=== PATIENT | female | born 1965 | race African-American/Black ===

== ENCOUNTER 2016-06-30 17:53 | Emergency (ER) | payer MEDICARE, OTHER ==
[~2016-06-30] VITALS: Ht 152.4 cm; Wt 183.7 kg
[~2016-06-30 17:53] MED LIST: ALPR1TAB6 PO; ATOR20TA58 PO; CHOL500050 PO; CIPR500T94 PO; CLON1PAT2 TD; DICL50TA4 PO; DULO30CA2 PO; ESTR0.62 PO; FERR325T31 PO; FLUT1DIS3 IH; HYDR-2679 PO; HYDR100T24 PO; HYDR1POW19 PO; LEVO25TA4 PO; LIDO700A4 TP; LISI40TA PO; METO25TA4 PO; OXYC20TA34 PO; OXYC5CAP3 PO; PANT40TA3 PO; POTA10TA31 PO; PREG300C PO; QUET300T5 PO; SUCR1TAB29 PO; TIOT18CA IH; ZOLP10TA PO
[2016-06-30] MEDS ORDERED: ONDANSETRON ODT 4 MG TAB.RAPDIS PO ONE (19:00)
[2016-06-30] MEDS ORDERED: HYDROMORPHONE 2 MG/ML VIAL. IM ONE (19:00)
--- NOTE | 2016-06-30 19:00 | PHYS DOC ---
Past Medical History Past Medical History: Arthritis, Asthma, CHF, COPD, Diabetes-Type II, High Cholesterol Additional Past Medical Histor: MORBID OBESTITY Past Surgical History: Other Additional Past Surgical Histo: CARPEL TUNNEL Alcohol Use: None Drug Use: None Adult General Chief Complaint Chief Complaint: MECHANICAL FALL HPI HPI Patient is a 50 year old morbidly obese female who presents to the ER today secondary to a fall Holsinger chair. Patient reports her knees hit the table. Patient denies any head trauma or loss of consciousness. Patient denies any nausea vomiting diarrhea chest pain terns of breath cough cold or rhinorrhea. Patient reports that she was able ambulatory after the fall however she does use a walker. Patient denies any head trauma or C-spine pain. Patient denies any abdominal pain. Patient purchase pain in both knees, hips, shoulders, and lower back. Patient denies any loss of bowel or bladder function. Patient denies any paresthesias or lower 70s. Patient has any weakness to her upper or lower semis. Patient's physical exam is consistent with tenderness to palpation to both knees , bilateral hips, shoulders, and paraspinal discomfort in her lower back. She was ambulatory with minimal assistance. Patient is able to weight-bear and toe walk. A/P this is a 50-year-old morbidly obese female who fell down who does not appear to have any acute pathological fractures on exam by her history, physical exam, or mechanism of injury. I discussed with the patient option of treating her discomfort and discharging her home without x-rays. I do not think x-rays are warranted in this case as I do not believe there are any acute fractures and I think that the risk and benefit would not warranted at this time. Patient is in complete agreement with this. Patient reports that she is on oxycodone and OxyContin for chronic pain at home and does not need a prescription. I discussed the patient giving her a shot of Dilaudid as well as Zofran and we will be able discharged home. Patient is very agreeable to this plan. Review of Systems Review of Systems Constitutional: Denies fever or chills [] Eyes: Denies change in visual acuity, redness, or eye pain [] All other review of systems are negative except as documented in the history of present illness portion Allergies Allergies Allergies Coded Allergies Type Severity Reaction Last Updated Verified aspirin Allergy Intermediate Swelling 11/24/15 Yes Physical Exam Physical Exam Constitutional: Morbidly obese no acute distress, non-toxic appearance. [] HENT: Normocephalic, atraumatic, bilateral external ears normal, oropharynx moist, no oral exudates, nose normal. [] Eyes: PERRLA, EOMI, conjunctiva normal, no discharge. [] Neck: Normal range of motion, no tenderness, supple, no stridor. [] Cardiovascular:Heart rate regular rhythm, Lungs & Thorax: Bilateral breath sounds clear to auscultation [] Abdomen: Bowel sounds normal, soft, no tenderness, no masses, no pulsatile masses. [] Skin: Warm, dry, no erythema, no rash. [] Back: No tenderness, no CVA tenderness. [] Extremities: See above Neurologic: Alert and oriented X 3, normal motor function, normal sensory function, no focal deficits noted. [] Psychologic: Affect normal, judgement normal, mood normal. [] Current Patient Data Vital Signs Vital Signs Date Time Temp Pulse Resp B/P Pulse Ox O2 Delivery O2 Flow Rate FiO2 06/30/16 18:14 98.5 89 24 92 Nasal Cannula 3 98.5 EKG EKG [] Radiology/Procedures Radiology/Procedures [] Course & Med Decision Making Course & Med Decision Making Pertinent Labs and Imaging studies reviewed. (See chart for details) [] Dragon Disclaimer Dragon Disclaimer This electronic medical record was generated, in whole or in part, using a voice recognition dictation system. A/P please see above for full assessment and plan. Patient likely has contusions and muscle aches secondary to her fall without a significant mechanism that would be concerning for acute fracture. Patient is in the toilet with minimal assistance and is able to weight-bear. Departure Departure Impression: Primary Impression: Contusion of left hip Additional Impressions: Exacerbation of chronic back pain Morbid obesity Fall Shoulder pain, acute Hip pain, acute Knee pain, acute Low back pain Disposition: 01 HOME, SELF-CARE Condition: IMPROVED Referrals: SHANAE AG MD (PCP) Patient Instructions: Contusion, Fall Prevention and Home Safety Problem Qualifiers GREG RIZZO MD Jun 30, 2016 19:00
[2016-06-30 19:35] VITALS: BP 168/82
== END 2016-06-30 19:46 | disposition home or self-care (01) ==
LOC: ER 17:53
DX: S70.02XA Contusion of left hip, initial encounter (principal); M25.562 Pain in left knee; M25.561 Pain in right knee; M54.5 Low back pain; M19.90 Unspecified osteoarthritis, unspecified site; E66.01 Morbid (severe) obesity due to excess calories; E11.9 Type 2 diabetes mellitus without complications; G89.29 Other chronic pain; E78.00 Pure hypercholesterolemia, unspecified; J44.9 Chronic obstructive pulmonary disease, unspecified; J45.909 Unspecified asthma, uncomplicated; I50.9 Heart failure, unspecified; E66.9 Obesity, unspecified; Z68.45 Body mass index [BMI] 70 or greater, adult; Z88.6 Allergy status to analgesic agent; M25.519 Pain in unspecified shoulder; W07.XXXA Fall from chair, initial encounter; Y93.89 Activity, other specified; Y92.89 Other specified places as the place of occurrence of the external cause; Y99.8 Other external cause status
CPT/HCPCS: 96372; 99283; J1170; Q0162

== ENCOUNTER 2016-09-19 23:25 | Emergency (ER) | payer MEDICARE, OTHER ==
[~2016-09-19] VITALS: Ht 152.4 cm; Wt 163.3 kg
[2016-09-20] MEDS ORDERED: KETOROLAC 15 MG/ML VIAL. IM ONE (00:30)
[2016-09-20] MEDS ORDERED: HYDROMORPHONE 2 MG/ML VIAL. IM ONE (00:30)
[2016-09-20] MEDS ORDERED: ONDANSETRON ODT 4 MG TAB.RAPDIS. PO ONE (00:30)
--- NOTE | 2016-09-20 00:34 | PHYS DOC ---
Past Medical History Past Medical History: Arthritis, Asthma, CHF, COPD, Diabetes-Type II, High Cholesterol Additional Past Medical Histor: MORBID OBESTITY Past Surgical History: Hysterectomy, Other Additional Past Surgical Histo: CARPEL TUNNEL, colonoscopy Alcohol Use: None Drug Use: None Adult General Chief Complaint Chief Complaint: CHEST PAIN HPI HPI Patient is a 50 year old female who presents here today complaining of knee pain, shoulder pain, back pain, cough, chest pain when coughing. Patient reports that she has chronic pain and her OxyContin and her oxycodone has not helped her. Patient reports that she see the pain management doctor, Dr. sommers who she saw one week ago. She spoke to her doctor earlier today and they told her to take 1 OxyContin 103 25 and 1 oxycodone 20 mg. Patient reports she took those medicines without any significant relief. Patient reports that she is trying to lose weight so that she get a gastric bypass however she been having a very tight hard time doing that. Patient reports pain to her knees and hips when she ambulates. Patient has any trauma. Patient denies any cardiac type chest pain. Patient has any nausea or radiating pain diaphoresis with the discomfort. Patient reports that the pain that she had her chest only occurred when she coughed. Patient with history of hypertension diabetes COPD status post cholecystectomy and hysterectomy. Patient is not on any blood thinners. Patient does not smoke drink or do drugs. Patient is morbidly obese. Patient's physical exam was significant for tenderness to palpation to her midsternal region. Patient's tenderness palpation and with range of motion to her hips knees and shoulder. Patient's ER course was significant for normal EKG. Patient has some mild tachycardia which I presume is secondary to her pain and discomfort. Patient does not present with any other concerns symptoms for pulmonary ambles him. Patient's heart rate has dropped down to the mid to low 90s after the pain medicines were given her in the ER. Patient was given a shot of Toradol, and Dilaudid to help assist her with the pain. Patient be discharged home with instructions to follow-up with her primary care physician in the morning for further evaluation of her chronic pain symptoms. Review of Systems Review of Systems Constitutional: Denies fever or chills [] Eyes: Denies change in visual acuity, redness, or eye pain [] All other review systems are negative except as documented in the history of present illness portion. Current Medications Current Medications Current Medications Medications (Trade) Dose Ordered Sig/Rima Start Time Stop Time Status Last Admin Dose Admin Hydromorphone HCl (Dilaudid) 2 mg 1X ONCE 09/20/16 00:30 09/20/16 00:31 Ketorolac Tromethamine (Toradol) 15 mg 1X ONCE 09/20/16 00:30 09/20/16 00:31 Ondansetron HCl (Zofran Odt) 4 mg 1X ONCE 09/20/16 00:30 09/20/16 00:31 Allergies Allergies Allergies Coded Allergies Type Severity Reaction Last Updated Verified aspirin Allergy Intermediate Swelling 05/02/15 Yes Physical Exam Physical Exam Constitutional: Morbidly obese, no acute distress, non-toxic appearance. [] HENT: Normocephalic, atraumatic, bilateral external ears normal, oropharynx moist, Eyes: PERRLA, EOMI, conjunctiva normal, no discharge. [] Neck: Normal range of motion, no tenderness, supple, no stridor. [] Cardiovascular:Heart rate regular rhythm, Lungs & Thorax: Bilateral breath sounds clear to auscultation [] Abdomen: Bowel sounds normal, soft, no tenderness, no masses, no pulsatile masses. [] Skin: Warm, dry, no erythema, no rash. [] Back: No tenderness, no CVA tenderness. [] Extremities: See above Neurologic: Alert and oriented X 3, normal motor function, normal sensory function, no focal deficits noted. [] Psychologic: Affect normal, judgement normal, mood normal. [] Current Patient Data Vital Signs Vital Signs Date Time Temp Pulse Resp B/P Pulse Ox O2 Delivery O2 Flow Rate FiO2 09/19/16 23:31 98.1 103 22 140/103 96 Room Air 98.1 EKG EKG [] Radiology/Procedures Radiology/Procedures [] Course & Med Decision Making Course & Med Decision Making Pertinent Labs and Imaging studies reviewed. (See chart for details) [] Dragon Disclaimer Dragon Disclaimer This electronic medical record was generated, in whole or in part, using a voice recognition dictation system. Departure Departure Impression: Primary Impression: Hip pain, acute Additional Impressions: Morbid obesity Low back pain Knee pain, acute Exacerbation of chronic back pain Disposition: HOME, SELF-CARE Condition: IMPROVED Referrals: NO PCP (PCP) Patient Instructions: Arthritis, Nonspecific, Chronic Pain Management, Obesity Additional Instructions: Please make an appointment to see her doctor in the morning for further evaluation and management of her chronic pain symptoms. Problem Qualifiers GREG RIZZO MD Sep 20, 2016 00:34
[2016-09-20 01:09] VITALS: BP 126/86
--- NOTE | 2016-09-20 06:54 | EKG ---
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
--- NOTE | 2016-09-20 07:28 | RAD ---
Portable chest, 09/20/2016: History: Cough Comparison is made to a study from 01/04/2016. The heart size and pulmonary vascularity are normal. No pulmonary infiltrate is seen. There is no evidence of pleural fluid. Moderate degenerative changes are present at the shoulders, more so on the right. IMPRESSION: No acute cardiopulmonary abnormality is detected.
== END 2016-09-20 01:00 | disposition home or self-care (01) ==
LOC: ER 23:25
DX: M25.552 Pain in left hip (principal); M25.551 Pain in right hip; E66.01 Morbid (severe) obesity due to excess calories; G89.29 Other chronic pain; M54.5 Low back pain; M25.561 Pain in right knee; M25.562 Pain in left knee; R05 Cough; R07.9 Chest pain, unspecified; R00.0 Tachycardia, unspecified; M19.90 Unspecified osteoarthritis, unspecified site; J45.909 Unspecified asthma, uncomplicated; I11.0 Hypertensive heart disease with heart failure; I50.9 Heart failure, unspecified; J44.9 Chronic obstructive pulmonary disease, unspecified; E11.9 Type 2 diabetes mellitus without complications; E78.00 Pure hypercholesterolemia, unspecified; Z90.710 Acquired absence of both cervix and uterus; Z88.6 Allergy status to analgesic agent; Z68.45 Body mass index [BMI] 70 or greater, adult; Z90.49 Acquired absence of other specified parts of digestive tract
CPT/HCPCS: 71010; 93005; 96372; 99284; J1170; J1885; Q0162

== ENCOUNTER 2017-01-31 12:42 | Emergency (ER) | payer MEDICARE, OTHER ==
[~2017-01-31] VITALS: Ht 152.4 cm; Wt 167.8 kg
[~2017-01-31 12:42] MED LIST changes: +FERR-36 PO; -FERR325T31 PO; +OXYC5CAP PO; -OXYC5CAP3 PO; -SUCR1TAB29 PO; +SUCR1TAB35 PO
--- NOTE | 2017-01-31 14:59 | PHYS DOC ---
Past Medical History Past Medical History: Arthritis, Asthma, CHF, COPD, Diabetes-Type II, High Cholesterol Additional Past Medical Histor: MORBID OBESTITY Past Surgical History: Hysterectomy, Other Additional Past Surgical Histo: CARPEL TUNNEL, colonoscopy Alcohol Use: None Drug Use: None Adult General Chief Complaint Chief Complaint: ITCHING HPI HPI Patient is a 51 year old female who presents with 2 days of moderate itching with no known cause but no reported specific rash also perioral paresthesias denies any chest pain shortness of breath nausea vomiting fever. Denies any liver or kidney disease. Review of Systems Review of Systems Constitutional: Denies fever or chills [] Eyes: Denies change in visual acuity, redness, or eye pain [] HENT: Denies nasal congestion or sore throat [] Respiratory: Denies cough or shortness of breath [] Cardiovascular: No additional information not addressed in HPI [] GI: Denies abdominal pain, nausea, vomiting, bloody stools or diarrhea [] : Denies dysuria or hematuria [] Musculoskeletal: Denies back pain or joint pain [] Integument: Denies rash or skin lesions [] Neurologic: Denies headache, focal weakness or sensory changes [] Endocrine: Denies polyuria or polydipsia [] Current Medications Current Medications Current Medications Medications (Trade) Dose Ordered Sig/Rima Start Time Stop Time Status Last Admin Dose Admin Diphenhydramine HCl (Benadryl) 25 mg 1X ONCE 01/31/17 15:15 01/31/17 15:16 DC 01/31/17 15:16 25 MG Oxycodone/ Acetaminophen (Percocet 5/325) 1 tab 1X ONCE 01/31/17 15:45 01/31/17 15:46 DC 01/31/17 15:37 1 TAB Prednisone (Prednisone) 50 mg 1X ONCE 01/31/17 15:15 01/31/17 15:16 DC 01/31/17 15:16 50 MG Allergies Allergies Allergies Coded Allergies Type Severity Reaction Last Updated Verified aspirin Allergy Intermediate Swelling 05/02/15 Yes Physical Exam Physical Exam Constitutional: Well developed, well nourished, no acute distress, non-toxic appearance. Severe morbid obesity. HENT: Normocephalic, atraumatic, bilateral external ears normal, oropharynx moist, no oral exudates, nose normal. [] Eyes: PERRLA, EOMI, conjunctiva normal, no discharge. [] Neck: Normal range of motion, no tenderness, supple, no stridor. [] Cardiovascular:Heart rate regular rhythm, no murmur [] Lungs & Thorax: Bilateral breath sounds clear to auscultation [] Abdomen: Bowel sounds normal, soft, no tenderness, no masses, no pulsatile masses. [] Skin: Warm, dry, no erythema, no rash. [] Back: No tenderness, no CVA tenderness. [] Extremities: No tenderness, no cyanosis, no clubbing, ROM intact, no edema. [] Neurologic: Alert and oriented X 3, normal motor function, normal sensory function, no focal deficits noted. [] Psychologic: Affect normal, judgement normal, mood normal. [] Current Patient Data Vital Signs Vital Signs Date Time Temp Pulse Resp B/P (MAP) Pulse Ox O2 Delivery O2 Flow Rate FiO2 01/31/17 16:27 78 16 176/101 (126) 95 Nasal Cannula 3.0 01/31/17 14:07 98.7 98.7 Lab Values Laboratory Tests Test 01/31/17 14:32 01/31/17 15:12 Sodium Level 143 mmol/L (136-145) Potassium Level 3.4 mmol/L (3.5-5.1) L Chloride Level 104 mmol/L (98-107) Carbon Dioxide Level 32 mmol/L (21-32) Anion Gap 7 (6-14) 11 mmol/L (6-14) Blood Urea Nitrogen 12 mg/dL (7-20) Creatinine 0.7 mg/dL (0.6-1.0) Estimated GFR (Cockcroft-Gault) 106.3 Glucose Level 81 mg/dL (70-99) 79 mg/dL (70-99) Calcium Level 9.1 mg/dL (8.5-10.1) POC Hemoglobin 11.9 g/dL (12-15) L POC Hematocrit 35 % (36-40) L POC Sodium 141 mmol/L (135-145) POC Potassium 3.5 mmol/L (3.5-5.0) POC Chloride 99 mmol/L (98-110) POC Total CO2 36 mmol/L (23-32) H POC Blood Urea Nitrogen 12 mg/dL (8-26) POC Creatinine 0.7 mg/dL (0.5-1.4) POC Ionized Calcium (Dany) 1.15 mmol/L (1.13-1.32) Laboratory Tests 01/31/17 14:32 01/31/17 15:12 EKG EKG EKG normal sinus rhythm rate of 79 no STEMI QTC 469 my interpretation [] Radiology/Procedures Radiology/Procedures [] Course & Med Decision Making Course & Med Decision Making Pertinent Labs and Imaging studies reviewed. (See chart for details) I-STAT obtained to rule out electrolyte abnormalities assess kidney function and glucose. Patient was given IV Benadryl and oral prednisone. Reexam at 1600 p.m. patient feels improved and is agreeable to going home. Dragon Disclaimer Dragon Disclaimer This electronic medical record was generated, in whole or in part, using a voice recognition dictation system. Departure Departure Impression: Primary Impression: Pruritus Disposition: 01 HOME, SELF-CARE Condition: IMPROVED Referrals: UNKNOWN PCP NAME (PCP) Patient Instructions: Pruritus Scripts Prednisone (PREDNISONE) 50 Mg Tablet 1 TAB PO DAILY for 4 Days, #4 TAB start this tomorrow Prov: MERARY GRANT MD 01/31/17 MERARY GRANT MD Jan 31, 2017 14:59
--- NOTE | 2017-01-31 15:05 | EKG ---
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
[2017-01-31 15:15] LABS: POTASSIUM ISTAT 3.5 mmol/L (3.5-5.0)
[2017-01-31] MEDS ORDERED: predniSONE 10 MG TABLET PO ONE (15:15)
[2017-01-31] MEDS ORDERED: diphenhydrAMINE 50 MG/ML VIAL IVP ONE (15:15)
[2017-01-31] MEDS ORDERED: oxyCODONE/APAP 5/325 1 TAB TABLET PO ONE (15:45)
[2017-01-31] MEDS ORDERED: PRED50TA PO (16:01)
[2017-01-31 16:17] LABS: CALCIUM 9.1 mg/dL (8.5-10.1); CREATININE 0.7 mg/dL (0.6-1.0); GFR 106.3; POTASSIUM 3.4 mmol/L (3.5-5.1)
[2017-01-31 16:27] VITALS: BP 176/101
== END 2017-01-31 16:42 | disposition home or self-care (01) ==
LOC: ER 12:42
DX: L29.9 Pruritus, unspecified (principal); J44.9 Chronic obstructive pulmonary disease, unspecified; E11.9 Type 2 diabetes mellitus without complications; I50.9 Heart failure, unspecified; E78.00 Pure hypercholesterolemia, unspecified; M19.90 Unspecified osteoarthritis, unspecified site; E66.01 Morbid (severe) obesity due to excess calories; Z68.45 Body mass index [BMI] 70 or greater, adult; Z88.6 Allergy status to analgesic agent
CPT/HCPCS: 36415; 80047; 80048; 93005; 96374; 99284; J1200; J7512

== ENCOUNTER 2017-05-11 21:19 | Emergency (ER) | payer OTHER ==
[~2017-05-11 21:19] MED LIST changes: +PRED50TA PO
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
[2017-05-11] MEDS ORDERED: traMADol 50 MG TABLET PO ONE (22:45)
--- NOTE | 2017-05-11 23:24 | RAD ---
INDICATION: BILAT LEG PAIN SWELLING COMPARISON: None. TECHNIQUE: Grayscale, color and doppler ultrasound images were obtained of the bilateral lower extremity venous vasculature. RIGHT: No thrombus identified in the common femoral vein, femoral vein, popliteal vein or visualized calf veins. LEFT: No thrombus identified in the common femoral vein, femoral vein, popliteal vein or visualized calf veins. IMPRESSION: 1. No thrombus identified in deep venous system of bilateral lower extremities. Electronically signed by: Avila Rosen MD (05/11/2017 11:21 PM) [facility]
[2017-05-11 23:34] VITALS: BP 191/89
--- NOTE | 2017-05-12 06:28 | EKG ---
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
== END 2017-05-11 23:36 | disposition home or self-care (01) ==
LOC: ER 21:19
DX: G89.4 Chronic pain syndrome (principal); M79.662 Pain in left lower leg; M79.661 Pain in right lower leg; M25.512 Pain in left shoulder; M25.511 Pain in right shoulder; E10.40 Type 1 diabetes mellitus with diabetic neuropathy, unspecified; I10 Essential (primary) hypertension; J44.9 Chronic obstructive pulmonary disease, unspecified; Z88.6 Allergy status to analgesic agent
CPT/HCPCS: 93005; 93970; 99284-25

== ENCOUNTER 2017-06-11 10:20 | Day surgery (SDC) | payer OTHER, MEDICARE ==
[~2017-06-11 10:20] MED LIST changes: -ALPR1TAB6 PO; -ATOR20TA58 PO; +BUPIVACAINE MPF 0.25% 30 ML VIAL.; -CHOL500050 PO; -CIPR500T94 PO; -CLON1PAT2 TD; -DICL50TA4 PO; -DULO30CA2 PO; -ESTR0.62 PO; -FERR-36 PO; -FLUT1DIS3 IH; -HYDR-2679 PO; -HYDR100T24 PO; -HYDR1POW19 PO; +HYDROmorphone 2 MG/ML VIAL IV; -LEVO25TA4 PO; -LIDO700A4 TP; +LIDOCAINE 1% PF 2 ML VIAL. ID; -LISI40TA PO; -METO25TA4 PO; +MORPHINE SULFATE 2 MG/ML DISP.SYRIN. IV; +ONDANSETRON PF 4 MG/2 ML VIAL. IV; -OXYC20TA34 PO; -OXYC5CAP PO; -PANT40TA3 PO; -POTA10TA31 PO; -PRED50TA PO; -PREG300C PO; +PROCHLORPERAZINE 10 MG/2 ML VIAL. IV; -QUET300T5 PO; -SUCR1TAB35 PO; -TIOT18CA IH; -ZOLP10TA PO; +fentaNYL PF VIAL 100 MCG/2 ML VIAL IV
[2017-06-11] MEDS: IV RINGERS,LACTATED 1000ML 1,000 ML IV (11:49)
[2017-06-11] MEDS ORDERED: LIDOCAINE 2% PF Vial for OR 5 ML VIAL. (11:53)
[2017-06-11] MEDS ORDERED: PROPOFOL 20 ML IV (11:53)
[2017-06-11] MEDS: BUPIVAC MPF-EPI 0.75%-1:200000 30 ML VIAL. (13:39)
[2017-06-11] MEDS ORDERED: fentaNYL PF VIAL 100 MCG/2 ML VIAL ×2 (13:50→14:07)
[2017-06-11 14:00] LABS: POC GLUCOSE 81 mg/dL (70-99)
[2017-06-11] MEDS: fentaNYL PF VIAL 100 MCG/2 ML VIAL IV ×2 (14:14→14:23)
[2017-06-11] MEDS: HYDROcodone/APAP 7.5/325MG 1 TAB TABLET PO (14:42)
== END 2017-06-11 15:44 | disposition home or self-care (01) ==
LOC: SURG 10:20
DX: G56.02 Carpal tunnel syndrome, left upper limb (principal); E66.9 Obesity, unspecified; Z68.45 Body mass index [BMI] 70 or greater, adult; E11.42 Type 2 diabetes mellitus with diabetic polyneuropathy; E78.00 Pure hypercholesterolemia, unspecified; J44.9 Chronic obstructive pulmonary disease, unspecified; E03.9 Hypothyroidism, unspecified; F41.9 Anxiety disorder, unspecified; Z86.718 Personal history of other venous thrombosis and embolism; Z79.82 Long term (current) use of aspirin; Z98.890 Other specified postprocedural states; Z86.69 Personal history of other diseases of the nervous system and sense organs; Z90.710 Acquired absence of both cervix and uterus; Z90.49 Acquired absence of other specified parts of digestive tract; Z87.39 Personal history of other diseases of the musculoskeletal system and connective tissue; Z72.89 Other problems related to lifestyle
CPT/HCPCS: 64721; 82962; J2704; J3010; J3490

== ENCOUNTER 2017-06-17 22:23 | Emergency (ER) | payer OTHER ==
[2017-06-17] MEDS: IPRATRPIUM/ALBUTEROL 0.5/2.5MG 3 ML NEBU. NEB (22:54)
[2017-06-17 23:44] LABS: ADD MAN DIFF? NO
[2017-06-17 23:46] LABS: BASO # 0.1 x10^3/uL (0.0-0.2); BASO % 1 % (0-3); EOS # 0.1 x10^3/uL (0.0-0.7); EOS % 1 % (0-3); HEMATOCRIT 37.6 % (36.0-47.0); HEMOGLOBIN 11.8 g/dL (12.0-15.5); LYMPH # 2.7 x10^3/uL (1.0-4.8); LYMPH % 23 % (24-48); MEAN CORPUSCULAR HEMOGLOBIN 25 pg (25-35); MEAN CORPUSCULAR HGB CONC 31 g/dL (31-37); MEAN CORPUSCULAR VOLUME 81 fL (79-100); MONO # 0.6 x10^3/uL (0.0-1.1); MONO % 5 % (0-9); NEUT # 8.2 x10^3uL (1.8-7.7); NEUT % 70 % (31-73); PLATELET COUNT 390 x10^3/uL (140-400); RED BLOOD COUNT 4.66 x10^6/uL (3.50-5.40); WHITE BLOOD COUNT 11.7 x10^3/uL (4.0-11.0)
[2017-06-17 23:56] LABS: PARTIAL THROMBOPLASTIN TIME 27 SEC (24-38)
[2017-06-18] LABS: ANION GAP 10 (6-14); BLOOD UREA NITROGEN 16 mg/dL (7-20); BUN/CREATININE RATIO 20 (6-20); CALCIUM 9.4 mg/dL (8.5-10.1); CARBON DIOXIDE 31 mmol/L (21-32); CHLORIDE 103 mmol/L (98-107); CREATININE 0.8 mg/dL (0.6-1.0); GFR 91.1; GLUCOSE 101 mg/dL (70-99); POTASSIUM 3.8 mmol/L (3.5-5.1); SODIUM 144 mmol/L (136-145)
[2017-06-18 00:06] LABS: ALBUMIN 3.8 g/dL (3.4-5.0); ALBUMIN/GLOBULIN RATIO 0.9 (1.0-1.7); ALK PHOS 100 U/L (46-116); ALT (SGPT) 33 U/L (14-59); AST (SGOT) 19 U/L (15-37); MAGNESIUM 2.2 mg/dL (1.8-2.4); TOTAL BILIRUBIN 0.4 mg/dL (0.2-1.0); TOTAL PROTEIN 8.1 g/dL (6.4-8.2)
[2017-06-18 00:08] LABS: TROPONINI < 0.017 ng/mL (0.000-0.055)
[2017-06-18 00:12] LABS: NT-PRO BNP 80 pg/mL (0-124)
[2017-06-18] MEDS ORDERED: methylPREDNISolone SOD SUCC PF 125 MG/2 ML VIAL. IV (00:30)
== END 2017-06-18 00:51 | disposition home or self-care (01) ==
LOC: ER 06-18 00:51
DX: J44.1 Chronic obstructive pulmonary disease with (acute) exacerbation (principal); E10.9 Type 1 diabetes mellitus without complications; I10 Essential (primary) hypertension; E66.01 Morbid (severe) obesity due to excess calories; Z68.45 Body mass index [BMI] 70 or greater, adult
CPT/HCPCS: 36415; 71045; 80053; 83735; 83880; 84484; 85025; 85610; 85730; 93005; 94640; 99285-25; J7620

== ENCOUNTER 2017-09-19 12:13 | Emergency (ER) | payer OTHER ==
[2017-09-19] MEDS: IPRATRPIUM/ALBUTEROL 0.5/2.5MG 3 ML NEBU. NEB (12:28)
[2017-09-19 12:58] LABS: ADD MAN DIFF? NO
[2017-09-19 13:10] LABS: ANION GAP 4 (6-14); BLOOD UREA NITROGEN 20 mg/dL (7-20); CALCIUM 9.2 mg/dL (8.5-10.1); CARBON DIOXIDE 34 mmol/L (21-32); CHLORIDE 100 mmol/L (98-107); CREATININE 0.9 mg/dL (0.6-1.0); GFR 79.6; GLUCOSE 100 mg/dL (70-99); POTASSIUM 4.1 mmol/L (3.5-5.1); SODIUM 138 mmol/L (136-145)
[2017-09-19 13:12] LABS: BASO # 0.1 x10^3/uL (0.0-0.2); BASO % 1 % (0-3); EOS # 0.2 x10^3/uL (0.0-0.7); EOS % 3 % (0-3); HEMATOCRIT 33.5 % (36.0-47.0); HEMOGLOBIN 10.6 g/dL (12.0-15.5); LYMPH # 1.8 x10^3/uL (1.0-4.8); LYMPH % 23 % (24-48); MEAN CORPUSCULAR HEMOGLOBIN 26 pg (25-35); MEAN CORPUSCULAR HGB CONC 32 g/dL (31-37); MEAN CORPUSCULAR VOLUME 82 fL (79-100); MONO # 0.5 x10^3/uL (0.0-1.1); MONO % 6 % (0-9); NEUT # 5.1 x10^3uL (1.8-7.7); NEUT % 66 % (31-73); PLATELET COUNT 249 x10^3/uL (140-400); RED CELL DISTRIBUTION WIDTH 17.5 % (11.5-14.5); WHITE BLOOD COUNT 7.7 x10^3/uL (4.0-11.0)
[2017-09-19 13:13] LABS: INR 0.9 (0.8-1.1); PROTHROMBIN TIME PATIENT 12.1 SEC (11.7-14.0)
[2017-09-19 13:17] LABS: ALBUMIN 3.4 g/dL (3.4-5.0); ALK PHOS 84 U/L (46-116); ALT (SGPT) 36 U/L (14-59); AST (SGOT) 17 U/L (15-37); DIRECT BILIRUBIN 0.1 mg/dL (0.0-0.2); LIPASE 81 U/L (73-393); TOTAL BILIRUBIN 0.3 mg/dL (0.2-1.0); TOTAL PROTEIN 6.8 g/dL (6.4-8.2)
[2017-09-19 13:18] LABS: TROPONINI < 0.017 ng/mL (0.000-0.055)
[2017-09-19 13:23] LABS: THYROID STIM HORMONE (TSH) 4.759 uIU/mL (0.358-3.74)
[2017-09-19 13:26] LABS: NT-PRO BNP 31 pg/mL (0-124)
[2017-09-19 13:26] LABS: CKMB INDEX 1.3 % (0-4); CKMB MASS 1.5 ng/mL (0.0-3.6); CREATINE KINASE 120 U/L (26-192)
== END 2017-09-19 14:15 | disposition left against medical advice (07) ==
LOC: ER 12:13
DX: R06.2 Wheezing (principal); R05 Cough; E10.9 Type 1 diabetes mellitus without complications; J44.9 Chronic obstructive pulmonary disease, unspecified; I10 Essential (primary) hypertension
CPT/HCPCS: 36415; 71045; 80048; 80076; 82553; 83690; 83735; 83880; 84443; 84484; 85025; 85610; 93005; 94640; 99285-25; J7620

== ENCOUNTER 2018-02-02 15:14 | Emergency (ER) | payer OTHER ==
[~2018-02-02] VITALS: Ht 154.9 cm; Wt 181.4 kg
[~2018-02-02 15:14] MED LIST changes: +ALPR1TAB2 PO; +ALPR1TAB6 PO; +AMLO10TA2 PO; +ATOR20TA58 PO; +AZIT250T PO; -BUPIVACAINE MPF 0.25% 30 ML VIAL.; +CHOL500050 PO; +CIPR500T94 PO; +CLON1PAT2 TD; +DICL50TA4 PO; +DULO30CA2 PO; +ESTR0.62 PO; +FERR-36 PO; +FLUT1DIS3 IH; +GUAI5SYR PO; +HYDR-2679 PO; +HYDR-2762 PO; +HYDR100T24 PO; +HYDR1POW19 PO; -HYDROmorphone 2 MG/ML VIAL IV; +IPRA3AMP29 NEB; +LEVO25TA4 PO; +LIDO700A4 TP; -LIDOCAINE 1% PF 2 ML VIAL. ID; +LISI-130 PO; +LORA10TA3 PO; +METO25TA4 PO; -MORPHINE SULFATE 2 MG/ML DISP.SYRIN. IV; +NYST60PO TP; +OMEP40CA5 PO; -ONDANSETRON PF 4 MG/2 ML VIAL. IV; +OXYC-328 PO; +OXYC-411 PO; +OXYC20TA34 PO; +OXYC5CAP PO; +PANT40TA3 PO; +POTA10TA31 PO; +PRED20TA PO; +PRED50TA PO; +PREG300C PO; +PREG50CA PO; +PROAIR HFA8.5 GM INH; -PROCHLORPERAZINE 10 MG/2 ML VIAL. IV; +Pantoprazole PO; +QUET100T4 PO; +QUET300T5 PO; +SPIR25TA5 PO; +SUCR1TAB35 PO; +TIOT18CA IH; +ZOLP10TA PO; +ZOLP10TA4 PO; -fentaNYL PF VIAL 100 MCG/2 ML VIAL IV; +lovenox
--- NOTE | 2018-02-02 15:46 | PHYS DOC ---
Past Medical History Past Medical History: Asthma, COPD, Diabetes-Type I, Hypertension Additional Past Medical Histor: MORBID OBESTITY, home 02 Past Surgical History: Other Additional Past Surgical Histo: CARPEL TUNNEL, colonoscopy Alcohol Use: None Drug Use: None Adult General Chief Complaint Chief Complaint: ASTHMA HPI HPI Patient is a 52 year old female with a history of asthma presents to the ED complaining of cough and shortness of breath 2 days ago. Patient states same symptoms in the past with asthma exacerbations. States the cough is dry. Patient states she has not used her inhaler at home today. Denies abdominal pain , nausea/vomiting, fever, rash, weakness, diarrhea, recent travel or headache. Review of Systems Review of Systems Constitutional: Denies fever or chills [] Eyes: Denies change in visual acuity, redness, or eye pain [] HENT: Denies nasal congestion or sore throat [] Respiratory: Complains of cough and shortness of breath. Cardiovascular: No additional information not addressed in HPI [] GI: Denies abdominal pain, nausea, vomiting, bloody stools or diarrhea [] : Denies dysuria or hematuria [] Musculoskeletal: Denies back pain or joint pain [] Integument: Denies rash or skin lesions [] Neurologic: Denies headache, focal weakness or sensory changes [] All other systems were reviewed and found to be within normal limits, except as documented in this note. Current Medications Current Medications Current Medications Medications (Trade) Dose Ordered Sig/[facility] Start Time Stop Time Status Last Admin Dose Admin Albuterol/ Ipratropium (Duoneb) 3 ml 1X ONCE 02/02/18 17:15 02/02/18 17:16 DC 02/02/18 17:15 3 ML Ketorolac Tromethamine (Toradol 15mg Vial) 15 mg 1X ONCE 02/02/18 17:15 02/02/18 17:28 DC Oxycodone/ Acetaminophen (Percocet 5/325) 1 tab 1X ONCE 02/02/18 17:30 02/02/18 17:31 DC 02/02/18 18:28 1 TAB Potassium Chloride (Klor-Con) 40 meq 1X ONCE 02/02/18 17:00 02/02/18 17:01 DC 02/02/18 18:27 40 MEQ Prednisone (Prednisone) 40 mg 1X ONCE 02/02/18 18:00 02/02/18 18:01 DC 02/02/18 18:27 40 MG Allergies Allergies Allergies Coded Allergies Type Severity Reaction Last Updated Verified aspirin Allergy Intermediate Swelling 06/11/17 Yes Physical Exam Physical Exam Constitutional: Well developed, well nourished, no acute distress, non-toxic appearance. [] HENT: Normocephalic, atraumatic, bilateral external ears normal, oropharynx moist, no oral exudates, nose normal. [] Eyes: PERRLA, EOMI, conjunctiva normal, no discharge. [] Neck: Normal range of motion, no tenderness, supple, no stridor. [] Cardiovascular:Heart rate regular rhythm, no murmur [] Lungs & Thorax: Bilateral breath sounds. Mild wheezing bilaterally. Abdomen: Bowel sounds normal, soft, no tenderness, no masses, no pulsatile masses. [] Skin: Warm, dry, no erythema, no rash. [] Back: No tenderness, no CVA tenderness. [] Extremities: No tenderness, no cyanosis, no clubbing, ROM intact, no edema. [] Neurologic: Alert and oriented X 3, normal motor function, normal sensory function, no focal deficits noted. [] Psychologic: Affect normal, judgement normal, mood normal. [] Current Patient Data Vital Signs Vital Signs Date Time Temp Pulse Resp B/P (MAP) Pulse Ox O2 Delivery O2 Flow Rate FiO2 02/02/18 18:30 94 8 152/78 (102) 98 Room Air 02/02/18 15:25 98.4 98.4 Lab Values Laboratory Tests Test 02/02/18 15:50 02/02/18 16:00 Urine Collection Type Unknown Urine Color Yellow Urine Clarity Clear Urine pH 8.0 Urine Specific [place] 1.010 Urine Protein Negative mg/dL (NEG-TRACE) Urine Glucose (UA) Negative mg/dL (NEG) Urine Ketones (Stick) Negative mg/dL (NEG) Urine Blood Negative (NEG) Urine Nitrite Negative (NEG) Urine Bilirubin Negative (NEG) Urine Urobilinogen Dipstick 0.2 mg/dL (0.2 mg/dL) Urine Leukocyte Esterase Negative (NEG) Urine RBC Occ /HPF (0-2) Urine WBC Occ /HPF (0-4) Urine Squamous Epithelial Cells Mod /LPF Urine Bacteria Few /HPF (0-FEW) White Blood Count 8.3 x10^3/uL (4.0-11.0) Red Blood Count 4.38 x10^6/uL (3.50-5.40) Hemoglobin 11.3 g/dL (12.0-15.5) L Hematocrit 34.8 % (36.0-47.0) L Mean Corpuscular Volume 80 fL (79-100) Mean Corpuscular Hemoglobin 26 pg (25-35) Mean Corpuscular Hemoglobin Concent 32 g/dL (31-37) Red Cell Distribution Width 16.6 % (11.5-14.5) H Platelet Count 324 x10^3/uL (140-400) Neutrophils (%) (Auto) 59 % (31-73) Lymphocytes (%) (Auto) 32 % (24-48) Monocytes (%) (Auto) 6 % (0-9) Eosinophils (%) (Auto) 3 % (0-3) Basophils (%) (Auto) 1 % (0-3) Neutrophils # (Auto) 4.9 x10^3uL (1.8-7.7) Lymphocytes # (Auto) 2.6 x10^3/uL (1.0-4.8) Monocytes # (Auto) 0.5 x10^3/uL (0.0-1.1) Eosinophils # (Auto) 0.2 x10^3/uL (0.0-0.7) Basophils # (Auto) 0.1 x10^3/uL (0.0-0.2) Sodium Level 140 mmol/L (136-145) Potassium Level 3.3 mmol/L (3.5-5.1) L Chloride Level 104 mmol/L (98-107) Carbon Dioxide Level 29 mmol/L (21-32) Anion Gap 7 (6-14) Blood Urea Nitrogen 10 mg/dL (7-20) Creatinine 0.8 mg/dL (0.6-1.0) Estimated GFR (Cockcroft-Gault) 90.8 BUN/Creatinine Ratio 13 (6-20) Glucose Level 88 mg/dL (70-99) Calcium Level 9.8 mg/dL (8.5-10.1) Total Bilirubin 0.4 mg/dL (0.2-1.0) Aspartate Amino Transferase (AST) 17 U/L (15-37) Alanine Aminotransferase (ALT) 20 U/L (14-59) Alkaline Phosphatase 89 U/L (46-116) Troponin I Quantitative < 0.017 ng/mL (0.000-0.055) Total Protein 7.8 g/dL (6.4-8.2) Albumin 3.7 g/dL (3.4-5.0) Albumin/Globulin Ratio 0.9 (1.0-1.7) L Laboratory Tests 02/02/18 16:00 Laboratory Tests 02/02/18 16:00 EKG EKG EKG shows NSR at 95 BPM. No STEMI.[] Radiology/Procedures Radiology/Procedures PROCEDURE: CHEST AP ONLY EXAM: Chest, single view. HISTORY: Shortness of breath. Chest pain. COMPARISON: 10/29/2017 FINDINGS: A frontal view of the chest is obtained. There is no infiltrate, pleural effusion or pneumothorax. There is suspected left lower lobe atelectasis. There is a stable prominent cardiac silhouette. IMPRESSION: No acute pulmonary finding.[] Course & Med Decision Making Course & Med Decision Making Pertinent Labs and Imaging studies reviewed. (See chart for details) []Patient states she is feeling much better after breathing treatment. Discussed lab and imaging findings with patient. Patient is not tachypneic and oxygen saturation is 98% on room air. Patient has a breathing machine at home. Will discharge with short course of steroids for 3 days and the need for follow- up with her PCP to further manage her asthma outpatient. Patient is advised to perform regular Accu checks for her prediabetes. Discussed symptomatic treatment at home. Discussed the importance of follow-up and reasons to return to the ED. Patient understands and agrees with plan. Family at bedside. Dragon Disclaimer Dragon Disclaimer This electronic medical record was generated, in whole or in part, using a voice recognition dictation system. Departure Departure Impression: Primary Impression: Asthma exacerbation Disposition: 01 HOME, SELF-CARE Condition: IMPROVED Referrals: UNKNOWN PCP NAME (PCP) CALLUM MILLER MD Patient Instructions: Asthma, Acute Bronchospasm Scripts Albuterol Sulfate (PROAIR HFA INHALER) 8.5 Gm Hfa.aer.ad 1 PUFF INH PRN Q6HRS PRN for SHORTNESS OF BREATH, #1 INHALER 0 Refills Prov: SALLY NELSON 02/02/18 Prednisone (PREDNISONE) 20 Mg Tablet 2 TAB PO DAILY for 3 Days, #6 TAB Prov: SALLY NELSON 02/02/18 SALLY NELSON Feb 02, 2018 15:46
[2018-02-02 16:11] LABS: BASO # 0.1 x10^3/uL (0.0-0.2); BASO % 1 % (0-3); EOS # 0.2 x10^3/uL (0.0-0.7); EOS % 3 % (0-3); HEMATOCRIT 34.8 % (36.0-47.0); HEMOGLOBIN 11.3 g/dL (12.0-15.5); LYMPH # 2.6 x10^3/uL (1.0-4.8); LYMPH % 32 % (24-48); MEAN CORPUSCULAR HEMOGLOBIN 26 pg (25-35); MEAN CORPUSCULAR HGB CONC 32 g/dL (31-37); MEAN CORPUSCULAR VOLUME 80 fL (79-100); MONO # 0.5 x10^3/uL (0.0-1.1); MONO % 6 % (0-9); NEUT # 4.9 x10^3uL (1.8-7.7); NEUT % 59 % (31-73); PLATELET COUNT 324 x10^3/uL (140-400); RED BLOOD COUNT 4.38 x10^6/uL (3.50-5.40); RED CELL DISTRIBUTION WIDTH 16.6 % (11.5-14.5); WHITE BLOOD COUNT 8.3 x10^3/uL (4.0-11.0)
[2018-02-02 16:14] LABS: BILIRUBIN,URINE NEGATIVE (NEG); CLARITY,URINE CLEAR; COLOR,URINE YELLOW; NITRITE,URINE NEGATIVE (NEG); PROTEIN,URINE NEGATIVE (NEG-TRACE); UROBILINOGEN,URINE 0.2 mg/dL (0.2 mg/dL)
--- NOTE | 2018-02-02 16:20 | RAD ---
EXAM: Chest, single view. HISTORY: Shortness of breath. Chest pain. COMPARISON: 10/29/2017 FINDINGS: A frontal view of the chest is obtained. There is no infiltrate, pleural effusion or pneumothorax. There is suspected left lower lobe atelectasis. There is a stable prominent cardiac silhouette. IMPRESSION: No acute pulmonary finding. Electronically signed by: Patricia Krueger MD (02/02/2018 4:17 PM) [place] [id number]
[2018-02-02 16:25] LABS: CALCIUM 9.8 mg/dL (8.5-10.1); CREATININE 0.8 mg/dL (0.6-1.0); GFR 90.8; POTASSIUM 3.3 mmol/L (3.5-5.1)
[2018-02-02 16:30] LABS: ALBUMIN 3.7 g/dL (3.4-5.0); ALBUMIN/GLOBULIN RATIO 0.9 (1.0-1.7); TOTAL BILIRUBIN 0.4 mg/dL (0.2-1.0); TOTAL PROTEIN 7.8 g/dL (6.4-8.2)
--- NOTE | 2018-02-02 16:42 | EKG ---
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
[2018-02-02 16:49] LABS: BACTERIA,URINE FEW /HPF (0-FEW); RBC,URINE OCC /HPF (0-2); SQUAMOUS EPITHELIAL CELL,UR MOD /LPF; WBC,URINE OCC /HPF (0-4)
[2018-02-02] MEDS ORDERED: POTASSIUM CHLORIDE 20 MEQ TABLET.ER. PO ONE (17:00)
[2018-02-02] MEDS ORDERED: IPRATRPIUM/ALBUTEROL 0.5/2.5MG 3 ML NEBU. NEB ONE (17:15)
[2018-02-02] MEDS ORDERED: KETOROLAC 15 MG/ML VIAL. IV ONE (17:15)
[2018-02-02] MEDS ORDERED: oxyCODONE/APAP 5/325 1 TAB TABLET PO ONE (17:30)
[2018-02-02] MEDS ORDERED: PROAIR HFA8.5 GM INH (17:59)
[2018-02-02] MEDS ORDERED: PRED20TA PO (17:59)
[2018-02-02] MEDS ORDERED: predniSONE 20 MG TABLET PO ONE (18:00)
[2018-02-02 18:30] VITALS: BP 152/78
== END 2018-02-02 18:45 | disposition home or self-care (01) ==
LOC: ER 15:14
DX: J45.901 Unspecified asthma with (acute) exacerbation (principal); I10 Essential (primary) hypertension; E10.9 Type 1 diabetes mellitus without complications; E66.01 Morbid (severe) obesity due to excess calories; Z68.45 Body mass index [BMI] 70 or greater, adult
CPT/HCPCS: 36415; 71045; 80053; 81001; 84484; 85025; 93005; 94640; 99285; J7512; J7620

== ENCOUNTER 2018-02-16 18:48 | Emergency (ER) | payer OTHER ==
[~2018-02-16] VITALS: Ht 157.5 cm; Wt 176.9 kg
[~2018-02-16 18:48] MED LIST changes: -AMLO10TA2 PO; +AMLO10TA6 PO
[2018-02-16 19:48] VITALS: BP 163/101
[2018-02-16] MEDS: CYCLOBENZAPRINE 10 MG TABLET. PO ONE (20:42)
[2018-02-16] MEDS: DEXAMETHASONE SOD PHOS 20 MG/5 ML VIAL. IM ONE (20:42)
[2018-02-16] MEDS: IPRATRPIUM/ALBUTEROL 0.5/2.5MG 3 ML NEBU. NEB ONE (20:45)
[2018-02-16] MEDS ORDERED: CYCL10TA2 PO (21:25)
--- NOTE | 2018-02-16 21:25 | PHYS DOC ---
Past Medical History Past Medical History: Asthma, COPD, Diabetes-Type I, Hypertension, Other Additional Past Medical Histor: MORBID OBESTITY, home 02 Past Surgical History: Hysterectomy, Other Additional Past Surgical Histo: CARPEL TUNNEL, colonoscopy Alcohol Use: Rarely Drug Use: None Adult General Chief Complaint Chief Complaint: ITCHING HPI HPI Patient is a 52 year old female who presents with itching all over x 2 days. Patient states she has been taking Benadryl for her itching. Patient states that this has happened in the past and she came to the doctor and they gave her a steroid shot. Patient states she has also had a dry cough x 2 weeks. Patient denies fever but states that she has been having to use her rescue inhaler more often but that she is also supposed to be using oxygen at home and has not been. Review of Systems Review of Systems Constitutional: Denies fever or chills [] Eyes: Denies change in visual acuity, redness, or eye pain [] HENT: Denies nasal congestion or sore throat [] Respiratory: Denies cough or shortness of breath [] Cardiovascular: No additional information not addressed in HPI [] GI: Denies abdominal pain, nausea, vomiting, bloody stools or diarrhea [] : Denies dysuria or hematuria [] Musculoskeletal: Denies back pain or joint pain [] Integument: Denies rash or skin lesions [] Neurologic: Denies headache, focal weakness or sensory changes [] Endocrine: Denies polyuria or polydipsia [] All other systems were reviewed and found to be within normal limits, except as documented in this note. Current Medications Current Medications Current Medications Medications (Trade) Dose Ordered Sig/[facility] Start Time Stop Time Status Last Admin Dose Admin Albuterol/ Ipratropium (Duoneb) 3 ml 1X ONCE 02/16/18 20:45 02/16/18 20:46 DC 02/16/18 20:45 3 ML Cyclobenzaprine HCl (Flexeril) 10 mg 1X ONCE 02/16/18 20:45 02/16/18 20:46 DC 02/16/18 20:42 10 MG Dexamethasone Sodium Phosphate (Decadron) 8 mg 1X ONCE 02/16/18 20:45 02/16/18 20:46 DC 02/16/18 20:42 8 MG Allergies Allergies Allergies Coded Allergies Type Severity Reaction Last Updated Verified aspirin Allergy Intermediate Swelling 06/11/17 Yes Physical Exam Physical Exam Constitutional: Well developed, well nourished, no acute distress, non-toxic appearance. [] HENT: Normocephalic, atraumatic, bilateral external ears normal, oropharynx moist, no oral exudates, nose normal. [] Eyes: PERRLA, EOMI, conjunctiva normal, no discharge. [] Neck: Normal range of motion, no tenderness, supple, no stridor. [] Cardiovascular:Heart rate regular rhythm, no murmur [] Lungs & Thorax: Bilateral breath sounds clear to auscultation [] Abdomen: Bowel sounds normal, soft, no tenderness, no masses, no pulsatile masses. [] Skin: Warm, dry, no erythema, no rash. [] Back: No tenderness, no CVA tenderness. [] Extremities: No tenderness, no cyanosis, no clubbing, ROM intact, no edema. [] Neurologic: Alert and oriented X 3, normal motor function, normal sensory function, no focal deficits noted. [] Psychologic: Affect normal, judgement normal, mood normal. [] Current Patient Data Vital Signs Vital Signs Date Time Temp Pulse Resp B/P (MAP) Pulse Ox O2 Delivery O2 Flow Rate FiO2 02/16/18 20:47 93 Room Air 02/16/18 19:48 98.4 113 20 163/101 (121) 98.4 EKG EKG [] Radiology/Procedures Radiology/Procedures NO ACUTE FINDINGS AND READ BY DR SHRESTHA Course & Med Decision Making Course & Med Decision Making Patient is a 52 year old female who presents with itching all over x 2 days. Patient states she has been taking Benadryl for her itching. Patient states that this has happened in the past and she came to the doctor and they gave her a steroid shot. Patient states she has also had a dry cough x 2 weeks. Patient denies fever but states that she has been having to use her rescue inhaler more often but that she is also supposed to be using oxygen at home and has not been. Upon examination patient has bilateral upper lung lobe wheezes. Patient is afebrile. Patient is given dexamethasone, Flexeril and a duo neb treatment in the ED today. Patient is to follow up with her primary care physician tomorrow. Patient denies soa or chest pain. Patietn denies numbness or tingling. Patient denies dizziness, nausea, or vomiting. Patient has no rash, lesions, or hives on her skin or in her mouth. Speaks in full sentences. Patient is discharged home in stable condition. [] Dragon Disclaimer Dragon Disclaimer This electronic medical record was generated, in whole or in part, using a voice recognition dictation system. Departure Departure Impression: Primary Impression: Itching Additional Impressions: Shoulder pain, acute Cough Disposition: HOME, SELF-CARE Condition: STABLE Referrals: UNKNOWN PCP NAME (PCP) Patient Instructions: Itching-Brief Additional Instructions: Call your primary care physician tomorrow. Scripts Diphenhydramine Hcl (BENADRYL) 25 Mg Capsule 1 CAP PO QHS, #30 CAP Prov: TY THEODORE APRN 02/16/18 Cyclobenzaprine Hcl (CYCLOBENZAPRINE HCL) 10 Mg Tablet 10 MG PO TID for 5 Days, #15 TAB Prov: TY THEODORE APRN 02/16/18 Problem Qualifiers Additional Impressions: Shoulder pain, acute Laterality: bilateral Qualified Codes: M25.511 - Pain in right shoulder; M25.512 - Pain in left shoulder TY THEODORE APRN Feb 16, 2018 21:25
[2018-02-16] MEDS ORDERED: DIPH25CA58 PO (21:59)
--- NOTE | 2018-02-16 23:27 | RAD ---
PROCEDURE: CHEST PA LATERAL CLINICAL INDICATION: COUGH, SOA X2 WEEKS. HX OF ASTHMA COMPARISON: 02/02/2018 FINDINGS: No pneumothorax identified. Cardiac and mediastinal contours unremarkable. No pulmonary consolidation or acute airspace disease. No acute osseous abnormalities identified. IMPRESSION: No pulmonary consolidation or acute airspace disease. Electronically signed by: Migue Randolph DO (02/16/2018 11:23 PM) [facility]
== END 2018-02-16 22:00 | disposition home or self-care (01) ==
LOC: ER 18:48
DX: L29.8 Other pruritus (principal); R05 Cough; M25.512 Pain in left shoulder; J44.9 Chronic obstructive pulmonary disease, unspecified; I10 Essential (primary) hypertension; E11.9 Type 2 diabetes mellitus without complications; Z88.6 Allergy status to analgesic agent; E66.01 Morbid (severe) obesity due to excess calories; Z68.45 Body mass index [BMI] 70 or greater, adult
CPT/HCPCS: 71046; 94640; 96372; 99284; J1100; J7620

== ENCOUNTER 2018-02-25 13:49 | Emergency (ER) | payer OTHER ==
[~2018-02-25] VITALS: Ht 154.9 cm; Wt 181.4 kg
[~2018-02-25 13:49] MED LIST changes: +CYCL10TA2 PO; +DIPH25CA58 PO
[2018-02-25 15:02] LABS: BILIRUBIN,URINE NEGATIVE (NEG); CLARITY,URINE CLOUDY; COLOR,URINE YELLOW; NITRITE,URINE POSITIVE (NEG); PROTEIN,URINE 30 mg/dL (NEG-TRACE)
[2018-02-25 15:10] LABS: BACTERIA,URINE MANY /HPF (0-FEW); SQUAMOUS EPITHELIAL CELL,UR FEW /LPF; WBC,URINE TNTC /HPF (0-4)
--- NOTE | 2018-02-25 15:37 | RAD ---
Left thumb, 3 views, 02/25/2018: HISTORY: Thumb pain Mild degenerative changes are present at the IP, MCP and CMC joints of the thumb. Several small well-defined calcific densities adjacent to the IP joint are compatible with old trauma. No acute fracture or dislocation is identified. IMPRESSION: 1. Mild degenerative changes. 2. No acute bony abnormality is detected. Left hand, 3 views, 02/25/2018: HISTORY: Thumb pain There are mild scattered degenerative changes at the interphalangeal joints. The distal phalanx of the little finger is held in flexion raising the possibility of previous ligamentous injury. No acute fracture or dislocation is identified. IMPRESSION: 1. Mild scattered degenerative changes. 2. No acute bony abnormality is detected. Electronically signed by: Jackson Guerra MD (02/25/2018 3:33 PM) [facility]
[2018-02-25] MEDS ORDERED: PHENAZOPYRIDINE 200 MG TABLET. PO ONE (16:30)
[2018-02-25] MEDS ORDERED: HYDROcodone/APAP 5/325MG 1 TAB TABLET PO ONE (16:30)
--- NOTE | 2018-02-25 16:37 | PHYS DOC ---
Past Medical History Past Medical History: Asthma, COPD, Diabetes-Type I, Hypertension, Other Additional Past Medical Histor: MORBID OBESTITY, home 02 Past Surgical History: Hysterectomy, Other Additional Past Surgical Histo: CARPEL TUNNEL, colonoscopy Alcohol Use: Rarely Drug Use: None Adult General Chief Complaint Chief Complaint: VAGINAL PROBLEM HPI HPI Patient is a 52 year old AA female who presents to the ER with complaints of painful urination, blood in urine, and vaginal pain that started today. Patient denies any vaginal discharge, vaginal odor, abdominal pain, back pain, nausea, vomiting, diarrhea, fever, loss of bowel or bladder control, or foul-smelling urine. Patient states that when she urinates it dick like fire and when she wiped there was blood on toilet tissue. In addition, patient complains of left thumb pain for the last 2 days. She denies any known injury. States it hurts when she bends her thumb. Currently she rates her discomfort as 8 out of 10 on the pain scale. Patient did not take any medication for pain prior to arrival to the ER Review of Systems Review of Systems Constitutional: Denies fever or chills [] GI: Denies abdominal pain, nausea, vomiting, or diarrhea [] : Reports dysuria, increased frequency, and hematuria [] Musculoskeletal: Denies back pain, reports left thumb pain Integument: Denies rash or skin lesions [] Neurologic: Denies headache, focal weakness or sensory changes [] All other systems were reviewed and found to be within normal limits, except as documented in this note. Current Medications Current Medications Current Medications Medications (Trade) Dose Ordered Sig/[facility] Start Time Stop Time Status Last Admin Dose Admin Acetaminophen/ Hydrocodone Bitart (Lortab 5/325) 1 tab 1X ONCE 02/25/18 16:30 02/25/18 16:31 DC 02/25/18 16:42 1 TAB Phenazopyridine HCl (Pyridium) 200 mg 1X ONCE 02/25/18 16:30 02/25/18 16:31 DC 02/25/18 16:42 200 MG Allergies Allergies Allergies Coded Allergies Type Severity Reaction Last Updated Verified aspirin Allergy Intermediate Swelling 06/11/17 Yes Physical Exam Physical Exam Constitutional: Well developed, well nourished, no acute distress, non-toxic appearance, obese. [] HENT: Normocephalic, atraumatic, bilateral external ears normal, nose normal. [] Eyes: normal Abdomen: Bowel sounds normal, soft, no masses, no pulsatile masses; suprapubic tenderness [] Exam: Functional Architect present Savannah RN Abdomen: Nontender External Genitalia: Normal Skin, no abrasions or abnormal discharge Skin: Warm, dry, no erythema, no rash. [] Back: No tenderness, no CVA tenderness. [] Extremities: No tenderness, no cyanosis, no clubbing, ROM intact, no edema. [] Neurologic: Alert and oriented X 3, normal motor function, normal sensory function, no focal deficits noted. [] Psychologic: Affect normal, judgement normal, mood normal. [] Current Patient Data Vital Signs Vital Signs Date Time Temp Pulse Resp B/P (MAP) Pulse Ox O2 Delivery O2 Flow Rate FiO2 02/25/18 16:42 20 93 Room Air 02/25/18 15:00 102 02/25/18 13:58 98.1 127/85 (99) 98.1 Lab Values Laboratory Tests Test 02/25/18 14:10 Urine Collection Type Unknown Urine Color Yellow Urine Clarity Cloudy Urine pH 8.0 Urine Specific [place] 1.025 Urine Protein 30 mg/dL (NEG-TRACE) Urine Glucose (UA) Negative mg/dL (NEG) Urine Ketones (Stick) Negative mg/dL (NEG) Urine Blood Large (NEG) Urine Nitrite Positive (NEG) Urine Bilirubin Negative (NEG) Urine Urobilinogen Dipstick 1.0 mg/dL (0.2 mg/dL) Urine Leukocyte Esterase Large (NEG) Urine RBC 11-20 /HPF (0-2) Urine WBC Tntc /HPF (0-4) Urine Squamous Epithelial Cells Few /LPF Urine Bacteria Many /HPF (0-FEW) Urine Mucus Marked /LPF EKG EKG [] Radiology/Procedures Radiology/Procedures [] Course & Med Decision Making Course & Med Decision Making Pertinent Labs and Imaging studies reviewed. (See chart for details) dx: UTI, left thumb pain prescription for Bactrim DS and pyridium written. Pt encouraged to increase fluids, tylenol or ibuprofen as needed for pain. Follow-up with PCP in 1-2 days. Return to the ER if symptoms worsen. [] Dragon Disclaimer Dragon Disclaimer This electronic medical record was generated, in whole or in part, using a voice recognition dictation system. Departure Departure Impression: Primary Impression: Urinary tract infection Additional Impression: Pain of left thumb Disposition: 01 HOME, SELF-CARE Condition: STABLE Referrals: UNKNOWN PCP NAME (PCP) Patient Instructions: Urinary Tract Infection, Child Additional Instructions: Fill prescriptions and use as directed, may take Tylenol or ibuprofen as needed for pain. Increase clear fluid intake, avoid spicy foods and caffeinated or carbonated drinks as they may irritate your bladder. Follow up with your doctor in the next 1-2 days. Return to the emergency room if her symptoms worsen. Scripts Phenazopyridine Hcl (PYRIDIUM) 200 Mg Tablet 200 MG PO TID for 3 Days, #9 TAB 0 Refills Prov: QUIQUE AMRBIZ HOME COMFORT ADVISOR 02/25/18 Sulfamethoxazole/Trimethoprim (BACTRIM DS TABLET) 1 Each Tablet 1 TAB PO BID, #10 TAB Prov: QUIQUE AMBRIZ HOME COMFORT ADVISOR 02/25/18 Problem Qualifiers Primary Impression: Urinary tract infection Urinary tract infection type: site unspecified Hematuria presence: with hematuria Qualified Codes: N39.0 - Urinary tract infection, site not specified ; R31.9 - Hematuria, unspecified QUIQUE AMBRIZ HOME COMFORT ADVISOR Feb 25, 2018 16:37
[2018-02-25] MEDS ORDERED: SULF1TAB24 PO (16:49)
[2018-02-25] MEDS ORDERED: PHEN-318 PO (16:49)
[2018-02-25 17:00] VITALS: BP 131/75
== END 2018-02-25 17:05 | disposition home or self-care (01) ==
LOC: ER 13:49
DX: N39.0 Urinary tract infection, site not specified (principal); R31.9 Hematuria, unspecified; M79.645 Pain in left finger(s); J44.9 Chronic obstructive pulmonary disease, unspecified; E11.9 Type 2 diabetes mellitus without complications; I10 Essential (primary) hypertension; E66.01 Morbid (severe) obesity due to excess calories; Z68.45 Body mass index [BMI] 70 or greater, adult; Z90.710 Acquired absence of both cervix and uterus
CPT/HCPCS: 73130; 73140; 81001; 87086; 99285-25

== ENCOUNTER 2018-03-31 11:50 | Emergency (ER) | payer OTHER ==
[~2018-03-31] VITALS: Ht 154.9 cm; Wt 154.2 kg
[~2018-03-31 11:50] MED LIST changes: +PHEN-318 PO; +SULF1TAB24 PO
[2018-03-31 14:09] LABS: BILIRUBIN,URINE NEGATIVE (NEG); CLARITY,URINE CLEAR; COLOR,URINE YELLOW; NITRITE,URINE NEGATIVE (NEG); PROTEIN,URINE NEGATIVE (NEG-TRACE); UROBILINOGEN,URINE 0.2 mg/dL (0.2 mg/dL)
[2018-03-31 14:16] LABS: BACTERIA,URINE FEW /HPF (0-FEW); HYALINE CASTS, URINE FEW /HPF; RBC,URINE 0 /HPF (0-2); SQUAMOUS EPITHELIAL CELL,UR MOD /LPF; WBC,URINE 0 /HPF (0-4)
[2018-03-31] MEDS ORDERED: IBUPROFEN 600 MG TABLET. PO ONE (14:45)
[2018-03-31] MEDS ORDERED: DICYCLOMINE 20 MG/2 ML AMPUL. IM ONE (15:00)
--- NOTE | 2018-03-31 16:16 | PHYS DOC ---
Past Medical History Past Medical History: Asthma, COPD, Diabetes-Type I, Hypertension, Other Additional Past Medical Histor: MORBID OBESTITY, home 02 Past Surgical History: Hysterectomy, Other Additional Past Surgical Histo: CARPEL TUNNEL, colonoscopy Alcohol Use: Rarely Drug Use: None Adult General Chief Complaint Chief Complaint: ABDOMINAL PAIN HPI HPI 52-year-old female presents to ER via POV for complaints of diffuse lower abdominal pain which started yesterday. Patient reports she was able to eat this morning denying any nausea or vomiting. Patient reports she's had no vomiting or diarrhea since onset of symptoms. Patient denies fever or chills, urinary symptoms, or swelling in extremities. Patient denies other family members with similar illness. Patient denies any recent travel. Patient reports she had regular bowel movement this morning denying any dark tarry or bloody stools. Patient denies any vaginal symptoms or pelvic pain and pressure. Review of Systems Review of Systems Constitutional: Denies fever or chills [] Eyes: Denies change in visual acuity, redness, or eye pain [] HENT: Denies nasal congestion or sore throat [] Respiratory: Denies cough or shortness of breath [] Cardiovascular: Denies chest pain or palpitations GI: Denies nausea, vomiting, bloody stools or diarrhea. Patient reports lower abdominal pain : Denies dysuria or hematuria [] Musculoskeletal: Denies back pain or joint pain [] Integument: Denies rash, swelling or skin lesions [] Neurologic: Denies headache, focal weakness or sensory changes [] Endocrine: Denies polyuria or polydipsia [] All other systems were reviewed and found to be within normal limits, except as documented in this note. Current Medications Current Medications Current Medications Medications (Trade) Dose Ordered Sig/Rima Start Time Stop Time Status Last Admin Dose Admin Acetaminophen/ Hydrocodone Bitart (Lortab 5/325) 1 tab 1X ONCE 03/31/18 17:15 03/31/18 17:18 DC 03/31/18 17:33 1 TAB Dicyclomine HCl (Bentyl) 20 mg 1X ONCE 03/31/18 15:00 03/31/18 15:01 DC 03/31/18 15:00 20 MG Ibuprofen (Motrin) 600 mg 1X ONCE 03/31/18 14:45 03/31/18 14:48 DC Allergies Allergies Allergies Coded Allergies Type Severity Reaction Last Updated Verified aspirin Allergy Intermediate Swelling 06/11/17 Yes Physical Exam Physical Exam Constitutional: Well developed, well nourished, no acute distress, non-toxic appearance. [] HENT: Normocephalic, atraumatic, bilateral ears normal, mucous membranes pink/ moist, no oral exudates, nose normal. [] Eyes: pupils equal, conjunctiva normal, no discharge, no gross adenopathy/ crepitus Cardiovascular:Heart rate regular rhythm, no murmur [] Lungs & Thorax: Bilateral breath sounds clear to auscultation. Respirations equal and nonlabored Abdomen: Bowel sounds normal, soft/obese with no rigidity or distention, diffuse tenderness in mid to lower abdomen with no focal area, no rebound tenderness, no masses, no pulsatile masses. [] Skin: Warm, dry, no erythema, no rash. [] Back: No tenderness, no CVA tenderness. [] Extremities: No tenderness, no cyanosis, no clubbing, ROM intact, no edema. [] Neurologic: Alert and oriented X 3, normal motor function, normal sensory function, no focal deficits noted. [] Psychologic: Affect normal, judgement normal, mood normal. [] Current Patient Data Vital Signs Vital Signs Date Time Temp Pulse Resp B/P (MAP) Pulse Ox O2 Delivery O2 Flow Rate FiO2 03/31/18 17:37 95 22 144/69 (94) 96 Room Air 03/31/18 16:26 3.0 03/31/18 13:42 98.4 98.4 Lab Values Laboratory Tests Test 03/31/18 13:25 03/31/18 16:43 Urine Collection Type Unknown Urine Color Yellow Urine Clarity Clear Urine pH 6.0 Urine Specific [place] 1.015 Urine Protein Negative mg/dL (NEG-TRACE) Urine Glucose (UA) Negative mg/dL (NEG) Urine Ketones (Stick) Negative mg/dL (NEG) Urine Blood Negative (NEG) Urine Nitrite Negative (NEG) Urine Bilirubin Negative (NEG) Urine Urobilinogen Dipstick 0.2 mg/dL (0.2 mg/dL) Urine Leukocyte Esterase Negative (NEG) Urine RBC 0 /HPF (0-2) Urine WBC 0 /HPF (0-4) Urine Squamous Epithelial Cells Mod /LPF Urine Bacteria Few /HPF (0-FEW) Urine Hyaline Casts Few /HPF Urine Mucus Mod /LPF White Blood Count 10.4 x10^3/uL (4.0-11.0) Red Blood Count 5.20 x10^6/uL (3.50-5.40) Hemoglobin 13.4 g/dL (12.0-15.5) Hematocrit 41.7 % (36.0-47.0) Mean Corpuscular Volume 80 fL (79-100) Mean Corpuscular Hemoglobin 26 pg (25-35) Mean Corpuscular Hemoglobin Concent 32 g/dL (31-37) Red Cell Distribution Width 17.2 % (11.5-14.5) H Platelet Count 285 x10^3/uL (140-400) Neutrophils (%) (Auto) 67 % (31-73) Lymphocytes (%) (Auto) 25 % (24-48) Monocytes (%) (Auto) 6 % (0-9) Eosinophils (%) (Auto) 1 % (0-3) Basophils (%) (Auto) 1 % (0-3) Neutrophils # (Auto) 7.0 x10^3uL (1.8-7.7) Lymphocytes # (Auto) 2.6 x10^3/uL (1.0-4.8) Monocytes # (Auto) 0.6 x10^3/uL (0.0-1.1) Eosinophils # (Auto) 0.1 x10^3/uL (0.0-0.7) Basophils # (Auto) 0.1 x10^3/uL (0.0-0.2) Sodium Level 143 mmol/L (136-145) Potassium Level 4.4 mmol/L (3.5-5.1) Chloride Level 104 mmol/L (98-107) Carbon Dioxide Level 31 mmol/L (21-32) Anion Gap 8 (6-14) Blood Urea Nitrogen 21 mg/dL (7-20) H Creatinine 1.0 mg/dL (0.6-1.0) Estimated GFR (Cockcroft-Gault) 70.2 BUN/Creatinine Ratio 21 (6-20) H Glucose Level 93 mg/dL (70-99) Calcium Level 9.9 mg/dL (8.5-10.1) Total Bilirubin 0.3 mg/dL (0.2-1.0) Aspartate Amino Transferase (AST) 23 U/L (15-37) Alanine Aminotransferase (ALT) 31 U/L (14-59) Alkaline Phosphatase 91 U/L (46-116) Total Protein 7.7 g/dL (6.4-8.2) Albumin 3.8 g/dL (3.4-5.0) Albumin/Globulin Ratio 1.0 (1.0-1.7) Lipase 125 U/L (73-393) Laboratory Tests 03/31/18 16:43 Laboratory Tests 03/31/18 16:43 EKG EKG [] Radiology/Procedures Radiology/Procedures [] Course & Med Decision Making Course & Med Decision Making Pertinent Labs and Imaging studies reviewed. (See chart for details) RN reported staff having issues with obtaining labs. Was a delay in lab results however lab was able to obtain for CBC and CMP. Pt was agreeable with IM Bentyl vs IV tx. 1716: Discussed test results with patient- WBCs 10.4 no left shift- LFTs/lipase NL and other lab results unremarkable as well. UA neg. leuks/blood/nitrates. Patient reports she has had some improvement in abdominal pain since receiving Bentyl. She is in no visible distress remaining nontoxic in appearance. Patient has had no vomiting or diarrhea episodes while in the ER. Discussed plans for home discharge with prescription for Bentyl and patient to follow-up with her primary care physician in next 2-3 days for reevaluation. Will provide GI referral information with discharge paperwork if patient continues to have symptoms she will follow-up outpatient. Education provided on signs and symptoms to return to ER for. Discharge instructions were discussed. Patient will receive [place] tablet prior to discharge per her request. Dragon Disclaimer Dragon Disclaimer This electronic medical record was generated, in whole or in part, using a voice recognition dictation system. Departure Departure Impression: Primary Impression: Abdominal pain Disposition: HOME, SELF-CARE Condition: STABLE Referrals: UNKNOWN PCP NAME (PCP) Patient Instructions: Abdominal Pain Additional Instructions: As discussed you should follow-up with your primary care physician in next 2-3 days for reevaluation- discuss your diet that you have been following. If symptoms persist follow-up with gastrointestinal doctor for further evaluation. Ibuprofen and/or tylenol as directed on container for pain as needed. Scripts Dicyclomine Hcl (DICYCLOMINE HCL) 10 Mg Capsule 1 CAP PO PRN Q6HRS, #10 CAP 0 Refills Prov: DARCY ALVARADO APRN 03/31/18 DARCY ALVARADO APRN Mar 31, 2018 16:15
[2018-03-31 16:50] LABS: BASO # 0.1 x10^3/uL (0.0-0.2); BASO % 1 % (0-3); EOS # 0.1 x10^3/uL (0.0-0.7); EOS % 1 % (0-3); HEMATOCRIT 41.7 % (36.0-47.0); HEMOGLOBIN 13.4 g/dL (12.0-15.5); LYMPH # 2.6 x10^3/uL (1.0-4.8); LYMPH % 25 % (24-48); MEAN CORPUSCULAR HEMOGLOBIN 26 pg (25-35); MEAN CORPUSCULAR HGB CONC 32 g/dL (31-37); MEAN CORPUSCULAR VOLUME 80 fL (79-100); MONO # 0.6 x10^3/uL (0.0-1.1); MONO % 6 % (0-9); NEUT % 67 % (31-73); PLATELET COUNT 285 x10^3/uL (140-400); RED CELL DISTRIBUTION WIDTH 17.2 % (11.5-14.5); WHITE BLOOD COUNT 10.4 x10^3/uL (4.0-11.0)
[2018-03-31 17:01] LABS: CALCIUM 9.9 mg/dL (8.5-10.1); GFR 70.2; POTASSIUM 4.4 mmol/L (3.5-5.1)
[2018-03-31 17:07] LABS: ALBUMIN 3.8 g/dL (3.4-5.0); TOTAL BILIRUBIN 0.3 mg/dL (0.2-1.0); TOTAL PROTEIN 7.7 g/dL (6.4-8.2)
[2018-03-31] MEDS ORDERED: HYDROcodone/APAP 5/325MG 1 TAB TABLET PO ONE (17:15)
[2018-03-31] MEDS ORDERED: DICY10CA3 PO (17:21)
[2018-03-31 17:37] VITALS: BP 144/69
== END 2018-03-31 17:40 | disposition home or self-care (01) ==
LOC: ER 11:50
DX: R10.30 Lower abdominal pain, unspecified (principal); J45.909 Unspecified asthma, uncomplicated; E10.9 Type 1 diabetes mellitus without complications; I10 Essential (primary) hypertension; Z90.710 Acquired absence of both cervix and uterus; Z88.6 Allergy status to analgesic agent
CPT/HCPCS: 36415; 80053; 81001; 83690; 85025; 96372; 99284; J0500

== ENCOUNTER → 2018-09-02 | Outpatient (CLI) | payer OTHER ==
[~2018-09-02] MED LIST changes: +ALBU2.5V8 INH; -AMLO10TA6 PO; +AMLO10TA8 PO; +DICY10CA3 PO; -HYDR-2762 PO; +HYDR-2765 PO; +HYDR-3164 PO; -OXYC-328 PO; +OXYC1TAB22 PO; -PROAIR HFA8.5 GM INH
--- NOTE | 2018-09-03 09:42 | SLEEP ---
DATE OF STUDY: 09/02/2018 ATTENDING PHYSICIAN: Dr. Shanae Randolph. The patient is 52 years old who weighs 421 pounds with a BMI of 80. The patient had history of sleep apnea diagnosed in 2011 and has put on 50 pounds since then. Another study was requested to rule out KANDI. During the night study, the patient spent 426 minutes in bed and slept for 422 minutes with an excellent sleep efficiency of 99%. Sleep latency was 1 minute with an absent REM sleep. Overall, sleep architecture showed normal stage 1 sleep, increased stage 2 sleep, increased slow wave sleep and absent REM sleep. During the night study, the patient had 7 obstructive apneas, 33 mixed apneas, 3 central apneas and 44 hypopneas. The patient's apnea hypopnea index was 12 per hour, supine index 14 per hour. REM sleep was not observed. Nocturnal oximetry study revealed an average oxygen saturation of 86%, with the lowest of 77%. 88% of time oxygen saturation remained between 80% and 89%. PLMS were not observed. EKG monitoring revealed sinus tachycardia at a heart rate of 104 beats per minute. IMPRESSION: 1. Mild sleep apnea-hypopnea syndrome at an AHI of 12 per hour. Absence of REM sleep can underestimate the severity of sleep apnea. 2. Nocturnal hypoxia secondary to combination of sleep apnea and obesity hypoventilation syndrome. 3. No clinically significant PLMS. RECOMMENDATIONS: 1. The patient is clinically symptomatic and would benefit from treatment of sleep apnea with either oral appliance as recommended by the dentist versus a trial of CPAP titration. 2. Once the patient is optimally treated, then follow up in 4-6 weeks to assess compliance and to document clinical improvement. 3. Weight loss is strongly advised. 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 5. Caution regarding driving until symptoms of sleep apnea resolve with the above recommendations. LUZ WOODS MD DR: UYEN/joel JOB#: [id number] / [id number] SHANAE Yeboah
== END | disposition home or self-care (01) ==
LOC: SLPLAB 19:26
PROVIDERS: ATTEND Internal Medicine Critical Care Medicine
DX: G47.33 Obstructive sleep apnea (adult) (pediatric) (principal); G47.34 Idiopathic sleep related nonobstructive alveolar hypoventilation
CPT/HCPCS: 95810

== ENCOUNTER 2018-09-30 11:54 | Emergency (ER) | payer OTHER ==
[~2018-09-30] VITALS: Ht 154.9 cm; Wt 185.7 kg
[~2018-09-30 11:54] MED LIST changes: -HYDR-3164 PO
[2018-09-30 12:16] VITALS: BP 168/106
[2018-09-30] MEDS ORDERED: MORPHINE SULFATE 10 MG/ML VIAL. SQ ONE (12:30)
[2018-09-30] MEDS ORDERED: MORPHINE SULFATE 10 MG/ML VIAL. ONE (12:31)
--- NOTE | 2018-09-30 13:04 | RAD ---
4 view study of the left knee Clinical indications: Chronic left knee pain FINDINGS: No acute fracture or dislocation or lytic process is seen. Tricompartmental primary degenerative osteoarthritis is evident most severely involving the lateral tibiofemoral joint compartment. Moderate-sized left knee joint effusion is seen. The patella is normally aligned. IMPRESSION: Primary tricompartmental osteoarthritis of the left knee most severely involving the lateral tibiofemoral joint compartment. Moderate-sized left knee joint effusion. Electronically signed by: Adarsh Sarabia MD (09/30/2018 1:01 PM) [facility]
--- NOTE | 2018-09-30 13:30 | RAD ---
Left leg venous Doppler study: Clinical indications: Left leg swelling and pain. Findings: This study is somewhat limited due to the patient's large body habitus. Duplex sonography (including hewitt scale evaluation and color flow and waveform spectral analysis) of the proximal aspect of the greater saphenous vein and the proximal aspect of the profunda femoral vein and the entire length of the common femoral and superficial femoral and popliteal veins and the tibioperoneal trunk and the proximal aspect of the posterior tibial veins of the left leg was performed. Normal compressibility, augmentation of color Doppler flow after calf compression, and respiratory variation of Doppler flow is seen. Thus, there are no sonographic findings of deep venous thrombosis within these veins. Impression: There are no sonographic findings of deep venous thrombosis within the veins discussed above of the left lower extremity. Electronically signed by: Adarsh Sarabia MD (09/30/2018 1:28 PM) [facility]
[2018-09-30] MEDS ORDERED: IPRATRPIUM/ALBUTEROL 0.5/2.5MG 3 ML NEBU. NEB ONE (14:00)
[2018-09-30] MEDS ORDERED: CYCL10TA2 PO (14:12)
--- NOTE | 2018-09-30 14:12 | PHYS DOC ---
Past Medical History Past Medical History: Asthma, COPD, Diabetes-Type I, Hypertension, Other Additional Past Medical Histor: MORBID OBESTITY, home 02 Past Surgical History: Hysterectomy, Other Additional Past Surgical Histo: CARPEL TUNNEL, colonoscopy Alcohol Use: Rarely Drug Use: None Adult General Chief Complaint Chief Complaint: LOWER EXT PAIN HPI HPI Patient is a 53 year old female with morbid obesity who presents with complaining of left knee pain. Patient complaining of constant left knee pain for the last 3 days as a sharp pain without focal neuro deficit or injury and rated her pain 10 over 10. Patient said the pain getting worse with bearing weight and was not able to move because of severe pain. Patient states she had oxycodone for her chronic pain that did not help for her knee pain. Patient denies fever and chills and history of the same pain. Review of Systems Review of Systems Constitutional: Denies fever or chills [] Eyes: Denies change in visual acuity, redness, or eye pain [] HENT: Denies nasal congestion or sore throat [] Respiratory: Denies cough or shortness of breath [] Cardiovascular: No additional information not addressed in HPI [] GI: Denies abdominal pain, nausea, vomiting, bloody stools or diarrhea [] : Denies dysuria or hematuria [] Musculoskeletal: Denies back pain, reports joint pain [] Integument: Denies rash or skin lesions [] Neurologic: Denies headache, focal weakness or sensory changes [] Endocrine: Denies polyuria or polydipsia [] All other systems were reviewed and found to be within normal limits, except as documented in this note. Current Medications Current Medications Current Medications Medications (Trade) Dose Ordered Sig/Rima Start Time Stop Time Status Last Admin Dose Admin Albuterol/ Ipratropium (Duoneb) 3 ml 1X ONCE 09/30/18 14:00 09/30/18 14:01 DC 09/30/18 14:01 3 ML Morphine Sulfate (Morphine Sulfate) 10 mg STK-MED ONCE 09/30/18 12:31 09/30/18 12:32 DC Allergies Allergies Allergies Coded Allergies Type Severity Reaction Last Updated Verified aspirin Allergy Intermediate Swelling 06/11/17 Yes Physical Exam Physical Exam Constitutional: Mild distress, non-toxic appearance, morbidly obese. [] HENT: Normocephalic, atraumatic. Eyes: PERRLA, EOMI, conjunctiva normal, no discharge. [] Neck: Normal range of motion, no tenderness, supple, no stridor. [] Cardiovascular:Heart rate regular rhythm, no murmur [] Lungs & Thorax: Bilateral breath sounds clear to auscultation [] Back: No tenderness, no CVA tenderness. [] Extremities: Left knee without deformity, mild edema and painful range of motion without focal neuro deficit. Neurologic: Alert and oriented X 3, normal motor function, normal sensory function, no focal deficits noted. [] Psychologic: Anxious. Current Patient Data Vital Signs Vital Signs Date Time Temp Pulse Resp B/P (MAP) Pulse Ox O2 Delivery O2 Flow Rate FiO2 09/30/18 12:16 98.7 100 24 168/106 (126) 98 Room Air 98.7 EKG EKG [] Radiology/Procedures Radiology/Procedures [facility] [address] [place] [address] IMAGING REPORT Signed PATIENT: KYLIE HUDDLESTON ACCOUNT: [id number] : 1965 LOCATION: ER AGE: 53 SEX: F EXAM STATUS: REG ER ORD. PHYSICIAN: KANE HANSEN MD REASON: pain PROCEDURE: KNEE LEFT 4V 4 view study of the left knee Clinical indications: Chronic left knee pain FINDINGS: No acute fracture or dislocation or lytic process is seen. Tricompartmental primary degenerative osteoarthritis is evident most severely involving the lateral tibiofemoral joint compartment. Moderate-sized left knee joint effusion is seen. The patella is normally aligned. IMPRESSION: Primary tricompartmental osteoarthritis of the left knee most severely involving the lateral tibiofemoral joint compartment. Moderate-sized left knee joint effusion. Electronically signed by: Caitlin Sarabia MD (09/30/2018 1:01 PM) [facility] DICTATED and SIGNED BY: CAITLIN SARABIA MD DATE: 09/30/18 1301 [facility] [address] [place] [address] IMAGING REPORT Signed PATIENT: KYLIE HUDDLESTON ACCOUNT: [id number] : 1965 LOCATION: ER AGE: 53 SEX: F EXAM STATUS: REG ER ORD. PHYSICIAN: KANE HANSEN MD REASON: lower extremity pain, morbidly obese PROCEDURE: VENOUS LOWER EXTREMITY LEFT Left leg venous Doppler study: Clinical indications: Left leg swelling and pain. Findings: This study is somewhat limited due to the patient's large body habitus. Duplex sonography (including hewitt scale evaluation and color flow and waveform spectral analysis) of the proximal aspect of the greater saphenous vein and the proximal aspect of the profunda femoral vein and the entire length of the common femoral and superficial femoral and popliteal veins and the tibioperoneal trunk and the proximal aspect of the posterior tibial veins of the left leg was performed. Normal compressibility, augmentation of color Doppler flow after calf compression, and respiratory variation of Doppler flow is seen. Thus, there are no sonographic findings of deep venous thrombosis within these veins. Impression: There are no sonographic findings of deep venous thrombosis within the veins discussed above of the left lower extremity. Electronically signed by: Caitlin Sarabia MD (09/30/2018 1:28 PM) [facility] DICTATED and SIGNED BY: CAITLIN SARABIA MD DATE: 09/30/18 1328 Course & Med Decision Making Course & Med Decision Making Pertinent Imaging studies reviewed. (See chart for details) Evaluation of patient in ER showed 53-year-old female patient with morbid obesity and PMI of more than 77 with complaining of left knee pain for the last 3 days without injury. Patient had moderate joint effusion and painful range of motion. Patient currently taking oxycodone for chronic pain. Patient requested nebulizer treatments at arrival to ER for her chronic asthma treatment. Patient was advised to follow-up with her primary care physician regarding chronic degenerative joint disease and try to elucidate. She treated with subcutaneous morphine and felt better. Patient was advised to continue her home pain medication. I've spoken with the patient and/or caregivers. I've explained the patient's condition, diagnosis and treatment plan based on information available to me at this time. I've answered the patient's and/or caregivers questions and addressed any concerns. The patient and/or caregivers have a good understanding the patient's diagnosis, condition and treatment plan as can be expected at this point. Vital signs have been stabilized. The patient's condition is stable for discharge from the emergency department. The patient will pursue further outpatient evaluation with her primary care provider or other designated consulting physician as outlined in the discharge instructions. Patient and/or caregivers are agreeable to this plan of care and follow-up instructions have been explained in detail. The patient and/or caregivers have received these instructions in written format and expressed understanding of these discharge instructions. The patient and her caregivers are aware that if any significant change in condition or worsening of symptoms should prompt him to immediately return to this of the closest emergency department. If an emergent department is not readily available I would encourage him to call 911. Dragon Disclaimer Dragon Disclaimer This electronic medical record was generated, in whole or in part, using a voice recognition dictation system. Departure Departure Impression: Primary Impression: Arthritis of left knee Additional Impressions: Morbid obesity with BMI of 70 and over, adult Knee effusion, left Asthma Disposition: HOME, SELF-CARE (at 1410) Condition: IMPROVED Referrals: SHANAE AG MD (PCP) Patient Instructions: Arthritis, Degenerative-Brief, Knee Effusion Additional Instructions: Continue home pain medication and use your walker and continue home physical therapy Follow-up with your primary care physician in 3-5 days Return to ER if not getting better Scripts Cyclobenzaprine Hcl (CYCLOBENZAPRINE HCL) 10 Mg Tablet 1 TAB PO TID for muscle pain, #30 TAB Prov: KANE HANSEN MD 09/30/18 Problem Qualifiers Additional Impressions: Asthma Asthma severity: unspecified severity Asthma persistence: unspecified Asthma complication type: unspecified Qualified Codes: J45.909 - Unspecified asthma, uncomplicated KANE HANSEN MD Sep 30, 2018 14:12
== END 2018-09-30 14:41 | disposition home or self-care (01) ==
LOC: ER 11:54
DX: M17.12 Unilateral primary osteoarthritis, left knee (principal); M25.462 Effusion, left knee; M79.89 Other specified soft tissue disorders; J45.909 Unspecified asthma, uncomplicated; E66.01 Morbid (severe) obesity due to excess calories; Z68.45 Body mass index [BMI] 70 or greater, adult; E10.9 Type 1 diabetes mellitus without complications; I10 Essential (primary) hypertension; Z90.710 Acquired absence of both cervix and uterus; G89.29 Other chronic pain; Z88.6 Allergy status to analgesic agent
CPT/HCPCS: 73564; 93971; 94640; 96372; 99284; J2270; J7620

== ENCOUNTER → 2018-10-14 | Outpatient (CLI) | payer OTHER ==
[2018-09-30 12:16] VITALS: BP 168/106
[~2018-10-14] MED LIST changes: +HYDR-3164 PO
--- NOTE | 2018-10-15 14:54 | SLEEP ---
DATE OF STUDY: 10/14/2018 ATTENDING PHYSICIAN: Aidan Randolph M.D. The patient is 53 years old who weighs 410 pounds with a BMI of 80. The patient had a previous sleep study, which showed KANDI with an AHI of 12 per hour. REM sleep was not observed during that study. The patient returned for CPAP titration study as he was clinically symptomatic. During the night study, the patient spent 409 minutes in bed and slept for 362 minutes with a sleep efficiency of 88%. Sleep latency was 23 minutes with a REM latency of 108 minutes. Overall, sleep architecture showed normal stage 1 sleep, increased stage 2 sleep, normal slow wave and reduced REM sleep. EKG monitoring revealed an average heart rate of 110 beats per minute. It appears to be irregular at times, and the patient may have intermittent atrial fibrillation. No clinically significant PLMS observed. The patient was started on CPAP at a pressure of 5 cm water and titrated all the way up to 15 cm water. The patient did have REM sleep, which showed worsening respiratory events, as a result, CPAP pressure was increased. At the final pressure, the patient slept for 102 minutes. The patient had supine sleep throughout; however, no REM sleep observed. The patient's AHI was reduced to 1 per hour and oxygen saturation remained above 88% with one spot desaturation of 84%. The patient used a nasal mask, medium size. IMPRESSION: 1. Sleep apnea diagnosed by previous sleep study. 2. Abnormal EKG with sinus tachycardia and intermittent irregular rhythm, suggesting atrial fibrillation. 3. No clinically significant periodic limb movements in sleep. RECOMMENDATIONS: 1. CPAP at 15 cm water completely eliminated the patient's sleep apnea, should be used on a nightly basis. 2. Follow up in 4-6 weeks to assess compliance with CPAP and to document clinical improvement. 3. Weight loss is strongly advised. 4. 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 5. Caution regarding driving until symptoms of sleep apnea have resolved with the use of CPAP. 6. Follow up with Cardiology if clinically indicated regarding abnormal EKG. LUZ WOODS MD DR: UYEN/joel JOB#: [id number] / [id number]
== END | disposition home or self-care (01) ==
LOC: RT 18:54
PROVIDERS: ATTEND Internal Medicine Critical Care Medicine
DX: G47.33 Obstructive sleep apnea (adult) (pediatric) (principal); R00.0 Tachycardia, unspecified
CPT/HCPCS: 95811

== ENCOUNTER 2018-10-22 16:39 | Emergency (ER) | payer OTHER ==
[~2018-10-22] VITALS: Ht 154.9 cm; Wt 191.4 kg
[~2018-10-22 16:39] MED LIST changes: -HYDR-3164 PO
[2018-10-22 17:47] VITALS: BP 145/90
--- NOTE | 2018-10-22 19:39 | PHYS DOC ---
Past Medical History Past Medical History: Asthma, COPD, Diabetes-Type I, Hypertension, Other Additional Past Medical Histor: MORBID OBESTITY, home 02 Past Surgical History: Hysterectomy, Other Additional Past Surgical Histo: CARPEL TUNNEL, colonoscopy Alcohol Use: Rarely Drug Use: None Adult General Chief Complaint Chief Complaint: KNEE INJURY HPI HPI Patient is a 53 year old morbidly obese female with history of diabetes, hypertension, COPD, asthma, oxygen who presents to the ED today complaining of bilateral knee pain and bilateral shoulder pain rated at 8 out of 10 described as sharp and intermittent that has been going on for 1-1/2 months after she fell down. Denies any loss of consciousness when she fell. She states she's been trying [id number] remedies with minimal relief. She states today she could not take the pain anymore. She is requesting a pain shot as well as x-rays. Review of Systems Review of Systems Constitutional: Denies fever or chills [] Musculoskeletal: Reports bilateral knee pain and bilateral shoulder pain Integument: Denies rash or skin lesions [] Neurologic: Denies headache, focal weakness or sensory changes [] All other systems were reviewed and found to be within normal limits, except as documented in this note. Current Medications Current Medications Current Medications Medications (Trade) Dose Ordered Sig/Riam Start Time Stop Time Status Last Admin Dose Admin Dexamethasone Sodium Phosphate (Decadron) 10 mg 1X ONCE 10/22/18 19:45 10/22/18 19:46 Allergies Allergies Allergies Coded Allergies Type Severity Reaction Last Updated Verified aspirin Allergy Intermediate Swelling 06/11/17 Yes Physical Exam Physical Exam Constitutional: Well developed, well nourished, no acute distress, non-toxic appearance. [] Skin: Warm, dry, no erythema, no rash. [] Back: No tenderness, no CVA tenderness. [] Extremities: Morbidly obese patient. No tenderness, no cyanosis, no clubbing, ROM intact-considering weight, Neurologic: Alert and oriented X 3, normal motor function, normal sensory function, no focal deficits noted. [] Psychologic: Affect normal, judgement normal, mood normal. [] Current Patient Data Vital Signs Vital Signs Date Time Temp Pulse Resp B/P (MAP) Pulse Ox O2 Delivery O2 Flow Rate FiO2 10/22/18 17:47 98.7 105 22 145/90 (108) 96 Room Air 98.7 EKG EKG [] Radiology/Procedures Radiology/Procedures [] Course & Med Decision Making Course & Med Decision Making Pertinent Labs and Imaging studies reviewed. (See chart for details) This is a 53-year-old female patient presenting to the ED today complaining of bilateral shoulder pain and knee pain after falling one half months ago. X-rays of the shoulders bilaterally and knees interpreted by Dr. Davis are negative. Discharged to home. Follow-up with PCP orthopedic doctor in 1-2 weeks. Dragon Disclaimer Dragon Disclaimer This electronic medical record was generated, in whole or in part, using a voice recognition dictation system. Departure Departure Impression: Primary Impression: Knee pain, acute Additional Impressions: Shoulder pain, acute Fall Disposition: HOME, SELF-CARE Condition: STABLE Referrals: SHANAE AG MD (PCP) follow up in one week ROSELYN VENTURA MD follow up in 2 week Patient Instructions: Knee Pain Additional Instructions: You were seen knee and shoulder pain. Please follow-up with an orthopedic doctor or your own doctor in one to 2 weeks. Scripts Hydrocodone/Apap 5-325 (NORCO 5-325 TABLET) 1 Each Tablet 1 TAB PO Q6HRS, #6 TAB Prov: WIL ANTOINE SLIP MIXER 10/22/18 Problem Qualifiers Primary Impression: Knee pain, acute Laterality: bilateral Qualified Codes: M25.561 - Pain in right knee; M25.562 - Pain in left knee Additional Impressions: Shoulder pain, acute Laterality: bilateral Qualified Codes: M25.511 - Pain in right shoulder; M25.512 - Pain in left shoulder Fall Encounter type: initial encounter Qualified Codes: W19.XXXA - Unspecified fall, initial encounter WIL ANTOINE SLIP MIXER October 22, 2018 19:39
[2018-10-22] MEDS ORDERED: HYDR-3164 PO (19:42)
[2018-10-22] MEDS ORDERED: DEXAMETHASONE SOD PHOS 20 MG/5 ML VIAL. IM ONE (19:45)
[2018-10-22] MEDS ORDERED: MORPHINE SULFATE 2 MG/ML VIAL. IM ONE (19:45)
--- NOTE | 2018-10-22 22:57 | RAD ---
3 view bilateral knee radiographs 10/22/2018 CLINICAL HISTORY: Fall with bilateral knee pain. AP, lateral and oblique digital radiographs of both knees were obtained. No fracture or dislocation of either knee is seen. Moderate to severe degenerative changes are seen involving all 3 compartments of both knees. There is no radiographic evidence of a joint effusion. IMPRESSION: No fracture or dislocation of either knee is seen. Electronically signed by: Glenn López MD (10/22/2018 10:54 PM) [facility]
--- NOTE | 2018-10-22 23:04 | RAD ---
Bilateral 3 view shoulder radiographs 10/22/2018 CLINICAL HISTORY: Bilateral shoulder pain post fall. AP internal and external rotation and transscapular digital radiographs of both shoulders were obtained. No fracture or dislocation of either shoulder is seen. Moderate to severe degenerative changes are seen involving both glenohumeral joints, right greater than left. Moderate degenerative changes are seen involving both AC joints. IMPRESSION: No fracture or dislocation of either shoulder is seen. Electronically signed by: Glenn López MD (10/22/2018 11:00 PM) [facility]
== END 2018-10-22 19:52 | disposition home or self-care (01) ==
LOC: ER 16:39
DX: M25.561 Pain in right knee (principal); M25.562 Pain in left knee; M25.511 Pain in right shoulder; M25.512 Pain in left shoulder; G89.11 Acute pain due to trauma; J44.9 Chronic obstructive pulmonary disease, unspecified; E10.9 Type 1 diabetes mellitus without complications; I10 Essential (primary) hypertension; Z90.710 Acquired absence of both cervix and uterus; Z88.6 Allergy status to analgesic agent; E66.01 Morbid (severe) obesity due to excess calories; Z68.45 Body mass index [BMI] 70 or greater, adult; W18.39XA Other fall on same level, initial encounter; Y93.89 Activity, other specified; Y92.89 Other specified places as the place of occurrence of the external cause; Y99.8 Other external cause status
CPT/HCPCS: 73030; 73562; 96372; 99284; J2270

== ENCOUNTER 2019-01-19 12:31 | Emergency (ER) | payer OTHER, MEDICAID ==
[~2019-01-19] VITALS: Ht 154.9 cm; Wt 181.4 kg
[~2019-01-19 12:31] MED LIST changes: +HYDR-3164 PO; -PANT40TA3 PO; +PANT40TA77 PO
[2019-01-19] MEDS ORDERED: IBUPROFEN 400 MG TABLET. PO ONE (13:15)
--- NOTE | 2019-01-19 13:19 | PHYS DOC ---
Past Medical History Past Medical History: Asthma, COPD, Diabetes-Type I, Hypertension, Other Additional Past Medical Histor: MORBID OBESTITY, home 02 Past Surgical History: Hysterectomy, Other Additional Past Surgical Histo: CARPEL TUNNEL, colonoscopy Alcohol Use: Rarely Drug Use: None Adult General Chief Complaint Chief Complaint: GENERALIZED BODY ACHES [facility] HPI Patient is a 53-year-old female, who ambulates poorly at baseline, has a history of chronic pain, on long-term opiate therapy, as well as other chronic medical problems, presents to the emergency department for evaluation. She states that 2 days ago, while riding in her motorized wheelchair, and somehow rolled off the wheelchair, and the wheelchair fell onto her. She is complaining of pain in her chest and abdomen and back area, denies any loss of consciousness. She denies any other injuries. She has not had any fevers or chills. She does admit some hematuria. She denies any dysuria. She has not had any nausea, or vomiting. There are no alleviating or exacerbating factors to her symptoms. Patient's blo od pressure is noted to be elevated today. She states she did not take her blood pressure medication today. Review of Systems Review of Systems Constitutional: Denies fever or chills [] Eyes: Denies change in visual acuity, redness, or eye pain [] HENT: Denies nasal congestion or sore throat [] Respiratory: Denies cough or shortness of breath [] Cardiovascular: No additional information not addressed in HPI [] GI: Denies nausea, vomiting, bloody stools or diarrhea [] : Denies dysuria or frequency[] Musculoskeletal: Denies back pain or joint pain [] Integument: Denies rash or skin lesions [] Neurologic: Denies headache, focal weakness or sensory changes [] Endocrine: Denies polyuria or polydipsia [] All other systems were reviewed and found to be within normal limits, except as documented in this note. Current Medications Current Medications Current Medications Medications (Trade) Dose Ordered Sig/Rima Start Time Stop Time Status Last Admin Dose Admin Amlodipine Besylate (Norvasc) 10 mg 1X ONCE 01/19/19 14:45 01/19/19 14:46 DC 01/19/19 15:08 10 MG Clonidine HCl (Catapres) 0.1 mg 1X ONCE 8/13/19 14:45 01/19/19 14:46 DC 01/19/19 15:08 0.1 MG Ibuprofen (Motrin) 400 mg 1X ONCE 01/19/19 13:15 01/19/19 13:16 DC 01/19/19 13:23 400 MG Allergies Allergies Allergies Coded Allergies Type Severity Reaction Last Updated Verified aspirin Allergy Intermediate Swelling 06/11/17 Yes Physical Exam Physical Exam PHYSICAL EXAM: CONSTITUTIONAL: Well developed, well nourished HEAD: normocephalic, atraumatic EENT: PERRL, EOMI. Conjunctivae normal color, sclerae non-icteric; moist mucous membranes. NECK: Supple, non-tender; no meningismus. LUNGS: Lungs CTA, breathing even and unlabored. Normal air movement. HEART: Regular rate and rhythm, no murmur CHEST: No deformity; there is diffuse tenderness to palpation of the entire chest wall, without focal tenderness to palpation or crepitus.. There is no bruising noted. ABDOMEN: The abdomen is soft, there is diffuse tenderness to palpation to the entire abdomen, without any focal tenderness, rebound, or guarding, there is no bruising noted on the abdominal wall, no masses or bruits. EXTREM: Normal ROM; no deformity, no calf tenderness. Normal pulses palpable in all extremities. There is no pedal edema. The extremities are atraumatic. SKIN: No rash; no diaphoresis NEURO: Alert; normal speech and cognition; CN's grossly intact; strength grossly intact without focal deficit. BACK: No CVA TTP. Current Patient Data Vital Signs Vital Signs Date Time Temp Pulse Resp B/P (MAP) Pulse Ox O2 Delivery O2 Flow Rate FiO2 01/19/19 15:08 91 220/128 01/19/19 14:25 18 99 Room Air 01/19/19 12:40 98.1 98.1 Lab Values Laboratory Tests Test 01/19/19 13:50 01/19/19 14:30 White Blood Count 6.1 x10^3/uL (4.0-11.0) Red Blood Count 4.77 x10^6/uL (3.50-5.40) Hemoglobin 11.7 g/dL (12.0-15.5) L Hematocrit 36.7 % (36.0-47.0) Mean Corpuscular Volume 77 fL (79-100) L Mean Corpuscular Hemoglobin 25 pg (25-35) Mean Corpuscular Hemoglobin Concent 32 g/dL (31-37) Red Cell Distribution Width 16.0 % (11.5-14.5) H Platelet Count 325 x10^3/uL (140-400) Neutrophils (%) (Auto) 61 % (31-73) Lymphocytes (%) (Auto) 31 % (24-48) Monocytes (%) (Auto) 6 % (0-9) Eosinophils (%) (Auto) 2 % (0-3) Basophils (%) (Auto) 1 % (0-3) Neutrophils # (Auto) 3.7 x10^3/uL (1.8-7.7) Lymphocytes # (Auto) 1.9 x10^3/uL (1.0-4.8) Monocytes # (Auto) 0.3 x10^3/uL (0.0-1.1) Eosinophils # (Auto) 0.1 x10^3/uL (0.0-0.7) Basophils # (Auto) 0.1 x10^3/uL (0.0-0.2) Prothrombin Time 13.4 SEC (11.7-14.0) Prothrombin Time INR 1.1 (0.8-1.1) Activated Partial Thromboplast Time 27 SEC (24-38) Sodium Level 145 mmol/L (136-145) Potassium Level 3.3 mmol/L (3.5-5.1) L Chloride Level 106 mmol/L (98-107) Carbon Dioxide Level 30 mmol/L (21-32) Anion Gap 9 (6-14) Blood Urea Nitrogen 7 mg/dL (7-20) Creatinine 0.8 mg/dL (0.6-1.0) Estimated GFR (Cockcroft-Gault) 90.4 BUN/Creatinine Ratio 9 (6-20) Glucose Level 94 mg/dL (70-99) Calcium Level 9.3 mg/dL (8.5-10.1) Total Bilirubin 0.5 mg/dL (0.2-1.0) Aspartate Amino Transferase (AST) 17 U/L (15-37) Alanine Aminotransferase (ALT) 18 U/L (14-59) Alkaline Phosphatase 85 U/L (46-116) Creatine Kinase 116 U/L (26-192) Troponin I Quantitative < 0.017 ng/mL (0.000-0.055) Total Protein 7.4 g/dL (6.4-8.2) Albumin 3.7 g/dL (3.4-5.0) Albumin/Globulin Ratio 1.0 (1.0-1.7) Lipase 66 U/L (73-393) L Urine Collection Type U cath Urine Color Yellow Urine Clarity Clear Urine pH 8.5 Urine Specific [place] 1.015 Urine Protein 30 mg/dL (NEG-TRACE) Urine Glucose (UA) Negative mg/dL (NEG) Urine Ketones (Stick) Negative mg/dL (NEG) Urine Blood Negative (NEG) Urine Nitrite Negative (NEG) Urine Bilirubin Negative (NEG) Urine Urobilinogen Dipstick 0.2 mg/dL (0.2 mg/dL) Urine Leukocyte Esterase Negative (NEG) Urine RBC 0 /HPF (0-2) Urine WBC Occ /HPF (0-4) Urine Bacteria Few /HPF (0-FEW) Urine Mucus Marked /LPF Laboratory Tests 01/19/19 13:50 Laboratory Tests 01/19/19 13:50 EKG EKG []Normal sinus rhythm with a normal rate, normal axis, normal intervals, there are no acute ischemic ST/T changes. Radiology/Procedures Radiology/Procedures [PROCEDURE: RIBS LEFT AND PA CHEST Exam:Left ribs with PA chest Date: 01/19/2019 1:07 PM Comparison: Feb 16, 2018 Indication: Chest pain post fall, left rib pain Findings/ Impression: The heart is not enlarged. Mediastinal and hilar contours are stable. Aorta is tortuous. No focal parenchymal airspace opacity. No pleural effusion or pneumothorax. AP, Oblique and Spot images of are negative for acute displaced rib fracture. Negative focal pleural elevation. Symmetrical intercostal spacing. It is of note that an acute non-displaced rib fracture can be in-apparent on initial post-trauma imaging.] Course & Med Decision Making Course & Med Decision Making Pertinent Labs and Imaging studies reviewed. (See chart for details) []3:20 PM: The patient's condition remains stable. Blood pressure elevation is likely due to medication noncompliance, she is having asymptomatic hypertension, I discussed importance of medication compliance with the patient, the need for close PCP follow-up, and return precautions. Dragon Disclaimer Dragon Disclaimer This electronic medical record was generated, in whole or in part, using a voice recognition dictation system. Departure Departure Impression: Primary Impression: Multiple contusions Additional Impressions: Accidental fall Hypertension Exacerbation of chronic back pain Chronic pain Disposition: HOME, SELF-CARE Condition: STABLE Referrals: SHANAE AG MD (PCP) Patient Instructions: Chest Contusion, Fall Prevention and Home Safety, Hypertension Additional Instructions: Ibuprofen 400-600 mg every 6 hours may help improve your symptoms. Applying a heating pad to the affected area may help improve your symptoms. Take your blood pressure medication as prescribed and follow-up with your primary care provider for further evaluation and treatment. Problem Qualifiers JOANIE DELAROSA MD Jan 19, 2019 13:19
--- NOTE | 2019-01-19 13:54 | EKG ---
[facility] [address] [place] [address] Test Date: 2019-01-19 Test Time: 13:19:03 Pat Name: KYLIE HUDDLESTON Department: Room: Gender: F Lead Application Architect: : [id number] Requested By: JOANIE DELAROSA Order Number: [id number] Reading MD: Measurements Intervals [employer] Rate: 95 P: 68 CT: 142 QRS: 56 QRSD: 88 T: 67 QT: 380 QTc: 481 Interpretive Statements SINUS RHYTHM R-S TRANSITION ZONE IN V LEADS DISPLACED TO THE RIGHT NON SPECIFIC T ABNORMALITY PROLONGED QT BORDERLINE ECG No previous ECG available for comparison
[2019-01-19 13:55] LABS: BASO # 0.1 x10^3/uL (0.0-0.2); BASO % 1 % (0-3); EOS # 0.1 x10^3/uL (0.0-0.7); EOS % 2 % (0-3); HEMATOCRIT 36.7 % (36.0-47.0); HEMOGLOBIN 11.7 g/dL (12.0-15.5); LYMPH # 1.9 x10^3/uL (1.0-4.8); LYMPH % 31 % (24-48); MEAN CORPUSCULAR HEMOGLOBIN 25 pg (25-35); MEAN CORPUSCULAR HGB CONC 32 g/dL (31-37); MEAN CORPUSCULAR VOLUME 77 fL (79-100); MONO # 0.3 x10^3/uL (0.0-1.1); MONO % 6 % (0-9); NEUT # 3.7 x10^3/uL (1.8-7.7); NEUT % 61 % (31-73); PLATELET COUNT 325 x10^3/uL (140-400); RED BLOOD COUNT 4.77 x10^6/uL (3.50-5.40); WHITE BLOOD COUNT 6.1 x10^3/uL (4.0-11.0)
[2019-01-19 14:05] LABS: PROTHROMBIN TIME PATIENT 13.4 SEC (11.7-14.0)
[2019-01-19 14:06] LABS: CALCIUM 9.3 mg/dL (8.5-10.1); CREATININE 0.8 mg/dL (0.6-1.0); GFR 90.4; POTASSIUM 3.3 mmol/L (3.5-5.1)
[2019-01-19 14:15] LABS: ALBUMIN 3.7 g/dL (3.4-5.0); TOTAL BILIRUBIN 0.5 mg/dL (0.2-1.0); TOTAL PROTEIN 7.4 g/dL (6.4-8.2)
--- NOTE | 2019-01-19 14:42 | RAD ---
Exam:Left ribs with PA chest Date: 01/19/2019 1:07 PM Comparison: Feb 16, 2018 Indication: Chest pain post fall, left rib pain Findings/ Impression: The heart is not enlarged. Mediastinal and hilar contours are stable. Aorta is tortuous. No focal parenchymal airspace opacity. No pleural effusion or pneumothorax. AP, Oblique and Spot images of are negative for acute displaced rib fracture. Negative focal pleural elevation. Symmetrical intercostal spacing. It is of note that an acute non-displaced rib fracture can be in-apparent on initial post-trauma imaging. Electronically signed by: Juan Ramon MD (01/19/2019 2:39 PM) [facility]
[2019-01-19] MEDS ORDERED: cloNIDine HCL 0.1 MG TABLET PO ONE (14:45)
[2019-01-19] MEDS ORDERED: amLODIPine BESYLATE 5 MG TABLET PO ONE (14:45)
[2019-01-19 14:46] LABS: BILIRUBIN,URINE NEGATIVE (NEG); CLARITY,URINE CLEAR; COLOR,URINE YELLOW; NITRITE,URINE NEGATIVE (NEG); PH,URINE 8.5; PROTEIN,URINE 30 mg/dL (NEG-TRACE); UROBILINOGEN,URINE 0.2 mg/dL (0.2 mg/dL)
[2019-01-19 14:48] LABS: BACTERIA,URINE FEW /HPF (0-FEW); RBC,URINE 0 /HPF (0-2); WBC,URINE OCC /HPF (0-4)
[2019-01-19 15:38] VITALS: BP 231/138
== END 2019-01-19 16:37 | disposition home or self-care (01) ==
LOC: ER 12:31
DX: S20.212A Contusion of left front wall of thorax, initial encounter (principal); S30.1XXA Contusion of abdominal wall, initial encounter; G89.29 Other chronic pain; M54.5 Low back pain; I10 Essential (primary) hypertension; J44.9 Chronic obstructive pulmonary disease, unspecified; E10.9 Type 1 diabetes mellitus without complications; Z90.710 Acquired absence of both cervix and uterus; Z88.6 Allergy status to analgesic agent; W05.0XXA Fall from non-moving wheelchair, initial encounter; Y93.89 Activity, other specified; Y92.89 Other specified places as the place of occurrence of the external cause; Y99.8 Other external cause status
CPT/HCPCS: 36415; 71101; 80053; 81001; 82550; 83690; 84484; 85025; 85610; 85730; 93005; 99285

== ENCOUNTER 2019-02-27 16:18 | Emergency (ER) | payer OTHER, MEDICAID ==
[~2019-02-27] VITALS: Ht 154.9 cm; Wt 181.4 kg
[~2019-02-27 16:18] MED LIST changes: -CLON1PAT2 TD; +CLON1PAT6 TD
[2019-02-27] MEDS ORDERED: diphenhydrAMINE 50 MG/ML VIAL IVP ONE (16:45)
[2019-02-27] MEDS ORDERED: PROCHLORPERAZINE 10 MG/2 ML VIAL. IV ONE (16:45)
[2019-02-27] MEDS ORDERED: IV NORMAL SALINE 1000ML BAG 1,000 ML IV ONE (16:45)
[2019-02-27] MEDS ORDERED: DEXAMETHASONE SOD PHOS 20 MG/5 ML VIAL. IV ONE (16:45)
--- NOTE | 2019-02-27 17:25 | PHYS DOC ---
Past Medical History Past Medical History: Asthma, COPD, Diabetes-Type I, Hypertension, Other Additional Past Medical Histor: MORBID OBESTITY, home 02 (WIL ANTOINE APRN) Past Surgical History: Hysterectomy, Other Additional Past Surgical Histo: CARPEL TUNNEL, colonoscopy (WIL ANTOINE APRN) Alcohol Use: Rarely Drug Use: None (WIL ANTOINE APRN) Adult General Chief Complaint Chief Complaint: COUGH HPI HPI Patient is a 53 year old female with history of diabetes type 2, hypertension, COPD, GERD who presents to the ED today with multiple complaints. Patient is complaining of a productive cough with yellow sputum and nasal congestion for 8 days. She states whenever she coughs for the last couple days she's had chest pain, she describes the pain as sharp just when coughing only. She is unable to rate the chest pain right now because she states she is not coughing and is not experiencing the pain. She is also complaining of a migraine intermittently for 4 days. She rates her migraine headache at 8 out of 10, described it as a th robbing headache on the frontal aspect of her head. Denies any exacerbating or relieving factors to her migraine headache, she states she's had similar migraine headaches before she states she took Excedrin with no relief. Denies any nausea, vomiting. She is also complaining of acid reflex. She states the medicines she is on right now is not touching her acid reflex symptoms. (WIL ANTOINE APRN) Review of Systems Review of Systems Constitutional: Denies fever or chills [] Eyes: Denies change in visual acuity, redness, or eye pain [] HENT: Reports nasal congestion, denies sore throat [] Respiratory: Reports cough, shortness of breath [] Cardiovascular: Reports chest pain only on coughing GI: Reports acid reflex. Denies abdominal pain, nausea, vomiting, bloody stools or diarrhea [] : Denies dysuria or hematuria [] Musculoskeletal: Denies back pain or joint pain [] Integument: Denies rash or skin lesions [] Neurologic: Reports migraine headache denies focal weakness or sensory changes [] All other systems were reviewed and found to be within normal limits, except as documented in this note. (WIL ANTOINE APRN) Current Medications Current Medications Current Medications Medications (Trade) Dose Ordered Sig/Rima Start Time Stop Time Status Last Admin Dose Admin Clonidine HCl (Catapres) 0.2 mg 1X ONCE 02/27/19 19:00 02/27/19 19:01 DC 02/27/19 19:07 0.2 MG Dexamethasone Sodium Phosphate (Decadron) 10 mg 1X ONCE 02/27/19 16:45 02/27/19 16:46 DC 02/27/19 17:18 10 MG Diphenhydramine HCl (Benadryl) 25 mg 1X ONCE 02/27/19 16:45 02/27/19 16:46 DC 02/27/19 17:18 25 MG Multi-Ingredient Mouthwash/Gargle (Gi Cocktail) 20 ml 1X ONCE 02/27/19 17:30 02/27/19 17:31 DC 02/27/19 17:31 20 ML Potassium Chloride (Klor-Con) 40 meq 1X ONCE 02/27/19 18:15 02/27/19 18:16 DC 02/27/19 18:17 40 MEQ Prochlorperazine Edisylate (Compazine) 10 mg 1X ONCE 02/27/19 16:45 02/27/19 16:46 DC 02/27/19 17:18 10 MG Sodium Chloride 1,000 ml @ 1,000 mls/hr 1X ONCE 02/27/19 16:45 02/27/19 17:44 DC 02/27/19 17:18 1,000 MLS/HR (NIRMAL BOO MD) Allergies Allergies Allergies Coded Allergies Type Severity Reaction Last Updated Verified aspirin Allergy Intermediate Swelling 06/11/17 Yes (NIRMAL BOO MD) Physical Exam Physical Exam Constitutional: Morbidly obese patient, no acute distress, non-toxic appearance. [] HENT: Normocephalic, atraumatic, bilateral external ears normal, oropharynx moist, no oral exudates, patient sounds congested nasally. Eyes: PERRLA, EOMI, conjunctiva normal, no discharge. [] Neck: Normal range of motion, no tenderness, supple, no stridor. [] Cardiovascular:Heart rate regular rhythm, no murmur [] Lungs & Thorax: Bilateral breath sounds clear to auscultation [] Abdomen: Bowel sounds normal, soft, no tenderness, no masses, no pulsatile masses. [] Skin: Warm, dry, no erythema, no rash. [] Back: No tenderness, no CVA tenderness. [] Extremities: No tenderness, no cyanosis, no clubbing, ROM intact, no edema. [] Neurologic: Alert and oriented X 3, normal motor function, normal sensory function, no focal deficits noted. Cranial nerves II through XII intact Psychologic: Affect normal, judgement normal, mood normal. [] (WIL ANTOINE APRN) Current Patient Data Vital Signs Vital Signs Date Time Temp Pulse Resp B/P (MAP) Pulse Ox O2 Delivery O2 Flow Rate FiO2 02/27/19 19:07 90 169/109 02/27/19 18:52 18 97 Nasal Cannula 2.0 02/27/19 17:00 98.3 98.3 (NIRMAL BOO MD) Lab Values Laboratory Tests Test 02/27/19 17:40 White Blood Count 6.0 x10^3/uL (4.0-11.0) Red Blood Count 4.71 x10^6/uL (3.50-5.40) Hemoglobin 11.8 g/dL (12.0-15.5) L Hematocrit 36.3 % (36.0-47.0) Mean Corpuscular Volume 77 fL (79-100) L Mean Corpuscular Hemoglobin 25 pg (25-35) Mean Corpuscular Hemoglobin Concent 32 g/dL (31-37) Red Cell Distribution Width 16.7 % (11.5-14.5) H Platelet Count 349 x10^3/uL (140-400) Neutrophils (%) (Auto) 58 % (31-73) Lymphocytes (%) (Auto) 34 % (24-48) Monocytes (%) (Auto) 5 % (0-9) Eosinophils (%) (Auto) 2 % (0-3) Basophils (%) (Auto) 1 % (0-3) Neutrophils # (Auto) 3.5 x10^3/uL (1.8-7.7) Lymphocytes # (Auto) 2.0 x10^3/uL (1.0-4.8) Monocytes # (Auto) 0.3 x10^3/uL (0.0-1.1) Eosinophils # (Auto) 0.1 x10^3/uL (0.0-0.7) Basophils # (Auto) 0.1 x10^3/uL (0.0-0.2) Sodium Level 146 mmol/L (136-145) H Potassium Level 3.0 mmol/L (3.5-5.1) L Chloride Level 108 mmol/L (98-107) H Carbon Dioxide Level 28 mmol/L (21-32) Anion Gap 10 (6-14) Blood Urea Nitrogen 9 mg/dL (7-20) Creatinine 0.8 mg/dL (0.6-1.0) Estimated GFR (Cockcroft-Gault) 90.4 BUN/Creatinine Ratio 11 (6-20) Glucose Level 112 mg/dL (70-99) H Calcium Level 9.3 mg/dL (8.5-10.1) Magnesium Level 2.0 mg/dL (1.8-2.4) Total Bilirubin 0.3 mg/dL (0.2-1.0) Aspartate Amino Transferase (AST) 13 U/L (15-37) L Alanine Aminotransferase (ALT) 16 U/L (14-59) Alkaline Phosphatase 87 U/L (46-116) Creatine Kinase 83 U/L (26-192) Creatine Kinase MB (Mass) 0.5 ng/mL (0.0-3.6) Creatine Kinase MB Relative Index 0.6 % (0-4) Troponin I Quantitative < 0.017 ng/mL (0.000-0.055) PC-Blk-G-Type Natriuretic Peptide 184 pg/mL (0-124) H Total Protein 7.6 g/dL (6.4-8.2) Albumin 3.5 g/dL (3.4-5.0) Albumin/Globulin Ratio 0.9 (1.0-1.7) L Thyroid Stimulating Hormone (TSH) 1.062 uIU/mL (0.358-3.74) Laboratory Tests 02/27/19 17:40 Laboratory Tests 02/27/19 17:40 (NIRMAL BOO MD) Lab Values Laboratory Tests Test 02/27/19 17:40 White Blood Count 6.0 x10^3/uL (4.0-11.0) Red Blood Count 4.71 x10^6/uL (3.50-5.40) Hemoglobin 11.8 g/dL (12.0-15.5) L Hematocrit 36.3 % (36.0-47.0) Mean Corpuscular Volume 77 fL (79-100) L Mean Corpuscular Hemoglobin 25 pg (25-35) Mean Corpuscular Hemoglobin Concent 32 g/dL (31-37) Red Cell Distribution Width 16.7 % (11.5-14.5) H Platelet Count 349 x10^3/uL (140-400) Neutrophils (%) (Auto) 58 % (31-73) Lymphocytes (%) (Auto) 34 % (24-48) Monocytes (%) (Auto) 5 % (0-9) Eosinophils (%) (Auto) 2 % (0-3) Basophils (%) (Auto) 1 % (0-3) Neutrophils # (Auto) 3.5 x10^3/uL (1.8-7.7) Lymphocytes # (Auto) 2.0 x10^3/uL (1.0-4.8) Monocytes # (Auto) 0.3 x10^3/uL (0.0-1.1) Eosinophils # (Auto) 0.1 x10^3/uL (0.0-0.7) Basophils # (Auto) 0.1 x10^3/uL (0.0-0.2) Sodium Level 146 mmol/L (136-145) H Potassium Level 3.0 mmol/L (3.5-5.1) L Chloride Level 108 mmol/L (98-107) H Carbon Dioxide Level 28 mmol/L (21-32) Anion Gap 10 (6-14) Blood Urea Nitrogen 9 mg/dL (7-20) Creatinine 0.8 mg/dL (0.6-1.0) Estimated GFR (Cockcroft-Gault) 90.4 BUN/Creatinine Ratio 11 (6-20) Glucose Level 112 mg/dL (70-99) H Calcium Level 9.3 mg/dL (8.5-10.1) Magnesium Level 2.0 mg/dL (1.8-2.4) Total Bilirubin 0.3 mg/dL (0.2-1.0) Aspartate Amino Transferase (AST) 13 U/L (15-37) L Alanine Aminotransferase (ALT) 16 U/L (14-59) Alkaline Phosphatase 87 U/L (46-116) Creatine Kinase 83 U/L (26-192) Creatine Kinase MB (Mass) 0.5 ng/mL (0.0-3.6) Creatine Kinase MB Relative Index 0.6 % (0-4) Troponin I Quantitative < 0.017 ng/mL (0.000-0.055) KO-Cqp-Z-Type Natriuretic Peptide 184 pg/mL (0-124) H Total Protein 7.6 g/dL (6.4-8.2) Albumin 3.5 g/dL (3.4-5.0) Albumin/Globulin Ratio 0.9 (1.0-1.7) L Thyroid Stimulating Hormone (TSH) 1.062 uIU/mL (0.358-3.74) Laboratory Tests 02/27/19 17:40 Laboratory Tests 02/27/19 17:40 (WIL ANTOINE APRN) EKG EKG [address] Pacheco sinus rhythm HR 96 no STEMI[] (WIL ANTOINE APRN) Radiology/Procedures Radiology/Procedures []PROCEDURE: PORTABLE CHEST 1V Indication:Cough. TECHNIQUE:Portable AP chest X-ray COMPARISON: None FINDINGS: Heart is normal in size. Mild bilateral interstitial opacities without focal consolidation. No pneumothorax or pleural effusion. Visualized bony thorax within normal limits. IMPRESSION: Findings suggests mild atypical/viral infection. Electronically signed by: Migue Randolph DO (02/27/2019 7:18 PM) [facility] DICTATED and SIGNED BY: MIGUE RANDOLPH DO DATE: 02/27/191917 (WIL ANTOINE APRN) Course & Med Decision Making Course & Med Decision Making Pertinent Labs and Imaging studies reviewed. (See chart for details) This is a 53-year-old female patient presenting to the ED today with multiple complaints including cough, congestion, chest pain only when coughing, migraine headache and acid reflex. CBC with normal WBC, CMP noted for potassium of 3.0, patient was given oral potassium replacement. Chest x-ray noted for possible mild atypical/viral infection. EKG is negative, troponin is normal. Patient will be discharged with albuterol inhaler, doxycycline, Tessalon Perles, omeprazole for acid reflex, and encouraged to follow up with the PCP. (WIL ANTOINE APRN) Dragon Disclaimer Dragon Disclaimer This electronic medical record was generated, in whole or in part, using a voice recognition dictation system. (WIL ANTOINE APRN) Departure Departure Impression: Primary Impression: Community acquired pneumonia Additional Impressions: GERD (gastroesophageal reflux disease) Migraine Disposition: 01 HOME, SELF-CARE Condition: STABLE Referrals: SHANAE RANDOLPH MD (PCP) follow up next week Patient Instructions: Diet for Gastroesophageal Reflux Disease, Adult, Gastroesophageal Reflux Disease, Adult, Pneumonia, Adult, [id number] Additional Instructions: You were evaluated in the emergency room, we put you on several medications, ensure you complete your antibiotics, use the rest of the prescribed medications as ordered. Follow-up with your doctor next week. Scripts Doxycycline Hyclate (DOXYCYCLINE HYCLATE) 100 Mg Tablet 1 TAB PO BID, #14 TAB Prov: WIL ANTOINE APRN 02/27/19 Benzonatate (TESSALON PERLE) 100 Mg Capsule 1 CAP PO TID, #21 CAP Prov: WIL ANTIONE APRN 02/27/19 Albuterol Sulfate (Proair Hfa) 8.5 Gm Hfa.aer.ad 1 PUFF INH PRN Q6HRS PRN for SHORTNESS OF BREATH, #1 INHALER Prov: WIL ANTOINE APRN 02/27/19 Attending Signature I have participated in the care of this patient and I have reviewed and agree with all pertinent clinical information above including history, exam, and recommendations. (NIRMAL BOO MD) Problem Qualifiers Primary Impression: Community acquired pneumonia Laterality: right Lung location: lower lobe of lung Qualified Codes: J18.1 - Lobar pneumonia, unspecified organism Additional Impressions: GERD (gastroesophageal reflux disease) Esophagitis presence: esophagitis presence not specified Qualified Codes: K21.9 - Gastro-esophageal reflux disease without esophagitis Migraine Migraine type: unspecified Status migrainosus presence: without status migrainosus Intractability: not intractable Qualified Codes: G43.909 - Migraine, unspecified, not intractable, without status migrainosus WIL ANTOINE APRN Feb 27, 2019 17:25 NIRMAL BOO MD Feb 27, 2019 19:44
[2019-02-27] MEDS ORDERED: LIDO:MAALOX 1:1 20 ML SINGLE DOSE. SWSW ONE (17:30)
[2019-02-27 17:49] LABS: BASO # 0.1 x10^3/uL (0.0-0.2); BASO % 1 % (0-3); EOS # 0.1 x10^3/uL (0.0-0.7); EOS % 2 % (0-3); HEMATOCRIT 36.3 % (36.0-47.0); HEMOGLOBIN 11.8 g/dL (12.0-15.5); LYMPH % 34 % (24-48); MEAN CORPUSCULAR HEMOGLOBIN 25 pg (25-35); MEAN CORPUSCULAR HGB CONC 32 g/dL (31-37); MEAN CORPUSCULAR VOLUME 77 fL (79-100); MONO # 0.3 x10^3/uL (0.0-1.1); MONO % 5 % (0-9); NEUT # 3.5 x10^3/uL (1.8-7.7); NEUT % 58 % (31-73); PLATELET COUNT 349 x10^3/uL (140-400); RED BLOOD COUNT 4.71 x10^6/uL (3.50-5.40); RED CELL DISTRIBUTION WIDTH 16.7 % (11.5-14.5)
[2019-02-27 17:58] LABS: CALCIUM 9.3 mg/dL (8.5-10.1); CREATININE 0.8 mg/dL (0.6-1.0); GFR 90.4
[2019-02-27 18:04] LABS: ALBUMIN 3.5 g/dL (3.4-5.0); ALBUMIN/GLOBULIN RATIO 0.9 (1.0-1.7); TOTAL BILIRUBIN 0.3 mg/dL (0.2-1.0); TOTAL PROTEIN 7.6 g/dL (6.4-8.2)
[2019-02-27] MEDS ORDERED: POTASSIUM CHLORIDE 20 MEQ TABLET.ER. PO ONE (18:15)
[2019-02-27] MEDS ORDERED: cloNIDine HCL 0.1 MG TABLET PO ONE (19:00)
--- NOTE | 2019-02-27 19:22 | RAD ---
Indication:Cough. TECHNIQUE:Portable AP chest X-ray COMPARISON: None FINDINGS: Heart is normal in size. Mild bilateral interstitial opacities without focal consolidation. No pneumothorax or pleural effusion. Visualized bony thorax within normal limits. IMPRESSION: Findings suggests mild atypical/viral infection. Electronically signed by: Migue Randolph DO (02/27/2019 7:18 PM) [facility]
[2019-02-27 19:30] VITALS: BP 185/113
[2019-02-27] MEDS ORDERED: DOXY100T PO (19:34)
[2019-02-27] MEDS ORDERED: BENZ100C PO (19:34)
[2019-02-27] MEDS ORDERED: ALBU2.5V8 INH (19:34)
--- NOTE | 2019-03-01 06:10 | EKG ---
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
== END 2019-02-27 19:45 | disposition home or self-care (01) ==
LOC: ER 16:18
DX: J18.1 Lobar pneumonia, unspecified organism (principal); K21.9 Gastro-esophageal reflux disease without esophagitis; G43.909 Migraine, unspecified, not intractable, without status migrainosus; J44.9 Chronic obstructive pulmonary disease, unspecified; E10.9 Type 1 diabetes mellitus without complications; I10 Essential (primary) hypertension; E66.01 Morbid (severe) obesity due to excess calories; Z68.45 Body mass index [BMI] 70 or greater, adult; Z90.710 Acquired absence of both cervix and uterus; Z88.6 Allergy status to analgesic agent
CPT/HCPCS: 36415; 71045; 80053; 82553; 83735; 83880; 84443; 84484; 85025; 93005; 96374; 96375; 99285; J0780; J1100; J1200; J7030

== ENCOUNTER 2019-03-28 13:32 | Emergency (ER) | payer OTHER, MEDICAID ==
[~2019-03-28] VITALS: Ht 152.4 cm; Wt 181.4 kg
[~2019-03-28 13:32] MED LIST changes: +BENZ100C PO; +DOXY100T PO; +OMEP40CA45 PO; -OMEP40CA5 PO
[2019-03-28 14:30] VITALS: BP 147/78
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
[2019-03-28] MEDS ORDERED: ORPH100T PO (15:49)
[2019-03-28] MEDS ORDERED: NAPR-514 PO (15:49)
== END 2019-03-28 16:00 | disposition home or self-care (01) ==
LOC: ER 13:32
DX: G89.29 Other chronic pain (principal); M25.552 Pain in left hip; M54.41 Lumbago with sciatica, right side; M54.42 Lumbago with sciatica, left side; J44.9 Chronic obstructive pulmonary disease, unspecified; E10.9 Type 1 diabetes mellitus without complications; I10 Essential (primary) hypertension; Z90.710 Acquired absence of both cervix and uterus; Z88.6 Allergy status to analgesic agent
CPT/HCPCS: 72100; 73521; 99284

== ENCOUNTER 2019-11-28 07:35 | Emergency (ER) | payer OTHER, MEDICAID ==
[~2019-11-28] VITALS: Ht 157.5 cm; Wt 181.0 kg
[~2019-11-28 07:35] MED LIST changes: +NAPR-514 PO; +ORPH100T PO; -PREG50CA PO; +PREG50CA91 PO
[2019-11-28 07:55] VITALS: BP 183/102
[2019-11-28] MEDS ORDERED: PHEN20SP PO (08:15)
[2019-11-28] MEDS ORDERED: NAPH15DR3 EACHEYE (08:15)
--- NOTE | 2019-11-28 08:16 | PHYS DOC ---
Past Medical History Past Medical History: Asthma, COPD, Diabetes-Type I, Diabetes-Type II, Hy pertension, Other Additional Past Medical Histor: MORBID OBESTITY, home 02, BACK PAIN, KNEE PAIN, SHOULDER PAIN Past Surgical History: Hysterectomy, Other Additional Past Surgical Histo: CARPEL TUNNEL, colonoscopy Smoking Status: Never Smoker Alcohol Use: None Drug Use: None General Adult EDM: Chief Complaint: EYE PROBLEMS HPI: HPI: Patient is a 54-year-old female who presents secondary to itchy watery eyes. This been going on for about a week. She denies any pain. She denies any visual changes. She denies any trauma to the eyes. She has not noticed that they are particularly red. She also has a scratchy throat. She says it hurts most when she tries to eat. She denies any fever chills or sweats. [] Review of Systems: Review of Systems: Constitutional: Denies fever or chills. [] Eyes: Per HPI. [] HENT: Reports sore throat [] Respiratory: Denies cough or shortness of breath. [] Cardiovascular: Denies chest pain or edema. [] GI: Denies abdominal pain, nausea, vomiting, bloody stools or diarrhea. [] : Denies dysuria. [] Musculoskeletal: Denies back pain or joint pain. [] Integument: Denies rash. [] Neurologic: Denies headache, focal weakness or sensory changes. [] Endocrine: Denies polyuria or polydipsia. [] Lymphatic: Denies swollen glands. [] Psychiatric: Denies depression or anxiety. [] Heart Score: Risk Factors: Risk Factors: DM, Current or recent (<one month) smoker, HTN, HLP, family history of CAD, obesity. Risk Scores: Score 0 - 3: 2.5% MACE over next 6 weeks - Discharge Home Score 4 - 6: 20.3% MACE over next 6 weeks - Admit for Clinical Observation Score 7 - 10: 72.7% MACE over next 6 weeks - Early Invasive Strategies Allergies: Allergies: Allergies Coded Allergies Type Severity Reaction Last Updated Verified aspirin Allergy Intermediate Swelling 06/11/17 Yes Physical Exam: PE: Constitutional: Well developed, well nourished, no acute distress, non-toxic appearance. [] HENT: Normocephalic, atraumatic, bilateral external ears normal, oropharynx moist, posterior pharynx is unremarkable [] Eyes: PERRLA, EOMI, conjunctiva normal, normal funduscopic exam. [] Neck: Normal range of motion, no tenderness, supple, no stridor. [] Cardiovascular:Heart rate regular rhythm, no murmur [] Lungs & Thorax: Bilateral breath sounds clear to auscultation [] Abdomen: Bowel sounds normal, soft, no tenderness, no masses, no pulsatile masses. [] Skin: Warm, dry, no erythema, no rash. [] Back: No tenderness, no CVA tenderness. [] Extremities: No tenderness, no cyanosis, no clubbing, ROM intact, no edema. [] Neurologic: Alert and oriented X 3, normal motor function, normal sensory function, no focal deficits noted. [] Psychologic: Anxious [] Current Patient Data: Vital Signs: Vital Signs Date Time Temp Pulse Resp B/P (MAP) Pulse Ox O2 Delivery O2 Flow Rate FiO2 11/28/19 07:55 98.3 100 20 183/102 (129) 95 Nasal Cannula 3.0 98.3 EKG: EKG: [] Radiology/Procedures: Radiology/Procedures: [] Course & Med Decision Making: Course & Med Decision Making Pertinent Labs and Imaging studies reviewed. (See chart for details) [] Dragon Disclaimer: Dragon Disclaimer: This electronic medical record was generated, in whole or in part, using a voice recognition dictation system. Departure Departure Impression: Primary Impression: Allergic conjunctivitis of both eyes Disposition: 01 HOME, SELF-CARE Condition: STABLE Referrals: SHANAE AG MD (PCP) Patient Instructions: Allergic Conjunctivitis Scripts Phenol (Chloraseptic) 20 Ml [place] 2 PUFF PO TID for 7 Days, #1 VIAL 0 Refills Prov: GEOVANNI HAMILTON DO 11/28/19 Naphazoline Hcl/Pheniramine (OPCON-A EYE DROPS) 15 Ml Drops 1 DROP EACHEYE QID for 10 Days, #15 ML 0 Refills Prov: GEOVANNI HAMILTON DO 11/28/19 Justicifation of Admission Dx: Justifications for Admission: Justification of Admission Dx: No GEOVANNI HAMILTON DO Nov 28, 2019 08:15
== END 2019-11-28 08:18 | disposition home or self-care (01) ==
LOC: ER 07:35
DX: H10.13 Acute atopic conjunctivitis, bilateral (principal); J44.9 Chronic obstructive pulmonary disease, unspecified; E11.9 Type 2 diabetes mellitus without complications; I10 Essential (primary) hypertension; Z88.6 Allergy status to analgesic agent; E66.01 Morbid (severe) obesity due to excess calories; Z68.45 Body mass index [BMI] 70 or greater, adult
CPT/HCPCS: 99284

== ENCOUNTER 2020-02-03 12:41 | Inpatient (IN) | payer OTHER, MEDICAID ==
[~2020-02-03] VITALS: Ht 160 cm; Wt 200.3 kg
[~2020-02-03 12:41] MED LIST changes: +NAPH15DR3 EACHEYE; -OXYC-411 PO; +OXYC1TAB20 PO; +PHEN20SP PO
[2020-02-03] MEDS ORDERED: NITROGLYCERIN SUBLINGUAL 0.4 MG BOTTLE OF 25. SL PRN ×2 (13:00→18:15)
--- NOTE | 2020-02-03 13:16 | EKG ---
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
--- NOTE | 2020-02-03 13:27 | RAD ---
INDICATION: Reason: chest pain / Spl. Instructions: / History: COMPARISON: February 27, 2019 FINDINGS: Single view of chest obtained. Enlarged cardiac silhouette. Fullness of bilateral pulmonary hilum. Focal opacities at the lung bases as well as a possible right perihilar opacity. IMPRESSION: * Basilar airspace opacities which can be from atelectasis or infiltrate. Electronically signed by: Avila Rosen MD (02/03/2020 1:24 PM) [id number]
[2020-02-03 13:35] LABS: BASO # 0.1 x10^3/uL (0.0-0.2); BASO % 1 % (0-3); EOS # 0.2 x10^3/uL (0.0-0.7); EOS % 2 % (0-3); HEMATOCRIT 34.1 % (36.0-47.0); HEMOGLOBIN 10.8 g/dL (12.0-15.5); LYMPH # 1.5 x10^3/uL (1.0-4.8); LYMPH % 21 % (24-48); MEAN CORPUSCULAR HEMOGLOBIN 25 pg (25-35); MEAN CORPUSCULAR HGB CONC 32 g/dL (31-37); MEAN CORPUSCULAR VOLUME 80 fL (79-100); MONO # 0.5 x10^3/uL (0.0-1.1); MONO % 7 % (0-9); NEUT % 69 % (31-73); PLATELET COUNT 316 x10^3/uL (140-400); RED BLOOD COUNT 4.28 x10^6/uL (3.50-5.40); RED CELL DISTRIBUTION WIDTH 17.1 % (11.5-14.5); WHITE BLOOD COUNT 7.2 x10^3/uL (4.0-11.0)
[2020-02-03 13:42] LABS: CALCIUM 8.7 mg/dL (8.5-10.1); CREATININE 0.8 mg/dL (0.6-1.0); GFR 90.1; POTASSIUM 3.7 mmol/L (3.5-5.1); PROTHROMBIN TIME PATIENT 11.3 SEC (11.7-14.0)
[2020-02-03 13:50] LABS: ALBUMIN 3.2 g/dL (3.4-5.0); ALBUMIN/GLOBULIN RATIO 0.8 (1.0-1.7); MAGNESIUM 2.1 mg/dL (1.8-2.4); TOTAL BILIRUBIN 0.2 mg/dL (0.2-1.0)
--- NOTE | 2020-02-03 14:22 | PHYS DOC ---
Past Medical History Past Medical History: Asthma, COPD, Diabetes-Type I, Diabetes-Type II, DVT, Hypertension, Other Additional Past Medical Histor: MORBID OBESTITY, home 02, BACK PAIN, KNEE PAIN, SHOULDER PAIN (WIL ANTOINE APRN) Past Surgical History: Hysterectomy, Other Additional Past Surgical Histo: CARPEL TUNNEL, colonoscopy (WIL ANTOINE APRN) Smoking Status: Former Smoker Alcohol Use: Occasionally Drug Use: None (WIL ANTOINE APRN) General Adult EDM: Chief Complaint: CHEST PAIN HPI: HPI: Patient is a 54 year old female with history of COPD, asthma on oxygen 3 L at home, hypertension, diabetes type 2, mobility obesity, who presents the ED today complaining of 10 out of 10 substernal chest pain radiating to her back that began 3 days ago. Patient states the pain is worse on activities. She describe s the pain as sharp and constant. She states she has tried applying Lidoderm patches to her back with no relief. She reports history of chronic generalized back pain that she uses Lidoderm patches for. She reports she had a subjective fever yesterday. Denies any unusual cough or congestion. (WIL ANTOINE APRN) Review of Systems: Review of Systems: Constitutional: Reports fever Eyes: Denies change in visual acuity. [] HENT: Denies nasal congestion or sore throat. [] Respiratory: Denies cough or shortness of breath. [] Cardiovascular: Reports chest pain GI: Denies abdominal pain, nausea, vomiting, bloody stools or diarrhea. [] : Denies dysuria. [] Musculoskeletal: Denies back pain or joint pain. [] Integument: Denies rash. [] Neurologic: Denies headache, focal weakness or sensory changes. [] Endocrine: Denies polyuria or polydipsia. [] Lymphatic: Denies swollen glands. [] Psychiatric: Denies depression or anxiety. [] (WIL ANTOINE APRN) Heart Score: HEART Score for Chest Pain: HEART Score for Chest Pain Response (Comments) Value History Slighlty/Non-Suspicious 0 ECG Normal 0 Age >45 - < 65 1 Risk Factors >3 Risk Factors or Hx CAD 2 Troponin < Normal Limit 0 Total 3 Risk Factors: Risk Factors: DM, Current or recent (<one month) smoker, HTN, HLP, family history of CAD, obesity. Risk Scores: Score 0 - 3: 2.5% MACE over next 6 weeks - Discharge Home Score 4 - 6: 20.3% MACE over next 6 weeks - Admit for Clinical Observation Score 7 - 10: 72.7% MACE over next 6 weeks - Early Invasive Strategies (WIL ANTOINE OPERATIONS RESEARCH SCIENTIST) Current Medications: Current Medications Medications (Trade) Dose Ordered Sig/Rima Start Time Stop Time Status Last Admin Dose Admin Morphine Sulfate (Morphine Sulfate) 4 mg PRN Q15MIN PRN 02/03/20 13:00 02/04/20 12:59 Nitroglycerin (Nitrostat) 0.4 mg PRN Q5MIN PRN 02/03/20 13:00 02/04/20 12:59 (WIL ANTOINE APRN) Allergies: Allergies: Allergies Coded Allergies Type Severity Reaction Last Updated Verified aspirin Allergy Intermediate Swelling 06/11/17 Yes (WIL ANTOINE APRN) Physical Exam: PE: Constitutional: Morbidly obese patient, well developed, well nourished, no acute distress, non-toxic appearance. [] HENT: Normocephalic, atraumatic, bilateral external ears normal, oropharynx moist, no oral exudates, nose normal. [] Eyes: PERRLA, EOMI, conjunctiva normal, no discharge. [] Neck: Normal range of motion, no tenderness, supple, no stridor. [] Cardiovascular:Heart rate regular rhythm, no murmur [] Lungs & Thorax: Bilateral breath sounds clear to auscultation [] Abdomen: Bowel sounds normal, soft, no tenderness, no masses, no pulsatile masses. [] Skin: Warm, dry, no erythema, no rash. [] Back: No tenderness, no CVA tenderness. [] Extremities: No tenderness, no cyanosis, no clubbing, ROM intact, no edema. [] Neurologic: Alert and oriented X 3, normal motor function, normal sensory function, no focal deficits noted. [] Psychologic: Affect normal, judgement normal, mood normal. [] (WIL ANTOINE OPERATIONS RESEARCH SCIENTIST) Current Patient Data: Labs: Laboratory Tests Test 02/03/20 13:20 White Blood Count 7.2 x10^3/uL (4.0-11.0) Red Blood Count 4.28 x10^6/uL (3.50-5.40) Hemoglobin 10.8 g/dL (12.0-15.5) L Hematocrit 34.1 % (36.0-47.0) L Mean Corpuscular Volume 80 fL (79-100) Mean Corpuscular Hemoglobin 25 pg (25-35) Mean Corpuscular Hemoglobin Concent 32 g/dL (31-37) Red Cell Distribution Width 17.1 % (11.5-14.5) H Platelet Count 316 x10^3/uL (140-400) Neutrophils (%) (Auto) 69 % (31-73) Lymphocytes (%) (Auto) 21 % (24-48) L Monocytes (%) (Auto) 7 % (0-9) Eosinophils (%) (Auto) 2 % (0-3) Basophils (%) (Auto) 1 % (0-3) Neutrophils # (Auto) 5.0 x10^3/uL (1.8-7.7) Lymphocytes # (Auto) 1.5 x10^3/uL (1.0-4.8) Monocytes # (Auto) 0.5 x10^3/uL (0.0-1.1) Eosinophils # (Auto) 0.2 x10^3/uL (0.0-0.7) Basophils # (Auto) 0.1 x10^3/uL (0.0-0.2) Prothrombin Time 11.3 SEC (11.7-14.0) L Prothrombin Time INR 0.9 (0.8-1.1) Sodium Level 141 mmol/L (136-145) Potassium Level 3.7 mmol/L (3.5-5.1) Chloride Level 102 mmol/L (98-107) Carbon Dioxide Level 33 mmol/L (21-32) H Anion Gap 6 (6-14) Blood Urea Nitrogen 13 mg/dL (7-20) Creatinine 0.8 mg/dL (0.6-1.0) Estimated GFR (Cockcroft-Gault) 90.1 BUN/Creatinine Ratio 16 (6-20) Glucose Level 121 mg/dL (70-99) H Calcium Level 8.7 mg/dL (8.5-10.1) Magnesium Level 2.1 mg/dL (1.8-2.4) Total Bilirubin 0.2 mg/dL (0.2-1.0) Aspartate Amino Transferase (AST) 22 U/L (15-37) Alanine Aminotransferase (ALT) 19 U/L (14-59) Alkaline Phosphatase 92 U/L (46-116) Troponin I Quantitative < 0.017 ng/mL (0.000-0.055) VY-Ycr-N-Type Natriuretic Peptide 134 pg/mL (0-124) H Total Protein 7.0 g/dL (6.4-8.2) Albumin 3.2 g/dL (3.4-5.0) L Albumin/Globulin Ratio 0.8 (1.0-1.7) L Lipase 67 U/L (73-393) L Thyroid Stimulating Hormone (TSH) 2.398 uIU/mL (0.358-3.74) Laboratory Tests 02/03/20 13:20 Laboratory Tests 02/03/20 13:20 Vital Signs: Vital Signs Date Time Temp Pulse Resp B/P (MAP) Pulse Ox O2 Delivery O2 Flow Rate FiO2 02/03/20 12:41 99.1 116 20 220/111 (147) 96 Nasal Cannula 4.0 99.1 (WIL ANTOINE APRN) EKG: EK interpreted by Dr. Lopez, sinus tachycardia heart rate 120 no STEMI [] (WIL ANTOINE APRN) Radiology/Procedures: Radiology/Procedures: []PROCEDURE: PORTABLE CHEST 1V INDICATION: Reason: chest pain / Spl. Instructions: / History: COMPARISON: February 27, 2019 FINDINGS: Single view of chest obtained. Enlarged cardiac silhouette. Fullness of bilateral pulmonary hilum. Focal opacities at the lung bases as well as a possible right perihilar opacity. IMPRESSION: * Basilar airspace opacities which can be from atelectasis or infiltrate. Electronically signed by: To Chaney MD (02/03/2020 1:24 PM) [id number] DICTATED and SIGNED BY: OT CHANEY MD DATE: 02/03/20 1324 (WIL ANTOINE APRN) Course & Med Decision Making: Course & Med Decision Making Pertinent Labs and Imaging studies reviewed. (See chart for details) This is a 54-year-old female patient presenting to the ED today with chest pain that began 3 days ago. EKG was noted for tachycardia with heart rate in the 120s.Basilar airspace opacities which can be from atelectasis or infiltrate. Troponin is normal, labs are negative for any acute findings. CTA chest is negative. Spoke with [facility] cardiology BOARDING HOUSE MANAGER who will f/u with patient spoke with Dr. Barroso who accepted patient for admission. (WIL ANTOINE APRN) Dragon Disclaimer: Dragon Disclaimer: This electronic medical record was generated, in whole or in part, using a voice recognition dictation system. (WIL ANTOINE APRN) Departure Departure Impression: Primary Impression: Chest pain Qualified Codes: R07.9 - Chest pain, unspecified Disposition: ADMITTED INPATIENT Condition: STABLE Referrals: SHANAE AG MD (PCP) Justicifation of Admission Dx: Justifications for Admission: Justification of Admission Dx: Yes Respiratory Failure: Severe Resp Distress (WIL ANTOINE APRN) Attending Signature Attending Signature I have reviewed the PA/BOARDING HOUSE MANAGER's note and plan of care. I was available for consultation as needed at all times during the patient's visit in the emergency department. I agree with the clinical impression, plan and disposition. (CALLUM LOPEZ DO) WIL ANTOINE APRN Feb 03, 2020 14:22 CALLUM LOPEZ DO Feb 04, 2020 09:45
[2020-02-03 14:25] LABS: BARBITURATES NEG (NEG); BENZODIAZEPINES POS (NEG); CANNABINOIDS NEG (NEG); COCAINE NEG (NEG); METHADONE NEG (NEG); OPIATES POS (NEG); PHENCYCLIDINE NEG (NEG)
[2020-02-03 14:27] LABS: BILIRUBIN,URINE NEGATIVE (NEG); CLARITY,URINE CLOUDY; COLOR,URINE YELLOW; NITRITE,URINE NEGATIVE (NEG); PROTEIN,URINE NEGATIVE (NEG-TRACE); UROBILINOGEN,URINE 0.2 mg/dL (0.2 mg/dL)
[2020-02-03] MEDS ORDERED: LABETALOL 20 MG/4 ML DISP.SYRIN. IVP ONE (14:30)
[2020-02-03 14:31] LABS: AMPHETAMINE/METHAMPHETAMINE NEG (NEG)
[2020-02-03 14:32] LABS: RBC,URINE OCC /HPF (0-2); SQUAMOUS EPITHELIAL CELL,UR FEW /LPF
--- NOTE | 2020-02-03 14:32 | PDOC2 ---
STEVEN AMOS MAXIMO 02/03/20 1432: CARDIAC CONSULT DATE OF CONSULT Date of Consult DATE: 02/03/20 TIME: 14:20 REASON FOR CONSULT Reason for Consult: Chest pain REFERRING PHYSICIAN Referring Physician: Christine Esparza APRN SOURCE Source: Chart review, Patient HISTORY OF PRESENT ILLNESS HISTORY OF PRESENT ILLNESS This is a 54 yo female who presented secondary to chest pain. Patient reports pain has been constant for the last couple of days. Describes pain as tightness. Radiates through to her back. Is worse with deep breathing and with certain movements. Central chest is tender upon palpitations. She does report some nausea and vomiting for the last couple of days. Has chronic respiratory failure with home 02. Reports she has been more SOA the last couple of days and her oxygen tank has not been working. Reports pain to be similar to what she has previously experienced with GERD, just much more intense. Blood pressure significantly elevated upon arrival. Reports compliance with medication. Reports blood pressure normal "shoots up" when she is in pain. PAST MEDICAL HISTORY Past Medical History Cardiovascular: CHF, HTN, Hyperlipidemia Pulmonary: COPD, Other (sleep apnea) CENTRAL NERVOUS SYSTEM: Peripheral neuropathy GI: GERD, GI bleed, diverticulosis Heme/Onc: No pertinent hx Hepatobiliary: No pertinent hx Psych: Anxiety Musculoskeletal: Osteoarthritis Infectious disease: No pertinent hx ENT: No pertinent hx Renal/: No pertinent hx Endocrine: Diabetes, Hypothyroidism PAST SURGICAL HISTORY Past Surgical History Tonsillectomy, Hysterectomy, Other (bilateral oophrectomy), carpal tunnel release FAMILY HISTORY Family History Diabetes, Heart Disease, Hypertension SOCIAL HISTORY Social History Smoke: No ALCOHOL: none Drugs: None ALLERGIES ALLERGIES: Coded Allergies: aspirin (Verified Allergy, Intermediate, Swelling, 06/11/17) ROS Review of System 14 point ROS conducted with pertinent positives noted above in hPI PHYSICAL EXAM PHYSICAL EXAM General: Alert, Oriented X3, Cooperative, No acute distress HEENT: Atraumatic, Mucous membr. moist/pink Lungs: Other (diminished) Heart: Regular rate (SR), Normal S1, Normal S2, No murmurs Abdomen: Soft, No tenderness, Other (obese) Extremities: No cyanosis, Other (1+ bilateral LE edema) Skin: No breakdown, No significant lesion Neuro: Normal speech, Sensation intact Psych/Mental Status: Mental status NL, Mood NL MUSCULOSKELETAL: Osteoarthritic changes both hands VITALS/I&O VITALS/I&O: Vital Signs Date Time Temp Pulse Resp B/P (MAP) Pulse Ox O2 Delivery O2 Flow Rate FiO2 02/03/20 12:41 99.1 116 20 220/111 (147) 96 Nasal Cannula 4.0 99.1 LABS Lab: Laboratory Tests Test 02/03/20 13:20 White Blood Count 7.2 x10^3/uL (4.0-11.0) Red Blood Count 4.28 x10^6/uL (3.50-5.40) Hemoglobin 10.8 g/dL (12.0-15.5) L Hematocrit 34.1 % (36.0-47.0) L Mean Corpuscular Volume 80 fL (79-100) Mean Corpuscular Hemoglobin 25 pg (25-35) Mean Corpuscular Hemoglobin Concent 32 g/dL (31-37) Red Cell Distribution Width 17.1 % (11.5-14.5) H Platelet Count 316 x10^3/uL (140-400) Neutrophils (%) (Auto) 69 % (31-73) Lymphocytes (%) (Auto) 21 % (24-48) L Monocytes (%) (Auto) 7 % (0-9) Eosinophils (%) (Auto) 2 % (0-3) Basophils (%) (Auto) 1 % (0-3) Neutrophils # (Auto) 5.0 x10^3/uL (1.8-7.7) Lymphocytes # (Auto) 1.5 x10^3/uL (1.0-4.8) Monocytes # (Auto) 0.5 x10^3/uL (0.0-1.1) Eosinophils # (Auto) 0.2 x10^3/uL (0.0-0.7) Basophils # (Auto) 0.1 x10^3/uL (0.0-0.2) Prothrombin Time 11.3 SEC (11.7-14.0) L Prothrombin Time INR 0.9 (0.8-1.1) Sodium Level 141 mmol/L (136-145) Potassium Level 3.7 mmol/L (3.5-5.1) Chloride Level 102 mmol/L (98-107) Carbon Dioxide Level 33 mmol/L (21-32) H Anion Gap 6 (6-14) Blood Urea Nitrogen 13 mg/dL (7-20) Creatinine 0.8 mg/dL (0.6-1.0) Estimated GFR (Cockcroft-Gault) 90.1 BUN/Creatinine Ratio 16 (6-20) Glucose Level 121 mg/dL (70-99) H Calcium Level 8.7 mg/dL (8.5-10.1) Magnesium Level 2.1 mg/dL (1.8-2.4) Total Bilirubin 0.2 mg/dL (0.2-1.0) Aspartate Amino Transferase (AST) 22 U/L (15-37) Alanine Aminotransferase (ALT) 19 U/L (14-59) Alkaline Phosphatase 92 U/L (46-116) Troponin I Quantitative < 0.017 ng/mL (0.000-0.055) ZQ-Cnk-O-Type Natriuretic Peptide 134 pg/mL (0-124) H Total Protein 7.0 g/dL (6.4-8.2) Albumin 3.2 g/dL (3.4-5.0) L Albumin/Globulin Ratio 0.8 (1.0-1.7) L Lipase 67 U/L (73-393) L Thyroid Stimulating Hormone (TSH) 2.398 uIU/mL (0.358-3.74) Laboratory Tests 02/03/20 13:20 Laboratory Tests 02/03/20 13:20 ECHOCARDIOGRAM ECHOCARDIOGRAM <Conclusion> Technically difficult study. The left ventricular systolic function is normal. The Ejection Fraction is 55-60%. There is normal LV segmental wall motion. Doppler and Color Flow revealed trace tricuspid regurgitation. There is moderate pulmonary hypertension. PASP is 51 mmHg. There is no evidence of significant pericardial effusion. DATE: 08/31/17 1631 ASSESSMENT/PLAN ASSESSMENT/PLAN 1. Chest pain, atypical. initial trop negative. EKG without significant acute changes per review. Suspect GI in nature. improved with GI cocktail 2. Hypertensive urgency; remains elevated 3. AECOPD, moderate pulm HTN; oxygen concentrator has not been functioning properly x2 days 4. Chronic diastolic CHF; appears compensated 5. Diabetes, II 6. Hyperlipidemia 7. Morbid obesity, suspected KANDI. Recommendations Resume home antiHTN therapy Hydralazine IV PRN ASA Lipids Trend troponin Echo to assess LV systolic function Consider further ischemic evaluation. Most probably on an outpatient basis Further pending above. SELINA BERMAN MD 02/03/20 1621: CARDIAC CONSULT ASSESSMENT/PLAN ASSESSMENT/PLAN Patient seen and examined Discussed with our nurse practitioner. I agree with her assessment and plan. Chest pain. Improved. No acute EKG changes. Initial troponin normal. Complete rule out. Check echo. Hypertensive urgency. Improving. IV hydralazine as needed. Resume baseline medications. Acute exacerbation of COPD. History of moderate pulmonary hypertension. Continue pulmonary medications and work-up. Compensated diastolic heart failure. Hyperlipidemia. Continue medications and checking lab. Diabetes as per the primary service. Obesity. Thank you for allowing us to participate in the care of your patient. STEVEN AMOS APRN Feb 03, 2020 14:32 SELINA BERMAN MD Feb 03, 2020 16:21
[2020-02-03 14:33] LABS: BACTERIA,URINE MODERATE /HPF (0-FEW)
[2020-02-03] MEDS ORDERED: LIDO:MAALOX 1:1 20 ML SINGLE DOSE. SWSW ONE (15:00)
[2020-02-03] MEDS ORDERED: IOHEXOL 350 MG/ML 100 ML VIAL. IV ONE (15:00)
[2020-02-03] MEDS: MORPHINE SULFATE 4 MG/ML VIAL. IV/SQ PRN ×2 (15:40→19:30)
--- NOTE | 2020-02-03 16:23 | RAD ---
Exam: CT of chest with contrast INDICATION: Chest pain, history of DVT TECHNIQUE: Sequential axial images through the chest obtained following the administration of 100 mL Omni 350 IV contrast. Sagittal and coronal reformatted images were reconstructed from the axial data and reviewed. Comparisons: Chest x-ray same day FINDINGS: Visualized portions of the thyroid are unremarkable. No enlarged mediastinal lymph nodes. Heart size is normal. No pericardial effusion. Thoracic aorta has a normal course and caliber. Pulmonary artery is not enlarged. No pulmonary embolus identified within the main, lobar or segmental pulmonary arteries. Airways are patent. No consolidation or pneumothorax. No suspicious lung nodules. No pleural effusion or thickening. Visualized upper abdomen is unremarkable. No suspicious osseous lesions or acute fractures. IMPRESSION: No pulmonary embolus identified within the main, lobar or segmental pulmonary arteries. Exposure: One or more of the following in the visualized dose reduction techniques were utilized for this examination: 1. Automated exposure control 2. Adjustment of the MA and/or KV according to patient size 3. Use of iterative of reconstructive technique Electronically signed by: Amparo Banegas MD (02/03/2020 4:20 PM) [id number]
[2020-02-03] MEDS ORDERED: ASPIRIN 325 MG TABLET PO ONE (17:30)
[2020-02-03] MEDS ORDERED: ONDANSETRON PF 4 MG/2 ML VIAL. IV PRN (18:15)
[2020-02-03 19:55] VITALS: BP 179/101
[2020-02-03] MEDS ORDERED: LABETALOL 20 MG/4 ML DISP.SYRIN. IVP PRN (20:00)
[2020-02-03] MEDS ORDERED: hydrALAZINE 20 MG/ML VIAL. IVP PRN (20:00)
--- NOTE | 2020-02-03 20:00 | NUR ---
PT ARRIVED TO UNIT VIA CART, PT 4 PERSON ASSIST TO BARIATRIC BED, ASSESSMENT AND HISTORY COMPLETE, VSS OBTAINED, BP ELEVATED WILL RE-EVALUATE AND MEDICATE IF NEEDED WITH PRN BP MEDS. CALL LIGHT IN PLACE WILL CONT TO MONITOR PT SAFETY AND STATUS. PMRN
--- NOTE | 2020-02-03 20:01 | NUR ---
Pt found her black ear buds (2) by jerin in her belongings bag, she place one in her ear and left the other one in the container. will cont to monitor. pmrn
--- NOTE | 2020-02-03 20:03 | PDOC1 ---
History and Physical Date of Service: DOS: DATE: 02/03/20 TIME: 19:49 History of Present Illness: HPI: 54 year old female with history of COPD, asthma on oxygen 3 L at home, h ypertension, diabetes type 2, mobility obesity, who presents the ED today complaining of 10 out of 10 substernal chest pain radiating to her back that began 3 days ago. Patient states the pain is worse on activities. She describes the pain as sharp and constant. She states she has tried applying Lidoderm patches to her back with no relief. She reports history of chronic generalized back pain that she uses Lidoderm patches for. She reports she had a subjective fever yesterday. Denies any unusual cough or congestion. Past Medical/Surgical History: PMH/PSH: Past Medical History: Asthma, COPD on home O2, Diabetes-Type I, Diabetes-Type II, DVT, Hypertension, MORBID OBESTITY, home 02, Past Surgical History: Hysterectomy, CARPEL TUNNEL, colonoscopy Allergies: Allergies: Coded Allergies: aspirin (Verified Allergy, Intermediate, Swelling, 06/11/17) Family History: Family History: Reviewed and none reported Social History: Social History: Smoking Status: Former Smoker Alcohol Use: Occasionally Drug Use: None Current Medications: Current Medications Current Medications Nitroglycerin (Nitrostat) 0.4 mg PRN Q5MIN PRN SL CP RATING > 1/10 Last administered on 02/03/20at 14:38; Start 02/03/20 at 13:00; Stop 02/04/20 at 12:59 Morphine Sulfate (Morphine Sulfate) 4 mg PRN Q15MIN PRN IV/SQ PAIN GREATER THAN 3/10 Last administered on 02/03/20at 19:30; Start 02/03/20 at 13:00; Stop 02/04/20 at 12:59 Labetalol HCl (Normodyne Iv Push) 10 mg 1X ONCE IVP Last administered on 02/03/20at 14:38; Start 02/03/20 at 14:30; Stop 02/03/20 at 14:34; Status DC Multi-Ingredient Mouthwash/Gargle (Gi Cocktail) 20 ml 1X ONCE SWSW Last ad ministered on 02/03/20at 14:56; Start 02/03/20 at 15:00; Stop 02/03/20 at 15:01; Status DC Iohexol (Omnipaque 350 Mg/ml) 100 ml 1X ONCE IV Last administered on 02/03/20at 15:00; Start 02/03/20 at 15:00; Stop 02/03/20 at 15:01; Status DC Diphenhydramine HCl (Benadryl) 25 mg QHS PO ; Start 02/03/20 at 21:00 Duloxetine HCl (Cymbalta) 30 mg DAILY PO ; Start 02/04/20 at 09:00 Pregabalin (Lyrica) 50 mg BID PO ; Start 02/03/20 at 21:00 Pantoprazole Sodium (Protonix) 40 mg BIDAC PO ; Start 02/04/20 at 07:30 Amlodipine Besylate (Norvasc) 10 mg DAILY PO ; Start 02/04/20 at 09:00 Aspirin (Tracy Aspirin) 325 mg 1X ONCE PO ; Start 02/03/20 at 17:30; Stop 02/03/20 at 17:31; Status UNV Aspirin (Ecotrin) 81 mg DAILYWBKFT PO ; Start 02/04/20 at 08:00; Status UNV Enoxaparin Sodium (Lovenox 60mg Syringe) 60 mg Q12HR SQ Last administered on 02/03/20at 19:27; Start 02/03/20 at 18:00 Ondansetron HCl (Zofran) 4 mg PRN Q8HRS PRN IV NAUSEA/VOMITING; Start 02/03/20 at 18:15; Stop 02/04/20 at 18:14 Nitroglycerin (Nitrostat) 0.4 mg PRN Q5MIN PRN SL CHEST PAIN; Start 02/03/20 at 18:15; Stop 02/04/20 at 18:14 Active Scripts Active Chloraseptic (Phenol) 20 Ml [place] 2 Puff PO TID 7 Days Opcon-A Eye Drops (Naphazoline Hcl/Pheniramine) 15 Ml Drops 1 Drop EACHEYE QID 10 Days Naproxen 500 Mg Tablet 1 Tab PO BID PRN 10 Days Orphenadrine Citrate 100 Mg Tablet.er 1 Tab PO BID PRN 10 Days Doxycycline Hyclate 100 Mg Tablet 1 Tab PO BID Tessalon Perle (Benzonatate) 100 Mg Capsule 1 Cap PO TID Proair Hfa (Albuterol Sulfate) 8.5 Gm Hfa.aer.ad 1 Puff INH PRN Q6HRS PRN Imbler 5-325 Tablet (Acetaminophen/Hydrocodone Bitart) 1 Each Tablet 1 Tab PO Q6HRS Cyclobenzaprine Hcl 10 Mg Tablet 1 Tab PO TID Dicyclomine Hcl 10 Mg Capsule 1 Cap PO PRN Q6HRS Pyridium (Phenazopyridine Hcl) 200 Mg Tablet 200 Mg PO TID 3 Days Bactrim Ds Tablet (Sulfamethoxazole/Trimethoprim) 1 Each Tablet 1 Tab PO BID Benadryl (Diphenhydramine Hcl) 25 Mg Capsule 1 Cap PO QHS Cyclobenzaprine Hcl 10 Mg Tablet 10 Mg PO TID 5 Days Proair Hfa Inhaler (Albuterol Sulfate) 8.5 Gm Hfa.aer.ad 1 Puff INH PRN Q6HRS PRN Prednisone 20 Mg Tablet 2 Tab PO DAILY 3 Days Guaifenesin Dm Syrup (Guaifenesin/Dextromethorphan) 5 Ml Syrup 10 Ml PO PRN Q6HRS PRN Nystop (Nystatin) 60 Gm Powder 1 Christine TP BID 10 Days [Pantoprazole] 40 MG Tablet.dr 40 Mg PO BIDAC 30 Days Duoneb 0.5-3(2.5) Mg/3 Ml (Albuterol/Ipratropium) 3 Ml Ampul.neb 3 Ml NEB RTQID Proair Hfa Inhaler (Albuterol Sulfate) 8.5 Gm Hfa.aer.ad 1 Puff INH Q4HRS PRN Reported Oxycodone-Acetaminophen 10-325 (Oxycodone Hcl/Acetaminophen) 1 Each Tablet 1 Tab PO QID Loratadine 10 Mg Tablet 1 Tab PO DAILY Spironolactone 25 Mg Tablet 1 Tab PO DAILY Amlodipine Besylate 10 Mg Tablet 10 Mg PO DAILY Seroquel (Quetiapine Fumarate) 100 Mg Tablet 1 Tab PO QHS Zolpidem Tartrate 10 Mg Tablet 10 Mg PO PRN QHS PRN Lyrica (Pregabalin) 50 Mg Capsule 1 Cap PO BID Spiriva (Tiotropium Sulligent) 18 Mcg Cap.w.dev 1 Cap IH DAILY Xanax (Alprazolam) 1 Mg Tablet 1 Tab PO TID Lidoderm (Lidocaine) 700 Mg Adh..patch 700 Mg TP PRN 1X Advair 250-50 Diskus (Fluticasone/Salmeterol) 1 Each Disk.w.dev 1 Each IH BID Vitamin D3 (Cholecalciferol (Vitamin D3)) 50,000 Unit Capsule 50,000 Unit PO WEEKLY Iron (Ferrous Sulfate) 325 Mg Tablet 325 Mg PO DAILY Cymbalta (Duloxetine Hcl) 30 Mg Capsule.dr 30 Mg PO DAILY ROS: Review of Systems Review of System REVIEW OF SYSTEMS: GENERAL: Denies weakness SKIN: No bruising, hair changes or rashes. EYES: No blurred, double or loss of vision. NOSE AND THROAT: No history of nosebleeds, hoarseness or sore throat. HEART: No history of palpitations, chest pain or shortness of breath on exertion. LUNGS: Denies cough, hemoptysis, wheezing or shortness of breath. GASTROINTESTINAL: Denies changes in appetite, nausea, vomiting, diarrhea or constipation. GENITOURINARY: No history of frequency, urgency, hesitancy or nocturia. NEUROLOGIC: Denies history of numbness, tingling, or tremor. PSYCHIATRIC: No history of panic, anxiety or depression. ENDOCRINE: No history of heat or cold intolerance, polyuria or polydipsia. EXTREMITIES: Denies joint pain, pain on walking or stiffness. Physical Exam: Vital Signs: Vital Signs Date Time Temp Pulse Resp B/P (MAP) Pulse Ox O2 Delivery O2 Flow Rate FiO2 02/03/20 19:30 97 Room Air 02/03/20 16:47 102 20 182/114 (136) 4.0 02/03/20 12:41 99.1 99.1 Physcial Exam: GEN: No apparent distress. Alert and oriented HEENT: Normal cephalic, atraumatic, external auditory canals are patent EYES: Extraocular muscles are intact, pupil are equally round and reactive to light and accommodation MUSCULOSKELETAL: Well developed , well nourished, good range of motion ENDOCRINE: No thyromegaly was palpated LYMPHATICS: No cervical chain or axillary nodes were noted HEMATOPOIETIC: No bruising NECK: Supple, no JVD, no thyromegaly was noted LUNGS: Clear to auscultation in all lung chen without rhonchi or wheezing HEART: RRR, S1 S2 present. Peripheral pulses intact, no obvious murmurs noted. Reproducible substernal chest pain ABDOMEN: Soft, nontender. Positive bowel sounds, no organomegaly, normal bowel sounds EXTREMITIES: Without clubbing, cyanosis, or edema. Pedal pulses intact. Negative Homans sign NEUROLOGIC: Normal speech and tone. A&O x 3, moves all extremities, no obvious focal deficits PSYCHIATRIC: Normal affect, normal mood. Stable SKIN: No ulcerations or rashes, good skin turgor, no jaundice VASCULAR: Good capillary refill, neurovascular bundle appears to be intact Labs: Labs: Laboratory Tests Test 02/03/20 13:20 02/03/20 14:05 02/03/20 15:25 02/03/20 17:15 White Blood Count 7.2 x10^3/uL (4.0-11.0) Red Blood Count 4.28 x10^6/uL (3.50-5.40) Hemoglobin 10.8 g/dL (12.0-15.5) Hematocrit 34.1 % (36.0-47.0) Mean Corpuscular Volume 80 fL (79-100) Mean Corpuscular Hemoglobin 25 pg (25-35) Mean Corpuscular Hemoglobin Concent 32 g/dL (31-37) Red Cell Distribution Width 17.1 % (11.5-14.5) Platelet Count 316 x10^3/uL (140-400) Neutrophils (%) (Auto) 69 % (31-73) Lymphocytes (%) (Auto) 21 % (24-48) Monocytes (%) (Auto) 7 % (0-9) Eosinophils (%) (Auto) 2 % (0-3) Basophils (%) (Auto) 1 % (0-3) Neutrophils # (Auto) 5.0 x10^3/uL (1.8-7.7) Lymphocytes # (Auto) 1.5 x10^3/uL (1.0-4.8) Monocytes # (Auto) 0.5 x10^3/uL (0.0-1.1) Eosinophils # (Auto) 0.2 x10^3/uL (0.0-0.7) Basophils # (Auto) 0.1 x10^3/uL (0.0-0.2) Prothrombin Time 11.3 SEC (11.7-14.0) Prothromb Time International Ratio 0.9 (0.8-1.1) Sodium Level 141 mmol/L (136-145) Potassium Level 3.7 mmol/L (3.5-5.1) Chloride Level 102 mmol/L (98-107) Carbon Dioxide Level 33 mmol/L (21-32) Anion Gap 6 (6-14) Blood Urea Nitrogen 13 mg/dL (7-20) Creatinine 0.8 mg/dL (0.6-1.0) Estimated GFR (Cockcroft-Gault) 90.1 BUN/Creatinine Ratio 16 (6-20) Glucose Level 121 mg/dL (70-99) Calcium Level 8.7 mg/dL (8.5-10.1) Magnesium Level 2.1 mg/dL (1.8-2.4) Total Bilirubin 0.2 mg/dL (0.2-1.0) Aspartate Amino Transf (AST/SGOT) 22 U/L (15-37) Alanine Aminotransferase (ALT/SGPT) 19 U/L (14-59) Alkaline Phosphatase 92 U/L (46-116) Troponin I Quantitative < 0.017 ng/mL (0.000-0.055) < 0.017 ng/mL (0.000-0.055) CF-Sof-Z-Type Natriuretic Peptide 134 pg/mL (0-124) Total Protein 7.0 g/dL (6.4-8.2) Albumin 3.2 g/dL (3.4-5.0) Albumin/Globulin Ratio 0.8 (1.0-1.7) Lipase 67 U/L (73-393) Thyroid Stimulating Hormone (TSH) 2.398 uIU/mL (0.358-3.74) Urine Collection Type Unknown Urine Color Yellow Urine Clarity Cloudy Urine pH 5.0 (<5.0-8.0) Urine Specific [place] 1.015 (1.000-1.030) Urine Protein Negative mg/dL (NEG-TRACE) Urine Glucose (UA) Negative mg/dL (NEG) Urine Ketones (Stick) Negative mg/dL (NEG) Urine Blood Negative (NEG) Urine Nitrite Negative (NEG) Urine Bilirubin Negative (NEG) Urine Urobilinogen Dipstick 0.2 mg/dL (0.2 mg/dL) Urine Leukocyte Esterase Negative (NEG) Urine RBC Occ /HPF (0-2) Urine WBC 1-4 /HPF (0-4) Urine Squamous Epithelial Cells Few /LPF Urine Bacteria Moderate /HPF (0-FEW) Urine Mucus Mod /LPF Urine Opiates Screen Pos (NEG) Urine Methadone Screen Neg (NEG) Urine Barbiturates Neg (NEG) Urine Phencyclidine Screen Neg (NEG) Urine Amphetamine/Methamphetamine Neg (NEG) Urine Benzodiazepines Screen Pos (NEG) Urine Cocaine Screen Neg (NEG) Urine Cannabinoids Screen Neg (NEG) Urine Ethyl Alcohol Neg (NEG) Lactic Acid Level 0.9 mmol/L (0.4-2.0) Laboratory Tests Test 02/03/20 13:20 02/03/20 14:05 02/03/20 15:25 02/03/20 17:15 White Blood Count 7.2 x10^3/uL (4.0-11.0) Red Blood Count 4.28 x10^6/uL (3.50-5.40) Hemoglobin 10.8 g/dL (12.0-15.5) Hematocrit 34.1 % (36.0-47.0) Mean Corpuscular Volume 80 fL (79-100) Mean Corpuscular Hemoglobin 25 pg (25-35) Mean Corpuscular Hemoglobin Concent 32 g/dL (31-37) Red Cell Distribution Width 17.1 % (11.5-14.5) Platelet Count 316 x10^3/uL (140-400) Neutrophils (%) (Auto) 69 % (31-73) Lymphocytes (%) (Auto) 21 % (24-48) Monocytes (%) (Auto) 7 % (0-9) Eosinophils (%) (Auto) 2 % (0-3) Basophils (%) (Auto) 1 % (0-3) Neutrophils # (Auto) 5.0 x10^3/uL (1.8-7.7) Lymphocytes # (Auto) 1.5 x10^3/uL (1.0-4.8) Monocytes # (Auto) 0.5 x10^3/uL (0.0-1.1) Eosinophils # (Auto) 0.2 x10^3/uL (0.0-0.7) Basophils # (Auto) 0.1 x10^3/uL (0.0-0.2) Prothrombin Time 11.3 SEC (11.7-14.0) Prothromb Time International Ratio 0.9 (0.8-1.1) Sodium Level 141 mmol/L (136-145) Potassium Level 3.7 mmol/L (3.5-5.1) Chloride Level 102 mmol/L (98-107) Carbon Dioxide Level 33 mmol/L (21-32) Anion Gap 6 (6-14) Blood Urea Nitrogen 13 mg/dL (7-20) Creatinine 0.8 mg/dL (0.6-1.0) Estimated GFR (Cockcroft-Gault) 90.1 BUN/Creatinine Ratio 16 (6-20) Glucose Level 121 mg/dL (70-99) Calcium Level 8.7 mg/dL (8.5-10.1) Magnesium Level 2.1 mg/dL (1.8-2.4) Total Bilirubin 0.2 mg/dL (0.2-1.0) Aspartate Amino Transf (AST/SGOT) 22 U/L (15-37) Alanine Aminotransferase (ALT/SGPT) 19 U/L (14-59) Alkaline Phosphatase 92 U/L (46-116) Troponin I Quantitative < 0.017 ng/mL (0.000-0.055) < 0.017 ng/mL (0.000-0.055) VO-Cka-A-Type Natriuretic Peptide 134 pg/mL (0-124) Total Protein 7.0 g/dL (6.4-8.2) Albumin 3.2 g/dL (3.4-5.0) Albumin/Globulin Ratio 0.8 (1.0-1.7) Lipase 67 U/L (73-393) Thyroid Stimulating Hormone (TSH) 2.398 uIU/mL (0.358-3.74) Urine Collection Type Unknown Urine Color Yellow Urine Clarity Cloudy Urine pH 5.0 (<5.0-8.0) Urine Specific [place] 1.015 (1.000-1.030) Urine Protein Negative mg/dL (NEG-TRACE) Urine Glucose (UA) Negative mg/dL (NEG) Urine Ketones (Stick) Negative mg/dL (NEG) Urine Blood Negative (NEG) Urine Nitrite Negative (NEG) Urine Bilirubin Negative (NEG) Urine Urobilinogen Dipstick 0.2 mg/dL (0.2 mg/dL) Urine Leukocyte Esterase Negative (NEG) Urine RBC Occ /HPF (0-2) Urine WBC 1-4 /HPF (0-4) Urine Squamous Epithelial Cells Few /LPF Urine Bacteria Moderate /HPF (0-FEW) Urine Mucus Mod /LPF Urine Opiates Screen Pos (NEG) Urine Methadone Screen Neg (NEG) Urine Barbiturates Neg (NEG) Urine Phencyclidine Screen Neg (NEG) Urine Amphetamine/Methamphetamine Neg (NEG) Urine Benzodiazepines Screen Pos (NEG) Urine Cocaine Screen Neg (NEG) Urine Cannabinoids Screen Neg (NEG) Urine Ethyl Alcohol Neg (NEG) Lactic Acid Level 0.9 mmol/L (0.4-2.0) Images: Images CXR IMPRESSION: * Basilar airspace opacities which can be from atelectasis or infiltrate. Chest CTA IMPRESSION: No pulmonary embolus identified within the main, lobar or segmental pulmonary arteries. Exposure: One or more of the following in the visualized dose reduction techniques were utilized for this examination: 1. Automated exposure control 2. Adjustment of the MA and/or KV according to patient size 3. Use of iterative of reconstructive technique Assessment/Plan Assessment/Plan Chest pain concerning for unstable angina most likely costochondritis Hypertensive urgency Morbid obesity Diabetes mellitus type 2 Hypertension Admit to medicine Appreciate cardiology recommendations EKG normal Troponin Continue aspirin, consider Plavix if intermediate risk [facility] consulted for predischarge stress testing or left heart cath Continue nitroglycerin as needed for pain Continue beta-wilder if blood pressures allow Continue high intensity statins IV morphine as needed IV hydralazine as needed Consider Lovenox Maintain O2 sats between 88 to 95% Trend troponins Repeat EKG in the a.m. Continue telemetry monitoring Monitor for electrolyte abnormalities Avoid NSAIDs Lovenox for DVT prophylaxis Cardiac diet Full code Discussed with RN and SW Disposition for inpatient Surrogate decision maker is self Justifications for Admission Chest Pain Indications Serious Diagnosis?: Yes Justification for admission: Chest pain may be indicative of potentially serious diagnosis/diagnoses Please state condition(s) which will require inpatient level of care for further evaluation and management. Is patient at high risk?: Yes Justification for admission: Patient is high risk based on hemodynamic instability, CHF, abnormal EKG/ECG/cardiac biomarkers/physical exam findings in context of chest pain persisting despite parenteral analgesics & optimal anti-anginal therapy. Other Justification IRMA MCHUGH MD Feb 03, 2020 20:03
[2020-02-03] MEDS: PREGABALIN 50 MG CAPSULE PO SCH (22:50)
[2020-02-03] MEDS: diphenhydrAMINE HCL 25 MG CAPSULE PO SCH (22:51)
[2020-02-03 23:00] VITALS: BP 141/74
[2020-02-04 02:31] VITALS: BP 129/70
--- NOTE | 2020-02-04 02:38 | NUR ---
PT REQUESTED PAIN MED, DR LOLITA KNUTSON, NEW RECEIVED AND GIVEN. WILL CONT TO MONITOR PT STATUS AND SAFETY. PMRN
[2020-02-04] MEDS: oxyCODONE/APAP 10/325 1 TAB TABLET PO PRN ×4 (02:53→20:38)
[2020-02-04 07:00] VITALS: BP 157/71
[2020-02-04] MEDS ORDERED: ASPIRIN ENTERIC COATED 81 MG TABLET.DR. PO SCH (08:00)
[2020-02-04] MEDS: PANTOPRAZOLE 40 MG TABLET.DR. PO SCH ×2 (08:11→16:47)
[2020-02-04] MEDS: DULoxetine HCL 30 MG CAPSULE.DR PO SCH (08:11)
[2020-02-04] MEDS: amLODIPine BESYLATE 10 MG TABLET PO SCH (08:12)
[2020-02-04] MEDS: PREGABALIN 50 MG CAPSULE PO SCH ×2 (08:12→20:11)
[2020-02-04] MEDS ORDERED: ATOR20TA58 PO (08:43)
[2020-02-04] MEDS ORDERED: ASPI325T8 PO (09:13)
[2020-02-04] MEDS ORDERED: CETI10TA16 PO (09:13)
[2020-02-04] MEDS ORDERED: AMMO120C TP (09:13)
[2020-02-04] MEDS ORDERED: ESOM40CA47 PO (09:13)
[2020-02-04] MEDS ORDERED: ATOR40TA59 PO (09:13)
[2020-02-04] MEDS ORDERED: CYCL5TAB PO (09:13)
[2020-02-04 11:00] VITALS: BP 141/60
[2020-02-04 11:30] LABS: BASO # 0.1 x10^3/uL (0.0-0.2); BASO % 1 % (0-3); EOS # 0.2 x10^3/uL (0.0-0.7); EOS % 3 % (0-3); HEMATOCRIT 33.8 % (36.0-47.0); HEMOGLOBIN 10.7 g/dL (12.0-15.5); LYMPH # 1.6 x10^3/uL (1.0-4.8); LYMPH % 30 % (24-48); MEAN CORPUSCULAR HEMOGLOBIN 25 pg (25-35); MEAN CORPUSCULAR HGB CONC 32 g/dL (31-37); MEAN CORPUSCULAR VOLUME 80 fL (79-100); MONO # 0.3 x10^3/uL (0.0-1.1); MONO % 6 % (0-9); NEUT # 3.3 x10^3/uL (1.8-7.7); NEUT % 60 % (31-73); PLATELET COUNT 295 x10^3/uL (140-400); RED CELL DISTRIBUTION WIDTH 17.6 % (11.5-14.5); WHITE BLOOD COUNT 5.5 x10^3/uL (4.0-11.0)
[2020-02-04] MEDS ORDERED: PERFLUTREN PROTEIN-A MICROSPHR 0.22 MG/ML 3 ML VIAL. IV ONE ×2 (11:31→12:00)
[2020-02-04 11:41] LABS: CALCIUM 8.1 mg/dL (8.5-10.1); CREATININE 0.8 mg/dL (0.6-1.0); GFR 90.1; POTASSIUM 3.6 mmol/L (3.5-5.1)
--- NOTE | 2020-02-04 12:01 | PDOC ---
TULIO PORTILLO [employer]IPMENT TEST ENGINEER 02/04/20 1201: CARDIO Progress Notes Date and Time Date of Service 02/04/2020 Time of Evaluation 0950 Subjective Subjective: No shortness of breath, No Palpitations, Other (sharp right chest pain and reproducible) Vitals Vitals Vital Signs Date Time Temp Pulse Resp B/P (MAP) Pulse Ox O2 Delivery O2 Flow Rate FiO2 02/04/20 11:00 98.2 107 20 141/60 (87) 96 Nasal Cannula 2.0 98.2 Weight Weight [ ] Input and Output Intake and Output Intake and Output 02/04/20 07:00 Intake Total 950 ml Output Total 400 ml Balance 550 ml Intake Oral 950 ml Output Urine Total 400 ml Laboratory Labs Laboratory Tests Test 02/03/20 13:20 02/03/20 14:05 02/03/20 15:25 02/03/20 17:15 White Blood Count 7.2 x10^3/uL (4.0-11.0) Red Blood Count 4.28 x10^6/uL (3.50-5.40) Hemoglobin 10.8 g/dL (12.0-15.5) Hematocrit 34.1 % (36.0-47.0) Mean Corpuscular Volume 80 fL (79-100) Mean Corpuscular Hemoglobin 25 pg (25-35) Mean Corpuscular Hemoglobin Concent 32 g/dL (31-37) Red Cell Distribution Width 17.1 % (11.5-14.5) Platelet Count 316 x10^3/uL (140-400) Neutrophils (%) (Auto) 69 % (31-73) Lymphocytes (%) (Auto) 21 % (24-48) Monocytes (%) (Auto) 7 % (0-9) Eosinophils (%) (Auto) 2 % (0-3) Basophils (%) (Auto) 1 % (0-3) Neutrophils # (Auto) 5.0 x10^3/uL (1.8-7.7) Lymphocytes # (Auto) 1.5 x10^3/uL (1.0-4.8) Monocytes # (Auto) 0.5 x10^3/uL (0.0-1.1) Eosinophils # (Auto) 0.2 x10^3/uL (0.0-0.7) Basophils # (Auto) 0.1 x10^3/uL (0.0-0.2) Prothrombin Time 11.3 SEC (11.7-14.0) Prothromb Time International Ratio 0.9 (0.8-1.1) Sodium Level 141 mmol/L (136-145) Potassium Level 3.7 mmol/L (3.5-5.1) Chloride Level 102 mmol/L (98-107) Carbon Dioxide Level 33 mmol/L (21-32) Anion Gap 6 (6-14) Blood Urea Nitrogen 13 mg/dL (7-20) Creatinine 0.8 mg/dL (0.6-1.0) Estimated GFR (Cockcroft-Gault) 90.1 BUN/Creatinine Ratio 16 (6-20) Glucose Level 121 mg/dL (70-99) Calcium Level 8.7 mg/dL (8.5-10.1) Magnesium Level 2.1 mg/dL (1.8-2.4) Total Bilirubin 0.2 mg/dL (0.2-1.0) Aspartate Amino Transf (AST/SGOT) 22 U/L (15-37) Alanine Aminotransferase (ALT/SGPT) 19 U/L (14-59) Alkaline Phosphatase 92 U/L (46-116) Troponin I Quantitative < 0.017 ng/mL (0.000-0.055) < 0.017 ng/mL (0.000-0.055) AN-Klc-T-Type Natriuretic Peptide 134 pg/mL (0-124) Total Protein 7.0 g/dL (6.4-8.2) Albumin 3.2 g/dL (3.4-5.0) Albumin/Globulin Ratio 0.8 (1.0-1.7) Lipase 67 U/L (73-393) Thyroid Stimulating Hormone (TSH) 2.398 uIU/mL (0.358-3.74) Urine Collection Type Unknown Urine Color Yellow Urine Clarity Cloudy Urine pH 5.0 (<5.0-8.0) Urine Specific [place] 1.015 (1.000-1.030) Urine Protein Negative mg/dL (NEG-TRACE) Urine Glucose (UA) Negative mg/dL (NEG) Urine Ketones (Stick) Negative mg/dL (NEG) Urine Blood Negative (NEG) Urine Nitrite Negative (NEG) Urine Bilirubin Negative (NEG) Urine Urobilinogen Dipstick 0.2 mg/dL (0.2 mg/dL) Urine Leukocyte Esterase Negative (NEG) Urine RBC Occ /HPF (0-2) Urine WBC 1-4 /HPF (0-4) Urine Squamous Epithelial Cells Few /LPF Urine Bacteria Moderate /HPF (0-FEW) Urine Mucus Mod /LPF Urine Opiates Screen Pos (NEG) Urine Methadone Screen Neg (NEG) Urine Barbiturates Neg (NEG) Urine Phencyclidine Screen Neg (NEG) Urine Amphetamine/Methamphetamine Neg (NEG) Urine Benzodiazepines Screen Pos (NEG) Urine Cocaine Screen Neg (NEG) Urine Cannabinoids Screen Neg (NEG) Urine Ethyl Alcohol Neg (NEG) Lactic Acid Level 0.9 mmol/L (0.4-2.0) Test 02/03/20 20:00 02/03/20 21:22 02/04/20 04:20 02/04/20 07:41 Troponin I Quantitative < 0.017 ng/mL (0.000-0.055) Glucose (Fingerstick) 108 mg/dL (70-99) 105 mg/dL (70-99) Triglycerides Level 147 mg/dL (0-150) Cholesterol Level 189 mg/dL (0-200) LDL Cholesterol, Calculated 98 mg/dL (0-100) VLDL Cholesterol, Calculated 29 mg/dL (0-40) Non-HDL Cholesterol Calculated 127 mg/dL (0-129) HDL Cholesterol 62 mg/dL (40-60) Cholesterol/HDL Ratio 3.0 Test 02/04/20 10:10 02/04/20 11:47 White Blood Count 5.5 x10^3/uL (4.0-11.0) Red Blood Count 4.20 x10^6/uL (3.50-5.40) Hemoglobin 10.7 g/dL (12.0-15.5) Hematocrit 33.8 % (36.0-47.0) Mean Corpuscular Volume 80 fL (79-100) Mean Corpuscular Hemoglobin 25 pg (25-35) Mean Corpuscular Hemoglobin Concent 32 g/dL (31-37) Red Cell Distribution Width 17.6 % (11.5-14.5) Platelet Count 295 x10^3/uL (140-400) Neutrophils (%) (Auto) 60 % (31-73) Lymphocytes (%) (Auto) 30 % (24-48) Monocytes (%) (Auto) 6 % (0-9) Eosinophils (%) (Auto) 3 % (0-3) Basophils (%) (Auto) 1 % (0-3) Neutrophils # (Auto) 3.3 x10^3/uL (1.8-7.7) Lymphocytes # (Auto) 1.6 x10^3/uL (1.0-4.8) Monocytes # (Auto) 0.3 x10^3/uL (0.0-1.1) Eosinophils # (Auto) 0.2 x10^3/uL (0.0-0.7) Basophils # (Auto) 0.1 x10^3/uL (0.0-0.2) Sodium Level 140 mmol/L (136-145) Potassium Level 3.6 mmol/L (3.5-5.1) Chloride Level 102 mmol/L (98-107) Carbon Dioxide Level 33 mmol/L (21-32) Anion Gap 5 (6-14) Blood Urea Nitrogen 12 mg/dL (7-20) Creatinine 0.8 mg/dL (0.6-1.0) Estimated GFR (Cockcroft-Gault) 90.1 Glucose Level 116 mg/dL (70-99) Calcium Level 8.1 mg/dL (8.5-10.1) Glucose (Fingerstick) 119 mg/dL (70-99) Microbiology Micro Microbiology 02/03/20 Urine Culture - Final, Complete Physical Exam HEENT: Neck Supple W Full Motion Chest: Symmetric LUNGS: Other (diminished) Heart: RRR (SR) Abdomen: Other (obese) Extremities: No Calf Tenderness Neurology: alert, oriented, follow commands Assessment Assessment 1. Atypical chest pain: possible MSK/GI. reproducible 2. Hypertensive urgency; better controlled 3. AECOPD, moderate pulm HTN; oxygen concentrator has not been functioning properly x2 days per PCP 4. Chronic diastolic CHF; compensated 5. Diabetes, II 6. Hyperlipidemia 7. Morbid obesity, suspected KANDI. Recommendations Continue BP regimen, secondary prevention measures TTE Consider outpatient ischemic eval Justicifation of Admission Dx: Justifications for Admission: Justification of Admission Dx: Yes Respiratory Failure: Severe Resp Distress SELINA BERMAN MD 02/04/20 1701: CARDIO Progress Notes Assessment Assessment Patient seen and examined Atypical chest pain: No acute EKG changes. Reproducible. Echo pending Hypertensive urgency; better controlled AECOPD, moderate pulm HTN; oxygen concentrator has not been functioning properly x2 days per PCP Chronic diastolic CHF; compensated Diabetes, II Morbid obesity, suspected KANDI. TULIO PORTILLO APRN Feb 04, 2020 12:01 SELINA BERMAN MD Feb 04, 2020 17:01
--- NOTE | 2020-02-04 14:10 | NUR ---
SS following for discharge planning. SS reviewed pt chart and discussed with pt RN. Pt is from home alone and is currently requiring oxygen. Pt has home oxygen through [employer], ; fax [phone]. PT/OT evaluated. Pt has caregiver that comes to the home to help care for her. Pt declined PT. OT recommended home with home healthcare. SS received referral requesting wellness check due to safety concerns. SS met with pt and discussed. Pt reported that all of her DME to include oxygen concentrator, hospital bed, commode, and walker is broken. Pt reported that she is supposed to have CPAP but never had transportation to pick it up. Pt reported that she cannot fit in her bathroom door and therefore cannot use her facilities. Pt requesting ADA apartment. DCF hotline report made due to safety concerns. Intake#[id number]. life care planner, Mariposa White, contacted [facility] and followed up on oxygen needs. New script received for commode and walker. SS phoned and faxed order to [facility], ; fax [phone]. SS will continue to follow for discharge planning.
[2020-02-04 15:00] VITALS: BP 174/85
--- NOTE | 2020-02-04 18:00 | CARD ---
MR#: [id number] Date of Study: 02/04/2020 Ordering Physician: STEVEN AMOS, Referring Physician: STEVEN AMOS, Tech: Lisy Bhagat APPROVED REPORT EXAM: Two-dimensional echocardiogram with contrast. Other Information Quality : FairHR: [id number] Technically limited study due to body habitus and COPD. INDICATION COPD Chest Pain Echo Enhancing Agent Indication: Endocardial border delineation Agent/Amount Used: Optison 10mL RISK FACTORS Hypertension Diabetes 2D DIMENSIONS Left Atrium(2D)3.5 (1.6-4.0cm)IVSd1.7 (0.7-1.1cm) Aortic Root(2D)3.0 (2.0-3.7cm)LVDd4.8 (3.9-5.9cm) LVOT Diameter2.1 (1.8-2.4cm)PWd1.4 (0.7-1.1cm) LVDs3.2 (2.5-4.0cm)FS (%) 33.5 % SV66.1 ml Aortic Valve AoV Peak Edgar.200.2cm/sAoV VTI34.0cm AO Peak GR.16.0mmHgLVOT VTI 15.81cm AO Mean GR.8mmHg Mitral Valve MV E Ngguncsr464.3cm/sMV E Peak Gr.7mmHg MV A Blmawuay497.1cm/sMV E Mean Gr.4mmHg E/A Ratio0.9 TDI Lateral E' P. V8.75cm/sMedial E' P. V9.91cm/s E/Lateral E'13.4E/Medial E'11.8 Tricuspid Valve TR P. Pqullcry815bw/sRAP CNXXWRPL6qoVm TR Peak Gr.13cmQqOQZF60kwJy Pulmonary Vein S1 Fiqujqvi82.2cm/sS2 Dkfzmihr32.83cm/s D2 Zecpersr82.8cm/s LEFT VENTRICLE The left ventricle is normal size. There is mild concentric left ventricular hypertrophy. The left ve ntricular systolic function is normal and the ejection fraction is within normal range. The Ejection Fraction is 50-55%. There is normal LV segmental wall motion. Transmitral Doppler flow pattern is Gra de I-abnormal relaxation pattern. RIGHT VENTRICLE The right ventricle is borderline dilated. The right ventricle is mildly hypertrophied. The right gabrielle tricular systolic function is normal. ATRIA The left atrium is borderline dilated. The right atrium size is normal. The interatrial septum is int act with no evidence for an atrial septal defect or patent foramen ovale as noted on 2-D or Doppler i maging. AORTIC VALVE The aortic valve is normal in structure and function. Doppler and Color Flow revealed no significant aortic regurgitation. There is no significant aortic valvular stenosis. Calculated aortic valve area is 1.86 cm2 with maximum pressure gradient of 16 mmHg and mean pressure gradient of 8 mmHg. MITRAL VALVE The mitral valve is normal in structure and function. There is no evidence of mitral valve prolapse. The mitral valve mean gradient is 4.38 mmHg. Doppler and Color-flow revealed trace mitral regurgitati on. TRICUSPID VALVE The tricuspid valve is normal in structure and function. Doppler and Color Flow revealed mild tricusp id regurgitation with an estimated PAP of 50 mmHg. There is no tricuspid valve stenosis. PULMONIC VALVE The pulmonic valve is not well visualized. Doppler and Color Flow revealed no pulmonic valvular regur gitation. GREAT VESSELS The aortic root is normal in size. The IVC is dilated. PERICARDIAL EFFUSION There is no evidence of significant pericardial effusion. Critical Notification Critical Value: No <Conclusion> The left ventricle is normal size. The left ventricular systolic function is normal and the ejection fraction is within normal range. The Ejection Fraction is 50-55%. There is mild concentric left ventricular hypertrophy. Doppler and Color Flow revealed no significant aortic regurgitation. There is no significant aortic valvular stenosis. Doppler and Color-flow revealed trace mitral regurgitation. Doppler and Color Flow revealed mild tricuspid regurgitation with an estimated PAP of 50 mmHg. Signed by : Surjit Nolasco MD Electronically Approved : 02/04/2020 18:00:16
[2020-02-04 19:25] VITALS: BP 146/82
[2020-02-04] MEDS: diphenhydrAMINE HCL 25 MG CAPSULE PO SCH (20:11)
[2020-02-04] MEDS: ALPRAZolam 1 MG TABLET PO SCH (20:38)
--- NOTE | 2020-02-04 20:58 | PDOC ---
[facility] PROGRESS NOTE Date of Service DOS: DATE: 02/04/20 TIME: 20:57 Vitals/I&O Vitals/I&O: Vital Signs Date Time Temp Pulse Resp B/P (MAP) Pulse Ox O2 Delivery O2 Flow Rate FiO2 02/04/20 20:38 18 94 Nasal Cannula 3.0 02/04/20 19:25 97.7 109 146/82 (103) 97.7 I & O 02/03/20 02/03/20 02/04/20 15:00 23:00 07:00 Intake Total 650 ml 300 ml Output Total 400 ml Balance 650 ml -100 ml Physical Exam Lungs: Crackles, Other Labs Labs: Laboratory Tests Test 02/03/20 21:22 02/04/20 04:20 02/04/20 07:41 02/04/20 10:10 Glucose (Fingerstick) 108 mg/dL (70-99) 105 mg/dL (70-99) Triglycerides Level 147 mg/dL (0-150) Cholesterol Level 189 mg/dL (0-200) LDL Cholesterol, Calculated 98 mg/dL (0-100) VLDL Cholesterol, Calculated 29 mg/dL (0-40) Non-HDL Cholesterol Calculated 127 mg/dL (0-129) HDL Cholesterol 62 mg/dL (40-60) Cholesterol/HDL Ratio 3.0 White Blood Count 5.5 x10^3/uL (4.0-11.0) Red Blood Count 4.20 x10^6/uL (3.50-5.40) Hemoglobin 10.7 g/dL (12.0-15.5) Hematocrit 33.8 % (36.0-47.0) Mean Corpuscular Volume 80 fL (79-100) Mean Corpuscular Hemoglobin 25 pg (25-35) Mean Corpuscular Hemoglobin Concent 32 g/dL (31-37) Red Cell Distribution Width 17.6 % (11.5-14.5) Platelet Count 295 x10^3/uL (140-400) Neutrophils (%) (Auto) 60 % (31-73) Lymphocytes (%) (Auto) 30 % (24-48) Monocytes (%) (Auto) 6 % (0-9) Eosinophils (%) (Auto) 3 % (0-3) Basophils (%) (Auto) 1 % (0-3) Neutrophils # (Auto) 3.3 x10^3/uL (1.8-7.7) Lymphocytes # (Auto) 1.6 x10^3/uL (1.0-4.8) Monocytes # (Auto) 0.3 x10^3/uL (0.0-1.1) Eosinophils # (Auto) 0.2 x10^3/uL (0.0-0.7) Basophils # (Auto) 0.1 x10^3/uL (0.0-0.2) Sodium Level 140 mmol/L (136-145) Potassium Level 3.6 mmol/L (3.5-5.1) Chloride Level 102 mmol/L (98-107) Carbon Dioxide Level 33 mmol/L (21-32) Anion Gap 5 (6-14) Blood Urea Nitrogen 12 mg/dL (7-20) Creatinine 0.8 mg/dL (0.6-1.0) Estimated GFR (Cockcroft-Gault) 90.1 Glucose Level 116 mg/dL (70-99) Calcium Level 8.1 mg/dL (8.5-10.1) Test 02/04/20 11:47 02/04/20 16:31 Glucose (Fingerstick) 119 mg/dL (70-99) 125 mg/dL (70-99) Assessment and Plan Assessmemt and Plan Problems Medical Problems: (1) Chest pain Status: Acute Comment Review of Relevant I have reviewed the following items bhavin (where applicable) has been applied. Medications: Current Medications Medications (Trade) Dose Ordered Sig/Rima Route PRN Reason Start Time Stop Time Status Last Admin Dose Admin Diphenhydramine HCl (Benadryl) 25 mg QHS PO 02/03/20 21:00 02/04/20 20:11 Duloxetine HCl (Cymbalta) 30 mg DAILY PO 02/04/20 09:00 02/04/20 08:11 Pregabalin (Lyrica) 50 mg BID PO 02/03/20 21:00 02/04/20 20:11 Pantoprazole Sodium (Protonix) 40 mg BIDAC PO 02/04/20 07:30 02/04/20 16:47 Amlodipine Besylate (Norvasc) 10 mg DAILY PO 02/04/20 09:00 02/04/20 08:12 Oxycodone/ Acetaminophen (Percocet 10/325) 1 tab PRN Q4HRS PRN PO SEVERE PAIN 7-10 02/04/20 02:45 02/04/20 20:38 Alprazolam (Xanax) 1 mg TID PO 02/04/20 21:00 02/04/20 20:38 Justifications for Admission Chest Pain Indications Serious Diagnosis?: Yes Justification for admission: Chest pain may be indicative of potentially serious diagnosis/diagnoses Please state condition(s) which will require inpatient level of care for further evaluation and management. Is patient at high risk?: Yes Justification for admission: Patient is high risk based on hemodynamic instability, CHF, abnormal EKG/ECG/cardiac biomarkers/physical exam findings in context of chest pain persisting despite parenteral analgesics & optimal anti-anginal therapy. Other Justification ZEHRA LONDON MD Feb 04, 2020 20:57
--- NOTE | 2020-02-04 23:04 | PDOC ---
PROGRESS NOTES Date of Service: DATE: 02/04/20 TIME: 23:00 Chief Complaint Chief Complaint Chest pain History of Present Illness History of Present Illness Patient's chest pain has resolved. She reports chronic back and knee pain. Discussed further evaluation pending Echo results. Vitals Vitals Vital Signs Date Time Temp Pulse Resp B/P (MAP) Pulse Ox O2 Delivery O2 Flow Rate FiO2 02/04/20 20:38 18 94 Nasal Cannula 3.0 02/04/20 19:25 97.7 109 146/82 (103) 97.7 Physical Exam General: Alert, Cooperative, Other (Morbidly obese) Heart: Regular rate Lungs: Crackles, Other Abdomen: Normal bowel sounds, Soft Extremities: No clubbing, No cyanosis Skin: No rashes, No significant lesion Labs LABS Laboratory Tests Test 02/04/20 04:20 02/04/20 07:41 02/04/20 10:10 02/04/20 11:47 Triglycerides Level 147 mg/dL (0-150) Cholesterol Level 189 mg/dL (0-200) LDL Cholesterol, Calculated 98 mg/dL (0-100) VLDL Cholesterol, Calculated 29 mg/dL (0-40) Non-HDL Cholesterol Calculated 127 mg/dL (0-129) HDL Cholesterol 62 mg/dL (40-60) Cholesterol/HDL Ratio 3.0 Glucose (Fingerstick) 105 mg/dL (70-99) 119 mg/dL (70-99) White Blood Count 5.5 x10^3/uL (4.0-11.0) Red Blood Count 4.20 x10^6/uL (3.50-5.40) Hemoglobin 10.7 g/dL (12.0-15.5) Hematocrit 33.8 % (36.0-47.0) Mean Corpuscular Volume 80 fL (79-100) Mean Corpuscular Hemoglobin 25 pg (25-35) Mean Corpuscular Hemoglobin Concent 32 g/dL (31-37) Red Cell Distribution Width 17.6 % (11.5-14.5) Platelet Count 295 x10^3/uL (140-400) Neutrophils (%) (Auto) 60 % (31-73) Lymphocytes (%) (Auto) 30 % (24-48) Monocytes (%) (Auto) 6 % (0-9) Eosinophils (%) (Auto) 3 % (0-3) Basophils (%) (Auto) 1 % (0-3) Neutrophils # (Auto) 3.3 x10^3/uL (1.8-7.7) Lymphocytes # (Auto) 1.6 x10^3/uL (1.0-4.8) Monocytes # (Auto) 0.3 x10^3/uL (0.0-1.1) Eosinophils # (Auto) 0.2 x10^3/uL (0.0-0.7) Basophils # (Auto) 0.1 x10^3/uL (0.0-0.2) Sodium Level 140 mmol/L (136-145) Potassium Level 3.6 mmol/L (3.5-5.1) Chloride Level 102 mmol/L (98-107) Carbon Dioxide Level 33 mmol/L (21-32) Anion Gap 5 (6-14) Blood Urea Nitrogen 12 mg/dL (7-20) Creatinine 0.8 mg/dL (0.6-1.0) Estimated GFR (Cockcroft-Gault) 90.1 Glucose Level 116 mg/dL (70-99) Calcium Level 8.1 mg/dL (8.5-10.1) Test 02/04/20 16:31 02/04/20 21:15 Glucose (Fingerstick) 125 mg/dL (70-99) 99 mg/dL (70-99) Review of Systems Review of Systems Back pain, knee pain. Denies chest pain, denies SOB. Assessment and Plan Assessmemt and Plan Problems Medical Problems: (1) Chest pain Status: Acute Plan: Ischemic work-up per cardiology if abnormal Echo, otherwise likely discharge. Comment Review of Relevant I have reviewed the following items bhavin (where applicable) has been applied. Labs Laboratory Tests Test 02/03/20 13:20 02/03/20 14:05 02/03/20 15:25 02/03/20 17:15 White Blood Count 7.2 x10^3/uL (4.0-11.0) Red Blood Count 4.28 x10^6/uL (3.50-5.40) Hemoglobin 10.8 g/dL (12.0-15.5) Hematocrit 34.1 % (36.0-47.0) Mean Corpuscular Volume 80 fL (79-100) Mean Corpuscular Hemoglobin 25 pg (25-35) Mean Corpuscular Hemoglobin Concent 32 g/dL (31-37) Red Cell Distribution Width 17.1 % (11.5-14.5) Platelet Count 316 x10^3/uL (140-400) Neutrophils (%) (Auto) 69 % (31-73) Lymphocytes (%) (Auto) 21 % (24-48) Monocytes (%) (Auto) 7 % (0-9) Eosinophils (%) (Auto) 2 % (0-3) Basophils (%) (Auto) 1 % (0-3) Neutrophils # (Auto) 5.0 x10^3/uL (1.8-7.7) Lymphocytes # (Auto) 1.5 x10^3/uL (1.0-4.8) Monocytes # (Auto) 0.5 x10^3/uL (0.0-1.1) Eosinophils # (Auto) 0.2 x10^3/uL (0.0-0.7) Basophils # (Auto) 0.1 x10^3/uL (0.0-0.2) Prothrombin Time 11.3 SEC (11.7-14.0) Prothromb Time International Ratio 0.9 (0.8-1.1) Sodium Level 141 mmol/L (136-145) Potassium Level 3.7 mmol/L (3.5-5.1) Chloride Level 102 mmol/L (98-107) Carbon Dioxide Level 33 mmol/L (21-32) Anion Gap 6 (6-14) Blood Urea Nitrogen 13 mg/dL (7-20) Creatinine 0.8 mg/dL (0.6-1.0) Estimated GFR (Cockcroft-Gault) 90.1 BUN/Creatinine Ratio 16 (6-20) Glucose Level 121 mg/dL (70-99) Calcium Level 8.7 mg/dL (8.5-10.1) Magnesium Level 2.1 mg/dL (1.8-2.4) Total Bilirubin 0.2 mg/dL (0.2-1.0) Aspartate Amino Transf (AST/SGOT) 22 U/L (15-37) Alanine Aminotransferase (ALT/SGPT) 19 U/L (14-59) Alkaline Phosphatase 92 U/L (46-116) Troponin I Quantitative < 0.017 ng/mL (0.000-0.055) < 0.017 ng/mL (0.000-0.055) OT-Kma-X-Type Natriuretic Peptide 134 pg/mL (0-124) Total Protein 7.0 g/dL (6.4-8.2) Albumin 3.2 g/dL (3.4-5.0) Albumin/Globulin Ratio 0.8 (1.0-1.7) Lipase 67 U/L (73-393) Thyroid Stimulating Hormone (TSH) 2.398 uIU/mL (0.358-3.74) Urine Collection Type Unknown Urine Color Yellow Urine Clarity Cloudy Urine pH 5.0 (<5.0-8.0) Urine Specific [place] 1.015 (1.000-1.030) Urine Protein Negative mg/dL (NEG-TRACE) Urine Glucose (UA) Negative mg/dL (NEG) Urine Ketones (Stick) Negative mg/dL (NEG) Urine Blood Negative (NEG) Urine Nitrite Negative (NEG) Urine Bilirubin Negative (NEG) Urine Urobilinogen Dipstick 0.2 mg/dL (0.2 mg/dL) Urine Leukocyte Esterase Negative (NEG) Urine RBC Occ /HPF (0-2) Urine WBC 1-4 /HPF (0-4) Urine Squamous Epithelial Cells Few /LPF Urine Bacteria Moderate /HPF (0-FEW) Urine Mucus Mod /LPF Urine Opiates Screen Pos (NEG) Urine Methadone Screen Neg (NEG) Urine Barbiturates Neg (NEG) Urine Phencyclidine Screen Neg (NEG) Urine Amphetamine/Methamphetamine Neg (NEG) Urine Benzodiazepines Screen Pos (NEG) Urine Cocaine Screen Neg (NEG) Urine Cannabinoids Screen Neg (NEG) Urine Ethyl Alcohol Neg (NEG) Lactic Acid Level 0.9 mmol/L (0.4-2.0) Test 02/03/20 20:00 02/03/20 21:22 02/04/20 04:20 02/04/20 07:41 Troponin I Quantitative < 0.017 ng/mL (0.000-0.055) Glucose (Fingerstick) 108 mg/dL (70-99) 105 mg/dL (70-99) Triglycerides Level 147 mg/dL (0-150) Cholesterol Level 189 mg/dL (0-200) LDL Cholesterol, Calculated 98 mg/dL (0-100) VLDL Cholesterol, Calculated 29 mg/dL (0-40) Non-HDL Cholesterol Calculated 127 mg/dL (0-129) HDL Cholesterol 62 mg/dL (40-60) Cholesterol/HDL Ratio 3.0 Test 02/04/20 10:10 02/04/20 11:47 02/04/20 16:31 02/04/20 21:15 White Blood Count 5.5 x10^3/uL (4.0-11.0) Red Blood Count 4.20 x10^6/uL (3.50-5.40) Hemoglobin 10.7 g/dL (12.0-15.5) Hematocrit 33.8 % (36.0-47.0) Mean Corpuscular Volume 80 fL (79-100) Mean Corpuscular Hemoglobin 25 pg (25-35) Mean Corpuscular Hemoglobin Concent 32 g/dL (31-37) Red Cell Distribution Width 17.6 % (11.5-14.5) Platelet Count 295 x10^3/uL (140-400) Neutrophils (%) (Auto) 60 % (31-73) Lymphocytes (%) (Auto) 30 % (24-48) Monocytes (%) (Auto) 6 % (0-9) Eosinophils (%) (Auto) 3 % (0-3) Basophils (%) (Auto) 1 % (0-3) Neutrophils # (Auto) 3.3 x10^3/uL (1.8-7.7) Lymphocytes # (Auto) 1.6 x10^3/uL (1.0-4.8) Monocytes # (Auto) 0.3 x10^3/uL (0.0-1.1) Eosinophils # (Auto) 0.2 x10^3/uL (0.0-0.7) Basophils # (Auto) 0.1 x10^3/uL (0.0-0.2) Sodium Level 140 mmol/L (136-145) Potassium Level 3.6 mmol/L (3.5-5.1) Chloride Level 102 mmol/L (98-107) Carbon Dioxide Level 33 mmol/L (21-32) Anion Gap 5 (6-14) Blood Urea Nitrogen 12 mg/dL (7-20) Creatinine 0.8 mg/dL (0.6-1.0) Estimated GFR (Cockcroft-Gault) 90.1 Glucose Level 116 mg/dL (70-99) Calcium Level 8.1 mg/dL (8.5-10.1) Glucose (Fingerstick) 119 mg/dL (70-99) 125 mg/dL (70-99) 99 mg/dL (70-99) Laboratory Tests Test 02/04/20 04:20 02/04/20 07:41 02/04/20 10:10 02/04/20 11:47 Triglycerides Level 147 mg/dL (0-150) Cholesterol Level 189 mg/dL (0-200) LDL Cholesterol, Calculated 98 mg/dL (0-100) VLDL Cholesterol, Calculated 29 mg/dL (0-40) Non-HDL Cholesterol Calculated 127 mg/dL (0-129) HDL Cholesterol 62 mg/dL (40-60) Cholesterol/HDL Ratio 3.0 Glucose (Fingerstick) 105 mg/dL (70-99) 119 mg/dL (70-99) White Blood Count 5.5 x10^3/uL (4.0-11.0) Red Blood Count 4.20 x10^6/uL (3.50-5.40) Hemoglobin 10.7 g/dL (12.0-15.5) Hematocrit 33.8 % (36.0-47.0) Mean Corpuscular Volume 80 fL (79-100) Mean Corpuscular Hemoglobin 25 pg (25-35) Mean Corpuscular Hemoglobin Concent 32 g/dL (31-37) Red Cell Distribution Width 17.6 % (11.5-14.5) Platelet Count 295 x10^3/uL (140-400) Neutrophils (%) (Auto) 60 % (31-73) Lymphocytes (%) (Auto) 30 % (24-48) Monocytes (%) (Auto) 6 % (0-9) Eosinophils (%) (Auto) 3 % (0-3) Basophils (%) (Auto) 1 % (0-3) Neutrophils # (Auto) 3.3 x10^3/uL (1.8-7.7) Lymphocytes # (Auto) 1.6 x10^3/uL (1.0-4.8) Monocytes # (Auto) 0.3 x10^3/uL (0.0-1.1) Eosinophils # (Auto) 0.2 x10^3/uL (0.0-0.7) Basophils # (Auto) 0.1 x10^3/uL (0.0-0.2) Sodium Level 140 mmol/L (136-145) Potassium Level 3.6 mmol/L (3.5-5.1) Chloride Level 102 mmol/L (98-107) Carbon Dioxide Level 33 mmol/L (21-32) Anion Gap 5 (6-14) Blood Urea Nitrogen 12 mg/dL (7-20) Creatinine 0.8 mg/dL (0.6-1.0) Estimated GFR (Cockcroft-Gault) 90.1 Glucose Level 116 mg/dL (70-99) Calcium Level 8.1 mg/dL (8.5-10.1) Test 02/04/20 16:31 02/04/20 21:15 Glucose (Fingerstick) 125 mg/dL (70-99) 99 mg/dL (70-99) Microbiology 02/03/20 Blood Culture - Preliminary, Resulted NO GROWTH AFTER 1 DAY 02/03/20 Urine Culture - Final, Complete Medications Current Medications Nitroglycerin (Nitrostat) 0.4 mg PRN Q5MIN PRN SL CP RATING > 1/10 Last administered on 02/03/20at 14:38; Start 02/03/20 at 13:00; Stop 02/04/20 at 11:29; Status DC Morphine Sulfate (Morphine Sulfate) 4 mg PRN Q15MIN PRN IV/SQ PAIN GREATER THAN 3/10 Last administered on 02/03/20at 19:30; Start 02/03/20 at 13:00; Stop 02/04/20 at 12:59; Status DC Labetalol HCl (Normodyne Iv Push) 10 mg 1X ONCE IVP Last administered on 02/03/20at 14:38; Start 02/03/20 at 14:30; Stop 02/03/20 at 14:34; Status DC Multi-Ingredient Mouthwash/Gargle (Gi Cocktail) 20 ml 1X ONCE SWSW Last administered on 02/03/20at 14:56; Start 02/03/20 at 15:00; Stop 02/03/20 at 15:01; Status DC Iohexol (Omnipaque 350 Mg/ml) 100 ml 1X ONCE IV Last administered on 02/03/20at 15:00; Start 02/03/20 at 15:00; Stop 02/03/20 at 15:01; Status DC Diphenhydramine HCl (Benadryl) 25 mg QHS PO Last administered on 02/04/20at 20:11; Start 02/03/20 at 21:00 Duloxetine HCl (Cymbalta) 30 mg DAILY PO Last administered on 02/04/20at 08:11; Start 02/04/20 at 09:00 Pregabalin (Lyrica) 50 mg BID PO Last administered on 02/04/20at 20:11; Start 02/03/20 at 21:00 Pantoprazole Sodium (Protonix) 40 mg BIDAC PO Last administered on 02/04/20at 16:47; Start 02/04/20 at 07:30 Amlodipine Besylate (Norvasc) 10 mg DAILY PO Last administered on 02/04/20at 08:12; Start 02/04/20 at 09:00 Aspirin (Tracy Aspirin) 325 mg 1X ONCE PO ; Start 02/03/20 at 17:30; Stop 02/03/20 at 17:31; Status UNV Aspirin (Ecotrin) 81 mg DAILYWBKFT PO ; Start 02/04/20 at 08:00; Status UNV Enoxaparin Sodium (Lovenox 60mg Syringe) 60 mg Q12HR SQ Last administered on 02/04/20at 20:11; Start 02/03/20 at 18:00 Ondansetron HCl (Zofran) 4 mg PRN Q8HRS PRN IV NAUSEA/VOMITING; Start 02/03/20 at 18:15; Stop 02/04/20 at 18:14; Status DC Nitroglycerin (Nitrostat) 0.4 mg PRN Q5MIN PRN SL CHEST PAIN; Start 02/03/20 at 18:15; Stop 02/04/20 at 18:14; Status DC Labetalol HCl (Normodyne Iv Push) 20 mg PRN Q2HR PRN IVP HYPERTENSION-2nd choice; Start 02/03/20 at 20:00 Hydralazine HCl (Apresoline Inj) 10 mg PRN Q4HRS PRN IVP ELEVATED BP, SEE COMMENTS; Start 02/03/20 at 20:00 Oxycodone/ Acetaminophen (Percocet 10/325) 1 tab PRN Q4HRS PRN PO SEVERE PAIN 7-10 Last administered on 02/04/20at 20:38; Start 02/04/20 at 02:45 Perflutren Protein Type A Microsphe (Optison) 0.66 mg STK-MED ONCE IV ; Start 02/04/20 at 11:31; Stop 02/04/20 at 11:31; Status DC Alprazolam (Xanax) 1 mg TID PO Last administered on 02/04/20at 20:38; Start 02/04/20 at 21:00 Active Scripts Active Chloraseptic (Phenol) 20 Ml [place] 2 Puff PO TID 7 Days Opcon-A Eye Drops (Naphazoline Hcl/Pheniramine) 15 Ml Drops 1 Drop EACHEYE QID 10 Days Naproxen 500 Mg Tablet 1 Tab PO BID PRN 10 Days Tessalon [place] (Benzonatate) 100 Mg Capsule 1 Cap PO TID [place] 5-325 Tablet (Acetaminophen/Hydrocodone Bitart) 1 Each Tablet 1 Tab PO Q6HRS Pyridium (Phenazopyridine Hcl) 200 Mg Tablet 200 Mg PO TID 3 Days Benadryl (Diphenhydramine Hcl) 25 Mg Capsule 1 Cap PO QHS Prednisone 20 Mg Tablet 2 Tab PO DAILY 3 Days Guaifenesin Dm Syrup (Guaifenesin/Dextromethorphan) 5 Ml Syrup 10 Ml PO PRN Q6HRS PRN Nystop (Nystatin) 60 Gm Powder 1 [place] TP BID 10 Days [Pantoprazole] 40 MG Tablet.dr 40 Mg PO BIDAC 30 Days Duoneb 0.5-3(2.5) Mg/3 Ml (Albuterol/Ipratropium) 3 Ml Ampul.neb 3 Ml NEB RTQID Proair Hfa Inhaler (Albuterol Sulfate) 8.5 Gm Hfa.aer.ad 1 Puff INH Q4HRS PRN Reported Atorvastatin Calcium 40 Mg Tablet 1 Tab PO QHS Emu-Lac Hydrating Cream (Ammonium Lactate/Emu Oil) 120 Ml Cream.ml. 120 Ml TP PRN PRN 10 Days Cetirizine Hcl 10 Mg Tablet 1 Tab PO DAILY Oxycodone-Acetaminophen 10-325 (Oxycodone Hcl/Acetaminophen) 1 Each Tablet 1 Tab PO QID Loratadine 10 Mg Tablet 1 Tab PO DAILY Amlodipine Besylate 10 Mg Tablet 10 Mg PO DAILY Seroquel (Quetiapine Fumarate) 100 Mg Tablet 1 Tab PO QHS Zolpidem Tartrate 10 Mg Tablet 10 Mg PO PRN QHS PRN Lyrica (Pregabalin) 50 Mg Capsule 1 Cap PO BID Spiriva (Tiotropium [place]) 18 Mcg Cap.w.dev 1 Cap IH DAILY Xanax (Alprazolam) 1 Mg Tablet 1 Tab PO TID Lidoderm (Lidocaine) 700 Mg Adh..patch 700 Mg TP PRN 1X Advair 250-50 Diskus (Fluticasone/Salmeterol) 1 Each Disk.w.dev 1 Each IH BID Vitamin D3 (Cholecalciferol (Vitamin D3)) 50,000 Unit Capsule 50,000 Unit PO WEEKLY Iron (Ferrous Sulfate) 325 Mg Tablet 325 Mg PO DAILY Cymbalta (Duloxetine Hcl) 30 Mg Capsule.dr 60 Mg PO DAILY Aspirin 325 Mg Tablet 1 Tab PO DAILY Cyclobenzaprine Hcl 5 Mg Tablet 2 Tab PO BID Vitals/I & O Vital Sign - Last 24 Hours 02/04/20 02/04/20 02/04/20 02/04/20 02:31 02:53 03:53 07:00 Temp 98.5 97.9 98.5 97.9 Pulse 110 102 Resp 20 20 B/P (MAP) 129/70 (89) 157/71 (99) Pulse Ox 93 93 96 O2 Delivery Nasal Cannula Nasal Cannula Nasal Cannula O2 Flow Rate 2.0 3.0 3.0 2.0 02/04/20 02/04/20 02/04/20 02/04/20 08:00 08:12 08:12 09:12 Pulse 110 B/P (MAP) 129/70 Pulse Ox 93 96 O2 Delivery Nasal Cannula Nasal Cannula O2 Flow Rate 2.0 3.0 2.0 02/04/20 02/04/20 02/04/20 02/04/20 11:00 12:00 15:00 16:47 Temp 98.2 97.9 98.2 97.9 Pulse 107 103 Resp 20 20 B/P (MAP) 141/60 (87) 174/85 (114) Pulse Ox 96 94 94 O2 Delivery Nasal Cannula Nasal Cannula Nasal Cannula Nasal Cannula O2 Flow Rate 2.0 2.0 2.0 2.0 02/04/20 02/04/20 02/04/20 02/04/20 17:47 19:25 20:00 20:38 Temp 97.7 97.7 Pulse 109 Resp 21 18 B/P (MAP) 146/82 (103) Pulse Ox 94 94 94 O2 Delivery Nasal Cannula Nasal Cannula Nasal Cannula Nasal Cannula O2 Flow Rate 2.0 3.0 3.0 3.0 Intake and Output 02/03/20 02/03/20 02/04/20 15:00 23:00 07:00 Intake Total 650 ml 300 ml Output Total 400 ml Balance 650 ml -100 ml Justicifation of Admission Dx: Justifications for Admission: Justification of Admission Dx: Yes Respiratory Failure: Severe Resp Distress ZEHRA LONDON MD Feb 04, 2020 23:04
[2020-02-04 23:30] VITALS: BP 146/85
[2020-02-05] MEDS: oxyCODONE/APAP 10/325 1 TAB TABLET PO PRN ×3 (03:27→23:23)
[2020-02-05 03:40] VITALS: BP 176/97
[2020-02-05 07:00] VITALS: BP 138/94
[2020-02-05] MEDS: amLODIPine BESYLATE 10 MG TABLET PO SCH (08:10)
[2020-02-05] MEDS: DULoxetine HCL 30 MG CAPSULE.DR PO SCH (08:10)
[2020-02-05] MEDS: ALPRAZolam 1 MG TABLET PO SCH ×3 (08:10→21:00)
[2020-02-05] MEDS: PANTOPRAZOLE 40 MG TABLET.DR. PO SCH ×2 (08:11→17:32)
[2020-02-05] MEDS: PREGABALIN 50 MG CAPSULE PO SCH ×2 (08:13→20:59)
--- NOTE | 2020-02-05 09:41 | PDOC ---
PROGRESS NOTES Date of Service: DATE: 02/05/20 TIME: 09:40 Chief Complaint Chief Complaint IMPRESSION Chest pain Hypertensive urgency; better controlled AECOPD, moderate pulm HTN; oxygen concentrator has not been functioning properly x2 days per PCP Chronic diastolic CHF; compensated Diabetes, II Hyperlipidemia SUPER Morbid obesity,//KANDI HYPERCAPNEA PLAN ABG CVC BED . History of Present Illness History of Present Illness Patient's chest pain has resolved. She reports chronic back and knee pain. further evaluation pending Echo Vitals Vitals Vital Signs Date Time Temp Pulse Resp B/P (MAP) Pulse Ox O2 Delivery O2 Flow Rate FiO2 02/05/20 09:11 18 Nasal Cannula 02/05/20 08:11 3.0 02/05/20 08:10 111 138/94 02/05/20 07:00 98.2 96 98.2 Physical Exam General: Alert, Cooperative, Other (Morbidly obese) Heart: Regular rate Lungs: Crackles, Other Abdomen: Normal bowel sounds, Soft Extremities: No clubbing, No cyanosis Skin: No rashes, No significant lesion Labs LABS Exam: CT of chest with contrast INDICATION: Chest pain, history of DVT TECHNIQUE: Sequential axial images through the chest obtained following the administration of 100 mL Omni 350 IV contrast. Sagittal and coronal reformatted images were reconstructed from the axial data and reviewed. Comparisons: Chest x-ray same day FINDINGS: Visualized portions of the thyroid are unremarkable. No enlarged mediastinal lymph nodes. Heart size is normal. No pericardial effusion. Thoracic aorta has a normal course and caliber. Pulmonary artery is not enlarged. No pulmonary embolus identified within the main, lobar or segmental pulmonary arteries. Airways are patent. No consolidation or pneumothorax. No suspicious lung nodules. No pleural effusion or thickening. Visualized upper abdomen is unremarkable. No suspicious osseous lesions or acute fractures. IMPRESSION: No pulmonary embolus identified within the main, lobar or segmental pulmonary arteries. Exposure: One or more of the following in the visualized dose reduction techniques were utilized for this examination: 1. Automated exposure control 2. Adjustment of the MA and/or KV according to patient size 3. Use of iterative of reconstructive technique Electronically signed by: Amparo Richards MD (02/03/2020 4:20 PM) [id number] DICTATED and SIGNED BY: AMPARO RICHARDS MD Laboratory Tests Test 02/04/20 10:10 02/04/20 11:47 02/04/20 16:31 02/04/20 21:15 White Blood Count 5.5 x10^3/uL (4.0-11.0) Red Blood Count 4.20 x10^6/uL (3.50-5.40) Hemoglobin 10.7 g/dL (12.0-15.5) Hematocrit 33.8 % (36.0-47.0) Mean Corpuscular Volume 80 fL (79-100) Mean Corpuscular Hemoglobin 25 pg (25-35) Mean Corpuscular Hemoglobin Concent 32 g/dL (31-37) Red Cell Distribution Width 17.6 % (11.5-14.5) Platelet Count 295 x10^3/uL (140-400) Neutrophils (%) (Auto) 60 % (31-73) Lymphocytes (%) (Auto) 30 % (24-48) Monocytes (%) (Auto) 6 % (0-9) Eosinophils (%) (Auto) 3 % (0-3) Basophils (%) (Auto) 1 % (0-3) Neutrophils # (Auto) 3.3 x10^3/uL (1.8-7.7) Lymphocytes # (Auto) 1.6 x10^3/uL (1.0-4.8) Monocytes # (Auto) 0.3 x10^3/uL (0.0-1.1) Eosinophils # (Auto) 0.2 x10^3/uL (0.0-0.7) Basophils # (Auto) 0.1 x10^3/uL (0.0-0.2) Sodium Level 140 mmol/L (136-145) Potassium Level 3.6 mmol/L (3.5-5.1) Chloride Level 102 mmol/L (98-107) Carbon Dioxide Level 33 mmol/L (21-32) Anion Gap 5 (6-14) Blood Urea Nitrogen 12 mg/dL (7-20) Creatinine 0.8 mg/dL (0.6-1.0) Estimated GFR (Cockcroft-Gault) 90.1 Glucose Level 116 mg/dL (70-99) Calcium Level 8.1 mg/dL (8.5-10.1) Glucose (Fingerstick) 119 mg/dL (70-99) 125 mg/dL (70-99) 99 mg/dL (70-99) Test 02/05/20 08:16 Glucose (Fingerstick) 98 mg/dL (70-99) Assessment and Plan Assessmemt and Plan Problems Medical Problems: (1) Chest pain Status: Acute Comment Review of Relevant I have reviewed the following items bhavin (where applicable) has been applied. Labs Laboratory Tests Test 02/03/20 13:20 02/03/20 14:05 02/03/20 15:25 02/03/20 17:15 White Blood Count 7.2 x10^3/uL (4.0-11.0) Red Blood Count 4.28 x10^6/uL (3.50-5.40) Hemoglobin 10.8 g/dL (12.0-15.5) Hematocrit 34.1 % (36.0-47.0) Mean Corpuscular Volume 80 fL (79-100) Mean Corpuscular Hemoglobin 25 pg (25-35) Mean Corpuscular Hemoglobin Concent 32 g/dL (31-37) Red Cell Distribution Width 17.1 % (11.5-14.5) Platelet Count 316 x10^3/uL (140-400) Neutrophils (%) (Auto) 69 % (31-73) Lymphocytes (%) (Auto) 21 % (24-48) Monocytes (%) (Auto) 7 % (0-9) Eosinophils (%) (Auto) 2 % (0-3) Basophils (%) (Auto) 1 % (0-3) Neutrophils # (Auto) 5.0 x10^3/uL (1.8-7.7) Lymphocytes # (Auto) 1.5 x10^3/uL (1.0-4.8) Monocytes # (Auto) 0.5 x10^3/uL (0.0-1.1) Eosinophils # (Auto) 0.2 x10^3/uL (0.0-0.7) Basophils # (Auto) 0.1 x10^3/uL (0.0-0.2) Prothrombin Time 11.3 SEC (11.7-14.0) Prothromb Time International Ratio 0.9 (0.8-1.1) Sodium Level 141 mmol/L (136-145) Potassium Level 3.7 mmol/L (3.5-5.1) Chloride Level 102 mmol/L (98-107) Carbon Dioxide Level 33 mmol/L (21-32) Anion Gap 6 (6-14) Blood Urea Nitrogen 13 mg/dL (7-20) Creatinine 0.8 mg/dL (0.6-1.0) Estimated GFR (Cockcroft-Gault) 90.1 BUN/Creatinine Ratio 16 (6-20) Glucose Level 121 mg/dL (70-99) Calcium Level 8.7 mg/dL (8.5-10.1) Magnesium Level 2.1 mg/dL (1.8-2.4) Total Bilirubin 0.2 mg/dL (0.2-1.0) Aspartate Amino Transf (AST/SGOT) 22 U/L (15-37) Alanine Aminotransferase (ALT/SGPT) 19 U/L (14-59) Alkaline Phosphatase 92 U/L (46-116) Troponin I Quantitative < 0.017 ng/mL (0.000-0.055) < 0.017 ng/mL (0.000-0.055) TR-Sps-Q-Type Natriuretic Peptide 134 pg/mL (0-124) Total Protein 7.0 g/dL (6.4-8.2) Albumin 3.2 g/dL (3.4-5.0) Albumin/Globulin Ratio 0.8 (1.0-1.7) Lipase 67 U/L (73-393) Thyroid Stimulating Hormone (TSH) 2.398 uIU/mL (0.358-3.74) Urine Collection Type Unknown Urine Color Yellow Urine Clarity Cloudy Urine pH 5.0 (<5.0-8.0) Urine Specific Heth 1.015 (1.000-1.030) Urine Protein Negative mg/dL (NEG-TRACE) Urine Glucose (UA) Negative mg/dL (NEG) Urine Ketones (Stick) Negative mg/dL (NEG) Urine Blood Negative (NEG) Urine Nitrite Negative (NEG) Urine Bilirubin Negative (NEG) Urine Urobilinogen Dipstick 0.2 mg/dL (0.2 mg/dL) Urine Leukocyte Esterase Negative (NEG) Urine RBC Occ /HPF (0-2) Urine WBC 1-4 /HPF (0-4) Urine Squamous Epithelial Cells Few /LPF Urine Bacteria Moderate /HPF (0-FEW) Urine Mucus Mod /LPF Urine Opiates Screen Pos (NEG) Urine Methadone Screen Neg (NEG) Urine Barbiturates Neg (NEG) Urine Phencyclidine Screen Neg (NEG) Urine Amphetamine/Methamphetamine Neg (NEG) Urine Benzodiazepines Screen Pos (NEG) Urine Cocaine Screen Neg (NEG) Urine Cannabinoids Screen Neg (NEG) Urine Ethyl Alcohol Neg (NEG) Lactic Acid Level 0.9 mmol/L (0.4-2.0) Test 02/03/20 20:00 02/03/20 21:22 02/04/20 04:20 02/04/20 07:41 Troponin I Quantitative < 0.017 ng/mL (0.000-0.055) Glucose (Fingerstick) 108 mg/dL (70-99) 105 mg/dL (70-99) Triglycerides Level 147 mg/dL (0-150) Cholesterol Level 189 mg/dL (0-200) LDL Cholesterol, Calculated 98 mg/dL (0-100) VLDL Cholesterol, Calculated 29 mg/dL (0-40) Non-HDL Cholesterol Calculated 127 mg/dL (0-129) HDL Cholesterol 62 mg/dL (40-60) Cholesterol/HDL Ratio 3.0 Test 02/04/20 10:10 02/04/20 11:47 02/04/20 16:31 02/04/20 21:15 White Blood Count 5.5 x10^3/uL (4.0-11.0) Red Blood Count 4.20 x10^6/uL (3.50-5.40) Hemoglobin 10.7 g/dL (12.0-15.5) Hematocrit 33.8 % (36.0-47.0) Mean Corpuscular Volume 80 fL (79-100) Mean Corpuscular Hemoglobin 25 pg (25-35) Mean Corpuscular Hemoglobin Concent 32 g/dL (31-37) Red Cell Distribution Width 17.6 % (11.5-14.5) Platelet Count 295 x10^3/uL (140-400) Neutrophils (%) (Auto) 60 % (31-73) Lymphocytes (%) (Auto) 30 % (24-48) Monocytes (%) (Auto) 6 % (0-9) Eosinophils (%) (Auto) 3 % (0-3) Basophils (%) (Auto) 1 % (0-3) Neutrophils # (Auto) 3.3 x10^3/uL (1.8-7.7) Lymphocytes # (Auto) 1.6 x10^3/uL (1.0-4.8) Monocytes # (Auto) 0.3 x10^3/uL (0.0-1.1) Eosinophils # (Auto) 0.2 x10^3/uL (0.0-0.7) Basophils # (Auto) 0.1 x10^3/uL (0.0-0.2) Sodium Level 140 mmol/L (136-145) Potassium Level 3.6 mmol/L (3.5-5.1) Chloride Level 102 mmol/L (98-107) Carbon Dioxide Level 33 mmol/L (21-32) Anion Gap 5 (6-14) Blood Urea Nitrogen 12 mg/dL (7-20) Creatinine 0.8 mg/dL (0.6-1.0) Estimated GFR (Cockcroft-Gault) 90.1 Glucose Level 116 mg/dL (70-99) Calcium Level 8.1 mg/dL (8.5-10.1) Glucose (Fingerstick) 119 mg/dL (70-99) 125 mg/dL (70-99) 99 mg/dL (70-99) Test 02/05/20 08:16 Glucose (Fingerstick) 98 mg/dL (70-99) Laboratory Tests Test 02/04/20 10:10 02/04/20 11:47 02/04/20 16:31 02/04/20 21:15 White Blood Count 5.5 x10^3/uL (4.0-11.0) Red Blood Count 4.20 x10^6/uL (3.50-5.40) Hemoglobin 10.7 g/dL (12.0-15.5) Hematocrit 33.8 % (36.0-47.0) Mean Corpuscular Volume 80 fL (79-100) Mean Corpuscular Hemoglobin 25 pg (25-35) Mean Corpuscular Hemoglobin Concent 32 g/dL (31-37) Red Cell Distribution Width 17.6 % (11.5-14.5) Platelet Count 295 x10^3/uL (140-400) Neutrophils (%) (Auto) 60 % (31-73) Lymphocytes (%) (Auto) 30 % (24-48) Monocytes (%) (Auto) 6 % (0-9) Eosinophils (%) (Auto) 3 % (0-3) Basophils (%) (Auto) 1 % (0-3) Neutrophils # (Auto) 3.3 x10^3/uL (1.8-7.7) Lymphocytes # (Auto) 1.6 x10^3/uL (1.0-4.8) Monocytes # (Auto) 0.3 x10^3/uL (0.0-1.1) Eosinophils # (Auto) 0.2 x10^3/uL (0.0-0.7) Basophils # (Auto) 0.1 x10^3/uL (0.0-0.2) Sodium Level 140 mmol/L (136-145) Potassium Level 3.6 mmol/L (3.5-5.1) Chloride Level 102 mmol/L (98-107) Carbon Dioxide Level 33 mmol/L (21-32) Anion Gap 5 (6-14) Blood Urea Nitrogen 12 mg/dL (7-20) Creatinine 0.8 mg/dL (0.6-1.0) Estimated GFR (Cockcroft-Gault) 90.1 Glucose Level 116 mg/dL (70-99) Calcium Level 8.1 mg/dL (8.5-10.1) Glucose (Fingerstick) 119 mg/dL (70-99) 125 mg/dL (70-99) 99 mg/dL (70-99) Test 02/05/20 08:16 Glucose (Fingerstick) 98 mg/dL (70-99) Microbiology 02/03/20 Blood Culture - Preliminary, Resulted NO GROWTH AFTER 1 DAY 02/03/20 Urine Culture - Final, Complete Medications Current Medications Nitroglycerin (Nitrostat) 0.4 mg PRN Q5MIN PRN SL CP RATING > 1/10 Last administered on 02/03/20at 14:38; Start 02/03/20 at 13:00; Stop 02/04/20 at 11:29; Status DC Morphine Sulfate (Morphine Sulfate) 4 mg PRN Q15MIN PRN IV/SQ PAIN GREATER THAN 3/10 Last administered on 02/03/20at 19:30; Start 02/03/20 at 13:00; Stop 02/04/20 at 12:59; Status DC Labetalol HCl (Normodyne Iv Push) 10 mg 1X ONCE IVP Last administered on 02/03/20at 14:38; Start 02/03/20 at 14:30; Stop 02/03/20 at 14:34; Status DC Multi-Ingredient Mouthwash/Gargle (Gi Cocktail) 20 ml 1X ONCE SWSW Last administered on 02/03/20at 14:56; Start 02/03/20 at 15:00; Stop 02/03/20 at 15:01; Status DC Iohexol (Omnipaque 350 Mg/ml) 100 ml 1X ONCE IV Last administered on 02/03/20at 15:00; Start 02/03/20 at 15:00; Stop 02/03/20 at 15:01; Status DC Diphenhydramine HCl (Benadryl) 25 mg QHS PO Last administered on 02/04/20at 20:11; Start 02/03/20 at 21:00 Duloxetine HCl (Cymbalta) 30 mg DAILY PO Last administered on 02/05/20at 08:10; Start 02/04/20 at 09:00 Pregabalin (Lyrica) 50 mg BID PO Last administered on 02/05/20at 08:13; Start 02/03/20 at 21:00 Pantoprazole Sodium (Protonix) 40 mg BIDAC PO Last administered on 02/05/20at 08:11; Start 02/04/20 at 07:30 Amlodipine Besylate (Norvasc) 10 mg DAILY PO Last administered on 02/05/20at 08:10; Start 02/04/20 at 09:00 Aspirin (Tracy Aspirin) 325 mg 1X ONCE PO ; Start 02/03/20 at 17:30; Stop 02/03/20 at 17:31; Status UNV Aspirin (Ecotrin) 81 mg DAILYWBKFT PO ; Start 02/04/20 at 08:00; Status UNV Enoxaparin Sodium (Lovenox 60mg Syringe) 60 mg Q12HR SQ Last administered on 02/05/20at 08:10; Start 02/03/20 at 18:00 Ondansetron HCl (Zofran) 4 mg PRN Q8HRS PRN IV NAUSEA/VOMITING; Start 02/03/20 at 18:15; Stop 02/04/20 at 18:14; Status DC Nitroglycerin (Nitrostat) 0.4 mg PRN Q5MIN PRN SL CHEST PAIN; Start 02/03/20 at 18:15; Stop 02/04/20 at 18:14; Status DC Labetalol HCl (Normodyne Iv Push) 20 mg PRN Q2HR PRN IVP HYPERTENSION-2nd choice; Start 02/03/20 at 20:00 Hydralazine HCl (Apresoline Inj) 10 mg PRN Q4HRS PRN IVP ELEVATED BP, SEE COMMENTS; Start 02/03/20 at 20:00 Oxycodone/ Acetaminophen (Percocet 10/325) 1 tab PRN Q4HRS PRN PO SEVERE PAIN 7-10 Last administered on 02/05/20at 08:11; Start 02/04/20 at 02:45 Perflutren Protein Type A Microsphe (Optison) 0.66 mg STK-MED ONCE IV ; Start 02/04/20 at 11:31; Stop 02/04/20 at 11:31; Status DC Alprazolam (Xanax) 1 mg TID PO Last administered on 02/05/20at 08:10; Start 02/04/20 at 21:00 Active Scripts Active Chloraseptic (Phenol) 20 Ml [place] 2 Puff PO TID 7 Days Opcon-A Eye Drops (Naphazoline Hcl/Pheniramine) 15 Ml Drops 1 Drop EACHEYE QID 10 Days Naproxen 500 Mg Tablet 1 Tab PO BID PRN 10 Days Tessalon Perle (Benzonatate) 100 Mg Capsule 1 Cap PO TID Hegins 5-325 Tablet (Acetaminophen/Hydrocodone Bitart) 1 Each Tablet 1 Tab PO Q6HRS Pyridium (Phenazopyridine Hcl) 200 Mg Tablet 200 Mg PO TID 3 Days Benadryl (Diphenhydramine Hcl) 25 Mg Capsule 1 Cap PO QHS Prednisone 20 Mg Tablet 2 Tab PO DAILY 3 Days Guaifenesin Dm Syrup (Guaifenesin/Dextromethorphan) 5 Ml Syrup 10 Ml PO PRN Q6HRS PRN Nystop (Nystatin) 60 Gm Powder 1 Christine TP BID 10 Days [Pantoprazole] 40 MG Tablet.dr 40 Mg PO BIDAC 30 Days Duoneb 0.5-3(2.5) Mg/3 Ml (Albuterol/Ipratropium) 3 Ml Ampul.neb 3 Ml NEB RTQID Proair Hfa Inhaler (Albuterol Sulfate) 8.5 Gm Hfa.aer.ad 1 Puff INH Q4HRS PRN Reported Atorvastatin Calcium 40 Mg Tablet 1 Tab PO QHS Emu-Lac Hydrating Cream (Ammonium Lactate/Emu Oil) 120 Ml Cream.ml. 120 Ml TP PRN PRN 10 Days Cetirizine Hcl 10 Mg Tablet 1 Tab PO DAILY Oxycodone-Acetaminophen 10-325 (Oxycodone Hcl/Acetaminophen) 1 Each Tablet 1 Tab PO QID Loratadine 10 Mg Tablet 1 Tab PO DAILY Amlodipine Besylate 10 Mg Tablet 10 Mg PO DAILY Seroquel (Quetiapine Fumarate) 100 Mg Tablet 1 Tab PO QHS Zolpidem Tartrate 10 Mg Tablet 10 Mg PO PRN QHS PRN Lyrica (Pregabalin) 50 Mg Capsule 1 Cap PO BID Spiriva (Tiotropium [place]) 18 Mcg Cap.w.dev 1 Cap IH DAILY Xanax (Alprazolam) 1 Mg Tablet 1 Tab PO TID Lidoderm (Lidocaine) 700 Mg Adh..patch 700 Mg TP PRN 1X Advair 250-50 Diskus (Fluticasone/Salmeterol) 1 Each Disk.w.dev 1 Each IH BID Vitamin D3 (Cholecalciferol (Vitamin D3)) 50,000 Unit Capsule 50,000 Unit PO WEEKLY Iron (Ferrous Sulfate) 325 Mg Tablet 325 Mg PO DAILY Cymbalta (Duloxetine Hcl) 30 Mg Capsule.dr 60 Mg PO DAILY Aspirin 325 Mg Tablet 1 Tab PO DAILY Cyclobenzaprine Hcl 5 Mg Tablet 2 Tab PO BID Vitals/I & O Vital Sign - Last 24 Hours 02/04/20 02/04/20 02/04/20 02/04/20 11:00 12:00 15:00 16:47 Temp 98.2 97.9 98.2 97.9 Pulse 107 103 Resp 20 20 B/P (MAP) 141/60 (87) 174/85 (114) Pulse Ox 96 94 94 O2 Delivery Nasal Cannula Nasal Cannula Nasal Cannula Nasal Cannula O2 Flow Rate 2.0 2.0 2.0 2.0 02/04/20 02/04/20 02/04/20 02/04/20 17:47 19:25 20:00 20:38 Temp 97.7 97.7 Pulse 109 Resp 18 B/P (MAP) 146/82 (103) Pulse Ox 94 94 94 O2 Delivery Nasal Cannula Nasal Cannula Nasal Cannula Nasal Cannula O2 Flow Rate 2.0 3.0 3.0 3.0 02/04/20 02/04/20 02/05/20 02/05/20 21:38 23:30 03:27 03:40 Temp 100.0 98.1 100.0 98.1 Pulse 109 107 Resp 21 B/P (MAP) 146/85 (105) 176/97 (123) Pulse Ox 94 91 91 94 O2 Delivery Nasal Cannula Nasal Cannula Nasal Cannula Nasal Cannula O2 Flow Rate 3.0 3.0 3.0 3.0 02/05/20 02/05/20 02/05/20 02/05/20 04:27 07:00 08:00 08:10 Temp 98.2 98.2 Pulse 109 111 Resp 18 B/P (MAP) 138/94 (109) 138/94 Pulse Ox 94 96 O2 Delivery Nasal Cannula Nasal Cannula Nasal Cannula O2 Flow Rate 3.0 3.0 3.0 02/05/20 02/05/20 08:11 09:11 Resp 18 18 O2 Delivery Nasal Cannula Nasal Cannula O2 Flow Rate 3.0 Intake and Output 02/04/20 02/04/20 02/05/20 15:00 23:00 07:00 Intake Total 300 ml 500 ml Output Total 1200 ml Balance 300 ml -700 ml Justicifation of Admission Dx: Justifications for Admission: Justification of Admission Dx: Yes Respiratory Failure: Severe Resp Distress ANGELIKA PENG MD Feb 05, 2020 09:41
[2020-02-05 11:00] VITALS: BP 121/79
[2020-02-05] MEDS ORDERED: NAPROXEN 500 MG TABLET PO PRN (13:30)
[2020-02-05] MEDS ORDERED: ALBUTEROL SULFATE 2.5 MG/3 ML NEBU. INH PRN (13:30)
[2020-02-05] MEDS ORDERED: guaiFENesin DM 200MG/20MG 10 ML SYRUP PO PRN (13:30)
[2020-02-05] MEDS ORDERED: LIDOCAINE (700MG/PATCH) PATCH. TP PRN (13:30)
--- NOTE | 2020-02-05 13:39 | PDOC ---
PROGRESS NOTES Date of Service DATE: 02/05/20 TIME: 13:37 Subjective Subjective Patient seen and examined Objective Objective Vital Signs Date Time Temp Pulse Resp B/P (MAP) Pulse Ox O2 Delivery O2 Flow Rate FiO2 02/05/20 11:00 98.1 110 18 121/79 (93) 95 Nasal Cannula 3.0 98.1 Intake and Output 02/05/20 07:00 Intake Total 800 ml Output Total 1200 ml Balance -400 ml Intake Oral 800 ml Output Urine Total 1200 ml # Voids 1 Physical Exam Abdomen: Normal bowel sounds Heart: Regular rate General: mild distress Lungs: Other (Mildly decreased breath sounds) Assessment Assessment Problems Medical Problems: (1) Chest pain Status: Acute Assessment 1. Atypical chest pain: possible MSK/GI. reproducible 2. Hypertensive urgency; better controlled 3. AECOPD, moderate pulm HTN; oxygen concentrator has not been functioning properly x2 days per PCP 4. Chronic diastolic CHF; patient remains short of breath. Echocardiogram shows intact LV systolic function with mildly to moderate elevated PA P at 50 mmHg. Continuing medical treatment. 5. Diabetes, II 6. Hyperlipidemia 7. Morbid obesity, suspected KANDI. Comment Review of Relevant I have reviewed the following items bhavin (where applicable) has been applied. Labs Laboratory Tests Test 02/03/20 14:05 02/03/20 15:25 02/03/20 17:15 02/03/20 20:00 Urine Collection Type Unknown Urine Color Yellow Urine Clarity Cloudy Urine pH 5.0 (<5.0-8.0) Urine Specific [place] 1.015 (1.000-1.030) Urine Protein Negative mg/dL (NEG-TRACE) Urine Glucose (UA) Negative mg/dL (NEG) Urine Ketones (Stick) Negative mg/dL (NEG) Urine Blood Negative (NEG) Urine Nitrite Negative (NEG) Urine Bilirubin Negative (NEG) Urine Urobilinogen Dipstick 0.2 mg/dL (0.2 mg/dL) Urine Leukocyte Esterase Negative (NEG) Urine RBC Occ /HPF (0-2) Urine WBC 1-4 /HPF (0-4) Urine Squamous Epithelial Cells Few /LPF Urine Bacteria Moderate /HPF (0-FEW) Urine Mucus Mod /LPF Urine Opiates Screen Pos (NEG) Urine Methadone Screen Neg (NEG) Urine Barbiturates Neg (NEG) Urine Phencyclidine Screen Neg (NEG) Urine Amphetamine/Methamphetamine Neg (NEG) Urine Benzodiazepines Screen Pos (NEG) Urine Cocaine Screen Neg (NEG) Urine Cannabinoids Screen Neg (NEG) Urine Ethyl Alcohol Neg (NEG) Lactic Acid Level 0.9 mmol/L (0.4-2.0) Troponin I Quantitative < 0.017 ng/mL (0.000-0.055) < 0.017 ng/mL (0.000-0.055) Test 02/03/20 21:22 02/04/20 04:20 02/04/20 07:41 02/04/20 10:10 Glucose (Fingerstick) 108 mg/dL (70-99) 105 mg/dL (70-99) Triglycerides Level 147 mg/dL (0-150) Cholesterol Level 189 mg/dL (0-200) LDL Cholesterol, Calculated 98 mg/dL (0-100) VLDL Cholesterol, Calculated 29 mg/dL (0-40) Non-HDL Cholesterol Calculated 127 mg/dL (0-129) HDL Cholesterol 62 mg/dL (40-60) Cholesterol/HDL Ratio 3.0 White Blood Count 5.5 x10^3/uL (4.0-11.0) Red Blood Count 4.20 x10^6/uL (3.50-5.40) Hemoglobin 10.7 g/dL (12.0-15.5) Hematocrit 33.8 % (36.0-47.0) Mean Corpuscular Volume 80 fL (79-100) Mean Corpuscular Hemoglobin 25 pg (25-35) Mean Corpuscular Hemoglobin Concent 32 g/dL (31-37) Red Cell Distribution Width 17.6 % (11.5-14.5) Platelet Count 295 x10^3/uL (140-400) Neutrophils (%) (Auto) 60 % (31-73) Lymphocytes (%) (Auto) 30 % (24-48) Monocytes (%) (Auto) 6 % (0-9) Eosinophils (%) (Auto) 3 % (0-3) Basophils (%) (Auto) 1 % (0-3) Neutrophils # (Auto) 3.3 x10^3/uL (1.8-7.7) Lymphocytes # (Auto) 1.6 x10^3/uL (1.0-4.8) Monocytes # (Auto) 0.3 x10^3/uL (0.0-1.1) Eosinophils # (Auto) 0.2 x10^3/uL (0.0-0.7) Basophils # (Auto) 0.1 x10^3/uL (0.0-0.2) Sodium Level 140 mmol/L (136-145) Potassium Level 3.6 mmol/L (3.5-5.1) Chloride Level 102 mmol/L (98-107) Carbon Dioxide Level 33 mmol/L (21-32) Anion Gap 5 (6-14) Blood Urea Nitrogen 12 mg/dL (7-20) Creatinine 0.8 mg/dL (0.6-1.0) Estimated GFR (Cockcroft-Gault) 90.1 Glucose Level 116 mg/dL (70-99) Calcium Level 8.1 mg/dL (8.5-10.1) Test 02/04/20 11:47 02/04/20 16:31 02/04/20 21:15 02/05/20 08:16 Glucose (Fingerstick) 119 mg/dL (70-99) 125 mg/dL (70-99) 99 mg/dL (70-99) 98 mg/dL (70-99) Test 02/05/20 12:27 Glucose (Fingerstick) 95 mg/dL (70-99) Laboratory Tests Test 02/04/20 16:31 02/04/20 21:15 02/05/20 08:16 02/05/20 12:27 Glucose (Fingerstick) 125 mg/dL (70-99) 99 mg/dL (70-99) 98 mg/dL (70-99) 95 mg/dL (70-99) Microbiology 02/03/20 Blood Culture - Preliminary, Resulted NO GROWTH AFTER 1 DAY 02/03/20 Urine Culture - Final, Complete Medications Current Medications Nitroglycerin (Nitrostat) 0.4 mg PRN Q5MIN PRN SL CP RATING > 1/10 Last administered on 02/03/20at 14:38; Start 02/03/20 at 13:00; Stop 02/04/20 at 11:29; Status DC Morphine Sulfate (Morphine Sulfate) 4 mg PRN Q15MIN PRN IV/SQ PAIN GREATER THAN 3/10 Last administered on 02/03/20at 19:30; Start 02/03/20 at 13:00; Stop 02/04/20 at 12:59; Status DC Labetalol HCl (Normodyne Iv Push) 10 mg 1X ONCE IVP Last administered on 02/03/20at 14:38; Start 02/03/20 at 14:30; Stop 02/03/20 at 14:34; Status DC Multi-Ingredient Mouthwash/Gargle (Gi Cocktail) 20 ml 1X ONCE SWSW Last administered on 02/03/20at 14:56; Start 02/03/20 at 15:00; Stop 02/03/20 at 15:01; Status DC Iohexol (Omnipaque 350 Mg/ml) 100 ml 1X ONCE IV Last administered on 02/03/20at 15:00; Start 02/03/20 at 15:00; Stop 02/03/20 at 15:01; Status DC Diphenhydramine HCl (Benadryl) 25 mg QHS PO Last administered on 02/04/20at 20:11; Start 02/03/20 at 21:00 Duloxetine HCl (Cymbalta) 30 mg DAILY PO Last administered on 02/05/20at 08:10; Start 02/04/20 at 09:00 Pregabalin (Lyrica) 50 mg BID PO Last administered on 02/05/20at 08:13; Start 02/03/20 at 21:00 Pantoprazole Sodium (Protonix) 40 mg BIDAC PO Last administered on 02/05/20at 08:11; Start 02/04/20 at 07:30 Amlodipine Besylate (Norvasc) 10 mg DAILY PO Last administered on 02/05/20at 08:10; Start 02/04/20 at 09:00 Aspirin (Tracy Aspirin) 325 mg 1X ONCE PO ; Start 02/03/20 at 17:30; Stop 02/03/20 at 17:31; Status UNV Aspirin (Ecotrin) 81 mg DAILYWBKFT PO ; Start 02/04/20 at 08:00; Status UNV Enoxaparin Sodium (Lovenox 60mg Syringe) 60 mg Q12HR SQ Last administered on 02/05/20at 08:10; Start 02/03/20 at 18:00 Ondansetron HCl (Zofran) 4 mg PRN Q8HRS PRN IV NAUSEA/VOMITING; Start 02/03/20 at 18:15; Stop 02/04/20 at 18:14; Status DC Nitroglycerin (Nitrostat) 0.4 mg PRN Q5MIN PRN SL CHEST PAIN; Start 02/03/20 at 18:15; Stop 02/04/20 at 18:14; Status DC Labetalol HCl (Normodyne Iv Push) 20 mg PRN Q2HR PRN IVP HYPERTENSION-2nd choice; Start 02/03/20 at 20:00 Hydralazine HCl (Apresoline Inj) 10 mg PRN Q4HRS PRN IVP ELEVATED BP, SEE COMMENTS; Start 02/03/20 at 20:00 Oxycodone/ Acetaminophen (Percocet 10/325) 1 tab PRN Q4HRS PRN PO SEVERE PAIN 7-10 Last administered on 02/05/20at 08:11; Start 02/04/20 at 02:45 Perflutren Protein Type A Microsphe (Optison) 0.66 mg STK-MED ONCE IV ; Start 02/04/20 at 11:31; Stop 02/04/20 at 11:31; Status DC Alprazolam (Xanax) 1 mg TID PO Last administered on 02/05/20at 08:10; Start 02/04/20 at 21:00 Albuterol Sulfate (Ventolin Neb Soln) 2.5 mg Q4HRS PRN INH SHORTNESS OF BREATH; Start 02/05/20 at 13:30; Status UNV Aspirin (Tracy Aspirin) 325 mg DAILY PO ; Start 02/06/20 at 09:00; Status UNV Atorvastatin Calcium (Lipitor) 40 mg QHS PO ; Start 02/05/20 at 21:00; Status UNV Benzonatate (Tessalon Perle) 100 mg TID PO ; Start 02/05/20 at 14:00; Status UNV Cetirizine HCl (ZyrTEC) 10 mg DAILY PO ; Start 02/06/20 at 09:00; Status UNV Ferrous Sulfate (Feosol) 325 mg DAILY PO ; Start 02/06/20 at 09:00; Status UNV Guaifenesin (Robitussin Dm) 10 ml PRN Q6HRS PRN PO COUGH; Start 02/05/20 at 13:30; Status UNV Acetaminophen/ Hydrocodone Bitart (Lortab 5/325) 1 tab Q6HRS PO ; Start 02/05/20 at 18:00; Status UNV Albuterol/ Ipratropium (Duoneb) 3 ml RTQID NEB ; Start 02/05/20 at 16:00; Status UNV Lidocaine (Lidoderm) 1 patch PRN 1X TP ; Start 02/05/20 at 13:30; Status UNV Naproxen (Naprosyn) 500 mg BID PRN PO PAIN; Start 02/05/20 at 13:30; Status UNV Nystatin (Nystop) 1 christine BID TP ; Start 02/05/20 at 21:00; Status UNV Phenazopyridine HCl (Pyridium) 200 mg TID PO ; Start 02/05/20 at 14:00; Status UNV Phenol (Chloraseptic) 1 spray TID PO ; Start 02/05/20 at 14:00; Status UNV Quetiapine Fumarate (SEROquel) 100 mg QHS PO ; Start 02/05/20 at 21:00; Status UNV Non-Formulary Medication (Ammonium Lactate/Emu Oil (Emu-Lac Hydrating Cream)) 120 ml PRN PRN TP PAIN; Start 02/05/20 at 13:30; Status UNV Non-Formulary Medication (Cholecalciferol (Vitamin D3) (Vitamin D3)) 50,000 unit WEEKLY PO ; Start 02/12/20 at 09:00; Status UNV Non-Formulary Medication (Cyclobenzaprine Hcl ) 2 tab BID PO ; Start 02/05/20 at 21:00; Status UNV Non-Formulary Medication (Esomeprazole Magnesium ) 1 tab BID PO ; Start 02/05/20 at 21:00; Status UNV Non-Formulary Medication (Fluticasone/ Salmeterol (Advair 250-50 Diskus)) 1 each BID IH ; Start 02/05/20 at 21:00; Status UNV Non-Formulary Medication (Loratadine ) 1 tab DAILY PO ; Start 02/06/20 at 09:00; Status UNV Non-Formulary Medication (Naphazoline Hcl/ Pheniramine (Opcon-A Eye Drops)) 1 drop QID EACHEYE ; Start 02/05/20 at 17:00; Status UNV Non-Formulary Medication (Tiotropium [place] (Spiriva)) 1 cap DAILY IH ; Start 02/06/20 at 09:00; Status UNV Active Scripts Active Chloraseptic (Phenol) 20 Ml [place] 2 Puff PO TID 7 Days Opcon-A Eye Drops (Naphazoline Hcl/Pheniramine) 15 Ml Drops 1 Drop EACHEYE QID 10 Days Naproxen 500 Mg Tablet 1 Tab PO BID PRN 10 Days Tessalon Perle (Benzonatate) 100 Mg Capsule 1 Cap PO TID [place] 5-325 Tablet (Acetaminophen/Hydrocodone Bitart) 1 Each Tablet 1 Tab PO Q6HRS Pyridium (Phenazopyridine Hcl) 200 Mg Tablet 200 Mg PO TID 3 Days Benadryl (Diphenhydramine Hcl) 25 Mg Capsule 1 Cap PO QHS Prednisone 20 Mg Tablet 2 Tab PO DAILY 3 Days Guaifenesin Dm Syrup (Guaifenesin/Dextromethorphan) 5 Ml Syrup 10 Ml PO PRN Q6HRS PRN Nystop (Nystatin) 60 Gm Powder 1 Christine TP BID 10 Days [Pantoprazole] 40 MG Tablet.dr 40 Mg PO BIDAC 30 Days Duoneb 0.5-3(2.5) Mg/3 Ml (Albuterol/Ipratropium) 3 Ml Ampul.neb 3 Ml NEB RTQID Proair Hfa Inhaler (Albuterol Sulfate) 8.5 Gm Hfa.aer.ad 1 Puff INH Q4HRS PRN Reported Esomeprazole Magnesium 40 Mg Capsule.dr 1 Tab PO BID Aspirin 325 Mg Tablet 1 Tab PO DAILY Cyclobenzaprine Hcl 5 Mg Tablet 2 Tab PO BID Atorvastatin Calcium 40 Mg Tablet 1 Tab PO QHS Emu-Lac Hydrating Cream (Ammonium Lactate/Emu Oil) 120 Ml Cream.ml. 120 Ml TP PRN PRN 10 Days Cetirizine Hcl 10 Mg Tablet 1 Tab PO DAILY Oxycodone-Acetaminophen 10-325 (Oxycodone Hcl/Acetaminophen) 1 Each Tablet 1 Tab PO QID Loratadine 10 Mg Tablet 1 Tab PO DAILY Amlodipine Besylate 10 Mg Tablet 10 Mg PO DAILY Seroquel (Quetiapine Fumarate) 100 Mg Tablet 1 Tab PO QHS Zolpidem Tartrate 10 Mg Tablet 10 Mg PO PRN QHS PRN Lyrica (Pregabalin) 50 Mg Capsule 1 Cap PO BID Spiriva (Tiotropium [place]) 18 Mcg Cap.w.dev 1 Cap IH DAILY Xanax (Alprazolam) 1 Mg Tablet 1 Tab PO TID Lidoderm (Lidocaine) 700 Mg Adh..patch 700 Mg TP PRN 1X Advair 250-50 Diskus (Fluticasone/Salmeterol) 1 Each Disk.w.dev 1 Each IH BID Vitamin D3 (Cholecalciferol (Vitamin D3)) 50,000 Unit Capsule 50,000 Unit PO WEEKLY Iron (Ferrous Sulfate) 325 Mg Tablet 325 Mg PO DAILY Cymbalta (Duloxetine Hcl) 30 Mg Capsule.dr 60 Mg PO DAILY Vitals/I & O Vital Sign - Last 24 Hours 02/04/20 02/04/20 02/04/20 02/04/20 15:00 16:47 17:47 19:25 Temp 97.9 97.7 97.9 97.7 Pulse 103 109 Resp 20 21 B/P (MAP) 174/85 (114) 146/82 (103) Pulse Ox 94 94 94 94 O2 Delivery Nasal Cannula Nasal Cannula Nasal Cannula Nasal Cannula O2 Flow Rate 2.0 2.0 2.0 3.0 02/04/20 02/04/20 02/04/20 02/04/20 20:00 20:38 21:38 23:30 Temp 100.0 100.0 Pulse 109 Resp 22 B/P (MAP) 146/85 (105) Pulse Ox 94 94 91 O2 Delivery Nasal Cannula Nasal Cannula Nasal Cannula Nasal Cannula O2 Flow Rate 3.0 3.0 3.0 3.0 02/05/20 02/05/20 02/05/20 02/05/20 03:27 03:40 04:27 07:00 Temp 98.1 98.2 98.1 98.2 Pulse 107 109 Resp 20 21 20 18 B/P (MAP) 176/97 (123) 138/94 (109) Pulse Ox 91 94 94 96 O2 Delivery Nasal Cannula Nasal Cannula Nasal Cannula Nasal Cannula O2 Flow Rate 3.0 3.0 3.0 3.0 02/05/20 02/05/20 02/05/20 02/05/20 08:00 08:10 08:11 09:11 Pulse 111 Resp 18 18 B/P (MAP) 138/94 O2 Delivery Nasal Cannula Nasal Cannula Nasal Cannula O2 Flow Rate 3.0 3.0 02/05/20 11:00 Temp 98.1 98.1 Pulse 110 Resp 18 B/P (MAP) 121/79 (93) Pulse Ox 95 O2 Delivery Nasal Cannula O2 Flow Rate 3.0 Intake and Output 02/04/20 02/04/20 02/05/20 15:00 23:00 07:00 Intake Total 300 ml 500 ml Output Total 1200 ml Balance 300 ml -700 ml Justifications for Admission Chest Pain Indications Serious Diagnosis?: Yes Justification for admission: Chest pain may be indicative of potentially serious diagnosis/diagnoses Please state condition(s) which will require inpatient level of care for further evaluation and management. Is patient at high risk?: Yes Justification for admission: Patient is high risk based on hemodynamic instability, CHF, abnormal EKG/ECG/cardiac biomarkers/physical exam findings in context of chest pain persisting despite parenteral analgesics & optimal anti-anginal therapy. Other Justification SELINA BERMAN MD Feb 05, 2020 13:39
[2020-02-05] MEDS ORDERED: PHENOL ORAL SPRAY 177ML BOTTLE. PO SCH (14:00)
[2020-02-05] MEDS ORDERED: PHENAZOPYRIDINE 200 MG TABLET. PO SCH (14:00)
[2020-02-05] MEDS ORDERED: MINERAL OIL/PETROLATUM TOPICAL CREAM 113GM JAR. TP PRN (14:15)
[2020-02-05 15:00] VITALS: BP 153/84
[2020-02-05] MEDS: BENZONATATE 100 MG CAPSULE. PO SCH ×2 (15:03→21:00)
[2020-02-05] MEDS: IPRATRPIUM/ALBUTEROL 0.5/2.5MG 3 ML NEBU. NEB SCH ×2 (16:23→20:31)
[2020-02-05] MEDS ORDERED: PHENIRAMINE EACHEYE SCH (17:00)
[2020-02-05] MEDS ORDERED: NAPHAZOLINE HCL EACHEYE SCH (17:00)
[2020-02-05 18:00] LABS: BASE EXCESS COOX 4 mmol/L (-3-3); HCO3 COOX 33 mmol/L (21-28); METHEMOGLOBIN 0.4 % (0.0-1.9); OXYHEMOGLOBIN 92.3 %; PO2 COOX 69 mmHg (75-108); SAT O2 COOX 93 % (92-99)
[2020-02-05] MEDS ORDERED: HYDROcodone/APAP 5/325MG 1 TAB TABLET PO PRN (18:00)
[2020-02-05 18:11] LABS: PCO2 COOX 70 mmHg (35-46)
[2020-02-05 19:35] VITALS: BP 147/108
[2020-02-05] MEDS: BUDESONIDE 0.5 MG/2 ML NEBU. NEB SCH (20:31)
[2020-02-05] MEDS: diphenhydrAMINE HCL 25 MG CAPSULE PO SCH (20:58)
[2020-02-05] MEDS: CYCLOBENZAPRINE 10 MG TABLET. PO SCH (20:59)
[2020-02-05] MEDS: ATORVASTATIN CALCIUM 40 MG TABLET. PO SCH (20:59)
[2020-02-05] MEDS ORDERED: ESOMEPRAZOLE MAGNESIUM PO SCH (21:00)
[2020-02-05] MEDS: QUEtiapine 100 MG TABLET. PO SCH (21:00)
[2020-02-05] MEDS: NYSTATIN TOPICAL POWDER 15GM BOTTLE. TP SCH (21:20)
--- NOTE | 2020-02-05 22:11 | NUR ---
Opens eyes and speaks when spoken to but falls back to sleep after conversation. Did not give scheduled HS dose of Xanax or Benadryl tonight as patient is drowsy. Also gave Hydralazine IVP as ordered PRN for HTN, BP 147/108 with HR 108. Resting in bed with call light at hand.
[2020-02-05 23:29] VITALS: BP 153/90
[2020-02-06 03:55] VITALS: BP 140/82
[2020-02-06 05:14] LABS: BASE EXCESS ABG 10 mmol/L (-3-3); HCO3 ABG 37 mmol/L (21-28); PO2 ABG 62 mmHg (75-108); SAT O2 ABG 92 % (92-99)
[2020-02-06 05:17] LABS: PCO2 ABG 67 mmHg (35-46)
--- NOTE | 2020-02-06 05:45 | NUR ---
Reported Critical ABG to DR Callaway this morning. DR Callaway gives orders to call DR Hill with ABG. Reported Critical ABG, pCO2 67, pH 7.36, HCO3 37, pO2 62, Sat 92 on 1.[address] Hill. No further orders at this time from Dr Hill.
[2020-02-06 07:00] VITALS: BP 153/89
[2020-02-06] MEDS: BUDESONIDE 0.5 MG/2 ML NEBU. NEB SCH ×2 (07:44→20:15)
[2020-02-06] MEDS: IPRATRPIUM/ALBUTEROL 0.5/2.5MG 3 ML NEBU. NEB SCH ×4 (07:44→20:15)
[2020-02-06 08:13] LABS: BASO # 0.1 x10^3/uL (0.0-0.2); BASO % 2 % (0-3); EOS # 0.3 x10^3/uL (0.0-0.7); EOS % 4 % (0-3); HEMOGLOBIN 11.5 g/dL (12.0-15.5); LYMPH # 2.2 x10^3/uL (1.0-4.8); LYMPH % 30 % (24-48); MEAN CORPUSCULAR HEMOGLOBIN 26 pg (25-35); MEAN CORPUSCULAR HGB CONC 33 g/dL (31-37); MEAN CORPUSCULAR VOLUME 80 fL (79-100); MONO # 0.5 x10^3/uL (0.0-1.1); MONO % 6 % (0-9); NEUT # 4.5 x10^3/uL (1.8-7.7); NEUT % 59 % (31-73); PLATELET COUNT 208 x10^3/uL (140-400); RED BLOOD COUNT 4.36 x10^6/uL (3.50-5.40); RED CELL DISTRIBUTION WIDTH 17.5 % (11.5-14.5); WHITE BLOOD COUNT 7.6 x10^3/uL (4.0-11.0)
[2020-02-06 08:34] LABS: ALBUMIN 2.9 g/dL (3.4-5.0); ALBUMIN/GLOBULIN RATIO 0.8 (1.0-1.7); CALCIUM 8.4 mg/dL (8.5-10.1); CREATININE 0.6 mg/dL (0.6-1.0); GFR 125.6; POTASSIUM 4.2 mmol/L (3.5-5.1); TOTAL BILIRUBIN 0.4 mg/dL (0.2-1.0); TOTAL PROTEIN 6.5 g/dL (6.4-8.2)
[2020-02-06] MEDS: PANTOPRAZOLE 40 MG TABLET.DR. PO SCH ×2 (09:00→17:13)
[2020-02-06] MEDS: ALPRAZolam 1 MG TABLET PO SCH ×2 (09:00→14:02)
[2020-02-06] MEDS: CYCLOBENZAPRINE 10 MG TABLET. PO SCH ×2 (09:00→20:38)
[2020-02-06] MEDS ORDERED: NON FORMULARY ITEM (Loratadine 1 TAB) PO SCH (09:00)
[2020-02-06] MEDS ORDERED: NON FORMULARY ITEM (Tiotropium Bromide (Spiriva) 1 CAP) IH SCH (09:00)
[2020-02-06] MEDS: CETIRIZINE HCL 10 MG TABLET. PO SCH (09:01)
[2020-02-06] MEDS: PREGABALIN 50 MG CAPSULE PO SCH ×2 (09:01→20:38)
[2020-02-06] MEDS: BENZONATATE 100 MG CAPSULE. PO SCH ×3 (09:01→20:38)
[2020-02-06] MEDS: amLODIPine BESYLATE 10 MG TABLET PO SCH (09:01)
[2020-02-06] MEDS: ASPIRIN 325 MG TABLET PO SCH (09:01)
[2020-02-06] MEDS: DULoxetine HCL 30 MG CAPSULE.DR PO SCH (09:01)
[2020-02-06] MEDS: FERROUS SULFATE 325 MG TABLET. PO SCH (09:01)
[2020-02-06] MEDS: oxyCODONE/APAP 10/325 1 TAB TABLET PO PRN ×2 (09:01→20:39)
[2020-02-06] MEDS: NYSTATIN TOPICAL POWDER 15GM BOTTLE. TP SCH ×2 (09:07→20:38)
--- NOTE | 2020-02-06 11:12 | PDOC ---
PROGRESS NOTES Date of Service: DATE: 02/06/20 TIME: 11:11 Chief Complaint Chief Complaint IMPRESSION Chest pain Hypertensive urgency; better controlled AECOPD, moderate pulm HTN; oxygen concentrator has not been functioning properly x2 days per PCP Chronic diastolic CHF; compensated Diabetes, II Hyperlipidemia SUPER Morbid obesity,//KANDI HYPERCAPNEA , severe with hypoxic resp failure PLAN ABG CVC BED trial bipap keep spo2 91% NEEDS FULL SLEEP STUDY SHAN D/W RN poor prognosis without BIPAP/ CPAP. History of Present Illness History of Present Illness Patient's chest pain has resolved. She reports chronic back and knee pain. further evaluation pending Echo Vitals Vitals Vital Signs Date Time Temp Pulse Resp B/P (MAP) Pulse Ox O2 Delivery O2 Flow Rate FiO2 02/06/20 10:01 18 Nasal Cannula 1.5 02/06/20 09:01 108 153/89 02/06/20 07:44 95 02/06/20 07:00 98.2 98.2 Physical Exam Physical Exam HEENT: Normal cephalic, atraumatic, external auditory canals are patent EYES: Extraocular muscles are intact, pupil are equally round and reactive to light and accommodation MUSCULOSKELETAL: Well developed , well nourished, good range of motion ENDOCRINE: No thyromegaly was palpated LYMPHATICS: No cervical chain or axillary nodes were noted HEMATOPOIETIC: No bruising NECK: Supple, no JVD, no thyromegaly was noted LUNGS: Clear to auscultation in all lung chen without rhonchi or wheezing HEART: RRR, S1 S2 present. Peripheral pulses intact, no obvious murmurs noted. Reproducible substernal chest pain ABDOMEN: Soft, nontender. Positive bowel sounds, no organomegaly, normal bowel sounds EXTREMITIES: Without clubbing, cyanosis, or edema. Pedal pulses intact. Ne gative Homans sign NEUROLOGIC: Normal speech and tone. A&O x 3, moves all extremities, no obvious focal deficits PSYCHIATRIC: Normal affect, normal mood. Stable SKIN: No ulcerations or rashes, good skin turgor, no jaundice VASCULAR: Good capillary refill, neurovascular bundle appears to be intact General: Alert, Oriented X3, Cooperative, No acute distress, mild distress Heart: Regular rate, Normal S1 Lungs: Crackles, Other Abdomen: Normal bowel sounds Extremities: No clubbing, No cyanosis Skin: No rashes, No significant lesion Labs LABS Laboratory Tests Test 02/05/20 12:27 02/05/20 17:05 02/05/20 17:50 02/05/20 21:08 Glucose (Fingerstick) 95 mg/dL (70-99) 87 mg/dL (70-99) 72 mg/dL (70-99) O2 Saturation 93 % (92-99) Arterial Blood pH 7.29 (7.35-7.45) Arterial Blood pCO2 at Patient Temp 70 mmHg (35-46) Arterial Blood pO2 at Patient Temp 69 mmHg (75-108) Arterial Blood HCO3 33 mmol/L (21-28) Arterial Blood Base Excess 4 mmol/L (-3-3) Oxyhemoglobin 92.3 % Methemoglobin 0.4 % (0.0-1.9) Carbon Monoxide, Quantitative 0.2 % (0.0-1.9) FiO2 2 lpm nc Test 02/06/20 05:10 02/06/20 06:00 02/06/20 06:15 02/06/20 07:24 O2 Saturation 92 % (92-99) Arterial Blood pH 7.36 (7.35-7.45) Arterial Blood pCO2 at Patient Temp 67 mmHg (35-46) Arterial Blood pO2 at Patient Temp 62 mmHg (75-108) Arterial Blood HCO3 37 mmol/L (21-28) Arterial Blood Base Excess 10 mmol/L (-3-3) Sodium Level 142 mmol/L (136-145) Potassium Level 4.2 mmol/L (3.5-5.1) Chloride Level 103 mmol/L (98-107) Carbon Dioxide Level 34 mmol/L (21-32) Anion Gap 5 (6-14) Blood Urea Nitrogen 13 mg/dL (7-20) Creatinine 0.6 mg/dL (0.6-1.0) Estimated GFR (Cockcroft-Gault) 125.6 BUN/Creatinine Ratio 22 (6-20) Glucose Level 84 mg/dL (70-99) Calcium Level 8.4 mg/dL (8.5-10.1) Total Bilirubin 0.4 mg/dL (0.2-1.0) Aspartate Amino Transf (AST/SGOT) 20 U/L (15-37) Alanine Aminotransferase (ALT/SGPT) 17 U/L (14-59) Alkaline Phosphatase 86 U/L (46-116) Total Protein 6.5 g/dL (6.4-8.2) Albumin 2.9 g/dL (3.4-5.0) Albumin/Globulin Ratio 0.8 (1.0-1.7) White Blood Count 7.6 x10^3/uL (4.0-11.0) Red Blood Count 4.36 x10^6/uL (3.50-5.40) Hemoglobin 11.5 g/dL (12.0-15.5) Hematocrit 35.0 % (36.0-47.0) Mean Corpuscular Volume 80 fL (79-100) Mean Corpuscular Hemoglobin 26 pg (25-35) Mean Corpuscular Hemoglobin Concent 33 g/dL (31-37) Red Cell Distribution Width 17.5 % (11.5-14.5) Platelet Count 208 x10^3/uL (140-400) Neutrophils (%) (Auto) 59 % (31-73) Lymphocytes (%) (Auto) 30 % (24-48) Monocytes (%) (Auto) 6 % (0-9) Eosinophils (%) (Auto) 4 % (0-3) Basophils (%) (Auto) 2 % (0-3) Neutrophils # (Auto) 4.5 x10^3/uL (1.8-7.7) Lymphocytes # (Auto) 2.2 x10^3/uL (1.0-4.8) Monocytes # (Auto) 0.5 x10^3/uL (0.0-1.1) Eosinophils # (Auto) 0.3 x10^3/uL (0.0-0.7) Basophils # (Auto) 0.1 x10^3/uL (0.0-0.2) Glucose (Fingerstick) 89 mg/dL (70-99) Assessment and Plan Assessmemt and Plan Problems Medical Problems: (1) Chest pain Status: Acute Comment Review of Relevant I have reviewed the following items bhavin (where applicable) has been applied. Labs Laboratory Tests Test 02/04/20 11:47 02/04/20 16:31 02/04/20 21:15 02/05/20 08:16 Glucose (Fingerstick) 119 mg/dL (70-99) 125 mg/dL (70-99) 99 mg/dL (70-99) 98 mg/dL (70-99) Test 02/05/20 12:27 02/05/20 17:05 02/05/20 17:50 02/05/20 21:08 Glucose (Fingerstick) 95 mg/dL (70-99) 87 mg/dL (70-99) 72 mg/dL (70-99) O2 Saturation 93 % (92-99) Arterial Blood pH 7.29 (7.35-7.45) Arterial Blood pCO2 at Patient Temp 70 mmHg (35-46) Arterial Blood pO2 at Patient Temp 69 mmHg (75-108) Arterial Blood HCO3 33 mmol/L (21-28) Arterial Blood Base Excess 4 mmol/L (-3-3) Oxyhemoglobin 92.3 % Methemoglobin 0.4 % (0.0-1.9) Carbon Monoxide, Quantitative 0.2 % (0.0-1.9) FiO2 2 lpm nc Test 02/06/20 05:10 02/06/20 06:00 02/06/20 06:15 02/06/20 07:24 O2 Saturation 92 % (92-99) Arterial Blood pH 7.36 (7.35-7.45) Arterial Blood pCO2 at Patient Temp 67 mmHg (35-46) Arterial Blood pO2 at Patient Temp 62 mmHg (75-108) Arterial Blood HCO3 37 mmol/L (21-28) Arterial Blood Base Excess 10 mmol/L (-3-3) Sodium Level 142 mmol/L (136-145) Potassium Level 4.2 mmol/L (3.5-5.1) Chloride Level 103 mmol/L (98-107) Carbon Dioxide Level 34 mmol/L (21-32) Anion Gap 5 (6-14) Blood Urea Nitrogen 13 mg/dL (7-20) Creatinine 0.6 mg/dL (0.6-1.0) Estimated GFR (Cockcroft-Gault) 125.6 BUN/Creatinine Ratio 22 (6-20) Glucose Level 84 mg/dL (70-99) Calcium Level 8.4 mg/dL (8.5-10.1) Total Bilirubin 0.4 mg/dL (0.2-1.0) Aspartate Amino Transf (AST/SGOT) 20 U/L (15-37) Alanine Aminotransferase (ALT/SGPT) 17 U/L (14-59) Alkaline Phosphatase 86 U/L (46-116) Total Protein 6.5 g/dL (6.4-8.2) Albumin 2.9 g/dL (3.4-5.0) Albumin/Globulin Ratio 0.8 (1.0-1.7) White Blood Count 7.6 x10^3/uL (4.0-11.0) Red Blood Count 4.36 x10^6/uL (3.50-5.40) Hemoglobin 11.5 g/dL (12.0-15.5) Hematocrit 35.0 % (36.0-47.0) Mean Corpuscular Volume 80 fL (79-100) Mean Corpuscular Hemoglobin 26 pg (25-35) Mean Corpuscular Hemoglobin Concent 33 g/dL (31-37) Red Cell Distribution Width 17.5 % (11.5-14.5) Platelet Count 208 x10^3/uL (140-400) Neutrophils (%) (Auto) 59 % (31-73) Lymphocytes (%) (Auto) 30 % (24-48) Monocytes (%) (Auto) 6 % (0-9) Eosinophils (%) (Auto) 4 % (0-3) Basophils (%) (Auto) 2 % (0-3) Neutrophils # (Auto) 4.5 x10^3/uL (1.8-7.7) Lymphocytes # (Auto) 2.2 x10^3/uL (1.0-4.8) Monocytes # (Auto) 0.5 x10^3/uL (0.0-1.1) Eosinophils # (Auto) 0.3 x10^3/uL (0.0-0.7) Basophils # (Auto) 0.1 x10^3/uL (0.0-0.2) Glucose (Fingerstick) 89 mg/dL (70-99) Laboratory Tests Test 02/05/20 12:27 02/05/20 17:05 02/05/20 17:50 02/05/20 21:08 Glucose (Fingerstick) 95 mg/dL (70-99) 87 mg/dL (70-99) 72 mg/dL (70-99) O2 Saturation 93 % (92-99) Arterial Blood pH 7.29 (7.35-7.45) Arterial Blood pCO2 at Patient Temp 70 mmHg (35-46) Arterial Blood pO2 at Patient Temp 69 mmHg (75-108) Arterial Blood HCO3 33 mmol/L (21-28) Arterial Blood Base Excess 4 mmol/L (-3-3) Oxyhemoglobin 92.3 % Methemoglobin 0.4 % (0.0-1.9) Carbon Monoxide, Quantitative 0.2 % (0.0-1.9) FiO2 2 lpm nc Test 02/06/20 05:10 02/06/20 06:00 02/06/20 06:15 02/06/20 07:24 O2 Saturation 92 % (92-99) Arterial Blood pH 7.36 (7.35-7.45) Arterial Blood pCO2 at Patient Temp 67 mmHg (35-46) Arterial Blood pO2 at Patient Temp 62 mmHg (75-108) Arterial Blood HCO3 37 mmol/L (21-28) Arterial Blood Base Excess 10 mmol/L (-3-3) Sodium Level 142 mmol/L (136-145) Potassium Level 4.2 mmol/L (3.5-5.1) Chloride Level 103 mmol/L (98-107) Carbon Dioxide Level 34 mmol/L (21-32) Anion Gap 5 (6-14) Blood Urea Nitrogen 13 mg/dL (7-20) Creatinine 0.6 mg/dL (0.6-1.0) Estimated GFR (Cockcroft-Gault) 125.6 BUN/Creatinine Ratio 22 (6-20) Glucose Level 84 mg/dL (70-99) Calcium Level 8.4 mg/dL (8.5-10.1) Total Bilirubin 0.4 mg/dL (0.2-1.0) Aspartate Amino Transf (AST/SGOT) 20 U/L (15-37) Alanine Aminotransferase (ALT/SGPT) 17 U/L (14-59) Alkaline Phosphatase 86 U/L (46-116) Total Protein 6.5 g/dL (6.4-8.2) Albumin 2.9 g/dL (3.4-5.0) Albumin/Globulin Ratio 0.8 (1.0-1.7) White Blood Count 7.6 x10^3/uL (4.0-11.0) Red Blood Count 4.36 x10^6/uL (3.50-5.40) Hemoglobin 11.5 g/dL (12.0-15.5) Hematocrit 35.0 % (36.0-47.0) Mean Corpuscular Volume 80 fL (79-100) Mean Corpuscular Hemoglobin 26 pg (25-35) Mean Corpuscular Hemoglobin Concent 33 g/dL (31-37) Red Cell Distribution Width 17.5 % (11.5-14.5) Platelet Count 208 x10^3/uL (140-400) Neutrophils (%) (Auto) 59 % (31-73) Lymphocytes (%) (Auto) 30 % (24-48) Monocytes (%) (Auto) 6 % (0-9) Eosinophils (%) (Auto) 4 % (0-3) Basophils (%) (Auto) 2 % (0-3) Neutrophils # (Auto) 4.5 x10^3/uL (1.8-7.7) Lymphocytes # (Auto) 2.2 x10^3/uL (1.0-4.8) Monocytes # (Auto) 0.5 x10^3/uL (0.0-1.1) Eosinophils # (Auto) 0.3 x10^3/uL (0.0-0.7) Basophils # (Auto) 0.1 x10^3/uL (0.0-0.2) Glucose (Fingerstick) 89 mg/dL (70-99) Microbiology 02/03/20 Blood Culture - Preliminary, Resulted NO GROWTH AFTER 2 DAYS 02/03/20 Urine Culture - Final, Complete Medications Current Medications Nitroglycerin (Nitrostat) 0.4 mg PRN Q5MIN PRN SL CP RATING > 1/10 Last administered on 02/03/20at 14:38; Start 02/03/20 at 13:00; Stop 02/04/20 at 11:29; Status DC Morphine Sulfate (Morphine Sulfate) 4 mg PRN Q15MIN PRN IV/SQ PAIN GREATER THAN 3/10 Last administered on 02/03/20at 19:30; Start 02/03/20 at 13:00; Stop 02/04/20 at 12:59; Status DC Labetalol HCl (Normodyne Iv Push) 10 mg 1X ONCE IVP Last administered on 02/03/20at 14:38; Start 02/03/20 at 14:30; Stop 02/03/20 at 14:34; Status DC Multi-Ingredient Mouthwash/Gargle (Gi Cocktail) 20 ml 1X ONCE SWSW Last administered on 02/03/20at 14:56; Start 02/03/20 at 15:00; Stop 02/03/20 at 15:01; Status DC Iohexol (Omnipaque 350 Mg/ml) 100 ml 1X ONCE IV Last administered on 02/03/20at 15:00; Start 02/03/20 at 15:00; Stop 02/03/20 at 15:01; Status DC Diphenhydramine HCl (Benadryl) 25 mg QHS PO Last administered on 02/04/20at 20:11; Start 02/03/20 at 21:00 Duloxetine HCl (Cymbalta) 30 mg DAILY PO Last administered on 02/06/20at 09:01; Start 02/04/20 at 09:00 Pregabalin (Lyrica) 50 mg BID PO Last administered on 02/06/20at 09:01; Start 02/03/20 at 21:00 Pantoprazole Sodium (Protonix) 40 mg BIDAC PO Last administered on 02/06/20 09:00; Start 02/04/20 at 07:30 Amlodipine Besylate (Norvasc) 10 mg DAILY PO Last administered on 02/06/20at 09:01; Start 02/04/20 at 09:00 Aspirin (Tracy Aspirin) 325 mg 1X ONCE PO ; Start 02/03/20 at 17:30; Stop 02/03/20 at 17:31; Status UNV Aspirin (Ecotrin) 81 mg DAILYWBKFT PO ; Start 02/04/20 at 08:00; Status UNV Enoxaparin Sodium (Lovenox 60mg Syringe) 60 mg Q12HR SQ Last administered on 02/06/20at 09:02; Start 02/03/20 at 18:00 Ondansetron HCl (Zofran) 4 mg PRN Q8HRS PRN IV NAUSEA/VOMITING; Start 02/03/20 at 18:15; Stop 02/04/20 at 18:14; Status DC Nitroglycerin (Nitrostat) 0.4 mg PRN Q5MIN PRN SL CHEST PAIN; Start 02/03/20 at 18:15; Stop 02/04/20 at 18:14; Status DC Labetalol HCl (Normodyne Iv Push) 20 mg PRN Q2HR PRN IVP HYPERTENSION-2nd choice; Start 02/03/20 at 20:00 Hydralazine HCl (Apresoline Inj) 10 mg PRN Q4HRS PRN IVP ELEVATED BP, SEE COMMENTS; Start 02/03/20 at 20:00 Oxycodone/ Acetaminophen (Percocet 10/325) 1 tab PRN Q4HRS PRN PO SEVERE PAIN 7-10 Last administered on 02/06/20at 09:01; Start 02/04/20 at 02:45 Perflutren Protein Type A Microsphe (Optison) 0.66 mg STK-MED ONCE IV ; Start 02/04/20 at 11:31; Stop 02/04/20 at 11:31; Status DC Alprazolam (Xanax) 1 mg TID PO Last administered on 02/05/20at 15:03; Start 02/04/20 at 21:00 Albuterol Sulfate (Ventolin Neb Soln) 2.5 mg PRN Q4HRS PRN INH SHORTNESS OF BREATH; Start 02/05/20 at 13:30 Aspirin (Tracy Aspirin) 325 mg DAILY PO Last administered on 02/06/20at 09:01; Start 02/06/20 at 09:00 Atorvastatin Calcium (Lipitor) 40 mg QHS PO Last administered on 02/05/20at 20:59; Start 02/05/20 at 21:00 Benzonatate (Tessalon Perle) 100 mg TID PO Last administered on 02/06/20at 09:01; Start 02/05/20 at 14:00 Cetirizine HCl (ZyrTEC) 10 mg DAILY PO Last administered on 02/06/20at 09:01; Start 02/06/20 at 09:00 Ferrous Sulfate (Feosol) 325 mg DAILY PO Last administered on 02/06/20at 09:01; Start 02/06/20 at 09:00 Guaifenesin (Robitussin Dm) 10 ml PRN Q6HRS PRN PO COUGH; Start 02/05/20 at 13:30 Acetaminophen/ Hydrocodone Bitart (Lortab 5/325) 1 tab PRN Q6HRS PRN PO PAIN; Start 02/05/20 at 18:00 Albuterol/ Ipratropium (Duoneb) 3 ml RTQID NEB Last administered on 02/06/20at 07:44; Start 02/05/20 at 16:00 Lidocaine (Lidoderm) 1 patch PRN 1X PRN TP TOPICAL PAIN; Start 02/05/20 at 13:30 Naproxen (Naprosyn) 500 mg PRN BID PRN PO PAIN; Start 02/05/20 at 13:30; Stop 02/05/20 at 13:57; Status DC Nystatin (Nystop) 1 christine BID TP Last administered on 02/06/20at 09:07; Start 02/05/20 at 21:00 Phenazopyridine HCl (Pyridium) 200 mg TID PO ; Start 02/05/20 at 14:00; Status UNV Phenol (Chloraseptic) 1 spray TID PO ; Start 02/05/20 at 14:00; Stop 02/05/20 at 13:57; Status DC Quetiapine Fumarate (SEROquel) 100 mg QHS PO Last administered on 02/05/20at 21:00; Start 02/05/20 at 21:00 Multi-Ingredient Ointment (Hydrocerin Cream) 1 christine PRN Q1HR PRN TP DRY SKIN / SCALING; Start 02/05/20 at 14:15 Ergocalciferol (Vitamin D2) 50,000 unit WEEKLY PO ; Start 02/13/20 at 09:00 Cyclobenzaprine HCl (Flexeril) 10 mg BID PO Last administered on 02/06/20at 09:00; Start 02/05/20 at 21:00 Non-Formulary Medication (Esomeprazole Magnesium ) 1 tab BID PO ; Start 02/05/20 at 21:00; Stop 02/05/20 at 14:06; Status DC Budesonide (Pulmicort) 0.5 mg RTBID NEB Last administered on 02/06/20at 07:44; Start 02/05/20 at 20:00 Non-Formulary Medication (Loratadine ) 1 tab DAILY PO ; Start 02/06/20 at 09:00; Stop 02/05/20 at 14:08; Status DC Non-Formulary Medication (Naphazoline Hcl/ Pheniramine (Opcon-A Eye Drops)) 1 drop QID EACHEYE ; Start 02/05/20 at 17:00; Stop 02/05/20 at 14:04; Status DC Non-Formulary Medication (Tiotropium Whick (Spiriva)) 1 cap DAILY IH ; Start 02/06/20 at 09:00; Stop 02/05/20 at 14:09; Status DC Active Scripts Active Chloraseptic (Phenol) 20 Ml [place] 2 Puff PO TID 7 Days Opcon-A Eye Drops (Naphazoline Hcl/Pheniramine) 15 Ml Drops 1 Drop EACHEYE QID 10 Days Naproxen 500 Mg Tablet 1 Tab PO BID PRN 10 Days Tessalon Perle (Benzonatate) 100 Mg Capsule 1 Cap PO TID [place] 5-325 Tablet (Acetaminophen/Hydrocodone Bitart) 1 Each Tablet 1 Tab PO Q6HRS Pyridium (Phenazopyridine Hcl) 200 Mg Tablet 200 Mg PO TID 3 Days Benadryl (Diphenhydramine Hcl) 25 Mg Capsule 1 Cap PO QHS Prednisone 20 Mg Tablet 2 Tab PO DAILY 3 Days Guaifenesin Dm Syrup (Guaifenesin/Dextromethorphan) 5 Ml Syrup 10 Ml PO PRN Q6HRS PRN Nystop (Nystatin) 60 Gm Powder 1 Christine TP BID 10 Days [Pantoprazole] 40 MG Tablet.dr 40 Mg PO BIDAC 30 Days Duoneb 0.5-3(2.5) Mg/3 Ml (Albuterol/Ipratropium) 3 Ml Ampul.neb 3 Ml NEB RTQID Proair Hfa Inhaler (Albuterol Sulfate) 8.5 Gm Hfa.aer.ad 1 Puff INH Q4HRS PRN Reported Esomeprazole Magnesium 40 Mg Capsule.dr 1 Tab PO BID Aspirin 325 Mg Tablet 1 Tab PO DAILY Cyclobenzaprine Hcl 5 Mg Tablet 2 Tab PO BID Atorvastatin Calcium 40 Mg Tablet 1 Tab PO QHS Emu-Lac Hydrating Cream (Ammonium Lactate/Emu Oil) 120 Ml Cream.ml. 120 Ml TP PRN PRN 10 Days Cetirizine Hcl 10 Mg Tablet 1 Tab PO DAILY Oxycodone-Acetaminophen 10-325 (Oxycodone Hcl/Acetaminophen) 1 Each Tablet 1 Tab PO QID Loratadine 10 Mg Tablet 1 Tab PO DAILY Amlodipine Besylate 10 Mg Tablet 10 Mg PO DAILY Seroquel (Quetiapine Fumarate) 100 Mg Tablet 1 Tab PO QHS Zolpidem Tartrate 10 Mg Tablet 10 Mg PO PRN QHS PRN Lyrica (Pregabalin) 50 Mg Capsule 1 Cap PO BID Spiriva (Tiotropium Whick) 18 Mcg Cap.w.dev 1 Cap IH DAILY Xanax (Alprazolam) 1 Mg Tablet 1 Tab PO TID Lidoderm (Lidocaine) 700 Mg Adh..patch 700 Mg TP PRN 1X Advair 250-50 Diskus (Fluticasone/Salmeterol) 1 Each Disk.w.dev 1 Each IH BID Vitamin D3 (Cholecalciferol (Vitamin D3)) 50,000 Unit Capsule 50,000 Unit PO WEEKLY Iron (Ferrous Sulfate) 325 Mg Tablet 325 Mg PO DAILY Cymbalta (Duloxetine Hcl) 30 Mg Capsule.dr 60 Mg PO DAILY Vitals/I & O Vital Sign - Last 24 Hours 02/05/20 02/05/20 02/05/20 02/05/20 15:00 16:23 19:35 20:00 Temp 98.2 98.7 98.2 98.7 Pulse 107 108 Resp B/P (MAP) 153/84 (107) 147/108 (121) Pulse Ox 82 98 98 O2 Delivery Room Air Nasal Cannula Nasal Cannula Nasal Cannula O2 Flow Rate 2.0 2.0 1.5 02/05/20 02/05/20 02/05/20 02/05/20 20:32 20:33 23:23 23:29 Temp 97.7 97.7 Pulse 116 Resp B/P (MAP) 153/90 (111) Pulse Ox 95 95 95 91 O2 Delivery Nasal Cannula Nasal Cannula Nasal Cannula Nasal Cannula O2 Flow Rate 1.5 1.5 1.5 2.0 02/06/20 02/06/20 02/06/20 02/06/20 00:23 03:55 05:10 07:00 Temp 97.9 98.2 97.9 98.2 Pulse 112 108 Resp 18 B/P (MAP) 140/82 (101) 153/89 (110) Pulse Ox 91 92 94 O2 Delivery Nasal Cannula Nasal Cannula Nasal Cannula Nasal Cannula O2 Flow Rate 1.5 1.5 1.5 1.5 02/06/20 02/06/20 02/06/20 02/06/20 07:44 08:00 09:01 09:01 Pulse 108 Resp 20 B/P (MAP) 153/89 Pulse Ox 95 O2 Delivery Nasal Cannula Nasal Cannula Nasal Cannula O2 Flow Rate 1.5 1.5 1.5 02/06/20 10:01 Resp 18 O2 Delivery Nasal Cannula O2 Flow Rate 1.5 Intake and Output 02/05/20 02/05/20 02/06/20 15:00 23:00 07:00 Intake Total 240 ml 300 ml 150 ml Output Total 900 ml 600 ml Balance 240 ml -600 ml -450 ml Justicifation of Admission Dx: Justifications for Admission: Justification of Admission Dx: Yes Respiratory Failure: Severe Resp Distress ANGELIKA PENG MD Feb 06, 2020 11:12
[2020-02-06 11:20] VITALS: BP 164/105
--- NOTE | 2020-02-06 13:46 | PDOC ---
PROGRESS NOTES Date of Service DATE: 02/06/20 TIME: 13:44 Subjective Subjective Patient seen and examined Objective Objective Vital Signs Date Time Temp Pulse Resp B/P (MAP) Pulse Ox O2 Delivery O2 Flow Rate FiO2 02/06/20 11:38 96 Nasal Cannula 1.5 02/06/20 11:20 97.4 106 18 164/105 (124) 97.4 Intake and Output 02/06/20 07:00 Intake Total 690 ml Output Total 1500 ml Balance -810 ml Intake Oral 690 ml Output Urine Total 1500 ml Physical Exam Abdomen: Normal bowel sounds Heart: Regular rate General: No acute distress Lungs: Other (Slightly decreased breath sounds) Assessment Assessment Problems Medical Problems: (1) Chest pain Status: Acute 1. Atypical chest pain: possible MSK/GI. reproducible. Noncardiac. 2. Hypertensive urgency; better controlled. Continuing meds 3. AECOPD, moderate pulm HTN; oxygen concentrator has not been functioning properly x2 days per PCP 4. Chronic diastolic CHF; patient remains short of breath. Echocardiogram shows intact LV systolic function with mildly to moderate elevated PAP at 50 mmHg. Continuing medical treatment. 5. Diabetes, II 6. Hyperlipidemia 7. Morbid obesity, suspected KANDI. Comment Review of Relevant I have reviewed the following items bhavin (where applicable) has been applied. Labs Laboratory Tests Test 02/04/20 16:31 02/04/20 21:15 02/05/20 08:16 02/05/20 12:27 Glucose (Fingerstick) 125 mg/dL (70-99) 99 mg/dL (70-99) 98 mg/dL (70-99) 95 mg/dL (70-99) Test 02/05/20 17:05 02/05/20 17:50 02/05/20 21:08 02/06/20 05:10 Glucose (Fingerstick) 87 mg/dL (70-99) 72 mg/dL (70-99) O2 Saturation 93 % (92-99) 92 % (92-99) Arterial Blood pH 7.29 (7.35-7.45) 7.36 (7.35-7.45) Arterial Blood pCO2 at Patient Temp 70 mmHg (35-46) 67 mmHg (35-46) Arterial Blood pO2 at Patient Temp 69 mmHg (75-108) 62 mmHg (75-108) Arterial Blood HCO3 33 mmol/L (21-28) 37 mmol/L (21-28) Arterial Blood Base Excess 4 mmol/L (-3-3) 10 mmol/L (-3-3) Oxyhemoglobin 92.3 % Methemoglobin 0.4 % (0.0-1.9) Carbon Monoxide, Quantitative 0.2 % (0.0-1.9) FiO2 2 lpm nc Test 02/06/20 06:00 02/06/20 06:15 02/06/20 07:24 02/06/20 12:17 Sodium Level 142 mmol/L (136-145) Potassium Level 4.2 mmol/L (3.5-5.1) Chloride Level 103 mmol/L (98-107) Carbon Dioxide Level 34 mmol/L (21-32) Anion Gap 5 (6-14) Blood Urea Nitrogen 13 mg/dL (7-20) Creatinine 0.6 mg/dL (0.6-1.0) Estimated GFR (Cockcroft-Gault) 125.6 BUN/Creatinine Ratio 22 (6-20) Glucose Level 84 mg/dL (70-99) Calcium Level 8.4 mg/dL (8.5-10.1) Total Bilirubin 0.4 mg/dL (0.2-1.0) Aspartate Amino Transf (AST/SGOT) 20 U/L (15-37) Alanine Aminotransferase (ALT/SGPT) 17 U/L (14-59) Alkaline Phosphatase 86 U/L (46-116) Total Protein 6.5 g/dL (6.4-8.2) Albumin 2.9 g/dL (3.4-5.0) Albumin/Globulin Ratio 0.8 (1.0-1.7) White Blood Count 7.6 x10^3/uL (4.0-11.0) Red Blood Count 4.36 x10^6/uL (3.50-5.40) Hemoglobin 11.5 g/dL (12.0-15.5) Hematocrit 35.0 % (36.0-47.0) Mean Corpuscular Volume 80 fL (79-100) Mean Corpuscular Hemoglobin 26 pg (25-35) Mean Corpuscular Hemoglobin Concent 33 g/dL (31-37) Red Cell Distribution Width 17.5 % (11.5-14.5) Platelet Count 208 x10^3/uL (140-400) Neutrophils (%) (Auto) 59 % (31-73) Lymphocytes (%) (Auto) 30 % (24-48) Monocytes (%) (Auto) 6 % (0-9) Eosinophils (%) (Auto) 4 % (0-3) Basophils (%) (Auto) 2 % (0-3) Neutrophils # (Auto) 4.5 x10^3/uL (1.8-7.7) Lymphocytes # (Auto) 2.2 x10^3/uL (1.0-4.8) Monocytes # (Auto) 0.5 x10^3/uL (0.0-1.1) Eosinophils # (Auto) 0.3 x10^3/uL (0.0-0.7) Basophils # (Auto) 0.1 x10^3/uL (0.0-0.2) Glucose (Fingerstick) 89 mg/dL (70-99) 87 mg/dL (70-99) Laboratory Tests Test 02/05/20 17:05 02/05/20 17:50 02/05/20 21:08 02/06/20 05:10 Glucose (Fingerstick) 87 mg/dL (70-99) 72 mg/dL (70-99) O2 Saturation 93 % (92-99) 92 % (92-99) Arterial Blood pH 7.29 (7.35-7.45) 7.36 (7.35-7.45) Arterial Blood pCO2 at Patient Temp 70 mmHg (35-46) 67 mmHg (35-46) Arterial Blood pO2 at Patient Temp 69 mmHg (75-108) 62 mmHg (75-108) Arterial Blood HCO3 33 mmol/L (21-28) 37 mmol/L (21-28) Arterial Blood Base Excess 4 mmol/L (-3-3) 10 mmol/L (-3-3) Oxyhemoglobin 92.3 % Methemoglobin 0.4 % (0.0-1.9) Carbon Monoxide, Quantitative 0.2 % (0.0-1.9) FiO2 2 lpm nc Test 02/06/20 06:00 02/06/20 06:15 02/06/20 07:24 02/06/20 12:17 Sodium Level 142 mmol/L (136-145) Potassium Level 4.2 mmol/L (3.5-5.1) Chloride Level 103 mmol/L (98-107) Carbon Dioxide Level 34 mmol/L (21-32) Anion Gap 5 (6-14) Blood Urea Nitrogen 13 mg/dL (7-20) Creatinine 0.6 mg/dL (0.6-1.0) Estimated GFR (Cockcroft-Gault) 125.6 BUN/Creatinine Ratio 22 (6-20) Glucose Level 84 mg/dL (70-99) Calcium Level 8.4 mg/dL (8.5-10.1) Total Bilirubin 0.4 mg/dL (0.2-1.0) Aspartate Amino Transf (AST/SGOT) 20 U/L (15-37) Alanine Aminotransferase (ALT/SGPT) 17 U/L (14-59) Alkaline Phosphatase 86 U/L (46-116) Total Protein 6.5 g/dL (6.4-8.2) Albumin 2.9 g/dL (3.4-5.0) Albumin/Globulin Ratio 0.8 (1.0-1.7) White Blood Count 7.6 x10^3/uL (4.0-11.0) Red Blood Count 4.36 x10^6/uL (3.50-5.40) Hemoglobin 11.5 g/dL (12.0-15.5) Hematocrit 35.0 % (36.0-47.0) Mean Corpuscular Volume 80 fL (79-100) Mean Corpuscular Hemoglobin 26 pg (25-35) Mean Corpuscular Hemoglobin Concent 33 g/dL (31-37) Red Cell Distribution Width 17.5 % (11.5-14.5) Platelet Count 208 x10^3/uL (140-400) Neutrophils (%) (Auto) 59 % (31-73) Lymphocytes (%) (Auto) 30 % (24-48) Monocytes (%) (Auto) 6 % (0-9) Eosinophils (%) (Auto) 4 % (0-3) Basophils (%) (Auto) 2 % (0-3) Neutrophils # (Auto) 4.5 x10^3/uL (1.8-7.7) Lymphocytes # (Auto) 2.2 x10^3/uL (1.0-4.8) Monocytes # (Auto) 0.5 x10^3/uL (0.0-1.1) Eosinophils # (Auto) 0.3 x10^3/uL (0.0-0.7) Basophils # (Auto) 0.1 x10^3/uL (0.0-0.2) Glucose (Fingerstick) 89 mg/dL (70-99) 87 mg/dL (70-99) Microbiology 02/03/20 Blood Culture - Preliminary, Resulted NO GROWTH AFTER 2 DAYS 02/03/20 Urine Culture - Final, Complete Medications Current Medications Nitroglycerin (Nitrostat) 0.4 mg PRN Q5MIN PRN SL CP RATING > 1/10 Last administered on 02/03/20at 14:38; Start 02/03/20 at 13:00; Stop 02/04/20 at 11:29; Status DC Morphine Sulfate (Morphine Sulfate) 4 mg PRN Q15MIN PRN IV/SQ PAIN GREATER THAN 3/10 Last administered on 02/03/20at 19:30; Start 02/03/20 at 13:00; Stop 02/04/20 at 12:59; Status DC Labetalol HCl (Normodyne Iv Push) 10 mg 1X ONCE IVP Last administered on 02/03/20at 14:38; Start 02/03/20 at 14:30; Stop 02/03/20 at 14:34; Status DC Multi-Ingredient Mouthwash/Gargle (Gi Cocktail) 20 ml 1X ONCE SWSW Last administered on 02/03/20at 14:56; Start 02/03/20 at 15:00; Stop 02/03/20 at 15:01; Status DC Iohexol (Omnipaque 350 Mg/ml) 100 ml 1X ONCE IV Last administered on 02/03/20at 15:00; Start 02/03/20 at 15:00; Stop 02/03/20 at 15:01; Status DC Diphenhydramine HCl (Benadryl) 25 mg QHS PO Last administered on 02/04/20at 20:11; Start 02/03/20 at 21:00 Duloxetine HCl (Cymbalta) 30 mg DAILY PO Last administered on 02/06/20at 09:01; Start 02/04/20 at 09:00 Pregabalin (Lyrica) 50 mg BID PO Last administered on 02/06/20at 09:01; Start 02/03/20 at 21:00 Pantoprazole Sodium (Protonix) 40 mg BIDAC PO Last administered on 02/06/20at 09:00; Start 02/04/20 at 07:30 Amlodipine Besylate (Norvasc) 10 mg DAILY PO Last administered on 02/06/20at 09:01; Start 02/04/20 at 09:00 Aspirin (Tracy Aspirin) 325 mg 1X ONCE PO ; Start 02/03/20 at 17:30; Stop 02/03/20 at 17:31; Status UNV Aspirin (Ecotrin) 81 mg DAILYWBKFT PO ; Start 02/04/20 at 08:00; Status UNV Enoxaparin Sodium (Lovenox 60mg Syringe) 60 mg Q12HR SQ Last administered on 02/06/20at 09:02; Start 02/03/20 at 18:00 Ondansetron HCl (Zofran) 4 mg PRN Q8HRS PRN IV NAUSEA/VOMITING; Start 02/03/20 at 18:15; Stop 02/04/20 at 18:14; Status DC Nitroglycerin (Nitrostat) 0.4 mg PRN Q5MIN PRN SL CHEST PAIN; Start 02/03/20 at 18:15; Stop 02/04/20 at 18:14; Status DC Labetalol HCl (Normodyne Iv Push) 20 mg PRN Q2HR PRN IVP HYPERTENSION-2nd choice; Start 02/03/20 at 20:00 Hydralazine HCl (Apresoline Inj) 10 mg PRN Q4HRS PRN IVP ELEVATED BP, SEE COMMENTS; Start 02/03/20 at 20:00 Oxycodone/ Acetaminophen (Percocet 10/325) 1 tab PRN Q4HRS PRN PO SEVERE PAIN 7-10 Last administered on 02/06/20at 09:01; Start 02/04/20 at 02:45 Perflutren Protein Type A Microsphe (Optison) 0.66 mg STK-MED ONCE IV ; Start 02/04/20 at 11:31; Stop 02/04/20 at 11:31; Status DC Alprazolam (Xanax) 1 mg TID PO Last administered on 02/05/20at 15:03; Start 02/04/20 at 21:00 Albuterol Sulfate (Ventolin Neb Soln) 2.5 mg PRN Q4HRS PRN INH SHORTNESS OF BREATH; Start 02/05/20 at 13:30 Aspirin (Tracy Aspirin) 325 mg DAILY PO Last administered on 02/06/20at 09:01; Start 02/06/20 at 09:00 Atorvastatin Calcium (Lipitor) 40 mg QHS PO Last administered on 02/05/20at 20:59; Start 02/05/20 at 21:00 Benzonatate (Tessalon Perle) 100 mg TID PO Last administered on 02/06/20 09:01; Start 02/05/20 at 14:00 Cetirizine HCl (ZyrTEC) 10 mg DAILY PO Last administered on 02/06/20at 09:01; Start 02/06/20 at 09:00 Ferrous Sulfate (Feosol) 325 mg DAILY PO Last administered on 02/06/20at 09:01; Start 02/06/20 at 09:00 Guaifenesin (Robitussin Dm) 10 ml PRN Q6HRS PRN PO COUGH; Start 02/05/20 at 13:30 Acetaminophen/ Hydrocodone Bitart (Lortab 5/325) 1 tab PRN Q6HRS PRN PO PAIN; Start 02/05/20 at 18:00 Albuterol/ Ipratropium (Duoneb) 3 ml RTQID NEB Last administered on 02/06/20at 11:38; Start 02/05/20 at 16:00 Lidocaine (Lidoderm) 1 patch PRN 1X PRN TP TOPICAL PAIN; Start 02/05/20 at 13:30 Naproxen (Naprosyn) 500 mg PRN BID PRN PO PAIN; Start 02/05/20 at 13:30; Stop 02/05/20 at 13:57; Status DC Nystatin (Nystop) 1 christine BID TP Last administered on 02/06/20at 09:07; Start 02/05/20 at 21:00 Phenazopyridine HCl (Pyridium) 200 mg TID PO ; Start 02/05/20 at 14:00; Status UNV Phenol (Chloraseptic) 1 spray TID PO ; Start 02/05/20 at 14:00; Stop 02/05/20 at 13:57; Status DC Quetiapine Fumarate (SEROquel) 100 mg QHS PO Last administered on 02/05/20at 21:00; Start 02/05/20 at 21:00 Multi-Ingredient Ointment (Hydrocerin Cream) 1 christine PRN Q1HR PRN TP DRY SKIN / SCALING; Start 02/05/20 at 14:15 Ergocalciferol (Vitamin D2) 50,000 unit WEEKLY PO ; Start 02/13/20 at 09:00 Cyclobenzaprine HCl (Flexeril) 10 mg BID PO Last administered on 02/06/20at 09:00; Start 02/05/20 at 21:00 Non-Formulary Medication (Esomeprazole Magnesium ) 1 tab BID PO ; Start 02/05/20 at 21:00; Stop 02/05/20 at 14:06; Status DC Budesonide (Pulmicort) 0.5 mg RTBID NEB Last administered on 02/06/20at 07:44; Start 02/05/20 at 20:00 Non-Formulary Medication (Loratadine ) 1 tab DAILY PO ; Start 02/06/20 at 09:00; Stop 02/05/20 at 14:08; Status DC Non-Formulary Medication (Naphazoline Hcl/ Pheniramine (Opcon-A Eye Drops)) 1 drop QID EACHEYE ; Start 02/05/20 at 17:00; Stop 02/05/20 at 14:04; Status DC Non-Formulary Medication (Tiotropium [place] (Spiriva)) 1 cap DAILY IH ; Start 02/06/20 at 09:00; Stop 02/05/20 at 14:09; Status DC Active Scripts Active Chloraseptic (Phenol) 20 Ml [place] 2 Puff PO TID 7 Days Opcon-A Eye Drops (Naphazoline Hcl/Pheniramine) 15 Ml Drops 1 Drop EACHEYE QID 10 Days Naproxen 500 Mg Tablet 1 Tab PO BID PRN 10 Days Tessalon Perle (Benzonatate) 100 Mg Capsule 1 Cap PO TID [place] 5-325 Tablet (Acetaminophen/Hydrocodone Bitart) 1 Each Tablet 1 Tab PO Q6HRS Pyridium (Phenazopyridine Hcl) 200 Mg Tablet 200 Mg PO TID 3 Days Benadryl (Diphenhydramine Hcl) 25 Mg Capsule 1 Cap PO QHS Prednisone 20 Mg Tablet 2 Tab PO DAILY 3 Days Guaifenesin Dm Syrup (Guaifenesin/Dextromethorphan) 5 Ml Syrup 10 Ml PO PRN Q6HRS PRN Nystop (Nystatin) 60 Gm Powder 1 Christine TP BID 10 Days [Pantoprazole] 40 MG Tablet.dr 40 Mg PO BIDAC 30 Days Duoneb 0.5-3(2.5) Mg/3 Ml (Albuterol/Ipratropium) 3 Ml Ampul.neb 3 Ml NEB RTQID Proair Hfa Inhaler (Albuterol Sulfate) 8.5 Gm Hfa.aer.ad 1 Puff INH Q4HRS PRN Reported Esomeprazole Magnesium 40 Mg Capsule.dr 1 Tab PO BID Aspirin 325 Mg Tablet 1 Tab PO DAILY Cyclobenzaprine Hcl 5 Mg Tablet 2 Tab PO BID Atorvastatin Calcium 40 Mg Tablet 1 Tab PO QHS Emu-Lac Hydrating Cream (Ammonium Lactate/Emu Oil) 120 Ml Cream.ml. 120 Ml TP PRN PRN 10 Days Cetirizine Hcl 10 Mg Tablet 1 Tab PO DAILY Oxycodone-Acetaminophen 10-325 (Oxycodone Hcl/Acetaminophen) 1 Each Tablet 1 Tab PO QID Loratadine 10 Mg Tablet 1 Tab PO DAILY Amlodipine Besylate 10 Mg Tablet 10 Mg PO DAILY Seroquel (Quetiapine Fumarate) 100 Mg Tablet 1 Tab PO QHS Zolpidem Tartrate 10 Mg Tablet 10 Mg PO PRN QHS PRN Lyrica (Pregabalin) 50 Mg Capsule 1 Cap PO BID Spiriva (Tiotropium [place]) 18 Mcg Cap.w.dev 1 Cap IH DAILY Xanax (Alprazolam) 1 Mg Tablet 1 Tab PO TID Lidoderm (Lidocaine) 700 Mg Adh..patch 700 Mg TP PRN 1X Advair 250-50 Diskus (Fluticasone/Salmeterol) 1 Each Disk.w.dev 1 Each IH BID Vitamin D3 (Cholecalciferol (Vitamin D3)) 50,000 Unit Capsule 50,000 Unit PO WEEKLY Iron (Ferrous Sulfate) 325 Mg Tablet 325 Mg PO DAILY Cymbalta (Duloxetine Hcl) 30 Mg Capsule. 60 Mg PO DAILY Vitals/I & O Vital Sign - Last 24 Hours 02/05/20 02/05/20 02/05/20 02/05/20 15:00 16:23 19:35 20:00 Temp 98.2 98.7 98.2 98.7 Pulse 107 108 Resp 20 20 B/P (MAP) 153/84 (107) 147/108 (121) Pulse Ox 82 98 98 O2 Delivery Room Air Nasal Cannula Nasal Cannula Nasal Cannula O2 Flow Rate 2.0 2.0 1.5 02/05/20 02/05/20 02/05/20 02/05/20 20:32 20:33 23:23 23:29 Temp 97.7 97.7 Pulse 116 Resp 18 21 B/P (MAP) 153/90 (111) Pulse Ox 95 95 95 91 O2 Delivery Nasal Cannula Nasal Cannula Nasal Cannula Nasal Cannula O2 Flow Rate 1.5 1.5 1.5 2.0 02/06/20 02/06/20 02/06/20 02/06/20 00:23 03:55 05:10 07:00 Temp 97.9 98.2 97.9 98.2 Pulse 112 108 Resp 20 18 B/P (MAP) 140/82 (101) 153/89 (110) Pulse Ox 91 92 94 O2 Delivery Nasal Cannula Nasal Cannula Nasal Cannula Nasal Cannula O2 Flow Rate 1.5 1.5 1.5 1.5 02/06/20 02/06/20 02/06/20 02/06/20 07:44 08:00 09:01 09:01 Pulse 108 Resp 20 B/P (MAP) 153/89 Pulse Ox 95 O2 Delivery Nasal Cannula Nasal Cannula Nasal Cannula O2 Flow Rate 1.5 1.5 1.5 02/06/20 02/06/20 02/06/20 10:01 11:20 11:38 Temp 97.4 97.4 Pulse 106 Resp 18 18 B/P (MAP) 164/105 (124) Pulse Ox 91 96 O2 Delivery Nasal Cannula Nasal Cannula Nasal Cannula O2 Flow Rate 1.5 1.5 1.5 Intake and Output 02/05/20 02/05/20 02/06/20 15:00 23:00 07:00 Intake Total 240 ml 300 ml 150 ml Output Total 900 ml 600 ml Balance 240 ml -600 ml -450 ml Justifications for Admission Chest Pain Indications Serious Diagnosis?: Yes Justification for admission: Chest pain may be indicative of potentially serious diagnosis/diagnoses Please state condition(s) which will require inpatient level of care for further evaluation and management. Is patient at high risk?: Yes Justification for admission: Patient is high risk based on hemodynamic instability, CHF, abnormal EKG/ECG/cardiac biomarkers/physical exam findings in context of chest pain persisting despite parenteral analgesics & optimal anti-anginal therapy. Other Justification SELINA BERMAN MD Feb 06, 2020 13:46
--- NOTE | 2020-02-06 14:59 | PDOC ---
PULMONARY PROGRESS NOTES DATE: 02/06/20 TIME: 14:58 Vitals Vital Signs Date Time Temp Pulse Resp B/P (MAP) Pulse Ox O2 Delivery O2 Flow Rate FiO2 02/06/20 11:38 96 Nasal Cannula 1.5 02/06/20 11:20 97.4 106 18 164/105 (124) 97.4 General: Alert HEENT: Other Lungs: Crackles, Other Cardiovascular: S1, S2 Abdomen: Soft, Non-tender Extremities: Other Labs Laboratory Tests Test 02/04/20 16:31 02/04/20 21:15 02/05/20 08:16 02/05/20 12:27 Glucose (Fingerstick) 125 mg/dL (70-99) 99 mg/dL (70-99) 98 mg/dL (70-99) 95 mg/dL (70-99) Test 02/05/20 17:05 02/05/20 17:50 02/05/20 21:08 02/06/20 05:10 Glucose (Fingerstick) 87 mg/dL (70-99) 72 mg/dL (70-99) O2 Saturation 93 % (92-99) 92 % (92-99) Arterial Blood pH 7.29 (7.35-7.45) 7.36 (7.35-7.45) Arterial Blood pCO2 at Patient Temp 70 mmHg (35-46) 67 mmHg (35-46) Arterial Blood pO2 at Patient Temp 69 mmHg (75-108) 62 mmHg (75-108) Arterial Blood HCO3 33 mmol/L (21-28) 37 mmol/L (21-28) Arterial Blood Base Excess 4 mmol/L (-3-3) 10 mmol/L (-3-3) Oxyhemoglobin 92.3 % Methemoglobin 0.4 % (0.0-1.9) Carbon Monoxide, Quantitative 0.2 % (0.0-1.9) FiO2 2 lpm nc Test 02/06/20 06:00 02/06/20 06:15 02/06/20 07:24 02/06/20 12:17 Sodium Level 142 mmol/L (136-145) Potassium Level 4.2 mmol/L (3.5-5.1) Chloride Level 103 mmol/L (98-107) Carbon Dioxide Level 34 mmol/L (21-32) Anion Gap 5 (6-14) Blood Urea Nitrogen 13 mg/dL (7-20) Creatinine 0.6 mg/dL (0.6-1.0) Estimated GFR (Cockcroft-Gault) 125.6 BUN/Creatinine Ratio 22 (6-20) Glucose Level 84 mg/dL (70-99) Calcium Level 8.4 mg/dL (8.5-10.1) Total Bilirubin 0.4 mg/dL (0.2-1.0) Aspartate Amino Transf (AST/SGOT) 20 U/L (15-37) Alanine Aminotransferase (ALT/SGPT) 17 U/L (14-59) Alkaline Phosphatase 86 U/L (46-116) Total Protein 6.5 g/dL (6.4-8.2) Albumin 2.9 g/dL (3.4-5.0) Albumin/Globulin Ratio 0.8 (1.0-1.7) White Blood Count 7.6 x10^3/uL (4.0-11.0) Red Blood Count 4.36 x10^6/uL (3.50-5.40) Hemoglobin 11.5 g/dL (12.0-15.5) Hematocrit 35.0 % (36.0-47.0) Mean Corpuscular Volume 80 fL (79-100) Mean Corpuscular Hemoglobin 26 pg (25-35) Mean Corpuscular Hemoglobin Concent 33 g/dL (31-37) Red Cell Distribution Width 17.5 % (11.5-14.5) Platelet Count 208 x10^3/uL (140-400) Neutrophils (%) (Auto) 59 % (31-73) Lymphocytes (%) (Auto) 30 % (24-48) Monocytes (%) (Auto) 6 % (0-9) Eosinophils (%) (Auto) 4 % (0-3) Basophils (%) (Auto) 2 % (0-3) Neutrophils # (Auto) 4.5 x10^3/uL (1.8-7.7) Lymphocytes # (Auto) 2.2 x10^3/uL (1.0-4.8) Monocytes # (Auto) 0.5 x10^3/uL (0.0-1.1) Eosinophils # (Auto) 0.3 x10^3/uL (0.0-0.7) Basophils # (Auto) 0.1 x10^3/uL (0.0-0.2) Glucose (Fingerstick) 89 mg/dL (70-99) 87 mg/dL (70-99) Laboratory Tests Test 02/05/20 17:05 02/05/20 17:50 02/05/20 21:08 02/06/20 05:10 Glucose (Fingerstick) 87 mg/dL (70-99) 72 mg/dL (70-99) O2 Saturation 93 % (92-99) 92 % (92-99) Arterial Blood pH 7.29 (7.35-7.45) 7.36 (7.35-7.45) Arterial Blood pCO2 at Patient Temp 70 mmHg (35-46) 67 mmHg (35-46) Arterial Blood pO2 at Patient Temp 69 mmHg (75-108) 62 mmHg (75-108) Arterial Blood HCO3 33 mmol/L (21-28) 37 mmol/L (21-28) Arterial Blood Base Excess 4 mmol/L (-3-3) 10 mmol/L (-3-3) Oxyhemoglobin 92.3 % Methemoglobin 0.4 % (0.0-1.9) Carbon Monoxide, Quantitative 0.2 % (0.0-1.9) FiO2 2 lpm nc Test 02/06/20 06:00 02/06/20 06:15 02/06/20 07:24 02/06/20 12:17 Sodium Level 142 mmol/L (136-145) Potassium Level 4.2 mmol/L (3.5-5.1) Chloride Level 103 mmol/L (98-107) Carbon Dioxide Level 34 mmol/L (21-32) Anion Gap 5 (6-14) Blood Urea Nitrogen 13 mg/dL (7-20) Creatinine 0.6 mg/dL (0.6-1.0) Estimated GFR (Cockcroft-Gault) 125.6 BUN/Creatinine Ratio 22 (6-20) Glucose Level 84 mg/dL (70-99) Calcium Level 8.4 mg/dL (8.5-10.1) Total Bilirubin 0.4 mg/dL (0.2-1.0) Aspartate Amino Transf (AST/SGOT) 20 U/L (15-37) Alanine Aminotransferase (ALT/SGPT) 17 U/L (14-59) Alkaline Phosphatase 86 U/L (46-116) Total Protein 6.5 g/dL (6.4-8.2) Albumin 2.9 g/dL (3.4-5.0) Albumin/Globulin Ratio 0.8 (1.0-1.7) White Blood Count 7.6 x10^3/uL (4.0-11.0) Red Blood Count 4.36 x10^6/uL (3.50-5.40) Hemoglobin 11.5 g/dL (12.0-15.5) Hematocrit 35.0 % (36.0-47.0) Mean Corpuscular Volume 80 fL (79-100) Mean Corpuscular Hemoglobin 26 pg (25-35) Mean Corpuscular Hemoglobin Concent 33 g/dL (31-37) Red Cell Distribution Width 17.5 % (11.5-14.5) Platelet Count 208 x10^3/uL (140-400) Neutrophils (%) (Auto) 59 % (31-73) Lymphocytes (%) (Auto) 30 % (24-48) Monocytes (%) (Auto) 6 % (0-9) Eosinophils (%) (Auto) 4 % (0-3) Basophils (%) (Auto) 2 % (0-3) Neutrophils # (Auto) 4.5 x10^3/uL (1.8-7.7) Lymphocytes # (Auto) 2.2 x10^3/uL (1.0-4.8) Monocytes # (Auto) 0.5 x10^3/uL (0.0-1.1) Eosinophils # (Auto) 0.3 x10^3/uL (0.0-0.7) Basophils # (Auto) 0.1 x10^3/uL (0.0-0.2) Glucose (Fingerstick) 89 mg/dL (70-99) 87 mg/dL (70-99) Medications Active Scripts Medications Dose Route/Sig Max Daily Dose Days Date Category Esomeprazole Magnesium 40 Mg Capsule.dr 1 Tab PO BID 02/04/20 Reported Aspirin 325 Mg Tablet 1 Tab PO DAILY 02/04/20 Reported Cyclobenzaprine Hcl 5 Mg Tablet 2 Tab PO BID 02/04/20 Reported Atorvastatin Calcium 40 Mg Tablet 1 Tab PO QHS 02/04/20 Reported Emu-Lac Hydrating Cream (Ammonium Lactate/Emu Oil) 120 Ml Cream.ml. 120 Ml TP PRN PRN 10 02/04/20 Reported Cetirizine Hcl 10 Mg Tablet 1 Tab PO DAILY 02/04/20 Reported Chloraseptic (Phenol) 20 Ml [place] 2 Puff PO TID 7 11/28/19 Rx Opcon-A Eye Drops (Naphazoline Hcl/Pheniramine) 15 Ml Drops 1 Drop EACHEYE QID 10 11/28/19 Rx Naproxen 500 Mg Tablet 1 Tab PO BID PRN 10 03/28/19 Rx Tessalon Perle (Benzonatate) 100 Mg Capsule 1 Cap PO TID 02/27/19 Rx [place] 5-325 Tablet (Acetaminophen/Hydrocodone Bitart) 1 Each Tablet 1 Tab PO Q6HRS 10/22/18 Rx Pyridium (Phenazopyridine Hcl) 200 Mg Tablet 200 Mg PO TID 3 02/25/18 Rx Benadryl (Diphenhydramine Hcl) 25 Mg Capsule 1 Cap PO QHS 02/16/18 Rx Prednisone 20 Mg Tablet 2 Tab PO DAILY 3 02/02/18 Rx Guaifenesin Dm Syrup (Guaifenesin/Dextromethorphan) 5 Ml Syrup 10 Ml PO PRN Q6HRS PRN 09/01/17 Rx Nystop (Nystatin) 60 Gm Powder 1 [place] TP BID 10 09/01/17 Rx [Pantoprazole] 40 MG Tablet.dr 40 Mg PO BIDAC 30 09/01/17 Rx Duoneb 0.5-3(2.5) Mg/3 Ml (Albuterol/Ipratropium) 3 Ml Ampul.neb 3 Ml NEB RTQID 09/01/17 Rx Oxycodone-Acetaminophen 10-325 (Oxycodone Hcl/Acetaminophen) 1 Each Tablet 1 Tab PO QID 08/28/17 Reported Proair Hfa Inhaler (Albuterol Sulfate) 8.5 Gm Hfa.aer.ad 1 Puff INH Q4HRS PRN 06/18/17 Rx Loratadine 10 Mg Tablet 1 Tab PO DAILY 06/10/17 Reported Amlodipine Besylate 10 Mg Tablet 10 Mg PO DAILY 06/10/17 Reported Seroquel (Quetiapine Fumarate) 100 Mg Tablet 1 Tab PO QHS 06/10/17 Reported Zolpidem Tartrate 10 Mg Tablet 10 Mg PO PRN QHS PRN 06/10/17 Reported Lyrica (Pregabalin) 50 Mg Capsule 1 Cap PO BID 06/10/17 Reported Spiriva (Tiotropium [place]) 18 Mcg Cap.w.dev 1 Cap IH DAILY 06/10/17 Reported Xanax (Alprazolam) 1 Mg Tablet 1 Tab PO TID 06/10/17 Reported Lidoderm (Lidocaine) 700 Mg Adh..patch 700 Mg TP PRN 1X 05/15/13 Reported Advair 250-50 Diskus (Fluticasone/Salmeterol) 1 Each Disk.w.dev 1 Each IH BID 05/15/13 Reported Vitamin D3 (Cholecalciferol (Vitamin D3)) 50,000 Unit Capsule 50,000 Unit PO WEEKLY 05/15/13 Reported Iron (Ferrous Sulfate) 325 Mg Tablet 325 Mg PO DAILY 05/15/13 Reported Cymbalta (Duloxetine Hcl) 30 Mg Capsule.dr 60 Mg PO DAILY 05/15/13 Reported Impression . Full note dictated, see my dictated note, possible discharge, today or in the a.m, follow-up with me in the office outpatient polysomnogram MARINO CASTAÑEDA MD Feb 06, 2020 14:59
[2020-02-06 15:10] VITALS: BP 135/74
[2020-02-06] MEDS ORDERED: HYDROcodone/APAP 5/325MG 1 TAB TABLET PO PRN (15:15)
[2020-02-06] MEDS: LIDOCAINE (700MG/PATCH) PATCH. TD SCH (17:13)
[2020-02-06 19:26] VITALS: BP 138/75
[2020-02-06] MEDS: ALPRAZolam 0.5 MG TABLET PO SCH (20:38)
[2020-02-06] MEDS: QUEtiapine 100 MG TABLET. PO SCH (20:38)
[2020-02-06] MEDS: diphenhydrAMINE HCL 25 MG CAPSULE PO SCH (20:38)
[2020-02-06] MEDS: ATORVASTATIN CALCIUM 40 MG TABLET. PO SCH (20:38)
[2020-02-06] MEDS: PATCH REMOVAL. MC SCH (20:39)
--- NOTE | 2020-02-06 21:11 | CONS ---
DATE OF CONSULTATION: 02/06/2020 ATTENDING PHYSICIAN: Agusto Barroso M.D. REASON FOR CONSULTATION: The patient is seen in pulmonary consultation at the request of Dr. Callaway for shortness of breath, some chest pain and underlying obstructive sleep apnea. HISTORY OF PRESENT ILLNESS: The patient is a 54-year-old with chronic respiratory failure, normally on 3 liters of oxygen supplementation, presented mainly with reports of chest pain radiating to the back. She described the pain as tightness, worse with deep inspiration and certain movements. The patient denied any syncopal episode. She is chronically on oxygen supplementation. She also has a history of obstructive sleep apnea, but was unable to obtain a CPAP machine. There are no specific reasons. The patient was admitted. I have reviewed her imaging studies, which included CT chest, which revealed no evidence of pulmonary embolism. She had an echocardiogram revealing pulmonary artery pressure of 50, ejection fraction 55%. She has been seen by Cardiology Service. She denies any exposures to anybody with known COVID-19. No headaches, diplopia or blurred vision. PAST MEDICAL HISTORY: Chronic heart failure, diastolic in nature, hypertension, hyperlipidemia, sleep apnea, chronic obstructive pulmonary disease with an asthma component, peripheral neuropathy, gastroesophageal reflux, previous gastrointestinal bleeding, diverticulosis, osteoarthritis, morbid obesity, diabetes, hypothyroidism. ALLERGIES: ASPIRIN. REVIEW OF SYSTEMS: CONSTITUTIONAL: No fever or chills. EYES: No change in visual acuity. HENT: No nasal congestion or sore throat. PULMONARY: As indicated above. CARDIOVASCULAR: As indicated above. GASTROINTESTINAL: No nausea, vomiting, diarrhea. GENITOURINARY: No dysuria or frequency. MUSCULOSKELETAL: No localized muscle aches or joint pains. SKIN: No skin rashes. NEUROLOGIC: No headaches, diplopia or blurred vision. CURRENT MEDICATION: List was reviewed. PHYSICAL EXAMINATION: GENERAL: Morbid obese individual with a body mass index of 77. She is currently back on 2 liters of oxygen supplementation, saturation greater than 92%. HEENT: Eyes, the sclerae were nonicteric. NECK: Jugular venous distention was not elevated. No lymphadenopathy. CHEST: Full expansion. LUNGS: Poor flow, no wheezes. CARDIOVASCULAR: Regular rate and rhythm with S1, S2, no S3. ABDOMEN: Soft, obese. EXTREMITIES: Marked obesity with some edema. NEUROLOGICAL: The patient was awake, alert, following commands. A detailed neuro exam is not performed. LABORATORY DATA: Toxicology screen was positive for opiates and benzodiazepine. CT of the chest as indicated above. BUN and creatinine normal. Albumin was low. Arterial blood gas initially pH of 7.29, PaCO2 of 70, pO2 of 69 on 2 liters of oxygen supplementation. White count was normal. RADIOLOGICAL DATA: Chest x-ray and CT chest reviewed. IMPRESSION: 1. Tpnzi-ly-ibyiidk hypercapnic hypoxemic respiratory failure. The patient presents with a pH of 7.29 with a PaCO2 of 70 on 2 liters of oxygen supplementation. 2. Tzatu-kt-eywbbfw diastolic heart failure. 3. Jhxkx-ri-pswmepq cor pulmonale. The patient with a pulmonary artery pressure of 50 on recent echocardiogram. 4. Obstructive sleep apnea, the patient currently does not have CPAP at home. 5. Morbid obesity. 6. Chest pain, suspect possibly related to cor pulmonale. 7. Morbid obesity. 8. Type 2 diabetes. 9. Acute exacerbation of chronic obstructive pulmonary disease. PLAN: 1. The patient did better with BiPAP. Her repeat arterial blood gas revealed a pH of 7.36, PaCO2 of 67, pO2 of 62. Recommend decreasing oxygen supplementation to 1.5 liters; possibly 1. 2. Diurese. 3. Possible outpatient right heart catheterization to better define the pulmonary arterial hypertension. 4. The patient given my business card. She is to call my office, I will arrange a new outpatient polysomnogram and get her adequately treated for her obstructive sleep apnea. 5. Nebulized treatments. 6. Weight reduction, I spoke with the patient regarding her diet. She will also be seen by the dietitian. I do appreciate the privilege in sharing in the patient's care. MARINO CASTAÑEDA MD DR: JOSE M/joel JOB#: [id number] / [id number]
[2020-02-06 23:10] VITALS: BP 170/90
[2020-02-07 03:11] VITALS: BP 142/81
[2020-02-07 06:11] VITALS: BP 137/81
[2020-02-07] MEDS: BUDESONIDE 0.5 MG/2 ML NEBU. NEB SCH ×2 (07:49→19:41)
[2020-02-07] MEDS: IPRATRPIUM/ALBUTEROL 0.5/2.5MG 3 ML NEBU. NEB SCH ×4 (07:49→19:41)
[2020-02-07] MEDS: CETIRIZINE HCL 10 MG TABLET. PO SCH (08:34)
[2020-02-07] MEDS: PANTOPRAZOLE 40 MG TABLET.DR. PO SCH ×2 (08:34→17:42)
[2020-02-07] MEDS: amLODIPine BESYLATE 10 MG TABLET PO SCH (08:34)
[2020-02-07] MEDS: FERROUS SULFATE 325 MG TABLET. PO SCH (08:34)
[2020-02-07] MEDS: BENZONATATE 100 MG CAPSULE. PO SCH ×3 (08:34→20:17)
[2020-02-07] MEDS: DULoxetine HCL 30 MG CAPSULE.DR PO SCH (08:34)
[2020-02-07] MEDS: CYCLOBENZAPRINE 10 MG TABLET. PO SCH ×2 (08:34→20:17)
[2020-02-07] MEDS: ASPIRIN 325 MG TABLET PO SCH (08:34)
[2020-02-07] MEDS: ALPRAZolam 0.5 MG TABLET PO SCH ×3 (08:34→20:17)
[2020-02-07] MEDS: PREGABALIN 50 MG CAPSULE PO SCH ×2 (08:35→20:17)
--- NOTE | 2020-02-07 08:54 | PDOC ---
PULMONARY PROGRESS NOTES DATE: 02/07/20 TIME: 08:54 Subjective Patient still short of air no chest pain Vitals Vital Signs Date Time Temp Pulse Resp B/P (MAP) Pulse Ox O2 Delivery O2 Flow Rate FiO2 02/07/20 08:34 96 137/81 02/07/20 07:52 95 02/07/20 06:11 97.9 18 Nasal Cannula 1.5 97.9 ROS: No Nausea, No Chest Pain, No Abdominal Pain, No Increase Cough General: Alert HEENT: Other Lungs: Crackles Cardiovascular: S1, S2 Abdomen: Soft, Non-tender Neuro Exam: Alert Extremities: Other (Edema edema) Skin: Warm Labs Laboratory Tests Test 02/05/20 12:27 02/05/20 17:05 02/05/20 17:50 02/05/20 21:08 Glucose (Fingerstick) 95 mg/dL (70-99) 87 mg/dL (70-99) 72 mg/dL (70-99) O2 Saturation 93 % (92-99) Arterial Blood pH 7.29 (7.35-7.45) Arterial Blood pCO2 at Patient Temp 70 mmHg (35-46) Arterial Blood pO2 at Patient Temp 69 mmHg (75-108) Arterial Blood HCO3 33 mmol/L (21-28) Arterial Blood Base Excess 4 mmol/L (-3-3) Oxyhemoglobin 92.3 % Methemoglobin 0.4 % (0.0-1.9) Carbon Monoxide, Quantitative 0.2 % (0.0-1.9) FiO2 2 lpm nc Test 02/06/20 05:10 02/06/20 06:00 02/06/20 06:15 02/06/20 07:24 O2 Saturation 92 % (92-99) Arterial Blood pH 7.36 (7.35-7.45) Arterial Blood pCO2 at Patient Temp 67 mmHg (35-46) Arterial Blood pO2 at Patient Temp 62 mmHg (75-108) Arterial Blood HCO3 37 mmol/L (21-28) Arterial Blood Base Excess 10 mmol/L (-3-3) Sodium Level 142 mmol/L (136-145) Potassium Level 4.2 mmol/L (3.5-5.1) Chloride Level 103 mmol/L (98-107) Carbon Dioxide Level 34 mmol/L (21-32) Anion Gap 5 (6-14) Blood Urea Nitrogen 13 mg/dL (7-20) Creatinine 0.6 mg/dL (0.6-1.0) Estimated GFR (Cockcroft-Gault) 125.6 BUN/Creatinine Ratio 22 (6-20) Glucose Level 84 mg/dL (70-99) Calcium Level 8.4 mg/dL (8.5-10.1) Total Bilirubin 0.4 mg/dL (0.2-1.0) Aspartate Amino Transf (AST/SGOT) 20 U/L (15-37) Alanine Aminotransferase (ALT/SGPT) 17 U/L (14-59) Alkaline Phosphatase 86 U/L (46-116) Total Protein 6.5 g/dL (6.4-8.2) Albumin 2.9 g/dL (3.4-5.0) Albumin/Globulin Ratio 0.8 (1.0-1.7) White Blood Count 7.6 x10^3/uL (4.0-11.0) Red Blood Count 4.36 x10^6/uL (3.50-5.40) Hemoglobin 11.5 g/dL (12.0-15.5) Hematocrit 35.0 % (36.0-47.0) Mean Corpuscular Volume 80 fL (79-100) Mean Corpuscular Hemoglobin 26 pg (25-35) Mean Corpuscular Hemoglobin Concent 33 g/dL (31-37) Red Cell Distribution Width 17.5 % (11.5-14.5) Platelet Count 208 x10^3/uL (140-400) Neutrophils (%) (Auto) 59 % (31-73) Lymphocytes (%) (Auto) 30 % (24-48) Monocytes (%) (Auto) 6 % (0-9) Eosinophils (%) (Auto) 4 % (0-3) Basophils (%) (Auto) 2 % (0-3) Neutrophils # (Auto) 4.5 x10^3/uL (1.8-7.7) Lymphocytes # (Auto) 2.2 x10^3/uL (1.0-4.8) Monocytes # (Auto) 0.5 x10^3/uL (0.0-1.1) Eosinophils # (Auto) 0.3 x10^3/uL (0.0-0.7) Basophils # (Auto) 0.1 x10^3/uL (0.0-0.2) Glucose (Fingerstick) 89 mg/dL (70-99) Test 02/06/20 12:17 02/06/20 17:12 02/06/20 21:01 02/07/20 07:44 Glucose (Fingerstick) 87 mg/dL (70-99) 103 mg/dL (70-99) 129 mg/dL (70-99) 86 mg/dL (70-99) Laboratory Tests Test 02/06/20 12:17 02/06/20 17:12 02/06/20 21:01 02/07/20 07:44 Glucose (Fingerstick) 87 mg/dL (70-99) 103 mg/dL (70-99) 129 mg/dL (70-99) 86 mg/dL (70-99) Medications Active Scripts Medications Dose Route/Sig Max Daily Dose Days Date Category Esomeprazole Magnesium 40 Mg Capsule.dr 1 Tab PO BID 02/04/20 Reported Aspirin 325 Mg Tablet 1 Tab PO DAILY 02/04/20 Reported Cyclobenzaprine Hcl 5 Mg Tablet 2 Tab PO BID 02/04/20 Reported Atorvastatin Calcium 40 Mg Tablet 1 Tab PO QHS 02/04/20 Reported Emu-Lac Hydrating Cream (Ammonium Lactate/Emu Oil) 120 Ml Cream.ml. 120 Ml TP PRN PRN 10 02/04/20 Reported Cetirizine Hcl 10 Mg Tablet 1 Tab PO DAILY 02/04/20 Reported Chloraseptic (Phenol) 20 Ml [place] 2 Puff PO TID 7 11/28/19 Rx Opcon-A Eye Drops (Naphazoline Hcl/Pheniramine) 15 Ml Drops 1 Drop EACHEYE QID 10 11/28/19 Rx Naproxen 500 Mg Tablet 1 Tab PO BID PRN 10 03/28/19 Rx Tessalon [place] (Benzonatate) 100 Mg Capsule 1 Cap PO TID 02/27/19 Rx Girard 5-325 Tablet (Acetaminophen/Hydrocodone Bitart) 1 Each Tablet 1 Tab PO Q6HRS 10/22/18 Rx Pyridium (Phenazopyridine Hcl) 200 Mg Tablet 200 Mg PO TID 3 02/25/18 Rx Benadryl (Diphenhydramine Hcl) 25 Mg Capsule 1 Cap PO QHS 02/16/18 Rx Prednisone 20 Mg Tablet 2 Tab PO DAILY 3 02/02/18 Rx Guaifenesin Dm Syrup (Guaifenesin/Dextromethorphan) 5 Ml Syrup 10 Ml PO PRN Q6HRS PRN 09/01/17 Rx Nystop (Nystatin) 60 Gm Powder 1 Christine TP BID 10 09/01/17 Rx [Pantoprazole] 40 MG Tablet.dr 40 Mg PO BIDAC 30 09/01/17 Rx Duoneb 0.5-3(2.5) Mg/3 Ml (Albuterol/Ipratropium) 3 Ml Ampul.neb 3 Ml NEB RTQID 09/01/17 Rx Oxycodone-Acetaminophen 10-325 (Oxycodone Hcl/Acetaminophen) 1 Each Tablet 1 Tab PO QID 08/28/17 Reported Proair Hfa Inhaler (Albuterol Sulfate) 8.5 Gm Hfa.aer.ad 1 Puff INH Q4HRS PRN 06/18/17 Rx Loratadine 10 Mg Tablet 1 Tab PO DAILY 06/10/17 Reported Amlodipine Besylate 10 Mg Tablet 10 Mg PO DAILY 06/10/17 Reported Seroquel (Quetiapine Fumarate) 100 Mg Tablet 1 Tab PO QHS 06/10/17 Reported Zolpidem Tartrate 10 Mg Tablet 10 Mg PO PRN QHS PRN 06/10/17 Reported Lyrica (Pregabalin) 50 Mg Capsule 1 Cap PO BID 06/10/17 Reported Spiriva (Tiotropium [place]) 18 Mcg Cap.w.dev 1 Cap IH DAILY 06/10/17 Reported Xanax (Alprazolam) 1 Mg Tablet 1 Tab PO TID 06/10/17 Reported Lidoderm (Lidocaine) 700 Mg Adh..patch 700 Mg TP PRN 1X 05/15/13 Reported Advair 250-50 Diskus (Fluticasone/Salmeterol) 1 Each Disk.w.dev 1 Each IH BID 05/15/13 Reported Vitamin D3 (Cholecalciferol (Vitamin D3)) 50,000 Unit Capsule 50,000 Unit PO WEEKLY 05/15/13 Reported Iron (Ferrous Sulfate) 325 Mg Tablet 325 Mg PO DAILY 05/15/13 Reported Cymbalta (Duloxetine Hcl) 30 Mg Capsule.dr 60 Mg PO DAILY 05/15/13 Reported Impression . IMPRESSION: 1. Zuzud-pc-amsgnlk hypercapnic hypoxemic respiratory failure. The patient presents with a pH of 7.29 with a PaCO2 of 70 on 2 liters of oxygen supplementation. 2. Raprm-lt-xmultce diastolic heart failure. 3. Ukltg-sc-rzicvny cor pulmonale. The patient with a pulmonary artery pressure of 50 on recent echocardiogram. 4. Obstructive sleep apnea, the patient currently does not have CPAP at home. 5. Morbid obesity. 6. Chest pain, suspect possibly related to cor pulmonale. 7. Morbid obesity. 8. Type 2 diabetes. 9. Acute exacerbation of chronic obstructive pulmonary disease. Plan . Outpatient polysomnogram Diuresis Possible right heart cath in the future Nocturnal desat study, discharge in the a.. [facility], last 03/09 MARINO CASTAÑEDA MD Feb 07, 2020 08:54
[2020-02-07] MEDS: LIDOCAINE (700MG/PATCH) PATCH. TD SCH (09:00)
[2020-02-07] MEDS: NYSTATIN TOPICAL POWDER 15GM BOTTLE. TP SCH ×2 (09:00→20:18)
[2020-02-07 10:10] VITALS: BP 135/73
[2020-02-07] MEDS: oxyCODONE/APAP 10/325 1 TAB TABLET PO PRN ×3 (10:44→23:11)
--- NOTE | 2020-02-07 10:49 | PDOC ---
PROGRESS NOTES Date of Service: DATE: 02/07/20 TIME: 10:48 Chief Complaint Chief Complaint IMPRESSION Chest pain Hypertensive urgency; better controlled AECOPD, moderate pulm HTN; oxygen concentrator has not been functioning properly x2 days per PCP Chronic diastolic CHF; compensated Diabetes, II Hyperlipidemia SUPER Morbid obesity,//KANDI HYPERCAPNEA , severe with hypoxic resp failure PLAN ABG CVC BED trial bipap keep spo2 91% NEEDS FULL SLEEP STUDY SHAN bipap trial D/W RN NEEDS FULL POLYSOMONOGRAPHY poor prognosis without BIPAP/ CPAP. History of Present Illness History of Present Illness Patient's chest pain has resolved. She reports chronic back and knee pain. further evaluation pending Echo Vitals Vitals Vital Signs Date Time Temp Pulse Resp B/P (MAP) Pulse Ox O2 Delivery O2 Flow Rate FiO2 02/07/20 10:44 Nasal Cannula 1.5 02/07/20 10:10 97.1 111 18 135/73 (93) 96 97.1 Physical Exam Physical Exam HEENT: Normal cephalic, atraumatic, external auditory canals are patent EYES: Extraocular muscles are intact, pupil are equally round and reactive to light and accommodation MUSCULOSKELETAL: Well developed , well nourished, good range of motion ENDOCRINE: No thyromegaly was palpated LYMPHATICS: No cervical chain or axillary nodes were noted HEMATOPOIETIC: No bruising NECK: Supple, no JVD, no thyromegaly was noted LUNGS: Clear to auscultation in all lung chen without rhonchi or wheezing HEART: RRR, S1 S2 present. Peripheral pulses intact, no obvious murmurs noted. Reproducible substernal chest pain ABDOMEN: Soft, nontender. Positive bowel sounds, no organomegaly, normal bowel sounds EXTREMITIES: Without clubbing, cyanosis, or edema. Pedal pulses intact. Nega tive Homans sign NEUROLOGIC: Normal speech and tone. A&O x 3, moves all extremities, no obvious focal deficits PSYCHIATRIC: Normal affect, normal mood. Stable SKIN: No ulcerations or rashes, good skin turgor, no jaundice VASCULAR: Good capillary refill, neurovascular bundle appears to be intact General: Alert, Oriented X3, Cooperative, No acute distress Heart: Regular rate, Normal S1 Lungs: Crackles, Other Abdomen: Normal bowel sounds, No hepatosplenomegaly, Other (very obese) Extremities: No clubbing, No cyanosis Skin: No rashes, No significant lesion Labs LABS Laboratory Tests Test 02/06/20 12:17 02/06/20 17:12 02/06/20 21:01 02/07/20 07:44 Glucose (Fingerstick) 87 mg/dL (70-99) 103 mg/dL (70-99) 129 mg/dL (70-99) 86 mg/dL (70-99) Assessment and Plan Assessmemt and Plan Problems Medical Problems: (1) Chest pain Status: Acute Comment Review of Relevant I have reviewed the following items bhavin (where applicable) has been applied. Labs Laboratory Tests Test 02/05/20 12:27 02/05/20 17:05 02/05/20 17:50 02/05/20 21:08 Glucose (Fingerstick) 95 mg/dL (70-99) 87 mg/dL (70-99) 72 mg/dL (70-99) O2 Saturation 93 % (92-99) Arterial Blood pH 7.29 (7.35-7.45) Arterial Blood pCO2 at Patient Temp 70 mmHg (35-46) Arterial Blood pO2 at Patient Temp 69 mmHg (75-108) Arterial Blood HCO3 33 mmol/L (21-28) Arterial Blood Base Excess 4 mmol/L (-3-3) Oxyhemoglobin 92.3 % Methemoglobin 0.4 % (0.0-1.9) Carbon Monoxide, Quantitative 0.2 % (0.0-1.9) FiO2 2 lpm nc Test 02/06/20 05:10 02/06/20 06:00 02/06/20 06:15 02/06/20 07:24 O2 Saturation 92 % (92-99) Arterial Blood pH 7.36 (7.35-7.45) Arterial Blood pCO2 at Patient Temp 67 mmHg (35-46) Arterial Blood pO2 at Patient Temp 62 mmHg (75-108) Arterial Blood HCO3 37 mmol/L (21-28) Arterial Blood Base Excess 10 mmol/L (-3-3) Sodium Level 142 mmol/L (136-145) Potassium Level 4.2 mmol/L (3.5-5.1) Chloride Level 103 mmol/L (98-107) Carbon Dioxide Level 34 mmol/L (21-32) Anion Gap 5 (6-14) Blood Urea Nitrogen 13 mg/dL (7-20) Creatinine 0.6 mg/dL (0.6-1.0) Estimated GFR (Cockcroft-Gault) 125.6 BUN/Creatinine Ratio 22 (6-20) Glucose Level 84 mg/dL (70-99) Calcium Level 8.4 mg/dL (8.5-10.1) Total Bilirubin 0.4 mg/dL (0.2-1.0) Aspartate Amino Transf (AST/SGOT) 20 U/L (15-37) Alanine Aminotransferase (ALT/SGPT) 17 U/L (14-59) Alkaline Phosphatase 86 U/L (46-116) Total Protein 6.5 g/dL (6.4-8.2) Albumin 2.9 g/dL (3.4-5.0) Albumin/Globulin Ratio 0.8 (1.0-1.7) White Blood Count 7.6 x10^3/uL (4.0-11.0) Red Blood Count 4.36 x10^6/uL (3.50-5.40) Hemoglobin 11.5 g/dL (12.0-15.5) Hematocrit 35.0 % (36.0-47.0) Mean Corpuscular Volume 80 fL (79-100) Mean Corpuscular Hemoglobin 26 pg (25-35) Mean Corpuscular Hemoglobin Concent 33 g/dL (31-37) Red Cell Distribution Width 17.5 % (11.5-14.5) Platelet Count 208 x10^3/uL (140-400) Neutrophils (%) (Auto) 59 % (31-73) Lymphocytes (%) (Auto) 30 % (24-48) Monocytes (%) (Auto) 6 % (0-9) Eosinophils (%) (Auto) 4 % (0-3) Basophils (%) (Auto) 2 % (0-3) Neutrophils # (Auto) 4.5 x10^3/uL (1.8-7.7) Lymphocytes # (Auto) 2.2 x10^3/uL (1.0-4.8) Monocytes # (Auto) 0.5 x10^3/uL (0.0-1.1) Eosinophils # (Auto) 0.3 x10^3/uL (0.0-0.7) Basophils # (Auto) 0.1 x10^3/uL (0.0-0.2) Glucose (Fingerstick) 89 mg/dL (70-99) Test 02/06/20 12:17 02/06/20 17:12 02/06/20 21:01 02/07/20 07:44 Glucose (Fingerstick) 87 mg/dL (70-99) 103 mg/dL (70-99) 129 mg/dL (70-99) 86 mg/dL (70-99) Laboratory Tests Test 02/06/20 12:17 02/06/20 17:12 02/06/20 21:01 02/07/20 07:44 Glucose (Fingerstick) 87 mg/dL (70-99) 103 mg/dL (70-99) 129 mg/dL (70-99) 86 mg/dL (70-99) Microbiology 02/03/20 Blood Culture - Preliminary, Resulted NO GROWTH AFTER 3 DAYS 02/03/20 Urine Culture - Final, Complete Medications Current Medications Nitroglycerin (Nitrostat) 0.4 mg PRN Q5MIN PRN SL CP RATING > 1/10 Last administered on 02/03/20at 14:38; Start 02/03/20 at 13:00; Stop 02/04/20 at 11:29; Status DC Morphine Sulfate (Morphine Sulfate) 4 mg PRN Q15MIN PRN IV/SQ PAIN GREATER THAN 3/10 Last administered on 02/03/20at 19:30; Start 02/03/20 at 13:00; Stop 02/04/20 at 12:59; Status DC Labetalol HCl (Normodyne Iv Push) 10 mg 1X ONCE IVP Last administered on 02/03/20at 14:38; Start 02/03/20 at 14:30; Stop 02/03/20 at 14:34; Status DC Multi-Ingredient Mouthwash/Gargle (Gi Cocktail) 20 ml 1X ONCE SWSW Last administered on 02/03/20at 14:56; Start 02/03/20 at 15:00; Stop 02/03/20 at 15:01; Status DC Iohexol (Omnipaque 350 Mg/ml) 100 ml 1X ONCE IV Last administered on 02/03/20at 15:00; Start 02/03/20 at 15:00; Stop 02/03/20 at 15:01; Status DC Diphenhydramine HCl (Benadryl) 25 mg QHS PO Last administered on 02/06/20at 20:38; Start 02/03/20 at 21:00 Duloxetine HCl (Cymbalta) 30 mg DAILY PO Last administered on 02/07/20at 08:34; Start 02/04/20 at 09:00 Pregabalin (Lyrica) 50 mg BID PO Last administered on 02/07/20at 08:35; Start 02/03/20 at 21:00 Pantoprazole Sodium (Protonix) 40 mg BIDAC PO Last administered on 02/07/20at 08:34; Start 02/04/20 at 07:30 Amlodipine Besylate (Norvasc) 10 mg DAILY PO Last administered on 02/07/20at 08:34; Start 02/04/20 at 09:00 Aspirin (Tracy Aspirin) 325 mg 1X ONCE PO ; Start 02/03/20 at 17:30; Stop 02/03/20 at 17:31; Status UNV Aspirin (Ecotrin) 81 mg DAILYWBKFT PO ; Start 02/04/20 at 08:00; Status UNV Enoxaparin Sodium (Lovenox 60mg Syringe) 60 mg Q12HR SQ Last administered on 02/07/20at 08:35; Start 02/03/20 at 18:00 Ondansetron HCl (Zofran) 4 mg PRN Q8HRS PRN IV NAUSEA/VOMITING; Start 02/03/20 at 18:15; Stop 02/04/20 at 18:14; Status DC Nitroglycerin (Nitrostat) 0.4 mg PRN Q5MIN PRN SL CHEST PAIN; Start 02/03/20 at 18:15; Stop 02/04/20 at 18:14; Status DC Labetalol HCl (Normodyne Iv Push) 20 mg PRN Q2HR PRN IVP HYPERTENSION-2nd choice; Start 02/03/20 at 20:00 Hydralazine HCl (Apresoline Inj) 10 mg PRN Q4HRS PRN IVP ELEVATED BP, SEE COMMENTS; Start 02/03/20 at 20:00 Oxycodone/ Acetaminophen (Percocet 10/325) 1 tab PRN Q4HRS PRN PO SEVERE PAIN 7-10 Last administered on 02/07/20at 10:44; Start 02/04/20 at 02:45 Perflutren Protein Type A Microsphe (Optison) 0.66 mg STK-MED ONCE IV ; Start 02/04/20 at 11:31; Stop 02/04/20 at 11:31; Status DC Alprazolam (Xanax) 1 mg TID PO Last administered on 02/06/20at 14:02; Start 02/04/20 at 21:00; Stop 02/06/20 at 15:17; Status DC Albuterol Sulfate (Ventolin Neb Soln) 2.5 mg PRN Q4HRS PRN INH SHORTNESS OF BREATH; Start 02/05/20 at 13:30 Aspirin (Tracy Aspirin) 325 mg DAILY PO Last administered on 02/07/20at 08:34; Start 02/06/20 at 09:00 Atorvastatin Calcium (Lipitor) 40 mg QHS PO Last administered on 02/06/20at 20:38; Start 02/05/20 at 21:00 Benzonatate (Tessalon Perle) 100 mg TID PO Last administered on 02/07/20at 08:34; Start 02/05/20 at 14:00 Cetirizine HCl (ZyrTEC) 10 mg DAILY PO Last administered on 02/07/20at 08:34; Start 02/06/20 at 09:00 Ferrous Sulfate (Feosol) 325 mg DAILY PO Last administered on 02/07/20at 08:34; Start 02/06/20 at 09:00 Guaifenesin (Robitussin Dm) 10 ml PRN Q6HRS PRN PO COUGH; Start 02/05/20 at 13:30 Acetaminophen/ Hydrocodone Bitart (Lortab 5/325) 1 tab PRN Q6HRS PRN PO PAIN; Start 02/05/20 at 18:00; Stop 02/06/20 at 15:17; Status DC Albuterol/ Ipratropium (Duoneb) 3 ml RTQID NEB Last administered on 02/07/20at 07:49; Start 02/05/20 at 16:00 Lidocaine (Lidoderm) 1 patch PRN 1X PRN TP TOPICAL PAIN; Start 02/05/20 at 13:30 Naproxen (Naprosyn) 500 mg PRN BID PRN PO PAIN; Start 02/05/20 at 13:30; Stop 02/05/20 at 13:57; Status DC Nystatin (Nystop) 1 christine BID TP Last administered on 02/06/20at 20:38; Start 02/05/20 at 21:00 Phenazopyridine HCl (Pyridium) 200 mg TID PO ; Start 02/05/20 at 14:00; Status UNV Phenol (Chloraseptic) 1 spray TID PO ; Start 02/05/20 at 14:00; Stop 02/05/20 at 13:57; Status DC Quetiapine Fumarate (SEROquel) 100 mg QHS PO Last administered on 02/06/20at 20:38; Start 02/05/20 at 21:00 Multi-Ingredient Ointment (Hydrocerin Cream) 1 christine PRN Q1HR PRN TP DRY SKIN / SCALING; Start 02/05/20 at 14:15 Ergocalciferol (Vitamin D2) 50,000 unit WEEKLY PO ; Start 02/13/20 at 09:00 Cyclobenzaprine HCl (Flexeril) 10 mg BID PO Last administered on 02/07/20at 08:34; Start 02/05/20 at 21:00 Non-Formulary Medication (Esomeprazole Magnesium ) 1 tab BID PO ; Start 02/05/20 at 21:00; Stop 02/05/20 at 14:06; Status DC Budesonide (Pulmicort) 0.5 mg RTBID NEB Last administered on 02/07/20at 07:49; Start 02/05/20 at 20:00 Non-Formulary Medication (Loratadine ) 1 tab DAILY PO ; Start 02/06/20 at 09:00; Stop 02/05/20 at 14:08; Status DC Non-Formulary Medication (Naphazoline Hcl/ Pheniramine (Opcon-A Eye Drops)) 1 drop QID EACHEYE ; Start 02/05/20 at 17:00; Stop 02/05/20 at 14:04; Status DC Non-Formulary Medication (Tiotropium [place] (Spiriva)) 1 cap DAILY IH ; Start 02/06/20 at 09:00; Stop 02/05/20 at 14:09; Status DC Alprazolam (Xanax) 0.5 mg TID PO Last administered on 02/07/20at 08:34; Start 02/06/20 at 21:00 Acetaminophen/ Hydrocodone Bitart (Lortab 5/325) 1 tab PRN Q8HRS PRN PO PAIN; Start 02/06/20 at 15:15 Lidocaine (Lidoderm) 1 patch DAILY TD Last administered on 02/06/20at 17:13; Start 02/06/20 at 17:00 Miscellaneous (Lidoderm Patch Removal) 1 ea QHS MC Last administered on 02/06/20at 20:39; Start 02/06/20 at 21:00 Perflutren Protein Type A Microsphe (Optison) 0.66 mg STK-MED ONCE IV ; Start 02/04/20 at 12:00; Stop 02/07/20 at 06:51; Status DC Active Scripts Active Chloraseptic (Phenol) 20 Ml [place] 2 Puff PO TID 7 Days Opcon-A Eye Drops (Naphazoline Hcl/Pheniramine) 15 Ml Drops 1 Drop EACHEYE QID 10 Days Naproxen 500 Mg Tablet 1 Tab PO BID PRN 10 Days Tessalon Perle (Benzonatate) 100 Mg Capsule 1 Cap PO TID [place] 5-325 Tablet (Acetaminophen/Hydrocodone Bitart) 1 Each Tablet 1 Tab PO Q6HRS Pyridium (Phenazopyridine Hcl) 200 Mg Tablet 200 Mg PO TID 3 Days Benadryl (Diphenhydramine Hcl) 25 Mg Capsule 1 Cap PO QHS Prednisone 20 Mg Tablet 2 Tab PO DAILY 3 Days Guaifenesin Dm Syrup (Guaifenesin/Dextromethorphan) 5 Ml Syrup 10 Ml PO PRN Q6HRS PRN Nystop (Nystatin) 60 Gm Powder 1 Christine TP BID 10 Days [Pantoprazole] 40 MG Tablet.dr 40 Mg PO BIDAC 30 Days Duoneb 0.5-3(2.5) Mg/3 Ml (Albuterol/Ipratropium) 3 Ml Ampul.neb 3 Ml NEB RTQID Proair Hfa Inhaler (Albuterol Sulfate) 8.5 Gm Hfa.aer.ad 1 Puff INH Q4HRS PRN Reported Esomeprazole Magnesium 40 Mg Capsule.dr 1 Tab PO BID Aspirin 325 Mg Tablet 1 Tab PO DAILY Cyclobenzaprine Hcl 5 Mg Tablet 2 Tab PO BID Atorvastatin Calcium 40 Mg Tablet 1 Tab PO QHS Emu-Lac Hydrating Cream (Ammonium Lactate/Emu Oil) 120 Ml Cream.ml. 120 Ml TP PRN PRN 10 Days Cetirizine Hcl 10 Mg Tablet 1 Tab PO DAILY Oxycodone-Acetaminophen 10-325 (Oxycodone Hcl/Acetaminophen) 1 Each Tablet 1 Tab PO QID Loratadine 10 Mg Tablet 1 Tab PO DAILY Amlodipine Besylate 10 Mg Tablet 10 Mg PO DAILY Seroquel (Quetiapine Fumarate) 100 Mg Tablet 1 Tab PO QHS Zolpidem Tartrate 10 Mg Tablet 10 Mg PO PRN QHS PRN Lyrica (Pregabalin) 50 Mg Capsule 1 Cap PO BID Spiriva (Tiotropium [place]) 18 Mcg Cap.w.dev 1 Cap IH DAILY Xanax (Alprazolam) 1 Mg Tablet 1 Tab PO TID Lidoderm (Lidocaine) 700 Mg Adh..patch 700 Mg TP PRN 1X Advair 250-50 Diskus (Fluticasone/Salmeterol) 1 Each Disk.w.dev 1 Each IH BID Vitamin D3 (Cholecalciferol (Vitamin D3)) 50,000 Unit Capsule 50,000 Unit PO WEEKLY Iron (Ferrous Sulfate) 325 Mg Tablet 325 Mg PO DAILY Cymbalta (Duloxetine Hcl) 30 Mg Capsule.dr 60 Mg PO DAILY Vitals/I & O Vital Sign - Last 24 Hours 02/06/20 02/06/20 02/06/20 02/06/20 11:20 11:38 15:10 16:03 Temp 97.4 98.0 97.4 98.0 Pulse 106 107 Resp 18 18 B/P (MAP) 164/105 (124) 135/74 (94) Pulse Ox 91 96 94 96 O2 Delivery Nasal Cannula Nasal Cannula Nasal Cannula Nasal Cannula O2 Flow Rate 1.5 1.5 1.5 1.5 02/06/20 02/06/20 02/06/20 02/06/20 19:26 20:00 20:21 20:39 Temp 97.7 97.7 Pulse 109 Resp 18 18 B/P (MAP) 138/75 (96) Pulse Ox 93 100 O2 Delivery Nasal Cannula Nasal Cannula Nasal Cannula Nasal Cannula O2 Flow Rate 1.5 1.5 1.5 1.5 02/06/20 02/06/20 02/07/20 02/07/20 21:29 23:10 00:20 03:11 Temp 97.9 98.1 97.9 98.1 Pulse 105 100 Resp 18 18 B/P (MAP) 170/90 (116) 142/81 (101) Pulse Ox 99 97 100 O2 Delivery Nasal Cannula Nasal Cannula Nasal Cannula O2 Flow Rate 1.5 1.5 02/07/20 02/07/20 02/07/20 02/07/20 06:11 07:52 08:00 08:34 Temp 97.9 97.9 Pulse 96 96 Resp 18 B/P (MAP) 137/81 (99) 137/81 Pulse Ox 99 95 O2 Delivery Nasal Cannula Nasal Cannula O2 Flow Rate 1.5 1.5 02/07/20 02/07/20 10:10 10:44 Temp 97.1 97.1 Pulse 111 Resp 18 B/P (MAP) 135/73 (93) Pulse Ox 96 O2 Delivery Room Air Nasal Cannula O2 Flow Rate 1.5 Intake and Output 02/06/20 02/06/20 02/07/20 15:00 23:00 07:00 Intake Total 500 ml 980 ml 0 ml Output Total 600 ml 1000 ml 1 ml Balance -100 ml -20 ml -1 ml Justicifation of Admission Dx: Justifications for Admission: Justification of Admission Dx: Yes Respiratory Failure: Severe Resp Distress ANGELIKA PENG MD Feb 07, 2020 10:49
--- NOTE | 2020-02-07 12:48 | PDOC ---
STEVEN AMOS LENS GRINDER ROUGH 02/07/20 1248: CARDIO Progress Notes Date and Time Date of Service 02/07/20 Time of Evaluation 1218 Subjective Subjective: No Chest Pain, No Palpitations, Other (still slightly SOA) Vitals Vitals Vital Signs Date Time Temp Pulse Resp B/P (MAP) Pulse Ox O2 Delivery O2 Flow Rate FiO2 02/07/20 11:44 18 Nasal Cannula 1.5 02/07/20 10:10 97.1 111 135/73 (93) 96 97.1 Weight Weight [ ] Input and Output Intake and Output Intake and Output 02/07/20 07:00 Intake Total 1480 ml Output Total 1601 ml Balance -121 ml Intake Oral 1480 ml Output Urine Total 1600 ml Stool Total 1 ml # Voids 1 Laboratory Labs Laboratory Tests Test 02/06/20 17:12 02/06/20 21:01 02/07/20 07:44 Glucose (Fingerstick) 103 mg/dL (70-99) 129 mg/dL (70-99) 86 mg/dL (70-99) Microbiology Micro Microbiology 02/03/20 Blood Culture - Preliminary, Resulted NO GROWTH AFTER 3 DAYS 02/03/20 Urine Culture - Final, Complete Physical Exam HEENT: Neck Supple W Full Motion Chest: Symmetric LUNGS: Other (diminished) Heart: RRR (SR) Abdomen: Other (obese) Extremities: No Calf Tenderness Neurology: alert, oriented, follow commands Assessment Assessment 1. Atypical chest pain: possible MSK/GI. reproducible. Noncardiac. Consider outpatient ischemic evaluation 2. Hypertensive urgency; better controlled. Continuing meds 3. AECOPD, moderate pulm HTN; oxygen concentrator has not been functioning properly x2 days per PCP. 4. Chronic diastolic CHF; patient remains short of breath. Echocardiogram shows intact LV systolic function with mildly to moderate elevated PAP at 50 mmHg. Continuing medical treatment. 5. Diabetes, II; as per PCP 6. Hyperlipidemia; statin 7. Morbid obesity, suspected KANDI. Justicifation of Admission Dx: Justifications for Admission: Justification of Admission Dx: Yes Respiratory Failure: Severe Resp Distress SELINA BERMAN MD 02/08/20 1130: CARDIO Progress Notes Assessment Assessment Patient seen and examined on 02/07/20. Atypical chest pain: possible MSK/GI. reproducible. Noncardiac. Consider outpatient ischemic evaluation Hypertensive urgency; better controlled. Continuing meds AECOPD, moderate pulm HTN; followed by pulmonary Chronic diastolic CHF; patient remains short of breath. Echocardiogram shows intact LV systolic function with mildly to moderate elevated PAP at 50 mmHg. Continuing medical treatment. Hyperlipidemia; statin Morbid obesity, suspected KANDI. STEVEN AMOS APRN Feb 07, 2020 12:48 SELINA BERMAN MD Feb 08, 2020 11:30
--- NOTE | 2020-02-07 12:50 | NUR ---
SS following up with discharge planning. SS reviewed pt chart and discussed with pt RN. Pt is currently requiring oxygen. Pt received new walker and commode through [facility]. Pt needing home healthcare at discharge. Pt also needing outpatient sleep study. SS will continue to follow for discharge planning.
[2020-02-07 15:00] VITALS: BP 166/93
[2020-02-07] MEDS ORDERED: FUROSEMIDE 40 MG/4 ML VIAL. IVP ONE (17:15)
[2020-02-07 19:29] VITALS: BP 154/103
[2020-02-07] MEDS: QUEtiapine 100 MG TABLET. PO SCH (20:17)
[2020-02-07] MEDS: ATORVASTATIN CALCIUM 40 MG TABLET. PO SCH (20:17)
[2020-02-07] MEDS: diphenhydrAMINE HCL 25 MG CAPSULE PO SCH (20:17)
[2020-02-07] MEDS: PATCH REMOVAL. MC SCH (20:22)
[2020-02-07 22:42] VITALS: BP 140/76
[2020-02-08 03:14] VITALS: BP 120/83
[2020-02-08 07:00] VITALS: BP 132/78
[2020-02-08] MEDS: BUDESONIDE 0.5 MG/2 ML NEBU. NEB SCH (07:54)
[2020-02-08] MEDS: IPRATRPIUM/ALBUTEROL 0.5/2.5MG 3 ML NEBU. NEB SCH ×3 (07:54→16:23)
[2020-02-08] MEDS: ALPRAZolam 0.5 MG TABLET PO SCH ×2 (08:31→12:56)
[2020-02-08] MEDS: BENZONATATE 100 MG CAPSULE. PO SCH ×2 (08:32→12:56)
[2020-02-08] MEDS: oxyCODONE/APAP 10/325 1 TAB TABLET PO PRN (08:32)
[2020-02-08] MEDS: amLODIPine BESYLATE 10 MG TABLET PO SCH (08:32)
[2020-02-08] MEDS: PANTOPRAZOLE 40 MG TABLET.DR. PO SCH (08:32)
[2020-02-08] MEDS: ASPIRIN 325 MG TABLET PO SCH (08:32)
[2020-02-08] MEDS: PREGABALIN 50 MG CAPSULE PO SCH (08:32)
[2020-02-08] MEDS: FERROUS SULFATE 325 MG TABLET. PO SCH (08:33)
[2020-02-08] MEDS: CYCLOBENZAPRINE 10 MG TABLET. PO SCH (08:33)
[2020-02-08] MEDS: DULoxetine HCL 30 MG CAPSULE.DR PO SCH (08:33)
[2020-02-08] MEDS: CETIRIZINE HCL 10 MG TABLET. PO SCH (08:33)
[2020-02-08] MEDS: NYSTATIN TOPICAL POWDER 15GM BOTTLE. TP SCH (09:00)
[2020-02-08] MEDS: LIDOCAINE (700MG/PATCH) PATCH. TD SCH (09:00)
--- NOTE | 2020-02-08 09:48 | PDOC ---
PULMONARY PROGRESS NOTES DATE: 02/08/20 TIME: 09:45 Subjective feels better using BIPAP qhs Vitals Vital Signs Date Time Temp Pulse Resp B/P (MAP) Pulse Ox O2 Delivery O2 Flow Rate FiO2 02/08/20 08:32 107 132/78 02/08/20 08:00 Nasal Cannula 2.0 02/08/20 07:59 99 02/08/20 07:00 98.0 22 98.0 ROS: No Nausea, No Chest Pain, No Abdominal Pain, No Increase Cough General: Alert, No acute distress HEENT: Other Lungs: Other (decrease bases) Cardiovascular: S1, S2 Abdomen: Soft, Non-tender Neuro Exam: Alert Extremities: Other (Edema ) Skin: Warm Labs Laboratory Tests Test 02/06/20 12:17 02/06/20 17:12 02/06/20 21:01 02/07/20 07:44 Glucose (Fingerstick) 87 mg/dL (70-99) 103 mg/dL (70-99) 129 mg/dL (70-99) 86 mg/dL (70-99) Test 02/07/20 16:41 02/07/20 20:47 02/08/20 07:28 Glucose (Fingerstick) 115 mg/dL (70-99) 120 mg/dL (70-99) 124 mg/dL (70-99) Laboratory Tests Test 02/07/20 16:41 02/07/20 20:47 02/08/20 07:28 Glucose (Fingerstick) 115 mg/dL (70-99) 120 mg/dL (70-99) 124 mg/dL (70-99) Medications Active Scripts Medications Dose Route/Sig Max Daily Dose Days Date Category Esomeprazole Magnesium 40 Mg Capsule.dr 1 Tab PO BID 02/04/20 Reported Aspirin 325 Mg Tablet 1 Tab PO DAILY 02/04/20 Reported Cyclobenzaprine Hcl 5 Mg Tablet 2 Tab PO BID 02/04/20 Reported Atorvastatin Calcium 40 Mg Tablet 1 Tab PO QHS 02/04/20 Reported Emu-Lac Hydrating Cream (Ammonium Lactate/Emu Oil) 120 Ml Cream.ml. 120 Ml TP PRN PRN 10 02/04/20 Reported Cetirizine Hcl 10 Mg Tablet 1 Tab PO DAILY 02/04/20 Reported Chloraseptic (Phenol) 20 Ml [place] 2 Puff PO TID 7 11/28/19 Rx Opcon-A Eye Drops (Naphazoline Hcl/Pheniramine) 15 Ml Drops 1 Drop EACHEYE QID 10 11/28/19 Rx Naproxen 500 Mg Tablet 1 Tab PO BID PRN 10 03/28/19 Rx Tessalon Perle (Benzonatate) 100 Mg Capsule 1 Cap PO TID 02/27/19 Rx [place] 5-325 Tablet (Acetaminophen/Hydrocodone Bitart) 1 Each Tablet 1 Tab PO Q6HRS 10/22/18 Rx Pyridium (Phenazopyridine Hcl) 200 Mg Tablet 200 Mg PO TID 3 02/25/18 Rx Benadryl (Diphenhydramine Hcl) 25 Mg Capsule 1 Cap PO QHS 02/16/18 Rx Prednisone 20 Mg Tablet 2 Tab PO DAILY 3 02/02/18 Rx Guaifenesin Dm Syrup (Guaifenesin/Dextromethorphan) 5 Ml Syrup 10 Ml PO PRN Q6HRS PRN 09/01/17 Rx Nystop (Nystatin) 60 Gm Powder 1 Christine TP BID 10 09/01/17 Rx [Pantoprazole] 40 MG Tablet.dr 40 Mg PO BIDAC 30 09/01/17 Rx Duoneb 0.5-3(2.5) Mg/3 Ml (Albuterol/Ipratropium) 3 Ml Ampul.neb 3 Ml NEB RTQID 09/01/17 Rx Oxycodone-Acetaminophen 10-325 (Oxycodone Hcl/Acetaminophen) 1 Each Tablet 1 Tab PO QID 08/28/17 Reported Proair Hfa Inhaler (Albuterol Sulfate) 8.5 Gm Hfa.aer.ad 1 Puff INH Q4HRS PRN 06/18/17 Rx Loratadine 10 Mg Tablet 1 Tab PO DAILY 06/10/17 Reported Amlodipine Besylate 10 Mg Tablet 10 Mg PO DAILY 06/10/17 Reported Seroquel (Quetiapine Fumarate) 100 Mg Tablet 1 Tab PO QHS 06/10/17 Reported Zolpidem Tartrate 10 Mg Tablet 10 Mg PO PRN QHS PRN 06/10/17 Reported Lyrica (Pregabalin) 50 Mg Capsule 1 Cap PO BID 06/10/17 Reported Spiriva (Tiotropium [place]) 18 Mcg Cap.w.dev 1 Cap IH DAILY 06/10/17 Reported Xanax (Alprazolam) 1 Mg Tablet 1 Tab PO TID 06/10/17 Reported Lidoderm (Lidocaine) 700 Mg Adh..patch 700 Mg TP PRN 1X 05/15/13 Reported Advair 250-50 Diskus (Fluticasone/Salmeterol) 1 Each Disk.w.dev 1 Each IH BID 05/15/13 Reported Vitamin D3 (Cholecalciferol (Vitamin D3)) 50,000 Unit Capsule 50,000 Unit PO WEEKLY 05/15/13 Reported Iron (Ferrous Sulfate) 325 Mg Tablet 325 Mg PO DAILY 05/15/13 Reported Cymbalta (Duloxetine Hcl) 30 Mg Capsule.dr 60 Mg PO DAILY 05/15/13 Reported Impression . IMPRESSION: 1. [id number] hypercapnic hypoxemic respiratory failure. The patient presented with a pH of 7.29 with a PaCO2 of 70 on 2 liters of oxygen supplementation. Now compensated. 2. Fwqtg-[id number] diastolic heart failure. 3. [id number] cor pulmonale. The patient with a pulmonary artery pressure of 50 on recent echocardiogram. 4. Obstructive sleep apnea, the patient currently does not have CPAP at home. 5. Morbid obesity. 6. Chest pain, suspect possibly related to cor pulmonale. 7. Morbid obesity. 8. Type 2 diabetes. 9. Acute exacerbation of chronic obstructive pulmonary disease. Plan . Outpatient polysomnogram pt would benefit from nocturnal BIPAP or Trilogy Diuresis Possible right heart cath in the future no PE by CTA chest Nocturnal desat study, ok with [facility] home d/w onsite case manager LUZ WOODS MD Feb 08, 2020 09:48
--- NOTE | 2020-02-08 10:22 | PDOC ---
[employer] PROGRESS NOTE Date of Service DOS: DATE: 02/08/20 TIME: 10:12 Chief Complaint Chief Complaint IMPRESSION Chest pain Hypertensive urgency; better controlled AECOPD, moderate pulm HTN; oxygen concentrator has not been functioning properly x2 days per PCP Chronic diastolic CHF; compensated Diabetes, II Hyperlipidemia SUPER Morbid obesity,//KANDI HYPERCAPNEA , severe with hypoxic resp failure PLAN ABG CVC BED trial bipap keep spo2 91% NEEDS FULL SLEEP STUDY SHAN bipap trial D/W RN NEEDS FULL POLYSOMONOGRAPHY poor prognosis without BIPAP/ CPAP. History of Present Illness History of Present Illness 02/08/2020 Pt seen and examined. Chart reviewed. Discussed with RN and leather case finisher. Pt resting comfortably in bed, NAD 02/07/2020 Patient's chest pain has resolved. She reports chronic back and knee pain. further evaluation pending Echo Vitals/I&O Vitals/I&O: Vital Signs Date Time Temp Pulse Resp B/P (MAP) Pulse Ox O2 Delivery O2 Flow Rate FiO2 02/08/20 08:32 107 132/78 02/08/20 08:00 Nasal Cannula 2.0 02/08/20 07:59 99 02/08/20 07:00 98.0 22 98.0 I & O 02/07/20 02/07/20 02/08/20 15:00 23:00 07:00 Intake Total 500 ml 800 ml 2000 ml Output Total 1000 ml 400 ml Balance 500 ml -200 ml 1600 ml Physical Exam Physical Exam: HEENT: Normal cephalic, atraumatic, external auditory canals are patent EYES: Extraocular muscles are intact, pupil are equally round and reactive to light and accommodation MUSCULOSKELETAL: Well developed , well nourished, good range of motion ENDOCRINE: No thyromegaly was palpated LYMPHATICS: No cervical chain or axillary nodes were noted HEMATOPOIETIC: No bruising NECK: Supple, no JVD, no thyromegaly was noted LUNGS: Clear to auscultation in all lung chen without rhonchi or wheezing HEART: RRR, S1 S2 present. Peripheral pulses intact, no obvious murmurs noted. Reproducible substernal chest pain ABDOMEN: Soft, nontender. Positive bowel sounds, no organomegaly, normal bowel sounds EXTREMITIES: Without clubbing, cyanosis, or edema. Pedal pulses intact. Negative Homans sign NEUROLOGIC: Normal speech and tone. A&O x 3, moves all extremities, no obvious focal deficits PSYCHIATRIC: Normal affect, normal mood. Stable SKIN: No ulcerations or rashes, good skin turgor, no jaundice VASCULAR: Good capillary refill, neurovascular bundle appears to be intact General: Alert, Oriented X3, Cooperative, No acute distress Heart: Regular rate, Normal S1 Lungs: Other (decrease bases) Abdomen: Normal bowel sounds, No hepatosplenomegaly, Other (very obese) Extremities: No clubbing, No cyanosis Skin: No rashes, No significant lesion Labs Labs: Laboratory Tests Test 02/07/20 16:41 02/07/20 20:47 02/08/20 07:28 Glucose (Fingerstick) 115 mg/dL (70-99) 120 mg/dL (70-99) 124 mg/dL (70-99) Review of Systems Review of Systems: Pt denies weakness, pt denies NVD Assessment and Plan Assessmemt and Plan Problems Medical Problems: (1) Chest pain Status: Acute Assessment: Chronic respiratory failure Pulmonary HTN Sleep apnea Acute chest pain Plan: Inpatient sleep study completed, awaiting results Recommend outpatient sleep study Breathing treatment, appreciate specialist input PT/OT DVT prophylaxis Home meds Full code Discharge disposition pending, home health Comment Review of Relevant I have reviewed the following items bhavin (where applicable) has been applied. Medications: Current Medications Medications (Trade) Dose Ordered Sig/Rima Route PRN Reason Start Time Stop Time Status Last Admin Dose Admin Furosemide (Lasix) 40 mg 1X ONCE IVP 02/07/20 17:15 02/07/20 17:16 DC 02/07/20 17:42 Justifications for Admission Chest Pain Indications Serious Diagnosis?: Yes Justification for admission: Chest pain may be indicative of potentially serious diagnosis/diagnoses Please state condition(s) which will require inpatient level of care for further evaluation and management. Is patient at high risk?: Yes Justification for admission: Patient is high risk based on hemodynamic instability, CHF, abnormal EKG/ECG/cardiac biomarkers/physical exam findings in context of chest pain persisting despite parenteral analgesics & optimal anti-anginal therapy. Other Justification SHAD POTTER III DO Feb 08, 2020 10:22
[2020-02-08 10:48] VITALS: BP 146/88
--- NOTE | 2020-02-08 12:14 | RESP ---
DATE OF SERVICE: 02/07/2020 NOCTURNAL OXIMETRY STUDY The patient's mean oxygen saturation remained around 89.8% with lowest of 82%. 51% of time oxygen saturation remained less than 90%, which was 4 hours and 29 minutes. IMPRESSION: Sustained pattern of nocturnal hypoxia suggesting hypoventilation. RECOMMENDATIONS: If clinical suspicion for sleep apnea is high, then consider doing full polysomnogram. Otherwise, the patient would meet the criteria for nocturnal oxygen at least 2 liters. LUZ WOODS MD DR: UEYN/joel JOB#: [id number] / [id number]
--- NOTE | 2020-02-08 13:12 | SNU/HH DC ---
DISCHARGE WITH HOME HEALTH DISCHARGE INFORMATION: Discharge Date: Feb 08, 2020 Final Diagnosis: Problems Medical Problems: (1) Chest pain Status: Acute Condition on Discharge: Stable CODE STATUS: Code Status: Full HOME HEALTH: Face to Face: I certify this patient is under my care and that I, or a nurse practitioner or physician's training assistant working with me, had a face to face encounter that meets the physician face to face encounter requirements with this patient on []. RN For Eval/Treatment: Yes Physical Therapy For: Evalulation/Treatment Occupational Therapy For: Evaluation/Treatment Pt Meets Homebound Status: Poor coordination w/ amb., Unsteady balance w/ amb,, Extreme weakness w/ amb., Limited distance walking, Other: (patient unable to fit into the bathroom door) POST DISCHARGE ORDERS: Activity Instructions for Disc: No restrictions, Activity as tolerated Weight Bearing Status after Di: No restrictions, Full weight bearing DIET AFTER DISCHARGE: Regular Wound/Incision Care: No wound care needed CHECKS AFTER DISCHARGE: Checks after discharge: Check blood press - daily, Check blood sugar, ac/hs, Check your Temp as needed, Weigh Yourself Daily FOLLOW-UP: Follow up with: [facility] within one week TREATMENT/EQUIPMENT ORDERS: Adaptive Equipment Issued: None, Commode, Walker Discharge Respiratory Equipmen: Oxygen (Need Respiratory Therapasit for Trilogy needs ) CERTIFICATION STATEMENT: Certification Statement: Certification Statement: Based on the above finding, I certify that this patient is confined to the home and needs intermittent penitentiary care, physical therapy and/or speech therapy, or continues to need occupational therapy.~ This patient is under my care, and I have initiated the establishment of the plan of care.~ This patient will be followed by myself or a community physician who will periodically review the plan of care. Home Meds Active Scripts Phenol (Chloraseptic) 20 Ml [place], 2 PUFF PO TID for 7 Days, #1 VIAL 0 Refills Prov:GEOVANNI HAMILTON DO 11/28/19 Naphazoline Hcl/Pheniramine (OPCON-A EYE DROPS) 15 Ml Drops, 1 DROP EACHEYE QID for 10 Days, #15 ML 0 Refills Prov:GEOVANNI HAMILTON DO 11/28/19 Naproxen (NAPROXEN) 500 Mg Tablet, 1 TAB PO BID PRN for PAIN for 10 Days, #20 TAB 0 Refills Prov:ENRIKEQUIQUE HAMPTON Roseanne REVIT DRAFTER 03/28/19 Benzonatate (TESSALON PERLE) 100 Mg Capsule, 1 CAP PO TID, #21 CAP Prov:WIL ANTOINE REVIT DRAFTER 02/27/19 Hydrocodone/Apap 5-325 (NORCO 5-325 TABLET) 1 Each Tablet, 1 TAB PO Q6HRS, #6 TAB Prov:JEANCARLOSWIL GARIBAY REVIT DRAFTER 10/22/18 Phenazopyridine Hcl (PYRIDIUM) 200 Mg Tablet, 200 MG PO TID for 3 Days, #9 TAB 0 Refills Prov:ENRIKEQUIQUE FERNÁNDEZ REVIT DRAFTER 02/25/18 Diphenhydramine Hcl (BENADRYL) 25 Mg Capsule, 1 CAP PO QHS, #30 CAP Prov:TY THEODORE REVIT DRAFTER 02/16/18 Prednisone (PREDNISONE) 20 Mg Tablet, 2 TAB PO DAILY for 3 Days, #6 TAB Prov:SALLY NELSON 02/02/18 Guaifenesin/Dextromethorphan (GUAIFENESIN DM SYRUP) 5 Ml Syrup, 10 ML PO PRN Q6HRS PRN for COUGH, #100 MISC Prov:EM RADFORD MD 09/01/17 Nystatin (NYSTOP) 60 Gm Powder, 1 HUONG TP BID for 10 Days, MISC Prov:EM RADFORD MD 09/01/17 [Pantoprazole] 40 MG TABLET. No Conflict Check, 40 MG PO BIDAC for 30 Days Prov:EM RADFORD MD 09/01/17 Ipratropium/Albuterol Sulfate (DUONEB 0.5-3(2.5) MG/3 ML) 3 Ml Ampul.neb, 3 ML NEB RTQID, #100 ML Prov:EM RADFORD MD 09/01/17 Albuterol Sulfate (PROAIR HFA INHALER) 8.5 Gm Hfa.aer.ad, 1 PUFF INH Q4HRS PRN for SHORTNESS OF BREATH, #1 INHALER 0 Refills Prov:JOANIE LINCOLN DO 06/18/17 Reported Medications Esomeprazole Magnesium (Esomeprazole Magnesium) 40 Mg Capsule.dr, 1 TAB PO BID for 02/04/20 Aspirin (ASPIRIN) 325 Mg Tablet, 1 TAB PO DAILY for 02/04/20 Cyclobenzaprine Hcl (CYCLOBENZAPRINE HCL) 5 Mg Tablet, 2 TAB PO BID for 02/04/20 Atorvastatin Calcium (ATORVASTATIN CALCIUM) 40 Mg Tablet, 1 TAB PO QHS for 02/04/20 Ammonium Lactate/Emu Oil (EMU-LAC HYDRATING CREAM) 120 Ml Cream.ml., 120 ML TP PRN PRN for PAIN for 10 Days, EACH 02/04/20 Cetirizine Hcl (CETIRIZINE HCL) 10 Mg Tablet, 1 TAB PO DAILY for , #30 TAB 5 Refills 02/04/20 Oxycodone Hcl/Acetaminophen (OXYCODONE-ACETAMINOPHEN 10-325) 1 Each Tablet, 1 TAB PO QID, #120 TAB 08/28/17 Loratadine (LORATADINE) 10 Mg Tablet, 1 TAB PO DAILY, #30 TAB 5 Refills 06/10/17 Amlodipine Besylate (AMLODIPINE BESYLATE) 10 Mg Tablet, 10 MG PO DAILY, TAB 06/10/17 Quetiapine Fumarate (SEROQUEL) 100 Mg Tablet, 1 TAB PO QHS, #30 TAB 1 Refill 06/10/17 Zolpidem Tartrate (ZOLPIDEM TARTRATE) 10 Mg Tablet, 10 MG PO PRN QHS PRN for INSOMNIA, TAB 0 Refills 06/10/17 Pregabalin (LYRICA) 50 Mg Capsule, 1 CAP PO BID, #60 CAP 06/10/17 Tiotropium [place] (SPIRIVA) 18 Mcg Cap.w.dev, 1 CAP IH DAILY, #30 CAP 3 Refills 06/10/17 Alprazolam (XANAX) 1 Mg Tablet, 1 TAB PO TID, #90 TAB 06/10/17 Lidocaine (LIDODERM) 700 Mg Adh..patch, 700 MG TP PRN 1X 05/15/13 Fluticasone/Salmeterol (ADVAIR 250-50 DISKUS) 1 Each Disk.w.dev, 1 EACH IH BID 05/15/13 Cholecalciferol (Vitamin D3) (VITAMIN D3) 50,000 Unit Capsule, 39554 UNIT PO WEEKLY 05/15/13 Ferrous Sulfate (IRON) 325 Mg Tablet, 325 MG PO DAILY 05/15/13 Duloxetine Hcl (CYMBALTA) 30 Mg Capsule.dr, 60 MG PO DAILY for 05/15/13 Discontinued Reported Medications Atorvastatin Calcium (ATORVASTATIN CALCIUM) 20 Mg Tablet, 1 TAB PO DAILY for , #30 TAB 5 Refills 02/04/20 SHAD POTTER III DO Feb 08, 2020 13:12
--- NOTE | 2020-02-08 14:10 | NUR ---
SS following up with discharge planning. SS reviewed pt chart and discussed with pt RN. Discharge orders on the chart for home healthcare. Pt agreeable to home healthcare with [facility], ; fax [phone]. Discharge orders and referral phoned and faxed to [facility]. Clinical phoned and faxed to [facility], ; fax [phone]. Pt meets criteria for Trilogy machine. Flores working with Pulmonology to complete Trilogy order. Pt will need prior authorization from insurance prior to delivery. Pt has home oxygen with [facility]. Walker and commode delivered by [employer] and pt's family took home. Pt will discharge today and return to home via [facility] transport at 1700. Pt's RN and pt's daughter notified.
[2020-02-08 15:00] VITALS: BP 138/79
--- NOTE | 2020-02-08 17:17 | NUR ---
Upon patient to discharge home with [facility], patient stated to nurse that her home O2 was not working but patient could not state why it wasn't working. Commodity Supervisor notified nursing licensed retail supervisor MELLISA Pickens. Nelia provided sleepcare phone number. Spoke with Kortney at sleep care and stated that Elio with sleep care would be out to patient house this evening to access what was wrong with her home O2. SARAH provided with sleep care number as well.
[2020-02-13] MEDS ORDERED: ERGOCALCIFEROL (VITAMIN D2) 50,000 UNIT CAPSULE. PO SCH (09:00)
== END 2020-02-08 17:26 | disposition home health service (06) | DRG 291 ==
LOC: ER 12:41 → ED HOLD 16:04 → 2 NORTH 17:38
PROVIDERS: ADMIT Internal Medicine; ATTEND Internal Medicine
DX: I11.0 Hypertensive heart disease with heart failure (principal); J96.21 Acute and chronic respiratory failure with hypoxia; J96.22 Acute and chronic respiratory failure with hypercapnia; J44.1 Chronic obstructive pulmonary disease with (acute) exacerbation; J98.11 Atelectasis; Z68.45 Body mass index [BMI] 70 or greater, adult; I16.0 Hypertensive urgency; R07.89 Other chest pain; I50.33 Acute on chronic diastolic (congestive) heart failure; E03.9 Hypothyroidism, unspecified; E10.42 Type 1 diabetes mellitus with diabetic polyneuropathy; E66.01 Morbid (severe) obesity due to excess calories; E78.5 Hyperlipidemia, unspecified; G47.33 Obstructive sleep apnea (adult) (pediatric); G89.29 Other chronic pain; I27.29 Other secondary pulmonary hypertension; I27.81 Cor pulmonale (chronic); Z79.4 Long term (current) use of insulin; Z82.49 Family history of ischemic heart disease and other diseases of the circulatory system; Z83.3 Family history of diabetes mellitus; Z87.891 Personal history of nicotine dependence; Z90.710 Acquired absence of both cervix and uterus; Z99.81 Dependence on supplemental oxygen; F41.9 Anxiety disorder, unspecified; K21.9 Gastro-esophageal reflux disease without esophagitis; K57.90 Diverticulosis of intestine, part unspecified, without perforation or abscess without bleeding; M19.90 Unspecified osteoarthritis, unspecified site; Z90.49 Acquired absence of other specified parts of digestive tract; Z79.899 Other long term (current) drug therapy; Z88.8 Allergy status to other drugs, medicaments and biological substances
CPT/HCPCS: 96374; 99285; C8929; 36415; 36600; 71045; 71275; 80048; 80053; 80061; 80307; 81001; 82805; 82962; 83605; 83690; 83735; 83880; 84443; 84484; 85025; 85610; 87040; 87086; 93005; 94640; 94660; 94760; 94799; J1650; J1940; J2270; J3490; Q9956; Q9967; 97110-GO; 97110-GP; 97116-GP; 97530-GP; 97535-GO; G0378; J7626; Q0163